=== PATIENT | male | born 1955 | race African-American/Black ===

== ENCOUNTER 2016-12-06 03:46 | Observation (INO) | payer SELFPAY ==
[~2016-12-06] VITALS: Ht 185.4 cm; Wt 77.0 kg
[~2016-12-06 03:46] MED LIST: TRAM50 PO; Z.0.NO CURRENT MEDS
[2016-12-06 03:48] VITALS: BP 125/73; PULSE 72; RESP 16; TEMP 98.4; O2SAT 98
[2016-12-06] MEDS ORDERED: SODIUM CHLORIDE 0.9% FLUSH 10 ML FLUSH IVF PRN (05:15)
--- NOTE | 2016-12-06 05:20 | PD ---
HPI Chief Complaint: Pain: Acute or Chronic Time Seen by Provider: 04:58 Travel History International Travel<30 days: No Contact w/Intl Traveler<30days: No Traveled to known affect area: No History of Present Illness HPI PATIENT STATED THAT WOKE UP TO SHARP CHEST ACROSS CHEST ABOUT 3HRS AGO, 09/28, NONRAD, NO ALLEVIATING/AGGRAVATING FACTORS, CURRENTLY CP 03/31, DENIES COUGH/ RUNNY NOSE/SORE THROAT/FEVER/N/V/D/ PCP DR SALAS NO ONCOLOGIST YET PMHX: ONLY RECENTLY DIAGNOSED COLON CANCER, HAS A RIGHT CHEST PORT IN PLACE, NO CHEMO, NO OTHER TREATMENT YET. PFSH Past Medical History Cardiovascular Problems: No Diminished Hearing: No Gastrointestinal Disorders: Yes (STAGE 4 COLON CANCER CURRENTLY) Genitourinary: No Inguinal Hernia: Yes Musculoskeletal: No Neurologic: No Reproductive: No Respiratory: No Tetanus Vaccination: < 5 Years Past Surgical History Appendectomy: Yes Other Surgery: No Social History Alcohol Use: No (QUIT 5 YRS AGO) Tobacco Use: Yes (02/20 PPD) Substance Use: No Allergies-Medications (Allergen,Severity, Reaction): Coded Allergies: No Known Allergies (Verified , 02/23/12) Reported Meds & Prescriptions Reported Meds & Active Scripts Active Ultram (Tramadol HCl) 50 Mg Tab 1 Tab PO Q6HPRN Review of Systems Except as stated in HPI: all other systems reviewed are Neg General / Constitutional: No: Fever Eyes: No: Visual changes HENT: No: Headaches Cardiovascular: Positive: Chest Pain or Discomfort Respiratory: No: Shortness of Breath Gastrointestinal: No: Abdominal Pain Genitourinary: No: Dysuria Musculoskeletal: No: Pain Skin: No Rash Neurologic: No: Weakness Psychiatric: No: Depression Endocrine: No: Polydipsia Hematologic/Lymphatic: No: Easy Bruising Physical Exam Narrative GENERAL: SKIN: Warm and dry. HEAD: Atraumatic. Normocephalic. EYES: Pupils equal and round. No scleral icterus. No injection or drainage. ENT: No nasal bleeding or discharge. Mucous membranes pink and moist. NECK: Trachea midline. No JVD. CARDIOVASCULAR: Regular rate and rhythm. RESPIRATORY: No accessory muscle use. Clear to auscultation. Breath sounds equal bilaterally. GASTROINTESTINAL: Abdomen soft, non-tender, nondistended. MUSCULOSKELETAL: Extremities without clubbing, cyanosis, or edema. No obvious deformities. NEUROLOGICAL: Awake and alert. No obvious cranial nerve deficits. Motor grossly within normal limits. Five out of 5 muscle strength in the arms and legs. Normal speech. PSYCHIATRIC: Appropriate mood and affect; insight and judgment normal. Data Data Last Documented VS Orders Orders Electrocardiogram (12/06/16 05:09) B-Type Natriuretic Peptide (12/06/16 05:09) Ckmb (Isoenzyme) Profile (12/06/16 05:09) Complete Blood Count With Diff (12/06/16 05:09) Comprehensive Metabolic Panel (12/06/16 05:09) Prothrombin Time / Inr (Pt) (12/06/16 05:09) Act Partial Throm Time (Ptt) (12/06/16 05:09) Troponin I (12/06/16 05:09) Lipase (12/06/16 05:09) Ecg Monitoring (12/06/16 05:09) Bilateral Bp Monitoring (12/06/16 05:09) Iv Access Insert/Monitor (12/06/16 05:09) Oximetry (12/06/16 05:09) Oxygen Administration (12/06/16 05:09) Sodium Chloride 0.9% Flush (Ns Flush) (12/06/16 05:15) Ct Pulmonary Angiogram (12/06/16 05:09) Iohexol 350 Inj (Omnipaque 350 Inj) (12/06/16 05:45) Admit Order (Ed Use Only) (12/06/16 06:19) Activity Bed Rest With Brp (12/06/16 06:19) Vital Signs (Adult) Q4H (12/06/16 06:19) Cardiac Rhythm .As Directed (12/06/16 06:19) Notify Dr: Other .PRN (12/06/16 06:19) Notify Dr. Parameters (12/06/16 06:19) Resp Oxygen Nasal Cannula (12/06/16 ) Ckmb (Isoenzyme) Profile (12/06/16 06:19) Ckmb (Isoenzyme) Profile (12/06/16 09:19) Troponin I (12/06/16 06:19) Troponin I (12/06/16 09:19) Electrocardiogram (12/06/16 06:19) ^ Obtain (12/06/16 06:19) Sodium Chloride 0.9% Flush (Ns Flush) (12/06/16 06:30) Sodium Chloride 0.9% Flush (Ns Flush) (12/06/16 09:00) Ondansetron Inj (Zofran Inj) (12/06/16 06:30) Nitroglycerin Sl (Nitrostat Sl) (12/06/16 06:30) Aspirin Chew (Aspirin Chew) (12/06/16 06:30) Organ Pipe Maker Metal / Telemetry RODNEY.Q8H (12/06/16 06:19) Labs Laboratory Tests Test 12/06/16 05:20 White Blood Count 6.1 TH/MM3 Red Blood Count 5.32 MIL/MM3 Hemoglobin 14.1 GM/DL Hematocrit 42.9 % Mean Corpuscular Volume 80.6 FL Mean Corpuscular Hemoglobin 26.5 PG Mean Corpuscular Hemoglobin Concent 32.8 % Red Cell Distribution Width 13.6 % Platelet Count 262 TH/MM3 Mean Platelet Volume 8.2 FL Neutrophils (%) (Auto) 42.1 % Lymphocytes (%) (Auto) 41.2 % Monocytes (%) (Auto) 10.3 % Eosinophils (%) (Auto) 5.4 % Basophils (%) (Auto) 1.0 % Neutrophils # (Auto) 2.6 TH/MM3 Lymphocytes # (Auto) 2.5 TH/MM3 Monocytes # (Auto) 0.6 TH/MM3 Eosinophils # (Auto) 0.3 TH/MM3 Basophils # (Auto) 0.1 TH/MM3 CBC Comment DIFF FINAL Differential Comment Prothrombin Time 10.6 SEC Prothromb Time International Ratio 1.0 RATIO Activated Partial Thromboplast Time 26.0 SEC Blood Urea Nitrogen 8 MG/DL Creatinine 0.89 MG/DL Random Glucose 82 MG/DL Total Protein 7.4 GM/DL Albumin 3.6 GM/DL Calcium Level 9.0 MG/DL Alkaline Phosphatase 79 U/L Aspartate Amino Transf (AST/SGOT) 15 U/L Alanine Aminotransferase (ALT/SGPT) 25 U/L Total Bilirubin 0.2 MG/DL Sodium Level 140 MEQ/L Potassium Level 4.1 MEQ/L Chloride Level 108 MEQ/L Carbon Dioxide Level 26.5 MEQ/L Anion Gap 6 MEQ/L Estimat Glomerular Filtration Rate 106 ML/MIN Total Creatine Kinase 65 U/L Troponin I LESS THAN 0.02 NG/ML B-Type Natriuretic Peptide 36 PG/ML Lipase 163 U/L MDM Medical Decision Making Medical Screen Exam Complete: Yes Emergency Medical Condition: Yes Medical Record Reviewed: Yes Interpretation(s) NSR 60, NO STEMI PATTERN, SOME J POINT ELEV Differential Diagnosis STEMI V NONSTEMI V PE V PNA V PTX Narrative Course patien ekg did not show stemi, cxr neg for pna/ptx, ct neg for pe/pericardial effusion/thoracic aneurysm/dissection. at this point prudent to place in obs to the chest pain center for further cardiac risk stratification Diagnosis Primary Impression: CHEST PAIN Admitting Information Admitting Physician Requests: Daniel Rodney MD Dec 06, 2016 05:20
[2016-12-06 05:34] LABS: AUTOMATED NEUTROPHIL # 2.6 TH/MM3 (1.8-7.7); BASOPHIL # 0.1 TH/MM3 (0-0.2); EOSINOPHIL # 0.3 TH/MM3 (0-0.4); EOSINOPHIL % 5.4 % (0.0-4.0); HEMATOCRIT 42.9 % (39.0-51.0); HEMO FLAGS DIFF FINAL; LYMPH % 41.2 % (9.0-44.0); LYMPHOCYTE # 2.5 TH/MM3 (1.0-4.8); MEAN CELL VOLUME 80.6 FL (80.0-100.0); MEAN CORPUSCULAR HEMOGLOBIN 26.5 PG (27.0-34.0); MEAN CORPUSCULAR HGB CONC 32.8 % (32.0-36.0); MONO % 10.3 % (0.0-8.0); NEUT % 42.1 % (16.0-70.0); PLATELET COUNT 262 TH/MM3 (150-450); RED BLOOD COUNT 5.32 MIL/MM3 (4.50-5.90); RED CELL DISTRIBUTION WIDTH 13.6 % (11.6-17.2); WHITE BLOOD COUNT 6.1 TH/MM3 (4.0-11.0)
[2016-12-06] MEDS ORDERED: IOHEXOL 350 MG/ML 10 ML VIAL (for RAD DIAG) IVCONTRAST ONE (05:45)
[2016-12-06 05:47] LABS: PROTHROMBIN TIME - PATIENT 10.6 SEC (9.8-11.6)
[2016-12-06 05:51] LABS: ALT (GPT) 25 U/L (12-78); ANION GAP 6 MEQ/L (5-15); AST (GOT) 15 U/L (15-37); BICARBONATE 26.5 MEQ/L (21.0-32.0); BLOOD UREA NITROGEN 8 MG/DL (7-18); CHLORIDE 108 MEQ/L (98-107); GLOMERULAR FILTRATION RATE 106 ML/MIN (>89); POTASSIUM 4.1 MEQ/L (3.5-5.1); SODIUM (NA) 140 MEQ/L (136-145); TOTAL BILIRUBIN ADULT 0.2 MG/DL (0.2-1.0)
[2016-12-06 05:53] LABS: ALKALINE PHOSPHATASE 79 U/L (45-117)
[2016-12-06 06:01] VITALS: BP 136/82; PULSE 57; RESP 17; O2SAT 100
--- NOTE | 2016-12-06 06:05 | RADRPT ---
EXAM DATE/TIME: 12/06/2016 05:43 [facility] COMPARISON: No previous studies available for comparison. INDICATIONS : Chest pain. IV CONTRAST: 70 cc Omnipaque 350 (iohexol) IV RADIATION DOSE: 23.49 CTDIvol (mGy) MEDICAL HISTORY : Carcinoma, colon. SURGICAL HISTORY : Appendectomy. Port placement. ENCOUNTER: Initial ACUITY: 1 day PAIN SCALE: 8/10 LOCATION: Bilateral chest TECHNIQUE: Volumetric scanning of the chest was performed using a pulmonary embolism protocol MIP images were re constructed. Using automated exposure control and adjustment of the mA and/or kV according to patien t size, radiation dose was kept as low as reasonably achievable to obtain optimal diagnostic quality images. DICOM format image data is available electronically for review and comparison. Follow-up recommendations for detected pulmonary nodules are based at a minimum on nodule size and pa tient risk factors according to Fleischner Society Guidelines. FINDINGS: PULMONARY ARTERIES: No filling defects are seen in the pulmonary arteries through the segmental level. LUNGS: There is no consolidation or pneumothorax . No concerning pulmonary nodule is visualized. PLEURAE: There is no pleural thickening or pleural effusion. There is eventration of the left hemidiaphragm. MEDIASTINUM: There is good visualization of the great vessels of the middle mediastinum. No evidence of mediastin al or hilar adenopathy/mass. Coronary artery calcifications are present. MUSCULOSKELETAL: Within normal limits for patient age. MISCELLANEOUS: The visualized upper abdominal organs demonstrate no acute abnormality. CONCLUSION: 1. No evidence of pulmonary embolism. Vikas Escamilla MD on December 06, 2016 at 6:00 Board Certified Radiologist. This report was verified electronically.
[2016-12-06 06:06] LABS: CREATINE KINASE 65 U/L (39-308)
[2016-12-06] MEDS ORDERED: ASPIRIN 81 MG CHEW TAB PO ONE (06:30)
[2016-12-06] MEDS ORDERED: NITROGLYCERIN 0.4 MG SL 25 TABS/BTL SL PRN (06:30)
[2016-12-06] MEDS ORDERED: SODIUM CHLORIDE 0.9% FLUSH 10 ML FLUSH IV FLUSH PRN (06:30)
[2016-12-06] MEDS ORDERED: ONDANSETRON HCL 4 MG/2 ML VIAL IV PUSH PRN (06:30)
[2016-12-06 07:12] VITALS: BP 138/75; PULSE 58; RESP 16; TEMP 98.3; O2SAT 100
[2016-12-06 08:21] LABS: CREATINE KINASE 122 U/L (39-308)
[2016-12-06 08:33] LABS: CKMB 0.6 NG/ML (0.5-3.6)
[2016-12-06] MEDS ORDERED: SODIUM CHLORIDE 0.9% FLUSH 10 ML FLUSH IV FLUSH SCH (09:00)
[2016-12-06 09:39] VITALS: BP 129/73; PULSE 53; RESP 22; TEMP 97.7; O2SAT 99
--- NOTE | 2016-12-06 10:23 | HHI.HP ---
[facility] Primary Care Physician Bell Ruiz MD Chief Complaint Chest pain History of Present Illness This is a 61-year-old male states recently diagnosed stage IV colon cancer that presents to ED with a complaint of chest discomfort and chronic lower abdominal discomfort. States the chest discomfort began about midnight last night. As sharp. Her last for a few seconds but reoccurred a few times. He had no shortness of breath, nausea, or diaphoresis with the. This concerned him and a sister so he came to the ED. Also complaining of chronic lower abdominal pain. States he was admitted for quite some time in [facility] for this and was diagnosed November 20 with stage IV colon cancer. He has followed an oncologist at [facility] and has a port. Really is not aware of any further plan, states he was not happy with them and is looking for different oncologist. Denies black or tarry stool. He has not been vomiting. States the discomfort is the same discomfort has been having in that he was prescribed Dilaudid and tramadol for. States he does not like to take tramadol as he is worried will cause constipation. Denies fevers or chills. Currently denies chest discomfort. Cannot recall having a prior stress test. Review of Systems General: Patient denies fevers, chills recent, and recent travel HEENT: Patient denies headache, sore throat, difficulty swallowing. Cardiovascular: Has the chest discomfort as mentioned above. Denies sensation of heart beating rapidly or irregularly. No syncope. Denies diaphoresis. Respiratory: Denies shortness of breath or inspirational chest discomfort. Denies coughing wheezing or hemoptysis. GI: He has had lower abdominal discomfort for months, states he's recent diagnosed with stage IV colon cancer. Patient denies nausea, vomiting, diarrhea , bloody stools. Musculoskeletal: Patient denies joint pain or edema. Denies calf pain or edema. Neurovascular: Patient denies numbness, tingling, weakness in extremities. Denies headache. Endocrine: Denies polyuria and polydipsia. Hematologic: Denies easy bruising. Skin: Denies rash or itching. Past Family Social History Allergies: Coded Allergies: No Known Allergies (Verified , 02/23/12) Past Medical History States he's recent diagnosed with colon cancer. Tobacco abuse. Denies hypertension, diabetes, CAD, and hyperlipidemia but also readily admits he never really followed with her PCP to have this evaluated. Past Surgical History Colonoscopy recently. Appendectomy. Reported Medications Reported Meds & Active Scripts Active Ultram (Tramadol HCl) 50 Mg Tab 1 Tab PO Q6HPRN Reported No Current Meds (Miscellaneous Medication) Misc Active Ordered Medications Current Medications Medications (Trade) Dose Ordered Sig/Deepika Route Start Time Stop Time Status Last Admin (NS Flush) 2 ml UNSCH PRN IVF 12/06/16 05:15 (NS Flush) 2 ml UNSCH PRN IV FLUSH 12/06/16 06:30 (NS Flush) 2 ml BID IV FLUSH 12/06/16 09:00 12/06/16 09:04 (Zofran Inj) 4 mg Q6H PRN IV PUSH 12/06/16 06:30 (Nitrostat Sl) 0.4 mg Q5M PRN SL 12/06/16 06:30 Family History Denies family history of CAD. Social History Patient smoking any cigarettes for last 4 months. Prior that he smoked one half pack of cigarettes daily for 35 years. Denies alcohol or illicit drugs. Physical Exam Vital Signs Vital Signs Date Time Temp Pulse Resp B/P (MAP) Pulse Ox O2 Delivery O2 Flow Rate FiO2 12/06/16 09:39 97.7 53 22 129/73 (91) 99 12/06/16 09:14 12/06/16 07:12 98.3 58 16 138/75 (96) 100 Room Air 12/06/16 06:01 57 17 136/82 (100) 100 Room Air 12/06/16 03:48 98.4 72 16 125/73 (90) 98 Room Air Physical Exam GENERAL: This is a well-nourished, well-developed patient, in no apparent distress. Patient speaks in clear complete sentences. Patient is pleasant. HEENT: Head is atraumatic and normocephalic. Neck is supple without lymphadenopathy and trachea is midline. No JVD or carotid bruits. CARDIOVASCULAR: Regular rate and rhythm without murmurs, gallops, or rubs. RESPIRATORY: Clear to auscultation. Breath sounds equal bilaterally. No wheezes , rales, or rhonchi. Chest wall is nontender. No use of accessory muscles. GASTROINTESTINAL: There is some lower abdominal discomfort when palpating. No guarding or rebound. Abdomen soft. States this is his chronic abdominal pain. No obvious pulsatile mass or bruit. No CVA tenderness. Strong femoral pulses bilaterally. Normal bowel sounds in all quadrants. MUSCULOSKELETAL: Patient is moving upper and lower extremities freely. No calf tenderness or edema, no Homans sign. Strong pulses in upper and lower extremities. NEUROLOGICAL: Patient is alert and oriented. Cranial nerves 2-12 are grossly intact. No focal deficits and speech is clear. SKIN: No rash and turgor is normal. Laboratory Laboratory Tests Test 12/06/16 05:20 12/06/16 06:38 White Blood Count 6.1 Red Blood Count 5.32 Hemoglobin 14.1 Hematocrit 42.9 Mean Corpuscular Volume 80.6 Mean Corpuscular Hemoglobin 26.5 Mean Corpuscular Hemoglobin Concent 32.8 Red Cell Distribution Width 13.6 Platelet Count 262 Mean Platelet Volume 8.2 Neutrophils (%) (Auto) 42.1 Lymphocytes (%) (Auto) 41.2 Monocytes (%) (Auto) 10.3 Eosinophils (%) (Auto) 5.4 Basophils (%) (Auto) 1.0 Neutrophils # (Auto) 2.6 Lymphocytes # (Auto) 2.5 Monocytes # (Auto) 0.6 Eosinophils # (Auto) 0.3 Basophils # (Auto) 0.1 CBC Comment DIFF FINAL Differential Comment Prothrombin Time 10.6 Prothromb Time International Ratio 1.0 Activated Partial Thromboplast Time 26.0 Blood Urea Nitrogen 8 Creatinine 0.89 Random Glucose 82 Total Protein 7.4 Albumin 3.6 Calcium Level 9.0 Alkaline Phosphatase 79 Aspartate Amino Transf (AST/SGOT) 15 Alanine Aminotransferase (ALT/SGPT) 25 Total Bilirubin 0.2 Sodium Level 140 Potassium Level 4.1 Chloride Level 108 Carbon Dioxide Level 26.5 Anion Gap 6 Estimat Glomerular Filtration Rate 106 Total Creatine Kinase 65 122 Troponin I LESS THAN 0.02 LESS THAN 0.02 B-Type Natriuretic Peptide 36 Lipase 163 Creatine Kinase MB 0.6 Result Diagram: 12/06/1651912/06/16519 Caprini VTE Risk Assessment Caprini VTE Risk Assessment: Mod/High Risk (score >= 2) Caprini Risk Assessment Model Point Value = 1 Point Value = 2 Point Value = 3 Point Value = 5 Age 41-60 Minor surgery BMI > 25 kg/m2 Swollen legs Varicose veins or History of unexplained or recurrent spontaneous Oral contraceptives or hormone replacement Sepsis (< 1 month) Serious lung disease, including pneumonia (< 1 month) Abnormal pulmonary function Acute myocardial infarction Congestive heart failure (< 1 month) History of inflammatory bowel disease Medical patient at bed rest Age 61-74 Arthroscopic surgery Major open surgery (> 45 min) Laparoscopic surgery (> 45 min) Malignancy Confined to bed (> 72 hours) Immobilizing plaster cast Central venous access Age >= 75 History of VTE Family history of VTE Factor V Leiden Prothrombin [id number] Lupus anticoagulant Anticardiolipin antibodies Elevated serum homocysteine Heparin-induced thrombocytopenia Other congenital or acquired thrombophilia Stroke (< 1 month) Elective arthroplasty Hip, pelvis, or leg fracture Acute spinal cord injury (< 1 month) Prophylaxis Regimen Total Risk Factor Score Risk Level Prophylaxis Regimen 0-1 Low Early ambulation 2 Moderate Order ONE of the following: *Sequential Compression Device (SCD) *Heparin 5000 units SQ BID 3-4 Higher Order ONE of the following medications: *Heparin 5000 units SQ TID *Enoxaparin/Lovenox 40 mg SQ daily (WT < 150 kg, CrCl > 30 mL/min) *Enoxaparin/Lovenox 30 mg SQ daily (WT < 150 kg, CrCl > 10-29 mL/min) *Enoxaparin/Lovenox 30 mg SQ BID (WT < 150 kg, CrCl > 30 mL/min) AND/OR *Sequential Compression Device (SCD) 5 or more Highest Order ONE of the following medications: *Heparin 5000 units SQ TID (Preferred with Epidurals) *Enoxaparin/Lovenox 40 mg SQ daily (WT < 150 kg, CrCl > 30 mL/min) *Enoxaparin/Lovenox 30 mg SQ daily (WT < 150 kg, CrCl > 10-29 mL/min) *Enoxaparin/Lovenox 30 mg SQ BID (WT < 150 kg, CrCl > 30 mL/min) AND *Sequential Compression Device (SCD) Assessment and Plan Assessment and Plan * Chest pain: Patient will have serial cardiac enzymes and EKGs for ruling out purposes. He will be seen by Dr. Mayer of cardiology in the chest pain center and undergo a Lexiscan. He will be discharged if the Lexiscan is nonischemic with instructions to follow-up with PCP as well as with oncology. * Chronic abdominal pain: Patient states he was diagnosed with colon cancer November 20, 2016. He will need to follow-up with oncology. Patient is stable at this time. He is agreeable to this plan. Jordy Corey Dec 06, 2016 10:23
[2016-12-06] MEDS ORDERED: REGADENOSON INJ 0.4 MG/5 ML SYR ONE (10:34)
--- NOTE | 2016-12-06 11:59 | RADRPT ---
EXAM DATE/TIME: 12/06/2016 10:10 [facility] COMPARISON: No previous studies available for comparison. INDICATIONS : Chest pain for one day. Angina. DOSE: 25.7 mCi Tc99m Myoview at stress. 8.7 mCi Tc99m Myoview at rest. 0.4 mg Lexiscan STRESS SYMPTOMS: Chest pressure, shortness of breath. EJECTION FRACTION: 63% MEDICAL HISTORY : Carcinoma, colon. Smoking history. SURGICAL HISTORY : Inguinal hernia repair. ENCOUNTER: Initial ACUITY: 1 day PAIN SCALE: 8/10 LOCATION: Bilateral chest TECHNIQUE: The patient underwent pharmacologic stress with infusion of prescribed dose. Continuous ECG tracing was monitored during stress. Gated SPECT imaging was performed after stress and conventional SPECT i maging was performed at rest. The examination was performed on a SPECT/CT scanner, both attenuation and non-corrected datasets were reviewed. FINDINGS: DISTRIBUTION: The maximum perfused segment at stress is in the anteroseptal wall. PERFUSION STUDY: There is 10% redistribution involving the anterior wall. No significant redistribution of greater jah n 20% appreciated. GATED STUDY: There is intact wall motion and thickening without hypokinetic or dyskinetic segments. CONCLUSION: No reversible defects observed to suggest acute ischemia. RISK CATEGORY: Low Avel Griffin Jr., MD on December 06, 2016 at 11:53 Board Certified Radiologist. This report was verified electronically.
[2016-12-06 12:09] VITALS: PULSE 53
[2016-12-06 12:49] VITALS: BP 113/62; PULSE 59; RESP 20; TEMP 98.1; O2SAT 100
--- NOTE | 2016-12-06 14:09 | HHI.DCPOC ---
Discharge Care Plan Diagnosis: (1) Chest pain, atypical (2) Tobacco abuse Goals to Promote Your Health * To prevent worsening of your condition and complications * To maintain your health at the optimal level Directions to Meet Your Goals Take your medications as prescribed Follow your dietary instruction Follow activity as directed Keep your appointments as scheduled Take your immunizations and boosters as scheduled If your symptoms worsen call your PCP, if no PCP go to Urgent Care Center or Emergency Room Smoking is Dangerous to Your Health. Avoid second hand smoke Call the 24-hour hour crisis hotline for domestic abuse at Jordy Corey Dec 06, 2016 14:09
[2016-12-06 15:03] LABS: CREATINE KINASE 53 U/L (39-308)
--- NOTE | 2016-12-06 15:24 | TR ---
Date Performed: 12/06/2016 Time Performed: 10:41:53 DOCTOR: Paulino Mayer DRUG LIST: CLINICAL HISTORY: ANGINA REASON FOR TEST: REASON FOR ENDING: OBSERVATION: CONCLUSION: Lexiscan stress test was performed under standard four minute protocol. Radionuclid e was injected one minute prior to ending the test. No electrocardiographic abormalities were present to suggest ischemia. Nuclear imaging and interpretation are pending. COMMENTS:
--- NOTE | 2016-12-06 15:31 | EKG ---
Date Performed: 12/06/2016 Time Performed: 06:32:31 PTAGE: 61 years EKG: SINUS BRADYCARDIA MODERATE INTRAVENTRICULAR CONDUCTION DELAY BORDERLINE ECG PREVIOUS TRACING : 12/06/2016 05.04 Since previous tracing, no significant change noted DOCTOR: Paulino Mayer Interpretating Date/Time 12/06/2016 15:29:58
--- NOTE | 2016-12-06 15:32 | EKG ---
Date Performed: 12/06/2016 Time Performed: 05:04:52 PTAGE: 61 years EKG: Sinus rhythm NORMAL ECG PREVIOUS TRACING : 04/04/2011 03.58 Since previous tracing, no significant change noted DOCTOR: Paulino Mayer Interpretating Date/Time 12/06/2016 15:30:57
== END 2016-12-06 15:04 | disposition home or self-care (01) ==
LOC: NEPC 03:46 → NEDA 06:20 → NEPFCDU 09:10
DX: R07.89 Other chest pain (principal); G89.29 Other chronic pain; R10.9 Unspecified abdominal pain; C18.9 Malignant neoplasm of colon, unspecified; F17.200 Nicotine dependence, unspecified, uncomplicated
CPT/HCPCS: 71275; 78452; 80053; 82550; 82552; 83690; 83880; 84484; 85025; 85610; 85730; 93005; 93017; 99285; A9502; G0378; J2785; Q9967

== ENCOUNTER 2017-01-01 23:43 | Emergency (ER) | payer MEDICAID, OTHER ==
[~2017-01-01] VITALS: Ht 185.4 cm; Wt 70.5 kg
[~2017-01-01 23:43] MED LIST changes: +CARA1TAB6 PO; +DILA4TAB10 PO; +FAMO20TA2 PO; -TRAM50 PO; -Z.0.NO CURRENT MEDS
[2017-01-01 23:44] VITALS: BP 129/73; PULSE 88; RESP 22; TEMP 98.5; O2SAT 98
--- NOTE | 2017-01-02 00:40 | PD ---
HPI Chief Complaint: Abdominal Pain Time Seen by Provider: 00:21 Travel History International Travel<30 days: No Contact w/Intl Traveler<30days: No Traveled to known affect area: No History of Present Illness HPI The patient is a 61 year old male who presents to the [facility] emergency department with a history of abdominal pain that recurred at 8PM tonight. The pain is all over the abdomen. It began just after eating. He had one episode of vomiting. No diarrhea. He last bowel movement was earlier today. He moved his bowels twice yesterday. His symptoms are similar to when he was diagnosed with a bowel obstruction related to colon cancer. He was given a prescription for liquid morphine from Dr. Hightower earlier today for this pain, however the pharmacy has to order the medication for him. He received his first chemotherapy on 12/25. On review of systems, he denies having any recent fevers , cough, congestion, neck pain, chest pain, shortness of breath, urinary symptoms, or neurologic symptoms. PFSH Past Medical History Narrative Medical The patient's past medical history is significant for colon cancer, currently on chemotherapy. Asthma: No Blood Disorders: No Anxiety: No Depression: No Heart Rhythm Problems: No Cancer: Yes (colon) Cardiovascular Problems: No High Cholesterol: No Chemotherapy: Yes (01/01 first treatment) Chest Pain: No Congestive Heart Failure: No COPD: No Diabetes: No Diminished Hearing: No Endocrine: No Gastrointestinal Disorders: Yes (STAGE 4 COLON CANCER CURRENTLY) Genitourinary: Yes Immune Disorder: No Inguinal Hernia: Yes Implanted Vascular Access Dvce: Yes Musculoskeletal: No Neurologic: No Psychiatric: No Reproductive: No Respiratory: No Radiation Therapy: No Sleep Apnea: No Thyroid Disease: No Tetanus Vaccination: < 5 Years Past Surgical History Narrative Surgical The patient's past surgical history is significant for hernia repair, appendectomy. Appendectomy: Yes Body Medical Devices: PORT Other Surgery: Yes (port right oct 2016) Social History Alcohol Use: No (QUIT 5 YRS AGO) Tobacco Use: No (quit in 11/2016.) Substance Use: Yes (CRACK AND MARIJUANA LAST USED IN 2005) Allergies-Medications (Allergen,Severity, Reaction): Coded Allergies: No Known Allergies (Verified , 12/16/16) Reported Meds & Prescriptions Reported Meds & Active Scripts Active Dilaudid (Hydromorphone HCl) 4 Mg Tab 4 Mg PO Q4H PRN DO NOT USE THIS MEDICINE IF YOU WILL DRIVE A CAR OR USE A MACHINE, ONLY USE IT WHEN RESTING AT HOME. Carafate (Sucralfate) 1 Gram Tab 1 Gm PO QID On empty stomach Famotidine 20 Mg Tab 20 Mg PO BID Review of Systems Except as stated in HPI: all other systems reviewed are Neg General / Constitutional: No: Fever Eyes: No: Visual changes HENT: No: Headaches Cardiovascular: No: Chest Pain or Discomfort Respiratory: No: Shortness of Breath Gastrointestinal: Positive: Nausea, Vomiting, Abdominal Pain, No: Hematemesis, Hematochezia, Indigestion, Loss of Appetite Genitourinary: No: Dysuria Musculoskeletal: No: Pain Skin: No Rash Neurologic: No: Weakness Psychiatric: No: Depression Endocrine: No: Polydipsia Hematologic/Lymphatic: No: Easy Bruising Physical Exam Narrative General: The patient is a well-developed well-nourished male in no acute distress. Head and Neck exam: Head is normocephalic atraumatic. Eyes: EOMI, pupils are equal round and reactive to light. Nose: Midline septum with pink mucous membranes Mouth: Dentition unremarkable. Moist mucus membranes. Posterior oropharynx is not erythematous. No tonsillar hypertrophy. Uvula midline. Airway patent. Neck: No palpable lymphadenopathy. No nuchal rigidity. No thyromegaly. Cardiovascular: Regular rate and rhythm without murmurs, gallops, or rubs. No pulse deficit to the extremities. Lungs: Clear to auscultation bilaterally. No wheezes, rhonchi, or rales. Abdomen: Soft, with reported tenderness on palpation along bilateral lower quadrants of the abdomen, worse on the left compared to the right. No specific point tenderness on palpation over McBurney's point. No guarding, rebound, or rigidity. Normal bowel sounds are audible. Negative Leija's sign. Extremities: No clubbing, cyanosis, or edema. 2+ pulses in all 4 extremities. Back: No spinous process tenderness to palpation. No costovertebral angle tenderness to palpation. Neurologic Exam: Grossly nonfocal. Skin Exam: No rash noted. Intact skin that is warm and dry. Data Data Last Documented VS Vital Signs Date Time Temp Pulse Resp B/P (MAP) Pulse Ox O2 Delivery O2 Flow Rate FiO2 01/02/17 03:03 01/02/17 00:51 99 Room Air 01/01/17 23:44 98.5 88 22 Orders Orders Electrocardiogram (01/02/17 00:24) Complete Blood Count With Diff (01/02/17 00:24) Comprehensive Metabolic Panel (01/02/17 00:24) Troponin I (01/02/17 00:24) Lipase (01/02/17 00:24) Urinalysis - C+S If Indicated (01/02/17 00:24) Magnesium (Mg) (01/02/17 00:24) Iv Access Insert/Monitor (01/02/17 00:24) Ecg Monitoring (01/02/17 00:24) Oximetry (01/02/17 00:24) Lactic Acid (01/02/17 00:24) Morphine Inj (Morphine Inj) (01/02/17 01:00) Ondansetron Inj (Zofran Inj) (01/02/17 01:00) Sodium Chlorid 0.9% 500 Ml Inj (Ns 500 M (01/02/17 01:00) Abdomen, Flat & Upright (01/02/17 01:44) Potassium Chloride Eff (K-Lyte Cl Eff) (01/02/17 02:45) Morphine Inj (Morphine Inj) (01/02/17 02:45) Ed Discharge Order (01/02/17 03:01) Heparin Central Flush (Heparin Central F (01/02/17 03:15) Labs Laboratory Tests Test 01/02/17 01:20 01/02/17 02:30 White Blood Count 5.1 TH/MM3 Red Blood Count 4.68 MIL/MM3 Hemoglobin 12.3 GM/DL Hematocrit 37.0 % Mean Corpuscular Volume 79.1 FL Mean Corpuscular Hemoglobin 26.3 PG Mean Corpuscular Hemoglobin Concent 33.2 % Red Cell Distribution Width 13.6 % Platelet Count 266 TH/MM3 Mean Platelet Volume 7.6 FL Neutrophils (%) (Auto) 43.6 % Lymphocytes (%) (Auto) 41.9 % Monocytes (%) (Auto) 9.5 % Eosinophils (%) (Auto) 4.0 % Basophils (%) (Auto) 1.0 % Neutrophils # (Auto) 2.2 TH/MM3 Lymphocytes # (Auto) 2.1 TH/MM3 Monocytes # (Auto) 0.5 TH/MM3 Eosinophils # (Auto) 0.2 TH/MM3 Basophils # (Auto) 0.0 TH/MM3 CBC Comment DIFF FINAL Differential Comment Blood Urea Nitrogen 12 MG/DL Creatinine 0.76 MG/DL Random Glucose 93 MG/DL Total Protein 6.8 GM/DL Albumin 3.6 GM/DL Calcium Level 8.9 MG/DL Magnesium Level 2.0 MG/DL Alkaline Phosphatase 69 U/L Aspartate Amino Transf (AST/SGOT) 18 U/L Alanine Aminotransferase (ALT/SGPT) 26 U/L Total Bilirubin 0.5 MG/DL Sodium Level 139 MEQ/L Potassium Level 3.2 MEQ/L Chloride Level 105 MEQ/L Carbon Dioxide Level 25.6 MEQ/L Anion Gap 8 MEQ/L Estimat Glomerular Filtration Rate 127 ML/MIN Lactic Acid Level 0.7 mmol/L Troponin I LESS THAN 0.02 NG/ML Lipase 104 U/L Urine Color YELLOW Urine Turbidity CLEAR Urine pH 6.5 Urine Specific [place] 1.026 Urine Protein 30 mg/dL Urine Glucose (UA) NEG mg/dL Urine Ketones TRACE mg/dL Urine Occult Blood NEG Urine Nitrite NEG Urine Bilirubin NEG Urine Urobilinogen 4.0 MG/DL Urine Leukocyte Esterase NEG Urine RBC 1 /hpf Urine WBC 1 /hpf Urine Squamous Epithelial Cells 1 /hpf Urine Mucus FEW /lpf Microscopic Urinalysis Comment CULT NOT INDICATED MDM Medical Decision Making Medical Screen Exam Complete: Yes Emergency Medical Condition: Yes Medical Record Reviewed: Yes Interpretation(s) Last Impressions Abdomen X-Ray 01/02/17 0144 Signed Impressions: Service Date/Time: Monday, January 02, 2017 02:06 - CONCLUSION: Stable examination. Air fluid levels throughout the abdomen in nondilated loops of small bowel. Ruddy Scales MD Differential Diagnosis Bowel obstruction, versus bowel perforation, versus pain related to colon cancer , versus urinary tract infection, versus ileus Narrative Course During the course of the patients emergency department visit, the patients history, examination, and differential diagnosis were reviewed with the patient. The patient was placed on a director global strategic publisher sales with oximetry and frequent blood pressure monitoring. The patient had IV access obtained and blood work sent for analysis. An abdominal flat and upright was ordered to evaluate for possible underlying obstruction or free air to suggest bowel perforation. The patient was initially provided normal saline a 500 mL bolus 1, morphine for pain, Zofran for nausea. The patients laboratory studies were reviewed and remarkable for a white count of 5.1, hemoglobin 12.3, platelets 266 with 9.5 monocytes, CMP is remarkable for a potassium of 3.2, troponin I less than 0.02, lipase 104, lactic acid 0.7, urinalysis shows 30 protein, trace ketones, 4 urobilinogen. The patient's hypokalemia was supplemented with oral potassium. The patient was again treated for pain. The patient was reexamined and feeling improved. The patient was able to tolerate oral potassium supplementation. Radiology studies were reviewed and remarkable for an abdominal flat and upright reveals a stable examination, compared to previously, air-fluid levels throughout the abdomen and nondilated loops of small bowel. The patient was previously seen by his oncologist earlier today who recommended increasing his pain management regimen to a stronger pain medicine. He did tenderness and at the pharmacy, however he will not be up to pick it up until today as they had to order it. The patient was encouraged to follow up today to get this medication. The patient is resting comfortably and feels better, is alert and in no distress. The patients results and examination findings were discussed with the patient. The repeat examination is unremarkable and benign. The history, exam, diagnostic testing, and current condition do not suggest any significant pathology to warrant further testing, continued ED treatment, admission, or surgical evaluation at this point. The vital signs have been stable. The patient does not have uncontrollable pain, intractable vomiting, or other significant symptoms. The patient's condition is stable and appropriate for discharge. The patient will pursue further outpatient evaluation with a primary care physician or other designated or consulting physician as indicated in the discharge instructions. The patient expressed understanding and was agreeable with this plan. Diagnosis Primary Impression: Abdominal pain Qualified Codes: R10.30 - Lower abdominal pain, unspecified Additional Impression: History of colon cancer Referrals: Oncologist 1 day Patient Instructions: Abdominal Pain (ED), General Instructions Additional Instructions: Fill the prescription for pain medication as previously prescribed by your oncologist later today. Med/Other Pt SpecificInfo: No Change to Meds Disposition: 01 DISCHARGE HOME Condition: Stable Laina Palacio MD Jan 02, 2017 00:40
[2017-01-02 00:51] VITALS: O2SAT 99
[2017-01-02] MEDS ORDERED: ONDANSETRON HCL 4 MG/2 ML VIAL IV PUSH ONE (01:00)
[2017-01-02] MEDS ORDERED: SODIUM CHLORID 0.9% 500 ML INJ 500 ML IV ONE (01:00)
[2017-01-02] MEDS ORDERED: MORPHINE SULFATE 4 MG/ML INJ IV PUSH ONE ×2 (01:00→02:45)
[2017-01-02 01:34] LABS: AUTOMATED NEUTROPHIL # 2.2 TH/MM3 (1.8-7.7); EOSINOPHIL # 0.2 TH/MM3 (0-0.4); HEMO FLAGS DIFF FINAL; LYMPH % 41.9 % (9.0-44.0); LYMPHOCYTE # 2.1 TH/MM3 (1.0-4.8); MEAN CELL VOLUME 79.1 FL (80.0-100.0); MEAN CORPUSCULAR HEMOGLOBIN 26.3 PG (27.0-34.0); MEAN CORPUSCULAR HGB CONC 33.2 % (32.0-36.0); MONO % 9.5 % (0.0-8.0); NEUT % 43.6 % (16.0-70.0); PLATELET COUNT 266 TH/MM3 (150-450); RED BLOOD COUNT 4.68 MIL/MM3 (4.50-5.90); RED CELL DISTRIBUTION WIDTH 13.6 % (11.6-17.2); WHITE BLOOD COUNT 5.1 TH/MM3 (4.0-11.0)
[2017-01-02 01:58] LABS: ALT (GPT) 26 U/L (12-78); ANION GAP 8 MEQ/L (5-15); AST (GOT) 18 U/L (15-37); BICARBONATE 25.6 MEQ/L (21.0-32.0); BLOOD UREA NITROGEN 12 MG/DL (7-18); CHLORIDE 105 MEQ/L (98-107); GLOMERULAR FILTRATION RATE 127 ML/MIN (>89); POTASSIUM 3.2 MEQ/L (3.5-5.1); SODIUM (NA) 139 MEQ/L (136-145)
[2017-01-02 02:02] LABS: ALKALINE PHOSPHATASE 69 U/L (45-117); TOTAL BILIRUBIN ADULT 0.5 MG/DL (0.2-1.0)
--- NOTE | 2017-01-02 02:20 | RADRPT ---
EXAM DATE/TIME: 01/02/2017 02:06 [facility] COMPARISON: No previous studies available for comparison. INDICATIONS : Abdominal pain. MEDICAL HISTORY : Carcinoma, colon SURGICAL HISTORY : Appendectomy. Inguinal hernia repair ENCOUNTER: [facility] ACUITY: 1 month PAIN SCORE: 8/10 LOCATION: all quadrants. FINDINGS: Supine and upright views of the abdomen were performed. The abdominal bowel gas pattern is normal. T here are numerous air-fluid levels throughout the abdomen in nondilated loops of small bowel. No air fluid levels are seen. No abnormal masses, calcifications, or organomegaly is seen. The visualized lower lungs are clear. No evidence of free intraperitoneal gas. The osseous structures are unremark able. CONCLUSION: Stable examination. Air fluid levels throughout the abdomen in nondilated loops of small bowel. Ruddy Scales MD on January 02, 2017 at 2:18 Board Certified Radiologist. This report was verified electronically.
[2017-01-02] MEDS ORDERED: POTASSIUM CHLORIDE 25 MEQ EFFERVESCENT TAB PO ONE (02:45)
[2017-01-02 02:58] LABS: BLOOD, URINE NEG (NEG); GLUCOSE,URINE NEG (NEG); KETONE, URINE TRACE mg/dL (NEG); MUCUS URINE FEW /lpf (OCC); NITRITE,URINE NEG (NEG); PH, URINE 6.5 (5.0-8.5); SQUAMOUS EPITHELIAL CELL URINE 1 /hpf (0-5); URINE COLOR YELLOW (YELLW/STRAW)
[2017-01-02 02:59] LABS: COMMENT (UR) CULT NOT INDICATED; CULTURE IF INDICATED CULT NOT INDICATED
--- NOTE | 2017-01-02 14:10 | EKG ---
Date Performed: 01/02/2017 Time Performed: 00:41:25 PTAGE: 61 years EKG: Sinus rhythm MODERATE INTRAVENTRICULAR CONDUCTION DELAY BORDERLINE ECG PREVIOUS TRACING : 12/22/2016 08.59 Compared to prior tracing no significant change DOCTOR: Asif Pierce Interpretating Date/Time 01/02/2017 14:05:14
== END 2017-01-02 03:21 | disposition home or self-care (01) ==
LOC: NEPC 23:43
DX: R10.30 Lower abdominal pain, unspecified (principal); E87.6 Hypokalemia; R11.2 Nausea with vomiting, unspecified; R94.31 Abnormal electrocardiogram [ECG] [EKG]; Z85.038 Personal history of other malignant neoplasm of large intestine; Z87.448 Personal history of other diseases of urinary system; Z87.891 Personal history of nicotine dependence
CPT/HCPCS: 74020; 80053; 81001; 83605; 83690; 83735; 84484; 85025; 93005; 96361; 96374; 96375; 96376; 99285; J1642; J2270; J2405; J7040

== ENCOUNTER 2017-01-25 10:13 | Inpatient (IN) | payer SELFPAY ==
[~2017-01-25] VITALS: Ht 185.4 cm; Wt 66.5 kg
[2017-01-25] VITALS (7 sets, daily range): BP systolic 105–138; BP diastolic 66–80; PULSE 58–95; RESP 16–20; TEMP 97.7–98.5; O2SAT 96–100
[2017-01-25] MEDS ORDERED: SODIUM CHLOR 0.9% 1000 ML INJ 1,000 ML IV SCH (10:37)
[2017-01-25] MEDS ORDERED: FAMOTIDINE 20 MG/2 ML VIAL IV PUSH ONE (10:45)
[2017-01-25] MEDS ORDERED: ONDANSETRON HCL 4 MG/2 ML VIAL IVP ONE (10:45)
[2017-01-25] MEDS ORDERED: MORPHINE SULFATE 4 MG/ML INJ IV PUSH ONE ×2 (10:45→13:00)
[2017-01-25 11:09] LABS: AUTOMATED NEUTROPHIL # 2.8 TH/MM3 (1.8-7.7); BASOPHIL % 0.8 % (0.0-2.0); HEMATOCRIT 39.5 % (39.0-51.0); HEMO FLAGS DIFF FINAL; LYMPH % 29.3 % (9.0-44.0); LYMPHOCYTE # 1.3 TH/MM3 (1.0-4.8); MEAN CELL VOLUME 77.8 FL (80.0-100.0); MEAN CORPUSCULAR HEMOGLOBIN 25.9 PG (27.0-34.0); MEAN CORPUSCULAR HGB CONC 33.3 % (32.0-36.0); MONO % 6.1 % (0.0-8.0); NEUT % 62.8 % (16.0-70.0); PLATELET COUNT 348 TH/MM3 (150-450); RED BLOOD COUNT 5.08 MIL/MM3 (4.50-5.90); RED CELL DISTRIBUTION WIDTH 13.4 % (11.6-17.2); WHITE BLOOD COUNT 4.5 TH/MM3 (4.0-11.0)
[2017-01-25] MEDS: SODIUM CHLORIDE 0.9% FLUSH 10 ML FLUSH IV FLUSH PRN (11:14)
[2017-01-25 11:19] LABS: INTERNATIONAL NORMALIZED RATIO 1.1 RATIO; PROTHROMBIN TIME - PATIENT 10.8 SEC (9.8-11.6)
[2017-01-25 11:22] LABS: ALT (GPT) 57 U/L (12-78); ANION GAP 9 MEQ/L (5-15); AST (GOT) 70 U/L (15-37); BICARBONATE 31.6 MEQ/L (21.0-32.0); BLOOD UREA NITROGEN 17 MG/DL (7-18); CHLORIDE 92 MEQ/L (98-107); GLOMERULAR FILTRATION RATE 100 ML/MIN (>89); POTASSIUM 3.4 MEQ/L (3.5-5.1); SODIUM (NA) 133 MEQ/L (136-145)
[2017-01-25 11:25] LABS: ALKALINE PHOSPHATASE 97 U/L (45-117); TOTAL BILIRUBIN ADULT 1.1 MG/DL (0.2-1.0)
[2017-01-25] MEDS ORDERED: IOHEXOL 350 MG/ML 10 ML VIAL (for RAD DIAG) IVCONTRAST ONE (12:37)
--- NOTE | 2017-01-25 12:45 | RADRPT ---
EXAM DATE/TIME: 01/25/2017 12:30 [facility] COMPARISON: CT ABDOMEN & PELVIS W CONTRAST, December 16, 2016, 18:47. INDICATIONS : Abdominal pain and cramping IV CONTRAST: 82 cc Omnipaque 350 (iohexol) IV ORAL CONTRAST: No oral contrast ingested. RADIATION DOSE: 4.71 CTDIvol (mGy) MEDICAL HISTORY : Carcinoma, colon. Hernia, inguinal. SURGICAL HISTORY : Appendectomy. ENCOUNTER: Initial ACUITY: 3 days PAIN SCALE: 5/10 LOCATION: diffuse abdomen TECHNIQUE: Volumetric scanning of the abdomen and pelvis was performed. Using automated exposure control and ad justment of the mA and/or kV according to patient size, radiation dose was kept as low as reasonably achievable to obtain optimal diagnostic quality images. DICOM format image data is available electro nically for review and comparison. FINDINGS: LOWER LUNGS: The visualized lower lungs are clear. LIVER: Homogeneous density without lesion. There is no dilation of the biliary tree. No calcified gallston es. Trace ascites. SPLEEN: Normal size without lesion. PANCREAS: Within normal limits. KIDNEYS: Normal in size and shape. There is no mass, stone or hydronephrosis. Left renal cyst. ADRENAL GLANDS: Within normal limits. VASCULAR: There is no aortic aneurysm. BOWEL/MESENTERY: Diffuse small bowel distention and dilatation concerning for obstruction versus ileus ABDOMINAL WALL: Within normal limits. RETROPERITONEUM: There is no lymphadenopathy. BLADDER: No wall thickening or mass. REPRODUCTIVE: Within normal limits. INGUINAL: There is no lymphadenopathy or hernia. MUSCULOSKELETAL: Within normal limits for patient age. CONCLUSION: Small bowel distention concerning for obstruction. Minimal ascites. Left renal cyst. Hermelindo Mcghee MD on January 25, 2017 at 12:39 Board Certified Radiologist. This report was verified electronically.
--- NOTE | 2017-01-25 13:05 | PD ---
HPI Chief Complaint: Abdominal Pain Time Seen by Provider: 10:32 Travel History International Travel<30 days: No Contact w/Intl Traveler<30days: No Traveled to known affect area: No History of Present Illness HPI Patient is a 61-year-old male who comes in complaining of abdominal pain with nausea and vomiting. He says the pain is been going on for the past few days and is getting worse. He says that he has been having issues having bowel movements, but seems to be having some diarrhea. He does report that his abdomen is bloated. He has history of metastatic rectal carcinoma. Currently receiving palliative chemotherapy. He denies fever or chills. He has pain medicine at home, but says he has not been taking it because it causes constipation. PFSH Past Medical History Asthma: No Blood Disorders: No Anxiety: No Depression: No Heart Rhythm Problems: No Cancer: Yes (colon) Cardiovascular Problems: No High Cholesterol: No Chemotherapy: Yes Chest Pain: No Congestive Heart Failure: No COPD: No Diabetes: No Diminished Hearing: No Endocrine: No Gastrointestinal Disorders: Yes (STAGE 4 COLON CANCER CURRENTLY) Genitourinary: Yes Immune Disorder: No Inguinal Hernia: Yes Implanted Vascular Access Dvce: Yes Musculoskeletal: No Neurologic: No Psychiatric: No Reproductive: No Respiratory: No Radiation Therapy: No Sleep Apnea: No Thyroid Disease: No ?: Not Past Surgical History Appendectomy: Yes Body Medical Devices: PORT Other Surgery: Yes (port right oct 2016) Social History Alcohol Use: No (QUIT 5 YRS AGO) Tobacco Use: No (quit in 11/2016.) Substance Use: Yes (CRACK AND MARIJUANA LAST USED IN 2005) Allergies-Medications (Allergen,Severity, Reaction): Coded Allergies: No Known Allergies (Verified Adverse Reaction, Unknown, 01/25/17) Reported Meds & Prescriptions Reported Meds & Active Scripts Active Dilaudid (Hydromorphone HCl) 4 Mg Tab 4 Mg PO Q4H PRN DO NOT USE THIS MEDICINE IF YOU WILL DRIVE A CAR OR USE A MACHINE, ONLY USE IT WHEN RESTING AT HOME. Review of Systems Except as stated in HPI: all other systems reviewed are Neg General / Constitutional: No: Fever, Chills HENT: No: Headaches, Lightheadedness Cardiovascular: No: Chest Pain or Discomfort Respiratory: No: Shortness of Breath Gastrointestinal: Positive: Nausea, Vomiting, Diarrhea, Abdominal Pain Genitourinary: No: Dysuria Musculoskeletal: No: Myalgias, Edema Skin: No Rash, No Change in Pigmentation Neurologic: No: Weakness, Dizziness Physical Exam Narrative GENERAL: Awake and alert, in no acute distress. SKIN: Focused skin assessment warm/dry. No wounds or signs of infection. HEAD: Atraumatic. Normocephalic. EYES: Pupils equal and round. No scleral icterus. ENT: Mucous membranes pink and moist. NECK: Trachea midline. No JVD. CARDIOVASCULAR: Regular rate and rhythm. No murmur appreciated. RESPIRATORY: No accessory muscle use. Clear to auscultation. Breath sounds equal bilaterally. GASTROINTESTINAL: Abdomen distended, diffusely tender to palpation. Hyperactive bowel sounds. MUSCULOSKELETAL: No obvious deformities. No clubbing. No cyanosis. No edema. NEUROLOGICAL: Awake and alert. No obvious cranial nerve deficits. Motor grossly within normal limits. Normal speech. PSYCHIATRIC: Appropriate mood and affect; insight and judgment normal. Data Data Last Documented VS Vital Signs Date Time Temp Pulse Resp B/P (MAP) Pulse Ox O2 Delivery O2 Flow Rate FiO2 01/25/17 10:46 100 Room Air 01/25/17 10:21 98.5 95 16 Orders Orders Complete Blood Count With Diff (01/25/17 10:37) Comprehensive Metabolic Panel (01/25/17 10:37) Lactic Acid (01/25/17 10:37) Prothrombin Time / Inr (Pt) (01/25/17 10:37) Act Partial Throm Time (Ptt) (01/25/17 10:37) Urinalysis - C+S If Indicated (01/25/17 10:37) Ct Abd/Pel W Iv Contrast(Rout) (01/25/17 10:37) Iv Access Insert/Monitor (01/25/17 10:37) Ecg Monitoring (01/25/17 10:37) Oximetry (01/25/17 10:37) Morphine Inj (Morphine Inj) (01/25/17 10:45) Ondansetron Inj (Zofran Inj) (01/25/17 10:45) Sodium Chlor 0.9% 1000 Ml Inj (Ns 1000 M (01/25/17 10:37) Sodium Chloride 0.9% Flush (Ns Flush) (01/25/17 10:45) Famotidine Inj (Pepcid Inj) (01/25/17 10:45) Iohexol 350 Inj (Omnipaque 350 Inj) (01/25/17 12:37) Ng Gastric Tube Insert/Monitor (01/25/17 12:54) Morphine Inj (Morphine Inj) (01/25/17 13:00) Labs Laboratory Tests Test 01/25/17 10:45 White Blood Count 4.5 TH/MM3 Red Blood Count 5.08 MIL/MM3 Hemoglobin 13.2 GM/DL Hematocrit 39.5 % Mean Corpuscular Volume 77.8 FL Mean Corpuscular Hemoglobin 25.9 PG Mean Corpuscular Hemoglobin Concent 33.3 % Red Cell Distribution Width 13.4 % Platelet Count 348 TH/MM3 Mean Platelet Volume 7.5 FL Neutrophils (%) (Auto) 62.8 % Lymphocytes (%) (Auto) 29.3 % Monocytes (%) (Auto) 6.1 % Eosinophils (%) (Auto) 1.0 % Basophils (%) (Auto) 0.8 % Neutrophils # (Auto) 2.8 TH/MM3 Lymphocytes # (Auto) 1.3 TH/MM3 Monocytes # (Auto) 0.3 TH/MM3 Eosinophils # (Auto) 0.0 TH/MM3 Basophils # (Auto) 0.0 TH/MM3 CBC Comment DIFF FINAL Differential Comment Prothrombin Time 10.8 SEC Prothromb Time International Ratio 1.1 RATIO Activated Partial Thromboplast Time 25.0 SEC Blood Urea Nitrogen 17 MG/DL Creatinine 0.94 MG/DL Random Glucose 82 MG/DL Total Protein 8.3 GM/DL Albumin 3.6 GM/DL Calcium Level 9.2 MG/DL Alkaline Phosphatase 97 U/L Aspartate Amino Transf (AST/SGOT) 70 U/L Alanine Aminotransferase (ALT/SGPT) 57 U/L Total Bilirubin 1.1 MG/DL Sodium Level 133 MEQ/L Potassium Level 3.4 MEQ/L Chloride Level 92 MEQ/L Carbon Dioxide Level 31.6 MEQ/L Anion Gap 9 MEQ/L Estimat Glomerular Filtration Rate 100 ML/MIN Lactic Acid Level 1.9 mmol/L MDM Medical Decision Making Medical Screen Exam Complete: Yes Emergency Medical Condition: Yes Medical Record Reviewed: Yes Differential Diagnosis Small bowel obstruction versus metastatic cancer versus electrolyte abnormality versus gastritis Narrative Course Patient is a 61-year-old male who comes in complaining of abdominal pain with nausea, vomiting, diarrhea. Exam shows a distended, tender abdomen. IV established, labs sent. Labs show normal lactic acid as well as a normal white blood cell count. CT abdomen and pelvis performed is concerning for small bowel obstruction. given IV fluids, Zofran, morphine. NG tube placed. Patient will be admitted for further management. Diagnosis Primary Impression: Small bowel obstruction Admitting Information Admitting Physician Requests: Admit Maggi Wong MD Jan 25, 2017 13:05
[2017-01-25] MEDS: SODIUM CHLOR 0.9% 1000 ML INJ 1,000 ML IV SCH (13:21)
--- NOTE | 2017-01-25 13:29 | HHI.HP ---
HPI Service [facility] Primary Care Physician Bell Ruiz MD Admission Diagnosis SBO Diagnoses: Chief Complaint: ABD PAIN /DISTENTION Travel History International Travel<30 Days: No Contact w/Intl Traveler <30 Da: No Traveled to Known Affected Are: No History of Present Illness 61 y/o male with a history of stage 4 colon cancer, currently on palliative chemotherapy following with Dr Hightower oncology. Patient comes in complaining of abdominal pain with nausea and vomiting x3 days worsening this morning. He says the pain is been going on for the past few days and is getting worse. He says that he has been having issues having bowel movements, but seems to be having some diarrhea. He does report that his abdomen is bloated. He has history of metastatic rectal carcinoma. Currently receiving palliative chemotherapy with Dr Hightower. He denies fever or chills. He has pain medicine at home, but says he has not been taking it because it causes constipation. Patient had enema yesterday with some stool but still feel constipated. No fever or chills. Says he wants to get better and to eat. No fever or chills. Review of Systems Except as stated in HPI: all other systems reviewed are Neg Past Family Social History Past Medical History Stage IV colon cancer Tobacco abuse Past Surgical History Port placement Appendectomy Hernia repair Reported Medications Reported Meds & Active Scripts Active Dilaudid (Hydromorphone HCl) 4 Mg Tab 4 Mg PO Q4H PRN DO NOT USE THIS MEDICINE IF YOU WILL DRIVE A CAR OR USE A MACHINE, ONLY USE IT WHEN RESTING AT HOME. 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 SKIN: No rashes, ecchymoses or lesions. Cool and dry. HEAD: Atraumatic. Normocephalic. No temporal or scalp tenderness. EYES: Pupils equal round and reactive. Extraocular motions intact. No scleral icterus. No injection or drainage. ENT: Nose without bleeding, purulent drainage or septal hematoma. Throat without erythema, tonsillar hypertrophy or exudate. Uvula midline. Airway patent. NECK: Trachea midline. No JVD or lymphadenopathy. Supple, nontender, no meningeal signs. CARDIOVASCULAR: Regular rate and rhythm without murmurs, gallops, or rubs. RESPIRATORY: Clear to auscultation. Breath sounds equal bilaterally. No wheezes , rales, or rhonchi. GASTROINTESTINAL:Abdomen distended, diffusely tender to palpation. Hyperactive bowel sounds. MUSCULOSKELETAL: Extremities without clubbing, cyanosis, or edema. No joint tenderness, effusion, or edema noted. No calf tenderness. Negative Homans sign bilaterally. NEUROLOGICAL: Awake and alert. Cranial nerves II through XII intact. Motor and sensory grossly within normal limits. Five out of 5 muscle strength in all muscle groups. Normal speech. Laboratory Laboratory Tests Test 01/25/17 10:45 White Blood Count 4.5 Red Blood Count 5.08 Hemoglobin 13.2 Hematocrit 39.5 Mean Corpuscular Volume 77.8 Mean Corpuscular Hemoglobin 25.9 Mean Corpuscular Hemoglobin Concent 33.3 Red Cell Distribution Width 13.4 Platelet Count 348 Mean Platelet Volume 7.5 Neutrophils (%) (Auto) 62.8 Lymphocytes (%) (Auto) 29.3 Monocytes (%) (Auto) 6.1 Eosinophils (%) (Auto) 1.0 Basophils (%) (Auto) 0.8 Neutrophils # (Auto) 2.8 Lymphocytes # (Auto) 1.3 Monocytes # (Auto) 0.3 Eosinophils # (Auto) 0.0 Basophils # (Auto) 0.0 CBC Comment DIFF FINAL Differential Comment Prothrombin Time 10.8 Prothromb Time International Ratio 1.1 Activated Partial Thromboplast Time 25.0 Blood Urea Nitrogen 17 Creatinine 0.94 Random Glucose 82 Total Protein 8.3 Albumin 3.6 Calcium Level 9.2 Alkaline Phosphatase 97 Aspartate Amino Transf (AST/SGOT) 70 Alanine Aminotransferase (ALT/SGPT) 57 Total Bilirubin 1.1 Sodium Level 133 Potassium Level 3.4 Chloride Level 92 Carbon Dioxide Level 31.6 Anion Gap 9 Estimat Glomerular Filtration Rate 100 Lactic Acid Level 1.9 Result Diagram: 01/25/17 1045 01/25/17 1045 Imaging Last Impressions Abdomen/Pelvis CT 01/25/17 1037 Signed Impressions: Service Date/Time: January 12:30 - CONCLUSION: Small bowel distention concerning for obstruction. Minimal ascites. Left renal cyst. MD Bridget Hair VTE Risk Assessment Bridget VTE Risk Assessment: No/Low Risk (score <= 1) Caprini Risk Assessment Model Point Value = 1 Point Value = 2 Point Value = 3 Point Value = 5 Age 41-60 Minor surgery BMI > 25 kg/m2 Swollen legs Varicose veins or History of unexplained or recurrent spontaneous Oral contraceptives or hormone replacement Sepsis (< 1 month) Serious lung disease, including pneumonia (< 1 month) Abnormal pulmonary function Acute myocardial infarction Congestive heart failure (< 1 month) History of inflammatory bowel disease Medical patient at bed rest Age 61-74 Arthroscopic surgery Major open surgery (> 45 min) Laparoscopic surgery (> 45 min) Malignancy Confined to bed (> 72 hours) Immobilizing plaster cast Central venous access Age >= 75 History of VTE Family history of VTE Factor V Leiden Prothrombin [id number] Lupus anticoagulant Anticardiolipin antibodies Elevated serum homocysteine Heparin-induced thrombocytopenia Other congenital or acquired thrombophilia Stroke (< 1 month) Elective arthroplasty Hip, pelvis, or leg fracture Acute spinal cord injury (< 1 month) Prophylaxis Regimen Total Risk Factor Score Risk Level Prophylaxis Regimen 0-1 Low Early ambulation 2 Moderate Order ONE of the following: *Sequential Compression Device (SCD) *Heparin 5000 units SQ BID 3-4 Higher Order ONE of the following medications: *Heparin 5000 units SQ TID *Enoxaparin/Lovenox 40 mg SQ daily (WT < 150 kg, CrCl > 30 mL/min) *Enoxaparin/Lovenox 30 mg SQ daily (WT < 150 kg, CrCl > 10-29 mL/min) *Enoxaparin/Lovenox 30 mg SQ BID (WT < 150 kg, CrCl > 30 mL/min) AND/OR *Sequential Compression Device (SCD) 5 or more Highest Order ONE of the following medications: *Heparin 5000 units SQ TID (Preferred with Epidurals) *Enoxaparin/Lovenox 40 mg SQ daily (WT < 150 kg, CrCl > 30 mL/min) *Enoxaparin/Lovenox 30 mg SQ daily (WT < 150 kg, CrCl > 10-29 mL/min) *Enoxaparin/Lovenox 30 mg SQ BID (WT < 150 kg, CrCl > 30 mL/min) AND *Sequential Compression Device (SCD) Assessment and Plan Assessment and Plan 61 y/o male with a history of stage 4 colon cancer, has not seen specialist yet presented to the ED with complaints of abdominal pain and constipation. Small bowel obstruction, patient with abdominal pain and constipation Abdomen/pelvis CT reviewed and shows small bowel distention concerning for obstruction, mild ascites. IVF Consult general surgery for recommendations Morphine IV for pain management NPO. Place NGT Colon cancer stage 4 diagnosed in September, chronic On palliative chemo with Dr Hightower. Consult his oncology Dr Hightower Tobacco use, chronic Consult palliative care for goals of care CM consulted for DC plan as need. DVT prophylaxis: SCDs/TEDs Discussed Condition With Patient, nurse, ED physician Physician Certification 2 Midnight Certification Type: Admission for Inpatient Services Order for Inpatient Services The services are ordered in accordance with Medicare regulations or non- Medicare payer requirements, as applicable. In the case of services not specified as inpatient-only, they are appropriately provided as inpatient services in accordance with the 2-midnight benchmark. Estimated LOS (days): 3 days is the estimated time the patient will need to remain in the hospital, assuming treatment plan goals are met and no additional complications. Post-Hospital Plan: Not yet determined Anita Hernandez MD Jan 25, 2017 13:29
[2017-01-25] MEDS ORDERED: MORPHINE SULFATE 2 MG/ML INJ IV PUSH PRN (13:30)
[2017-01-25] MEDS ORDERED: LACTULOSE SYRUP 20 GM/30 ML CUP PO PRN (13:30)
[2017-01-25] MEDS ORDERED: NALOXONE HCL 0.4 MG/ML AMP IV PUSH PRN (13:30)
[2017-01-25] MEDS ORDERED: ACETAMINOPHEN 325 MG TAB PO PRN (13:30)
[2017-01-25] MEDS ORDERED: BISACODYL 10 MG SUPP RECTAL PRN (13:30)
[2017-01-25] MEDS ORDERED: ONDANSETRON HCL 4 MG/2 ML VIAL IVP PRN (13:30)
[2017-01-25] MEDS ORDERED: POTASSIUM CHLORIDE 10 MEQ CONTROLLED RELEASE TAB PO ONE (13:30)
[2017-01-25] MEDS ORDERED: HYDROmorphone HCL 4 MG TAB PO PRN (13:30)
[2017-01-25] MEDS ORDERED: MAGNESIUM HYDROXIDE SUSP 30 ML CUP PO PRN (13:30)
--- NOTE | 2017-01-25 14:55 | PD.CONS ---
Consult Service Palliative Care Consult Requested By Dr. Hernandez Primary Care Physician Bell Ruiz MD Reason for Consultation a. To assist with evaluation and management of symptoms including: Pain, nausea, constipation. b. To assist medical decision maker(s) with: better understanding of current medical conditions; weighing benefits/burdens of medical treatment options; making medical treatment decisions. HPI History of Present Illness This is a 61-year-old male who presented to the emergency room 01/25 with a complaint of abdominal pain, nausea and vomiting 3 days, increasing this morning. He does have a history of metastatic rectal adenocarcinoma with biopsy -proven omental metastasis associated with peritoneal carcinomatosis stage IV for which he is receiving palliative systemic therapy with FOLFOX. He has thus far received 2 doses of treatment. He follows with Dr. Hightower for oncology. He does have pain medication at home which she is reluctant to take as it causes constipation. He has been having alternating constipation and diarrhea. He has been unable to tolerate soft solids or full solids. He has been on a liquid diet at home and has continued to lose weight. Colonoscopy done 12/22/16 showed stenosis in the sigmoid colon with pedunculated polyp 5-9 mm in size just proximal to the stricture. Scope was unable to pass beyond the extrinsic stricture which was found 35 cm from the anal verge. Pathology shows colonic mucosa without significant histologic abnormality. ED course: * Laboratory: WBC 4.5, Hgb 13.2, HCT 39.5, platelet 348, sodium 133, potassium 3.4, BUN 17, creatinine 0.94. * Radiology: CT of the abdomen and pelvis shows small bowel distention concerning for obstruction, minimal ascites, left renal cyst. . Function/Cognitive Trajectory He was diagnosed with metastatic stage IV rectal adenocarcinoma with peritoneal carcinomatosis in November 2016 and states that his top weight was 195 pounds, now 130 pounds. He has become progressively weaker and is unable to eat or drink any sufficient quantity because he vomits everything up and it causes him severe pain when he does eat. He has been admitted multiple times for nausea, vomiting and small bowel obstruction. He is receiving palliative chemotherapy in hopes of shrinking the tumors. He states he has become significantly weak over that time due to lack of nutrition. . Review of Systems Constitutional: COMPLAINS OF: Fatigue, Weight loss, Pain, Generalized weakness Respiratory: COMPLAINS OF: Shortness of breath Gastrointestinal: COMPLAINS OF: Abdominal pain, Constipation, Diarrhea, Nausea , Vomiting Past Family Social History Coded Allergies: No Known Allergies (Verified Allergy, Unknown, 01/25/17) Past Medical History Stage IV metastatic adenocarcinoma of rectal primary associated with peritoneal carcinomatosis Recurrent ileus Protein calorie malnutrition Tobacco abuse . Past Surgical History Port placement Appendectomy Right inguinal Hernia repair 2012 . Reported Medications Reported Meds & Active Scripts Active Dilaudid (Hydromorphone HCl) 4 Mg Tab 4 Mg PO Q4H PRN DO NOT USE THIS MEDICINE IF YOU WILL DRIVE A CAR OR USE A MACHINE, ONLY USE IT WHEN RESTING AT HOME. . Current Medications Medications (Trade) Dose Ordered Sig/Deepika Route Start Time Stop Time Status Last Admin (NS Flush) 2 ml UNSCH PRN IV FLUSH 01/25/17 10:45 01/25/17 11:14 Sodium Chloride 1,000 ml @ 100 mls/hr Q10H IV 01/25/17 13:21 (NS Flush) 2 ml UNSCH PRN IV FLUSH 01/25/17 13:30 (NS Flush) 2 ml BID IV FLUSH 01/25/17 21:00 (Tylenol) 650 mg Q4H PRN PO 01/25/17 13:30 (Zofran Inj) 4 mg Q6H PRN IVP 01/25/17 13:30 (Lovenox Inj) 40 mg Q24H SQ 01/25/17 15:00 (Narcan Inj) 0.4 mg UNSCH PRN IV PUSH 01/25/17 13:30 (Shila-Colace) 1 tab BID PO 01/25/17 21:00 (Milk Of Magnesia Liq) 30 ml Q12H PRN PO 01/25/17 13:30 (Senokot) 17.2 mg Q12HR PRN PO 01/25/17 21:00 (Dulcolax Supp) 10 mg DAILY PRN RECTAL 01/25/17 13:30 (Lactulose Liq) 30 ml DAILY PRN PO 01/25/17 13:30 (Morphine Inj) 2 mg Q4H PRN IV PUSH 01/25/17 13:30 Family History Father at age 84 of prostate cancer. Mother alive and well at 83 with a history of hypertension. . Substance Use Tobacco: Has smoked approximately one half pack per day for over 30 years. He has now converted to E cigarettes and is attempting to quit entirely. . Alcohol: History of heavy alcohol use which he quit 10 years ago. . Prescription med abuse: No history of prescription drug abuse. . Illicits: History of crack cocaine use which he quit 10 years ago. . Psychosocial History He was born in [place] and has lived here most of his life. He did live in [place] for a brief period. 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 He is and has raised his stepson but has no children of his own. He is one of 9 children. He has named his sister, Dilma Monroy as his healthcare surrogate. He currently lives with his mother. . Spiritual/Cultural Factors He states he has a Episcopalian but does not wish sausage machine operator visits. He states "mom has him covered". . Living Will: Completed, but not made available Health Care Surrogate: Completed, but not made available Durable Power of Barrel Brander: Completed, but not made available Physical Exam Vital Signs Date Time Temp Pulse Resp B/P (MAP) Pulse Ox O2 Delivery O2 Flow Rate FiO2 01/25/17 10:46 100 Room Air 01/25/17 10:21 98.5 95 16 105/69 (81) 99 Room Air Exam CONSTITUTIONAL/GENERAL: This is a thin middle-aged male, in no acute distress. TUBES/LINES/DRAINS: NG tube, PIV. SKIN: No jaundice, rashes, or lesions. No wounds seen anteriorly. Skin temperature appropriate. Not diaphoretic. HEAD: Atraumatic. Normocephalic. EYES: Pupils equal and round and reactive. Extraocular motions intact. No scleral icterus. No injection or drainage. Fundi not examined. ENT: Hearing grossly normal. Nose without bleeding or purulent drainage. NECK: Trachea midline. Supple, nontender. No palpable thyroid enlargement or nodularity. CARDIOVASCULAR: Regular rate and rhythm without murmurs, gallops, or rubs. No JVD. Peripheral pulses symmetric. RESPIRATORY/CHEST: Symmetric, unlabored respirations. Clear to auscultation. Breath sounds equal bilaterally. No wheezes, rales, or rhonchi. GASTROINTESTINAL: Abdomen soft, tender to palpation, nondistended. Bowel sounds present. GENITOURINARY: Without palpable bladder distension. MUSCULOSKELETAL: Extremities without clubbing, cyanosis, or edema. No joint tenderness or effusion noted. No calf tenderness. No mottling or clubbing. NEUROLOGICAL: Awake and alert. Motor and sensory grossly within normal limits. Follows commands. Cognitively sharp. Moves all extremities. PSYCHIATRIC: No obvious anxiety/depression. no apparent hallucinations or other psychotic thought process. . Diagnostic Tests Laboratory Laboratory Tests Test 01/25/17 10:45 White Blood Count 4.5 TH/MM3 (4.0-11.0) Red Blood Count 5.08 MIL/MM3 (4.50-5.90) Hemoglobin 13.2 GM/DL (13.0-17.0) Hematocrit 39.5 % (39.0-51.0) Mean Corpuscular Volume 77.8 FL (80.0-100.0) Mean Corpuscular Hemoglobin 25.9 PG (27.0-34.0) Mean Corpuscular Hemoglobin Concent 33.3 % (32.0-36.0) Red Cell Distribution Width 13.4 % (11.6-17.2) Platelet Count 348 TH/MM3 (150-450) Mean Platelet Volume 7.5 FL (7.0-11.0) Neutrophils (%) (Auto) 62.8 % (16.0-70.0) Lymphocytes (%) (Auto) 29.3 % (9.0-44.0) Monocytes (%) (Auto) 6.1 % (0.0-8.0) Eosinophils (%) (Auto) 1.0 % (0.0-4.0) Basophils (%) (Auto) 0.8 % (0.0-2.0) Neutrophils # (Auto) 2.8 TH/MM3 (1.8-7.7) Lymphocytes # (Auto) 1.3 TH/MM3 (1.0-4.8) Monocytes # (Auto) 0.3 TH/MM3 (0-0.9) Eosinophils # (Auto) 0.0 TH/MM3 (0-0.4) Basophils # (Auto) 0.0 TH/MM3 (0-0.2) CBC Comment DIFF FINAL Differential Comment Prothrombin Time 10.8 SEC (9.8-11.6) Prothromb Time International Ratio 1.1 RATIO Activated Partial Thromboplast Time 25.0 SEC (24.3-30.1) Blood Urea Nitrogen 17 MG/DL (7-18) Creatinine 0.94 MG/DL (0.60-1.30) Random Glucose 82 MG/DL (74-106) Total Protein 8.3 GM/DL (6.4-8.2) Albumin 3.6 GM/DL (3.4-5.0) Calcium Level 9.2 MG/DL (8.5-10.1) Alkaline Phosphatase 97 U/L (45-117) Aspartate Amino Transf (AST/SGOT) 70 U/L (15-37) Alanine Aminotransferase (ALT/SGPT) 57 U/L (12-78) Total Bilirubin 1.1 MG/DL (0.2-1.0) Sodium Level 133 MEQ/L (136-145) Potassium Level 3.4 MEQ/L (3.5-5.1) Chloride Level 92 MEQ/L (98-107) Carbon Dioxide Level 31.6 MEQ/L (21.0-32.0) Anion Gap 9 MEQ/L (5-15) Estimat Glomerular Filtration Rate 100 ML/MIN (>89) Lactic Acid Level 1.9 mmol/L (0.4-2.0) . Result Diagram: 01/25/17 1045 01/25/17 1045 Imaging Last Impressions Abdomen/Pelvis CT 01/25/17 1037 Signed Impressions: Service Date/Time: January 12:30 - CONCLUSION: Small bowel distention concerning for obstruction. Minimal ascites. Left renal cyst. Hermelindo Mcghee MD Patient/Family Conference Present at Family Conference: No family present during discussion regarding palliative care purpose and focus. Discussed with patient. Family Conference Location: Bedside Issues Discussed: * Palliative care role, purpose, approach * Additional medical, psychosocial, and spiritual history * Patients general health, functional status, and cognitive changes in the months leading up to the current hospitalization * Patient/family understanding of the current medical problems * Patient/family understanding of prognosis * Patients goals of care as best understood from advance directives and/or conversations and/or values * Current medical treatment options and benefits/burdens of those options * Likely scenarios comparing ongoing aggressive care with a transition to comfort measures only * Questions answered to the best of my ability * Palliative care contact information provided Assessment and Plan Disease Oriented Problem List: (1) Ileus (2) Colon cancer (3) Small bowel obstruction Symptom Scale: (1) Abdominal pain 0-10 Scale: Unable to quantify (worsens with any oral intake.) (2) Nausea 0-10 Scale: Unable to quantify (nausea and vomiting with any oral intake.) (3) Constipation 0-10 Scale: Unable to quantify (chronic, likely R/T poor oral intake, opioid pain medication) Pertinent Non-Medical Issues Psychosocial:He was born in [place] and has lived here most of his life. He did live in [place] for a brief period. 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 He is and has raised his stepson but has no children of his own. He is one of 9 children. He has named his sister, Lynn Muhammad as his healthcare surrogate. He currently lives with his mother. . Spiritual:He states he has a Episcopalian but does not wish sausage machine operator visits. He states "mom has him covered". . Legal: Patient currently appears to have capacity to make his own decisions, however has designated his sister, Dilma Monroy as his healthcare surrogate to make his decisions if he is unable. Pending receipt of that paperwork from Dr. Hightower's office. . Ethical issues impacting care: None noted. . Important Contacts Sister: Dilma Monroy . . 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 He has initiated palliative chemotherapy but is having recurrent small bowel obstructions and recurrent ileus. He has undergone 2 cycles of chemotherapy and requires an additional 2 cycles before imaging is done for staging. He has lost nearly 65 pounds by his report and is unable to eat or drink anything substantial as he vomits and develops significant abdominal pain. Risk of recurrent SBO and other complications are likely as his disease progresses. Prognosis is very poor. . Code Status: Full Code Plan PLAN: Legal decision maker: Patient currently appears to have capacity to make his own decisions, however has designated his sister, Dilma Monroy as his healthcare surrogate to make his decisions if he is unable. Pending receipt of that paperwork from Dr. Hightower's office. Goals: Goals are aggressive. CODE STATUS: FULL CODE. SYMPTOMS: * Pain: He is having recurrent abdominal pain with any oral intake. Small bowel distention concerning for obstruction was noted on abdomen/pelvis CT. Consultation has been placed to Gen. surgery for recommendations. He is receiving morphine IV for pain management. He is nothing by mouth and NG tube has been inserted. He received morphine 4 mg on admission to the ED and has morphine 2 mg every 4 hours as needed for pain available. He is also having pain with the NGT in his throat. Would recommend a benzocaine type spray PRN for discomfort. * Nausea: Received ondansetron 4 mg IV on admission and is available every 6 hours as needed. NG tube has been inserted for decompression and he is receiving normal saline at 100 mL an hour. States nausea is better now. * Constipation: Likely multifactorial to include sigmoid colons stenosis, minimal oral intake, use of opioid pain medications and the extensive peritoneal carcinomatosis. He states his last bowel movement was last evening after an enema, small in size. Shila-Colace and Senokot twice daily and milk of magnesia, Dulcolax suppository and lactulose are available as needed. SUMMARY: This is a 61-year-old male recently diagnosed with metastatic stage IV adenocarcinoma of the colon with rectal involvement and peritoneal carcinomatosis. His goals are aggressive and appears not to have a good understanding of the palliative nature of his chemotherapy treatment. Will continue to follow his hospital course and validation consultant recommendations, to include general surgery and oncology to assist patient in symptom management, goals of care and decision-making. Palliative care will continue to follow the patient during hospital course as condition evolves, to assist patient/decision-maker with understanding of their medical conditions, weighing benefits/burdens of treatment options, for clarification of goals of treatment. Additionally will assist with any symptoms of palliative concern. . Thank you for the opportunity to participate in the care of Mr. Sanford. Attestation To help prompt me to consider important information that might be impacting today's encounter and assessment, information from prior notes written by myself or my colleagues may have been "brought forward" into today's note. My signature on this note, however, is an attestation that I personally performed the exam, history, and/or decision-making noted today, and, unless otherwise indicated, the interactions with patient, family, and staff as well as the review of records all occurred today. I also attest that the listed assessment and stated plan reflect my best clinical judgment today based on the combination of historical information, prior notes, and today's exam/ interactions. When time spent is documented, it refers only to time spent today by the signer, or if indicated, combined time spent today by collaborating physician/nurse practitioner. . Danay Sullivan Jan 25, 2017 2:55 pm
[2017-01-25] MEDS: ENOXAPARIN SODIUM 40 MG/0.4 ML SYRINGE SQ SCH (15:00)
--- NOTE | 2017-01-25 16:53 | PD.CONS ---
cc: Vikas Pfeiffer MD [facility] Service General Surgery Consult Requested By Dr. Hernandez Reason for Consult Small bowel obstruction Primary Care Physician Bell Ruiz MD History of Present Illness This is a 61-year-old male known to Dr. Pfeiffer in the General Surgery service with a known history of stage IV colon cancer. The patient was admitted about 2 months ago with similar symptoms and treated non operatively. The patient has been following with Dr. Hightower and has been receiving palliative chemotherapy. Over this past several weeks the patient has continually had decreased appetite and unable to tolerate anything by mouth including Ensure shakes. The patient has lost a substantial amount of weight. The patient does report that he had a small bowel movement yesterday after giving himself an enema. He reports he has persistent nausea and vomiting after eating anything. A CT of the abdomen and pelvis was obtained which shows dilated loops of small bowel and stool throughout. A nasogastric tube has been placed and the patient has relief of his nausea. A General Surgery consultation has been requested for evaluation of a possible small bowel obstruction. Review of Systems Constitutional: COMPLAINS OF: Fatigue, Weight loss, Change in appetite Endocrine: DENIES: Polydipsia, Polyuria, Polyphagia Eyes: DENIES: Diplopia Ears, nose, mouth, throat: DENIES: Hearing loss Respiratory: DENIES: Cough Cardiovascular: DENIES: Chest pain, Palpitations, Syncope Gastrointestinal: COMPLAINS OF: Abdominal pain, Constipation, Nausea, Vomiting Genitourinary: DENIES: Urgency Musculoskeletal: DENIES: Muscle aches Integumentary: DENIES: Abnormal pigmentation Hematologic/lymphatic: DENIES: Bruising Immunologic/allergic: DENIES: Eczema Neurologic: COMPLAINS OF: Localized weakness, DENIES: Headache Psychiatric: DENIES: Mood changes, Depression, Hallucinations Past Family Social History Past Medical History Right inguinal hernia Past Surgical History Laparoscopic appendectomy Open right inguinal hernia repair with mesh [id number] placement Reported Medications By mouth Dilaudid Allergies: Coded Allergies: No Known Allergies (Verified Allergy, Unknown, 01/25/17) Active Ordered Medications Current Medications Medications (Trade) Dose Ordered Sig/Deepika Route Start Time Stop Time Status Last Admin (NS Flush) 2 ml UNSCH PRN IV FLUSH 01/25/17 10:45 01/25/17 11:14 Sodium Chloride 1,000 ml @ 100 mls/hr Q10H IV 01/25/17 13:21 (NS Flush) 2 ml UNSCH PRN IV FLUSH 01/25/17 13:30 (NS Flush) 2 ml BID IV FLUSH 01/25/17 21:00 (Tylenol) 650 mg Q4H PRN PO 01/25/17 13:30 (Zofran Inj) 4 mg Q6H PRN IVP 01/25/17 13:30 (Lovenox Inj) 40 mg Q24H SQ 01/25/17 15:00 (Narcan Inj) 0.4 mg UNSCH PRN IV PUSH 01/25/17 13:30 (Shila-Colace) 1 tab BID PO 01/25/17 21:00 (Milk Of Magnesia Liq) 30 ml Q12H PRN PO 01/25/17 13:30 (Senokot) 17.2 mg Q12HR PRN PO 01/25/17 21:00 (Dulcolax Supp) 10 mg DAILY PRN RECTAL 01/25/17 13:30 (Lactulose Liq) 30 ml DAILY PRN PO 01/25/17 13:30 (Morphine Inj) 2 mg Q4H PRN IV PUSH 01/25/17 13:30 Potassium Chloride 100 ml @ 50 mls/hr Q2H IV 01/25/17 15:30 01/25/17 19:29 Family History Father with prostate cancer No family history of esophagus, colon or rectal cancer Social History Quit using tobacco products in November 2016 Denies EtOH use Denies illicit drug use Physical Exam Vital Signs Vital Signs Date Time Temp Pulse Resp B/P (MAP) Pulse Ox O2 Delivery O2 Flow Rate FiO2 01/25/17 16:28 96 01/25/17 13:30 78 20 117/80 (92) 99 Room Air 01/25/17 10:46 100 Room Air 01/25/17 10:21 98.5 95 16 105/69 (81) 99 Room Air Physical Exam GENERAL: Very ill-appearing male resting in bed in no acute distress. SKIN: Warm and dry. HEAD: Atraumatic. Normocephalic. EYES: Pupils equal and round. No scleral icterus. No injection or drainage. ENT: No nasal bleeding or discharge. Mucous membranes pink and moist. NECK: Trachea midline. CARDIOVASCULAR: Regular rate and rhythm. RESPIRATORY: No accessory muscle use. Clear to auscultation. Breath sounds equal bilaterally. GASTROINTESTINAL: Abdomen mildly distended; nontender to palpation. Nasogastric tube in place to low intermittent wall suction with bilious drainage. MUSCULOSKELETAL: Extremities without clubbing, cyanosis, or edema. No obvious deformities. NEUROLOGICAL: Awake and alert. No obvious cranial nerve deficits. Motor grossly within normal limits. Five out of 5 muscle strength in the arms and legs. Normal speech. PSYCHIATRIC: Appropriate mood and affect; insight and judgment normal. Laboratory Laboratory Tests Test 01/25/17 10:45 White Blood Count 4.5 Red Blood Count 5.08 Hemoglobin 13.2 Hematocrit 39.5 Mean Corpuscular Volume 77.8 Mean Corpuscular Hemoglobin 25.9 Mean Corpuscular Hemoglobin Concent 33.3 Red Cell Distribution Width 13.4 Platelet Count 348 Mean Platelet Volume 7.5 Neutrophils (%) (Auto) 62.8 Lymphocytes (%) (Auto) 29.3 Monocytes (%) (Auto) 6.1 Eosinophils (%) (Auto) 1.0 Basophils (%) (Auto) 0.8 Neutrophils # (Auto) 2.8 Lymphocytes # (Auto) 1.3 Monocytes # (Auto) 0.3 Eosinophils # (Auto) 0.0 Basophils # (Auto) 0.0 CBC Comment DIFF FINAL Differential Comment Prothrombin Time 10.8 Prothromb Time International Ratio 1.1 Activated Partial Thromboplast Time 25.0 Blood Urea Nitrogen 17 Creatinine 0.94 Random Glucose 82 Total Protein 8.3 Albumin 3.6 Calcium Level 9.2 Alkaline Phosphatase 97 Aspartate Amino Transf (AST/SGOT) 70 Alanine Aminotransferase (ALT/SGPT) 57 Total Bilirubin 1.1 Sodium Level 133 Potassium Level 3.4 Chloride Level 92 Carbon Dioxide Level 31.6 Anion Gap 9 Estimat Glomerular Filtration Rate 100 Lactic Acid Level 1.9 Result Diagram: 01/25/17 1045 01/25/17 1045 Imaging Last 48 hours Impressions Abdomen/Pelvis CT 01/25/17 1037 Signed Impressions: Service Date/Time: January 12:30 - CONCLUSION: Small bowel distention concerning for obstruction. Minimal ascites. Left renal cyst. Hermelindo Mcghee MD Assessment and Plan Assessment and Plan 61-year-old male with known stage IV colon cancer; abdominal pain with associated nausea and vomiting; CT questionable for small bowel obstruction -Continue NG tube to low intermittent wall suction -Ice chips, sips of water and popsicles for comfort -IV fluid -Patient is a poor surgical candidate -Agree with Palliative Care consultation -Dr. Hightower has also been consulted -Thank you for this consult Discussed Condition With Dr. Pfeiffer Mr. Sanford Attending Statement I personally evaluated this patient, preformed exam, reviewed CT scan images, and discussed my impression with the patient and DR Hightower. Abdomen distended, but non tender. He does not desire operative intervention, preferring instead to try to advance diet as he is able. He is agreeable to starting IV nutrition through the port. Agree with palliative care evaluation and discussions. The exam, history, and the medical decision-making described in the above note were completed with the assistance of the mid-level provider. I reviewed and agree with the findings presented. I attest that I had a [id number] encounter with the patient on the same day, and personally performed and documented my assessment and findings in the medical record. Kylie Varela Jan 25, 2017 16:53 Vikas Pfeiffer MD Jan 26, 2017 17:07
[2017-01-25] MEDS: POTASSIUM CHLOR 20 MEQ PREMIX 100 ML IV SCH ×2 (18:12→20:30)
--- NOTE | 2017-01-25 18:38 | MB ---
cc: KAYLAN HUMPHRIES MD DATE OF CONSULTATION 01/25/17 DATE OF 1955 REQUESTING PHYSICIAN CONSULTATIONS Hospitalist service. ONCOLOGIC DIAGNOSIS Metastatic adenocarcinoma with peritoneal carcinomatosis associated with a large ulcerated rectal mass associated with dysplasia. This lesion is thought to be the primary; multiple biopsies of the rectal mass have yielded pathologic findings consistent with dysplasia but have not confirmed adenocarcinoma. Current treatment: The patient had been on palliative systemic therapy with FOLFOX for management of his underlying metastatic adenocarcinoma of colonic/rectal primary. CHIEF COMPLAINT The patient reports progressive abdominal pain and distension associated with nausea and vomiting. He reports an unintended 70-pound weight loss over the past four months. He also reports constipation. HISTORY OF PRESENT ILLNESS Mr. Sanford is a 61-year-old male who is well-known to me from previous outpatient and inpatient hospitalizations. Mr. Sanford initially developed symptoms of abdominal distension and pain associated with constipation in the late summer of 2016. He presented to [facility] where he underwent colonoscopy. A large ulcerated mass was identified within the rectum. Biopsies of this revealed findings concerning for malignancy but not diagnostic of malignancy. Imaging studies of the abdomen revealed omental caking and he subsequently underwent an image guided biopsy of one of the areas of thickened omentum. This biopsy was performed at [facility] I believe in early November of 2016. The pathology indicated findings most consistent with adenocarcinoma of colonic primary. He was subsequently discharged from [facility] with recommendations to follow up with medical oncology. He was unable to make it to outpatient oncology followup, but did present to [facility] in late November of 2016. He was seen by me and at that time after review of the imaging studies as well as the pathology from [facility], he was initiated on palliative inpatient systemic chemotherapy with FOLFOX and since discharge from the hospital, he has received two additional cycles of FOLFOX with the most recent cycle initiated on 01/19/2017. He has not had much of an improvement in his bowel function and continues to have poor oral intake, ongoing weight loss, abdominal pain and distension as well as constipation. He presented to our facility earlier today with complaints of nausea, vomiting, abdominal distension and abdominal pain. Imaging studies performed earlier today revealed small bowel obstruction with distended loops of small bowel. An NG tube was placed for decompression and the patient feels better. PAST MEDICAL HISTORY 1. Metastatic adenocarcinoma with peritoneal implants. 2. Large ulcerated mass involving the rectum, most concerning for rectal primary. 3. Protein calorie malnutrition. 4. Adult failure to thrive. PAST SURGICAL HISTORY 1. Appendectomy in 2010. 2. Right hernia repair 2012. 3. Colonoscopy 4. EGD 5. Image guided biopsy of omental mass 6. Infusion port placement. SOCIAL HISTORY The patient is . He lives at home alone. His social support consists of his mother and sisters. He reports being a smoker, having smoked about 40 years. He also reports previously being a heavy drinker but has not drank in some years. ALLERGIES NO KNOWN DRUG ALLERGIES. FAMILY HISTORY Father of complications of prostate carcinoma. No other oncologic diagnoses noted. His mother is living. MEDICATIONS Current inpatient medications: 1. Normal saline 100 cc/hour. 2. Potassium chloride boluses 3. Tylenol 650 mg p.o. q.4 h 4. Dulcolax suppository 10 mg per rectum as needed for severe constipation. 5. Lovenox 40 mg subcu q. 24. 6. Lactulose 30 mL p.o. daily as needed for severe constipation. 7. Morphine sulfate 2 mg IV as needed q.4 h for pain. 8. Zofran 4 mg IV q.6 h needed for nausea and vomiting. 9. Potassium chloride 30 mEq p.o. x1. REVIEW OF SYSTEMS A 13-point review of systems are obtained. The following are the pertinent positives and negatives: CONSTITUTIONAL: Mr. Sanford reports generalized fatigue, weakness, loss of appetite. He reports having lost about 70 pounds over the past four months. HEENT: Denies headaches, blurry vision, difficulty swallowing or soreness in the throat. RESPIRATORY: Reports exertional dyspnea, denies cough or hemoptysis. Denies pleuritic chest pain. CARDIOVASCULAR: Denies angina-like chest pain, PND, orthopnea GI: Reports nausea, vomiting, abdominal distension, abdominal tenderness, constipation. UROGENITAL: Denies dysuria, hematuria, urinary incontinence. JIG OPERATOR: Denies any focal sensory motor deficits. PHYSICAL EXAMINATION VITAL SIGNS: Temperature 98.5 degrees Fahrenheit, heart rate 95 beats per minute, respiratory rate 20, blood pressures 117/80. O2 sats 96% on room air. GENERAL APPEARANCE: Mr. Sanford is a middle-aged male. He appears to be cachectic, chronically ill. He has temporal muscle wasting. HEENT: Head atraumatic, normocephalic, conjunctivae are not pale, sclerae are hyperemic. He has a right-sided NG tube in place. Oral exam - dry mucous membranes. No pharyngeal erythema. NECK: No palpable cervical or supraclavicular lymphadenopathy. RESPIRATORY: Good air movement bilaterally without any added breath sounds. CARDIOVASCULAR: Tachycardic, S1,S2. No obvious murmurs, rubs or gallops. ABDOMEN: Thin belly, distended, tender to palpation, tympanic to percussion, positive bowel sounds. EXTREMITIES: No pretibial edema or calf tenderness. JIG OPERATOR: No obvious sensory or motor deficits. MUSCULOSKELETAL: Generalized muscle wasting and cachexia. LABORATORY FINDINGS Blood work dated 01/25/2017: WBC count 4.5, hemoglobin 13.2 gm/dl, hematocrit 39.5%, MCV 77.8, platelet count of 348, absolute neutrophil count is 2.8. Chemistries: Sodium 133, potassium 3.4, chloride 92, bicarbonate 31.6, BUN 17, creatinine 0.94, random glucose 82, calcium 9.2, total bilirubin 1.1, AST 70, ALT 57, alkaline phosphatase 97, albumin 3.6. IMAGING STUDIES CT scan of the abdomen and pelvis dated 01/25/2017 performed with IV contrast indicates distended loops of small bowel concerning for small bowel obstruction, minimal ascites is noted. ASSESSMENT Mr. Sanford is a pleasant 61-year-old male with a diagnosis of diffusely metastatic adenocarcinoma of colorectal primary based on histopathologic findings. He has peritoneal carcinomatosis and, as a consequence to this, has what appears to be a diffuse obstruction of the small bowel as well as a large bowel. Two separate colonoscopies have revealed a large ulcerated mass involving the rectum. Biopsies of this have revealed dysplastic features concerning for malignancy but have not been diagnostic of malignancies. He has been assessed to have metastatic adenocarcinoma of rectal primary. The ulcerated mass in the rectum is the likely primary. I suspect the biopsies performed were limited by their depth of sampling. We do have an omental biopsy which confirmed the presence of metastatic adenocarcinoma. This patient had completed three cycles of palliative FOLFOX delivered between early December and early January of 2017. Unfortunately, he has had no clinical improvement with this treatment. Unfortunately, his condition has worsened. The objective indicators of progression are ongoing weight loss, worsening ECOG performance status, worsening protein calorie malnutrition and minimal to no improvement in his symptoms of bowel obstruction. I spoke to the patient today about his underlying disease and lack of progress with aggressive systemic chemotherapeutic interventions. I explained to him that given his worsening ECOG performance status and ongoing clinical decline, it is not clear if additional chemotherapeutic interventions will be helpful. I did offer to have his case reevaluated by surgery to determine if a surgical option for decompression of his small bowel obstruction would be a reasonable option. The patient at this point would prefer a nonsurgical option for treatment of his small bowel obstruction. I am not certain if any good therapeutic interventions exist. I am concerned about his ability to tolerate additional lines of palliative systemic chemotherapy given his worsening ECOG performance status, nutritional status and it would be my opinion that Mr. Sanford would be best served with a palliative approach. He however tells me he is not ready to "give up" and is considering a second opinion at a tertiary referral center. RECOMMENDATIONS Metastatic adenocarcinoma of the colon with peritoneal carcinomatosis: I would recommend a palliative approach to treatment. I agree with palliative care consultation. I would recommend hydrating him with normal saline and considering the TPN via his port. The case was discussed with Dr. Pfeiffer of surgery who did review the patient's scans and, based on review of the scans, Dr. Pfeiffer feels there is a limited role if any for surgical intervention at this point for management of his small bowel obstruction. MD NAVEED Oliva/ /5:43 PM /6:15 PM
--- NOTE | 2017-01-25 19:33 | RADRPT ---
EXAM DATE/TIME: 01/25/2017 18:57 [facility] COMPARISON: CT ABDOMEN & PELVIS W CONTRAST, January 25, 2017, 12:30. ABDOMEN KUB ONLY, December 28, 2016, 10:06 . INDICATIONS : Abdominal pain. MEDICAL HISTORY : Carcinoma, colon. Hernia, inguinal. SURGICAL HISTORY : Appendectomy. ENCOUNTER: Initial ACUITY: 3 days PAIN SCORE: 2/10 LOCATION: abdomen FINDINGS: Mild air-filled dilatation of several small bowel loops suggesting small bowel obstruction. Clinical correlation is recommended. No colonic air or dilatation is noted. No free endotracheal air is noted. Contrast is noted within the urinary bladder. A nasogastric is noted within the stomach. No abnormal calcifications are noted. Degenerative changes are noted within the lumbar spine and bilateral hips. CONCLUSION: Mild air-filled dilatation of small bowel loops suggesting small bowel obstruction. Clinical correlat ion is recommended. Noel Guerin MD on January 25, 2017 at 19:29 Board Certified Radiologist. This report was verified electronically.
[2017-01-25] MEDS: DOCUSATE SODIUM 50 MG/SENNA 8.6 MG TAB PO SCH (19:52)
[2017-01-25] MEDS: SODIUM CHLORIDE 0.9% FLUSH 10 ML FLUSH IV FLUSH SCH (19:53)
[2017-01-25] MEDS ORDERED: SENNOSIDES 8.6 MG TAB PO PRN (21:00)
[2017-01-26] VITALS (8 sets, daily range): BP systolic 121–150; BP diastolic 73–85; PULSE 64–72; RESP 17–18; TEMP 97.1–98.4; O2SAT 98–99
[2017-01-26 04:20] LABS: BLOOD, URINE NEG (NEG); COMMENT (UR) CULT NOT INDICATED; CULTURE IF INDICATED CULT NOT INDICATED; GLUCOSE,URINE NEG (NEG); KETONE, URINE 40 mg/dL (NEG); MUCUS URINE FEW /lpf (OCC); NITRITE,URINE NEG (NEG); URINE COLOR YELLOW (YELLW/STRAW)
[2017-01-26] MEDS: MORPHINE SULFATE 4 MG/ML INJ IV PUSH PRN ×3 (06:25→20:14)
[2017-01-26 06:27] LABS: AUTOMATED NEUTROPHIL # 2.5 TH/MM3 (1.8-7.7); BASOPHIL % 1.2 % (0.0-2.0); EOSINOPHIL # 0.1 TH/MM3 (0-0.4); EOSINOPHIL % 1.4 % (0.0-4.0); HEMATOCRIT 31.8 % (39.0-51.0); HEMO FLAGS DIFF FINAL; LYMPH % 31.1 % (9.0-44.0); LYMPHOCYTE # 1.2 TH/MM3 (1.0-4.8); MEAN CELL VOLUME 78.5 FL (80.0-100.0); MEAN CORPUSCULAR HEMOGLOBIN 25.8 PG (27.0-34.0); MEAN CORPUSCULAR HGB CONC 32.8 % (32.0-36.0); MONO % 4.1 % (0.0-8.0); NEUT % 62.2 % (16.0-70.0); PLATELET COUNT 278 TH/MM3 (150-450); RED BLOOD COUNT 4.05 MIL/MM3 (4.50-5.90); RED CELL DISTRIBUTION WIDTH 13.5 % (11.6-17.2)
[2017-01-26 07:07] LABS: BICARBONATE 26.1 MEQ/L (21.0-32.0); POTASSIUM 3.6 MEQ/L (3.5-5.1)
--- NOTE | 2017-01-26 08:57 | HHI.PR ---
Subjective Remarks In bed, still nauseated, however feels improved come since yesterday. No vomiting , NGT in place. Abd less distended and less painfuls. Did not pass gas or BM. No fever or chills. Feels very tired. Objective Vitals Vital Signs Date Time Temp Pulse Resp B/P (MAP) Pulse Ox O2 Delivery O2 Flow Rate FiO2 01/26/17 07:44 97.7 70 18 123/74 (90) 99 01/26/17 04:00 97.1 70 18 123/85 (98) 99 01/26/17 00:00 98.0 72 17 123/78 (93) 99 01/25/17 21:16 96 21 01/25/17 20:00 97.7 63 17 114/66 (82) 96 01/25/17 17:04 01/25/17 16:30 98.0 58 16 138/77 (97) 98 01/25/17 16:28 96 01/25/17 13:30 78 20 117/80 (92) 99 Room Air 01/25/17 10:46 100 Room Air 01/25/17 10:21 98.5 95 16 105/69 (81) 99 Room Air I/O 01/25/17 01/25/17 01/25/17 01/26/17 01/26/17 01/26/17 07:00 15:00 23:00 07:00 15:00 23:00 Intake Total 0 ml 0 ml Output Total 350 ml 350 ml Balance -350 ml -350 ml Intake Oral 0 ml 0 ml Output Urine Total 350 ml 350 ml Result Diagram: 01/26/17 0615 01/26/17 0615 Imaging Last Impressions Abdomen/Pelvis CT 01/25/17 1037 Signed Impressions: Service Date/Time: January 12:30 - CONCLUSION: Small bowel distention concerning for obstruction. Minimal ascites. Left renal cyst. Hermelindo Mcghee MD Abdomen X-Ray 01/25/17 0000 Signed Impressions: Service Date/Time: January 18:57 - CONCLUSION: Mild air-filled dilatation of small bowel loops suggesting small bowel obstruction. Clinical correlation is recommended. Noel Guerin MD Objective Remarks GENERAL: This is a frail 61 yo AA male, in some distress 2/2 nausea. CARDIOVASCULAR: Regular rate and rhythm without murmurs, gallops, or rubs. RESPIRATORY: Clear to auscultation. Breath sounds equal bilaterally. No wheezes , rales, or rhonchi. GASTROINTESTINAL:Abdomen distended, diffusely tender to palpation. Hyperactive bowel sounds. MUSCULOSKELETAL: Extremities without clubbing, cyanosis, or edema. No joint tenderness, effusion, or edema noted. No calf tenderness. Negative Homans sign bilaterally. NEUROLOGICAL: Awake and alert. Cranial nerves II through XII intact. Motor and sensory grossly within normal limits. Five out of 5 muscle strength in all muscle groups. Normal speech. A/P Assessment and Plan 61 y/o male with a history of stage 4 colon cancer, has not seen specialist yet presented to the ED with complaints of abdominal pain and constipation. Small bowel obstruction, patient with abdominal pain and constipation Abdomen/pelvis CT reviewed and shows small bowel distention concerning for obstruction, mild ascites. IVF Consult general surgery for recommendations, ff appreciate recommendations Morphine IV for pain management NPO. NGT Colon cancer stage 4 diagnosed in September, chronic On palliative chemo with Dr Hightower. Consult his oncology Dr Hightower, ff appreciate recommendations Tobacco use, chronic Consult palliative care for goals of care, appreciate assistance CM consulted for DC plan as need. DVT prophylaxis: SCDs/TEDs Discussed Condition With Patient, nurse DC plan : poor prognosis, pending improvement, palliative care is ff Anita Hernandez MD Jan 26, 2017 08:57
--- NOTE | 2017-01-26 12:16 | HHI.HCPN ---
Reason for visit a. To assist with evaluation and management of symptoms including: Pain, nausea, constipation. b. To assist medical decision maker(s) with: better understanding of current medical conditions; weighing benefits/burdens of medical treatment options; making medical treatment decisions. Subjective/Interval History Continues to have nausea, abdominal pain and cramping. Complains of constipation and hunger. Asking about IV nutrition. Interim course: * Laboratory: WBC 4.0, Hgb 10.4, HCT 31.8, platelet 278, sodium 136, potassium 3.6, BUN 13, creatinine 0.75, glucose 65, calcium 8.3, pre-albumin 10.. * Radiology: CT of the abdomen and pelvis shows small bowel distention concerning for obstruction, minimal ascites, left renal cyst. Consultations: * Gen. surgery: [facility] to be a poor surgical candidate. Case was reviewed again by Dr. Pfeiffer at Dr. Hightower's request and again felt that there were limited if any surgical intervention for management of SBO. * Oncology: As he has been undergoing aggressive, systemic chemotherapeutic interventions with no significant improvement and his performance status continues to decline. It is unclear if additional chemotherapy would be helpful and recommends a palliative approach, hydration with normal saline and TPN via his port . Advance Directives Living Will: Never completed Health Care Surrogate: Copy in medical record Durable Power of Credit Control Administrator: Never completed Objective Vital Signs Date Time Temp Pulse Resp B/P (MAP) Pulse Ox O2 Delivery O2 Flow Rate FiO2 01/26/17 07:44 97.7 70 18 123/74 (90) 99 01/26/17 04:00 97.1 70 18 123/85 (98) 99 01/26/17 00:00 98.0 72 17 123/78 (93) 99 01/25/17 21:16 96 21 01/25/17 20:00 97.7 63 17 114/66 (82) 96 01/25/17 17:04 01/25/17 16:30 98.0 58 16 138/77 (97) 98 01/25/17 16:28 96 01/25/17 13:30 78 20 117/80 (92) 99 Room Air Intake & Output 01/26/17 01/26/17 07:00 19:00 Intake Total 0 ml Output Total 700 ml Balance -700 ml Intake Oral 0 ml Output Urine Total 700 ml Physical Exam CONSTITUTIONAL/GENERAL: This is a thin middle-aged male, in no acute distress. TUBES/LINES/DRAINS: NG tube, PIV. SKIN: No jaundice, rashes, or lesions. No wounds seen anteriorly. Skin temperature appropriate. Not diaphoretic. HEAD: Atraumatic. Normocephalic. Temporal wasting. EYES: Pupils equal and round and reactive. Extraocular motions intact. No scleral icterus. No injection or drainage. Fundi not examined. ENT: Hearing grossly normal. Nose without bleeding or purulent drainage. NECK: Trachea midline. Supple, nontender. No palpable thyroid enlargement or nodularity. CARDIOVASCULAR: Regular rate and rhythm without murmurs, gallops, or rubs. No JVD. Peripheral pulses symmetric. RESPIRATORY/CHEST: Symmetric, unlabored respirations. Clear to auscultation. Breath sounds equal bilaterally. No wheezes, rales, or rhonchi. GASTROINTESTINAL: Abdomen soft, tender to palpation, nondistended. Bowel sounds present. GENITOURINARY: Without palpable bladder distension. MUSCULOSKELETAL: Extremities without clubbing, cyanosis, or edema. No joint tenderness or effusion noted. No calf tenderness. No mottling or clubbing. NEUROLOGICAL: Awake and alert. Motor and sensory grossly within normal limits. Follows commands. Cognitively sharp. Moves all extremities. PSYCHIATRIC: No obvious anxiety/depression. no apparent hallucinations or other psychotic thought process. . Diagnostic Tests Laboratory Laboratory Tests Test 01/25/17 10:45 01/26/17 03:50 01/26/17 06:15 White Blood Count 4.5 TH/MM3 (4.0-11.0) 4.0 TH/MM3 (4.0-11.0) Red Blood Count 5.08 MIL/MM3 (4.50-5.90) 4.05 MIL/MM3 (4.50-5.90) Hemoglobin 13.2 GM/DL (13.0-17.0) 10.4 GM/DL (13.0-17.0) Hematocrit 39.5 % (39.0-51.0) 31.8 % (39.0-51.0) Mean Corpuscular Volume 77.8 FL (80.0-100.0) 78.5 FL (80.0-100.0) Mean Corpuscular Hemoglobin 25.9 PG (27.0-34.0) 25.8 PG (27.0-34.0) Mean Corpuscular Hemoglobin Concent 33.3 % (32.0-36.0) 32.8 % (32.0-36.0) Red Cell Distribution Width 13.4 % (11.6-17.2) 13.5 % (11.6-17.2) Platelet Count 348 TH/MM3 (150-450) 278 TH/MM3 (150-450) Mean Platelet Volume 7.5 FL (7.0-11.0) 7.5 FL (7.0-11.0) Neutrophils (%) (Auto) 62.8 % (16.0-70.0) 62.2 % (16.0-70.0) Lymphocytes (%) (Auto) 29.3 % (9.0-44.0) 31.1 % (9.0-44.0) Monocytes (%) (Auto) 6.1 % (0.0-8.0) 4.1 % (0.0-8.0) Eosinophils (%) (Auto) 1.0 % (0.0-4.0) 1.4 % (0.0-4.0) Basophils (%) (Auto) 0.8 % (0.0-2.0) 1.2 % (0.0-2.0) Neutrophils # (Auto) 2.8 TH/MM3 (1.8-7.7) 2.5 TH/MM3 (1.8-7.7) Lymphocytes # (Auto) 1.3 TH/MM3 (1.0-4.8) 1.2 TH/MM3 (1.0-4.8) Monocytes # (Auto) 0.3 TH/MM3 (0-0.9) 0.2 TH/MM3 (0-0.9) Eosinophils # (Auto) 0.0 TH/MM3 (0-0.4) 0.1 TH/MM3 (0-0.4) Basophils # (Auto) 0.0 TH/MM3 (0-0.2) 0.0 TH/MM3 (0-0.2) CBC Comment DIFF FINAL DIFF FINAL Differential Comment Prothrombin Time 10.8 SEC (9.8-11.6) Prothromb Time International Ratio 1.1 RATIO Activated Partial Thromboplast Time 25.0 SEC (24.3-30.1) Blood Urea Nitrogen 17 MG/DL (7-18) 13 MG/DL (7-18) Creatinine 0.94 MG/DL (0.60-1.30) 0.75 MG/DL (0.60-1.30) Random Glucose 82 MG/DL (74-106) 65 MG/DL (74-106) Total Protein 8.3 GM/DL (6.4-8.2) Albumin 3.6 GM/DL (3.4-5.0) Calcium Level 9.2 MG/DL (8.5-10.1) 8.3 MG/DL (8.5-10.1) Alkaline Phosphatase 97 U/L (45-117) Aspartate Amino Transf (AST/SGOT) 70 U/L (15-37) Alanine Aminotransferase (ALT/SGPT) 57 U/L (12-78) Total Bilirubin 1.1 MG/DL (0.2-1.0) Sodium Level 133 MEQ/L (136-145) 136 MEQ/L (136-145) Potassium Level 3.4 MEQ/L (3.5-5.1) 3.6 MEQ/L (3.5-5.1) Chloride Level 92 MEQ/L (98-107) 100 MEQ/L (98-107) Carbon Dioxide Level 31.6 MEQ/L (21.0-32.0) 26.1 MEQ/L (21.0-32.0) Anion Gap 9 MEQ/L (5-15) 10 MEQ/L (5-15) Estimat Glomerular Filtration Rate 100 ML/MIN (>89) 129 ML/MIN (>89) Lactic Acid Level 1.9 mmol/L (0.4-2.0) Urine Color YELLOW (YELLW/STRAW) Urine Turbidity CLEAR (CLEAR) Urine pH 6.0 (5.0-8.5) Urine Specific [place] GREATER THAN 1.050 Urine Protein 30 mg/dL (NEG-TRACE) Urine Glucose (UA) NEG mg/dL (NEG) Urine Ketones 40 mg/dL (NEG) Urine Occult Blood NEG (NEG) Urine Nitrite NEG (NEG) Urine Bilirubin NEG (NEG) Urine Urobilinogen 4.0 MG/DL (LESS THAN Urine Leukocyte Esterase NEG (NEG) Urine RBC 1 /hpf (0-3) Urine WBC 2 /hpf (0-5) Urine Mucus FEW /lpf (OCC) Microscopic Urinalysis Comment CULT NOT INDICATED Prealbumin 10 MG/DL (20-40) . Result Diagram: 01/26/17 0615 01/26/17 0615 Imaging Last Impressions Abdomen/Pelvis CT 01/25/17 1037 Signed Impressions: Service Date/Time: January 12:30 - CONCLUSION: Small bowel distention concerning for obstruction. Minimal ascites. Left renal cyst. Hermelindo Mcghee MD Abdomen X-Ray 01/25/17 0000 Signed Impressions: Service Date/Time: January 18:57 - CONCLUSION: Mild air-filled dilatation of small bowel loops suggesting small bowel obstruction. Clinical correlation is recommended. Noel Guerin MD Assessment and Plan Disease Oriented Problem List: (1) Ileus (2) Colon cancer (3) Small bowel obstruction Symptom Scale: (1) Abdominal pain 0-10 Scale: Unable to quantify (worsens with any oral intake.) (2) Nausea 0-10 Scale: Unable to quantify (nausea and vomiting with any oral intake.) (3) Constipation 0-10 Scale: Unable to quantify (chronic, likely R/T poor oral intake, opioid pain medication) Pertinent Non-Medical Issues Psychosocial:He was born in [place] and has lived here most of his life. He did live in [place] for a brief period. 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 He is and has raised his stepson but has no children of his own. He is one of 9 children. He has named his sister, Lynn Muhammad as his healthcare surrogate. He currently lives with his mother. . Spiritual:He states he has a Sabianist but does not wish rn birthing visits. He states "mom has him covered". . Legal: Patient currently appears to have capacity to make his own decisions, however has designated his sister, Dilma Monroy as his healthcare surrogate to make his decisions if he is unable. Pending receipt of that paperwork from Dr. Hightower's office. . Ethical issues impacting care: None noted. . Important Contacts Sister: Dilma Monroy . . 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 He has initiated palliative chemotherapy but is having recurrent small bowel obstructions and recurrent ileus. He has undergone 2 cycles of chemotherapy and requires an additional 2 cycles before imaging is done for staging. He has lost nearly 65 pounds by his report and is unable to eat or drink anything substantial as he vomits and develops significant abdominal pain. Risk of recurrent SBO and other complications are likely as his disease progresses. Prognosis is very poor. . Code Status: Full Code Plan PLAN: Legal decision maker: Patient currently appears to have capacity to make his own decisions, however has designated his sister, Dilma Monroy as his healthcare surrogate to make his decisions if he is unable. Pending receipt of that paperwork from Dr. Hightower's office. Goals: Goals are aggressive. CODE STATUS: FULL CODE. SYMPTOMS: * Pain: He is having recurrent abdominal pain with any oral intake. Small bowel distention concerning for obstruction was noted on abdomen/pelvis CT. General surgery does not feel that surgical intervention would be helpful. He is receiving morphine IV for pain management. He is nothing by mouth and NG tube has been inserted. He has received 1 dose of morphine sulfate 2 mg IV since admission. He is also having pain with the NGT in his throat. Would recommend a benzocaine type spray PRN for discomfort. I did discuss the option of hospice with the patient and he wishes to discuss this on Sunday when his sister returns. At this time he wishes to try to continue chemotherapy with Dr. Hightower or investigate other tertiary treatment center for second opinion, but would like to know more about the hospice option if that is his only choice. Will request hospice to see patient for information on Sunday. * Nausea: Received ondansetron 4 mg IV on admission and is available every 6 hours as needed. NG tube has been inserted for decompression and he is receiving normal saline at 100 mL an hour. States nausea is a little better now. As patient's performance status continues to decline, would recommend in concordance with oncology recommendations, that TPN be initiated and delivered through his port for nutritional support. * Constipation: Likely multifactorial to include sigmoid colons stenosis, minimal oral intake, use of opioid pain medications and the extensive peritoneal carcinomatosis. He states his last bowel movement was last evening after an enema, small in size. Shila-Colace and Senokot twice daily and milk of magnesia, Dulcolax suppository and lactulose are available as needed. Patient states an enema is usually what he uses for his constipation as taking anything orally causes nausea and abdominal pain. Would recommend providing PRN Fleets as well as Dulcolax suppository for patient comfort. Palliative care will continue to follow the patient during hospital course as condition evolves, to assist patient/decision-maker with understanding of their medical conditions, weighing benefits/burdens of treatment options, for clarification of goals of treatment. Additionally will assist with any symptoms of palliative concern. . Attestation To help prompt me to consider important information that might be impacting today's encounter and assessment, information from prior notes written by myself or my colleagues may have been "brought forward" into today's note. My signature on this note, however, is an attestation that I personally performed the exam, history, and/or decision-making noted today, and, unless otherwise indicated, the interactions with patient, family, and staff as well as the review of records all occurred today. I also attest that the listed assessment and stated plan reflect my best clinical judgment today based on the combination of historical information, prior notes, and today's exam/ interactions. When time spent is documented, it refers only to time spent today by the signer, or if indicated, combined time spent today by collaborating physician/nurse practitioner. . Danay Sullivan Jan 26, 2017 12:16
[2017-01-26] MEDS: DOCUSATE SODIUM 50 MG/SENNA 8.6 MG TAB PO SCH ×2 (13:32→20:31)
[2017-01-26] MEDS: SODIUM CHLORIDE 0.9% FLUSH 10 ML FLUSH IV FLUSH SCH ×2 (13:32→21:00)
[2017-01-26] MEDS: SODIUM CHLOR 0.9% 1000 ML INJ 1,000 ML IV SCH ×2 (13:33→19:21)
--- NOTE | 2017-01-26 13:51 | HHI.PR ---
cc: Vikas Pfeiffer MD Subjective Subjective Notes Resting in bed "I feel a little better today." Objective Vitals/I&O Vital Signs Date Time Temp Pulse Resp B/P (MAP) Pulse Ox O2 Delivery O2 Flow Rate FiO2 01/26/17 11:30 97.2 64 18 121/73 (89) 99 01/25/17 21:16 21 01/25/17 13:30 Room Air Labs Laboratory Tests Test 01/26/17 03:50 01/26/17 06:15 Urine Color YELLOW Urine Turbidity CLEAR Urine pH 6.0 Urine Specific [place] GREATER THAN 1.050 Urine Protein 30 Urine Glucose (UA) NEG Urine Ketones 40 Urine Occult Blood NEG Urine Nitrite NEG Urine Bilirubin NEG Urine Urobilinogen 4.0 Urine Leukocyte Esterase NEG Urine RBC 1 Urine WBC 2 Urine Mucus FEW Microscopic Urinalysis Comment CULT NOT INDICATED White Blood Count 4.0 Red Blood Count 4.05 Hemoglobin 10.4 Hematocrit 31.8 Mean Corpuscular Volume 78.5 Mean Corpuscular Hemoglobin 25.8 Mean Corpuscular Hemoglobin Concent 32.8 Red Cell Distribution Width 13.5 Platelet Count 278 Mean Platelet Volume 7.5 Neutrophils (%) (Auto) 62.2 Lymphocytes (%) (Auto) 31.1 Monocytes (%) (Auto) 4.1 Eosinophils (%) (Auto) 1.4 Basophils (%) (Auto) 1.2 Neutrophils # (Auto) 2.5 Lymphocytes # (Auto) 1.2 Monocytes # (Auto) 0.2 Eosinophils # (Auto) 0.1 Basophils # (Auto) 0.0 CBC Comment DIFF FINAL Differential Comment Blood Urea Nitrogen 13 Creatinine 0.75 Random Glucose 65 Calcium Level 8.3 Sodium Level 136 Potassium Level 3.6 Chloride Level 100 Carbon Dioxide Level 26.1 Anion Gap 10 Estimat Glomerular Filtration Rate 129 Prealbumin 10 Radiology Last 48 hours Impressions Abdomen/Pelvis CT 01/25/17 1037 Signed Impressions: Service Date/Time: January 12:30 - CONCLUSION: Small bowel distention concerning for obstruction. Minimal ascites. Left renal cyst. Hermelindo Mcghee MD Cardiovascular: Regular Lungs: Clear Abdomen: Other (minimally tender; minimally distended ) Extremities: No edema A/P Assessment and Plan 61-year-old male with known stage IV colon cancer; abdominal pain with associated nausea and vomiting; CT questionable for small bowel obstruction -Continue NG tube to low intermittent wall suction; okay to clamp for patient to ambulate -Ice chips, sips of water and popsicles for comfort -Start TPN tonight; okay to DC IVF once TPN started -Patient is a poor surgical candidate -Spoke with Danay VILLEDA with Palliative Care --- she has placed a Hospice Consult for Sunday to discuss options with patient and his sister when she is back in town Attending Statement Abdomen remains somewhat distended, but non tender. Only a couple hundred mls out NG. Pt wants NG clamped and to try liquids. TPN already ordered. Will clamp NG and start clears. Reconnect NG to LIWS for N/V. The exam, history, and the medical decision-making described in the above note were completed with the assistance of the mid-level provider. I reviewed and agree with the findings presented. I attest that I had a [id number] encounter with the patient on the same day, and personally performed and documented my assessment and findings in the medical record. Kylie Varela Jan 26, 2017 13:51 Vikas Pfeiffer MD Jan 26, 2017 17:09
[2017-01-26] MEDS ORDERED: PANTOPRAZOLE SODIUM 40 MG VIAL IV PUSH ONE (15:15)
[2017-01-26] MEDS: ENOXAPARIN SODIUM 40 MG/0.4 ML SYRINGE SQ SCH (15:46)
--- NOTE | 2017-01-26 19:14 | PD.ONC.PN ---
Subjective Subjective Remarks Patient was seen and examined, vital signs, medications and labs were reviewed. Subjectively; patient reports feeling improved today, his abdominal pain and distention have nearly resolved. He tells me he has been up and out of bed and has started a clear liquid diet. He continues to be constipated. TPN has been ordered but the bag will not be hung until tomorrow morning. The patient met with palliative care yesterday and today. He tells me he wishes to continue aggressive disease directed care. Objective Data Date Time Temp Pulse Resp B/P (MAP) Pulse Ox O2 Delivery O2 Flow Rate FiO2 01/26/17 17:53 98 01/26/17 14:20 98 01/26/17 11:30 97.2 64 18 121/73 (89) 99 01/26/17 07:44 97.7 70 18 123/74 (90) 99 01/26/17 04:00 97.1 70 18 123/85 (98) 99 01/26/17 00:00 98.0 72 17 123/78 (93) 99 01/25/17 21:16 96 21 01/25/17 20:00 97.7 63 17 114/66 (82) 96 01/26/17 01/26/17 01/26/17 07:00 15:00 23:00 Intake Total 0 ml Output Total 350 ml Balance -350 ml Result Diagram: 01/26/1715 01/26/1715 Laboratory Results Laboratory Tests Test 01/26/17 03:50 01/26/17 06:15 Urine Color YELLOW Urine Turbidity CLEAR Urine pH 6.0 Urine Specific [place] GREATER THAN 1.050 Urine Protein 30 mg/dL Urine Glucose (UA) NEG mg/dL Urine Ketones 40 mg/dL Urine Occult Blood NEG Urine Nitrite NEG Urine Bilirubin NEG Urine Urobilinogen 4.0 MG/DL Urine Leukocyte Esterase NEG Urine RBC 1 /hpf Urine WBC 2 /hpf Urine Mucus FEW /lpf Microscopic Urinalysis Comment CULT NOT INDICATED White Blood Count 4.0 TH/MM3 Red Blood Count 4.05 MIL/MM3 Hemoglobin 10.4 GM/DL Hematocrit 31.8 % Mean Corpuscular Volume 78.5 FL Mean Corpuscular Hemoglobin 25.8 PG Mean Corpuscular Hemoglobin Concent 32.8 % Red Cell Distribution Width 13.5 % Platelet Count 278 TH/MM3 Mean Platelet Volume 7.5 FL Neutrophils (%) (Auto) 62.2 % Lymphocytes (%) (Auto) 31.1 % Monocytes (%) (Auto) 4.1 % Eosinophils (%) (Auto) 1.4 % Basophils (%) (Auto) 1.2 % Neutrophils # (Auto) 2.5 TH/MM3 Lymphocytes # (Auto) 1.2 TH/MM3 Monocytes # (Auto) 0.2 TH/MM3 Eosinophils # (Auto) 0.1 TH/MM3 Basophils # (Auto) 0.0 TH/MM3 CBC Comment DIFF FINAL Differential Comment Blood Urea Nitrogen 13 MG/DL Creatinine 0.75 MG/DL Random Glucose 65 MG/DL Calcium Level 8.3 MG/DL Sodium Level 136 MEQ/L Potassium Level 3.6 MEQ/L Chloride Level 100 MEQ/L Carbon Dioxide Level 26.1 MEQ/L Anion Gap 10 MEQ/L Estimat Glomerular Filtration Rate 129 ML/MIN Prealbumin 10 MG/DL Administered Medications Medications (Trade) Dose Ordered Sig/Deepika Route PRN Reason Start Time Stop Time Status Last Admin Dose Admin Sodium Chloride (NS Flush) 2 ml UNSCH PRN IV FLUSH FLUSH AFTER USING IV ACCESS 01/25/17 10:45 01/25/17 11:14 Sodium Chloride 1,000 ml @ 100 mls/hr Q10H IV 01/25/17 13:21 01/26/17 13:33 Sodium Chloride (NS Flush) 2 ml BID IV FLUSH 01/25/17 21:00 01/26/17 13:32 Enoxaparin Sodium (Lovenox Inj) 40 mg Q24H SQ 01/25/17 15:00 01/26/17 15:46 Senna/Docusate Sodium (Shila-Colace) 1 tab BID PO 01/25/17 21:00 01/26/17 13:32 Morphine Sulfate (Morphine Inj) 2 mg Q4H PRN IV PUSH pain 1-10 01/26/17 06:30 01/26/17 15:46 Objective Remarks GENERAL APPEARANCE: Mr. Sanford is a middle-aged male. He appears to be cachectic, chronically ill. He is laying in bed, he appears to be more comfortable today. HEENT: Head atraumatic, normocephalic, conjunctivae are not pale, sclerae are hyperemic. He has a right-sided NG tube in place. Oral exam - dry mucous membranes. No pharyngeal erythema. NECK: No palpable cervical or supraclavicular lymphadenopathy. RESPIRATORY: Good air movement bilaterally without any added breath sounds. CARDIOVASCULAR: Tachycardic, S1,S2. No obvious murmurs, rubs or gallops. ABDOMEN: Thin belly, abdomen is overall softer today, less tympany and less distention is noted. EXTREMITIES: No pretibial edema or calf tenderness. SOLUTIONS SALES CONSULTANT: No obvious sensory or motor deficits. MUSCULOSKELETAL: Generalized muscle wasting and cachexia. Assessment/Plan Assessment Mr. Sanford is a pleasant 61-year-old male with a diagnosis of diffusely metastatic adenocarcinoma of colorectal primary based on histopathologic findings. He has peritoneal carcinomatosis and, as a consequence to this, has what appears to be a diffuse obstruction of the small bowel as well as a large bowel. Two separate colonoscopies have revealed a large ulcerated mass involving the rectum. Biopsies of this have revealed dysplastic features concerning for malignancy but have not been diagnostic of malignancies. He has been assessed to have metastatic adenocarcinoma of rectal primary. The ulcerated mass in the rectum is the likely primary. I suspect the biopsies performed were limited by their depth of sampling. We do have an omental biopsy which confirmed the presence of metastatic adenocarcinoma. This patient had completed three cycles of palliative FOLFOX delivered between early December and early January of 2017. Unfortunately, he has had no clinical improvement with this treatment. Unfortunately, his condition has worsened. The objective indicators of progression are ongoing weight loss, worsening ECOG performance status, worsening protein calorie malnutrition and minimal to no improvement in his symptoms of bowel obstruction. I spoke to the patient today about his underlying disease and lack of progress with aggressive systemic chemotherapeutic interventions. I explained to him that given his worsening ECOG performance status and ongoing clinical decline, it is not clear if additional chemotherapeutic interventions will be helpful. I did offer to have his case reevaluated by surgery to determine if a surgical option for decompression of his small bowel obstruction would be a reasonable option. The patient at this point would prefer a nonsurgical option for treatment of his small bowel obstruction. I am not certain if any good therapeutic interventions exist. I am concerned about his ability to tolerate additional lines of palliative systemic chemotherapy given his worsening ECOG performance status, nutritional status and it would be my opinion that Mr. Sanford would be best served with a palliative approach. He however tells me he is not ready to "give up" and is considering a second opinion at a tertiary referral center. Plan 1. Metastatic adenocarcinoma of colorectal primary with peritoneal carcinomatosis: Status post 3 doses of full dose FOLFOX. Clinical improvement is not apparent, CT imaging appears to be stable as compared to prior. I did talk to him about changing goals of care to more palliative/hospice level. He however continues to desire disease directed therapy and has mentioned evaluation at a tertiary referral Center. I would recommend continued supportive care. Plans for TPN noted. Palliative care and surgery input noted and appreciated. Unfortunately, I'm not very optimistic about his long-term prognosis. TPN certainly will sustain him from a nutritional standpoint given his propensity to develop bowel obstruction. I did try to broach the topic regarding end-of-life care given the lack of apparent benefit from palliative systemic chemotherapy. He does not appear ready to accept this as a treatment option at this time. Jorge Hightower MD Jan 26, 2017 19:14
[2017-01-26] MEDS: CLINIMIX E 4.25/25 2000 mL- >42 mls/hr IV-CENTRAL SCH ×3 (20:16)
[2017-01-26] MEDS: FAT EMULSION 20% INJ 250 ML (Daily over 8 hours) IV-CENTRAL SCH (20:16)
[2017-01-27] VITALS: BP 144/85; PULSE 66; RESP 16; TEMP 98; O2SAT 97
[2017-01-27] MEDS: MORPHINE SULFATE 4 MG/ML INJ IV PUSH PRN ×6 (00:34→21:24)
[2017-01-27 04:00] VITALS: BP 109/75; PULSE 59; RESP 17; TEMP 98; O2SAT 99
[2017-01-27 05:12] LABS: AUTOMATED NEUTROPHIL # 3.1 TH/MM3 (1.8-7.7); EOSINOPHIL % 0.9 % (0.0-4.0); HEMATOCRIT 30.3 % (39.0-51.0); HEMO FLAGS DIFF FINAL; LYMPH % 23.3 % (9.0-44.0); MEAN CELL VOLUME 78.2 FL (80.0-100.0); MEAN CORPUSCULAR HGB CONC 33.2 % (32.0-36.0); MONO % 2.1 % (0.0-8.0); NEUT % 72.7 % (16.0-70.0); PLATELET COUNT 266 TH/MM3 (150-450); RED BLOOD COUNT 3.88 MIL/MM3 (4.50-5.90); RED CELL DISTRIBUTION WIDTH 13.4 % (11.6-17.2); WHITE BLOOD COUNT 4.3 TH/MM3 (4.0-11.0)
[2017-01-27] MEDS: SODIUM CHLOR 0.9% 1000 ML INJ 1,000 ML IV SCH ×2 (05:21→15:21)
[2017-01-27 05:45] LABS: BICARBONATE 30.1 MEQ/L (21.0-32.0); MAGNESIUM 1.9 MG/DL (1.5-2.5); POTASSIUM 3.4 MEQ/L (3.5-5.1)
[2017-01-27 07:48] VITALS: BP 119/74; PULSE 59; RESP 17; TEMP 97.2; O2SAT 98
[2017-01-27] MEDS: PANTOPRAZOLE SOD 20 MG DELAYED RELEASE TAB PO SCH (08:50)
[2017-01-27] MEDS: SODIUM CHLORIDE 0.9% FLUSH 10 ML FLUSH IV FLUSH SCH ×2 (08:50→20:39)
[2017-01-27] MEDS: DOCUSATE SODIUM 50 MG/SENNA 8.6 MG TAB PO SCH ×2 (08:50→20:39)
--- NOTE | 2017-01-27 10:40 | HHI.PR ---
Subjective Remarks Feels much better. Nausea but no vomiting Passing some gas however feels bloated . Had a BM yesterday. No fever or chills. NG tube in place clamped Objective Vitals Vital Signs Date Time Temp Pulse Resp B/P (MAP) Pulse Ox O2 Delivery O2 Flow Rate FiO2 01/27/17 07:48 97.2 59 17 119/74 (89) 98 01/27/17 04:00 98.0 59 17 109/75 (86) 99 01/27/17 00:00 98.0 66 16 144/85 (104) 97 01/26/17 20:00 98.4 69 17 150/82 (104) 99 01/26/17 17:53 98 01/26/17 16:00 97.2 65 18 148/83 (104) 99 01/26/17 14:20 98 01/26/17 11:30 97.2 64 18 121/73 (89) 99 I/O 01/26/17 01/26/17 01/26/17 01/27/17 01/27/17 01/27/17 07:00 15:00 23:00 07:00 15:00 23:00 Intake Total 0 ml 240 ml 480 ml 360 ml Output Total 350 ml 400 ml Balance -350 ml 240 ml 80 ml 360 ml Intake Oral 0 ml 240 ml 480 ml 360 ml Output Urine Total 350 ml 400 ml # Voids 4 1 # Bowel Movements 0 Result Diagram: 01/27/17 0440 01/27/17 0440 Imaging Last Impressions Abdomen/Pelvis CT 01/25/17 1037 Signed Impressions: Service Date/Time: January 12:30 - CONCLUSION: Small bowel distention concerning for obstruction. Minimal ascites. Left renal cyst. Hermelindo Mcghee MD Abdomen X-Ray 01/25/17 0000 Signed Impressions: Service Date/Time: January 18:57 - CONCLUSION: Mild air-filled dilatation of small bowel loops suggesting small bowel obstruction. Clinical correlation is recommended. Noel Guerin MD Objective Remarks GENERAL: This is a frail 61 yo AA male, in some distress 2/2 nausea. CARDIOVASCULAR: Regular rate and rhythm without murmurs, gallops, or rubs. RESPIRATORY: Clear to auscultation. Breath sounds equal bilaterally. No wheezes , rales, or rhonchi. GASTROINTESTINAL:Abdomen distended, diffusely tender to palpation. Hyperactive bowel sounds. MUSCULOSKELETAL: Extremities without clubbing, cyanosis, or edema. No joint tenderness, effusion, or edema noted. No calf tenderness. Negative Homans sign bilaterally. NEUROLOGICAL: Awake and alert. Cranial nerves II through XII intact. Motor and sensory grossly within normal limits. Five out of 5 muscle strength in all muscle groups. Normal speech. A/P Assessment and Plan 61 y/o male with a history of stage 4 colon cancer, has not seen specialist yet presented to the ED with complaints of abdominal pain and constipation. Small bowel obstruction, patient with abdominal pain and constipation Abdomen/pelvis CT reviewed and shows small bowel distention concerning for obstruction, mild ascites. IVF Consult general surgery for recommendations, ff appreciate recommendations Morphine IV for pain management NPO. NGT . NG tube in place clamped Started on TPN. Add bowel regimen, simethicone Colon cancer stage 4 diagnosed in September, chronic On palliative chemo with Dr Hightower. Consult his oncology Dr Hightower, ff appreciate recommendations Tobacco use, chronic Consult palliative care for goals of care, appreciate assistance CM consulted for DC plan as need. DVT prophylaxis: SCDs/TEDs Discussed Condition With Patient, nurse DC plan : poor prognosis, pending improvement, palliative care is also ff Anita Hernandez MD Jan 27, 2017 10:40
--- NOTE | 2017-01-27 11:21 | PD.ONC.PN ---
Subjective Subjective Remarks Afebrile overnight. Patient resting in bed in nad. No complaints. States he had a bowel movement this AM. Feels he is improving and wants to try food today and have the NGT taken out. Objective Data Date Time Temp Pulse Resp B/P (MAP) Pulse Ox O2 Delivery O2 Flow Rate FiO2 01/27/17 07:48 97.2 59 17 119/74 (89) 98 01/27/17 04:00 98.0 59 17 109/75 (86) 99 01/27/17 00:00 98.0 66 16 144/85 (104) 97 01/26/17 20:00 98.4 69 17 150/82 (104) 99 01/26/17 17:53 98 01/26/17 16:00 97.2 65 18 148/83 (104) 99 01/26/17 14:20 98 01/26/17 11:30 97.2 64 18 121/73 (89) 99 01/27/17 01/27/17 01/27/17 07:00 15:00 23:00 Intake Total 360 ml Balance 360 ml Result Diagram: 01/27/17 0440 01/27/17 0440 Laboratory Results Laboratory Tests Test 01/27/17 04:40 White Blood Count 4.3 TH/MM3 Red Blood Count 3.88 MIL/MM3 Hemoglobin 10.1 GM/DL Hematocrit 30.3 % Mean Corpuscular Volume 78.2 FL Mean Corpuscular Hemoglobin 26.0 PG Mean Corpuscular Hemoglobin Concent 33.2 % Red Cell Distribution Width 13.4 % Platelet Count 266 TH/MM3 Mean Platelet Volume 7.9 FL Neutrophils (%) (Auto) 72.7 % Lymphocytes (%) (Auto) 23.3 % Monocytes (%) (Auto) 2.1 % Eosinophils (%) (Auto) 0.9 % Basophils (%) (Auto) 1.0 % Neutrophils # (Auto) 3.1 TH/MM3 Lymphocytes # (Auto) 1.0 TH/MM3 Monocytes # (Auto) 0.1 TH/MM3 Eosinophils # (Auto) 0.0 TH/MM3 Basophils # (Auto) 0.0 TH/MM3 CBC Comment DIFF FINAL Differential Comment Blood Urea Nitrogen 10 MG/DL Creatinine 0.79 MG/DL Random Glucose 170 MG/DL Calcium Level 7.7 MG/DL Magnesium Level 1.9 MG/DL Sodium Level 138 MEQ/L Potassium Level 3.4 MEQ/L Chloride Level 102 MEQ/L Carbon Dioxide Level 30.1 MEQ/L Anion Gap 6 MEQ/L Estimat Glomerular Filtration Rate 122 ML/MIN Administered Medications Medications (Trade) Dose Ordered Sig/Deepika Route PRN Reason Start Time Stop Time Status Last Admin Dose Admin Sodium Chloride (NS Flush) 2 ml UNSCH PRN IV FLUSH FLUSH AFTER USING IV ACCESS 01/25/17 10:45 01/25/17 11:14 Sodium Chloride 1,000 ml @ 100 mls/hr Q10H IV 01/25/17 13:21 01/26/17 13:33 Sodium Chloride (NS Flush) 2 ml BID IV FLUSH 01/25/17 21:00 01/27/17 08:50 Enoxaparin Sodium (Lovenox Inj) 40 mg Q24H SQ 01/25/17 15:00 01/26/17 15:46 Senna/Docusate Sodium (Shila-Colace) 1 tab BID PO 01/25/17 21:00 01/27/17 08:50 Morphine Sulfate (Morphine Inj) 2 mg Q4H PRN IV PUSH pain 1-10 01/26/17 06:30 01/27/17 08:51 Multivitamins 10 ml/Folic Acid 1 mg/Amino Acids/ Electrolytes/ Dextrose 2,010.2 ml @ 83 mls/hr Q24H IV-CENTRAL 01/26/17 20:00 01/26/17 20:16 Fat Emulsion Intravenous 250 ml @ 31.25 mls/ hr Q24H IV-CENTRAL 01/26/17 20:00 01/26/17 20:16 Pantoprazole Sodium (Protonix) 20 mg DAILY PO 01/27/17 09:00 01/27/17 08:50 Objective Remarks GENERAL: Middle aged male sitting up in bed in [facility]. SKIN: Warm and dry. HEAD: Normocephalic.NGT clamped EYES: No injection or drainage. NECK: Supple, trachea midline. CARDIOVASCULAR: Regular rate and rhythm RESPIRATORY: Breath sounds equal bilaterally. No accessory muscle use. GASTROINTESTINAL: Abdomen mildly distended. non-tender. EXTREMITIES: No cyanosis NEUROLOGICAL: awake and alert, normal speech. moving extremities. Assessment/Plan Problem List: (1) Metastatic adenocarcinoma ICD Codes: C79.9 - Secondary malignant neoplasm of unspecified site Status: Chronic Plan: 01/27: continue TPN. continue clears per GS. patient continuing to desire aggressive treatment. +diffuse obstruction of small bowel and large bowel --ulcerated mass in the rectum is the likely primary. --omental confirmed the presence of metastatic adenocarcinoma. --s/p three cycles of palliative FOLFOX delivered between december and january. --has had no clinical improvement with this treatment. 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 Attending Statement The exam, history, and the medical decision-making described in the above note were completed with the assistance of the mid-level provider. I reviewed and agree with the findings presented. I attest that I had a [id number] encounter with the patient on the same day, and personally performed and documented my assessment and findings in the medical record. states has Good BM today and he feels so much better. wants NGT out and eat solid food. surgery to follow up on NGT and food. has mets rectal ca . on TPN for SBO reassure pt. Deedee Miranda Jan 27, 2017 11:21 Manuela Ann MD Jan 27, 2017 18:08
[2017-01-27 12:00] VITALS: BP 125/79; PULSE 56; RESP 18; TEMP 97.1; O2SAT 99
--- NOTE | 2017-01-27 13:01 | HHI.PR ---
cc: Sam Jones MD Subjective Subjective Notes DAILY PROGRESS NOTE FOR SURGICAL ATTENDING, DR. SAM JONES I want my NG tube put back on suction I am tolerating clear liquids i want more I had a large bowel movement Objective Vitals/I&O Vital Signs Date Time Temp Pulse Resp B/P (MAP) Pulse Ox O2 Delivery O2 Flow Rate FiO2 01/27/17 07:48 97.2 59 17 119/74 (89) 98 01/25/17 21:16 21 01/25/17 13:30 Room Air Labs Laboratory Tests Test 01/27/17 04:40 White Blood Count 4.3 Red Blood Count 3.88 Hemoglobin 10.1 Hematocrit 30.3 Mean Corpuscular Volume 78.2 Mean Corpuscular Hemoglobin 26.0 Mean Corpuscular Hemoglobin Concent 33.2 Red Cell Distribution Width 13.4 Platelet Count 266 Mean Platelet Volume 7.9 Neutrophils (%) (Auto) 72.7 Lymphocytes (%) (Auto) 23.3 Monocytes (%) (Auto) 2.1 Eosinophils (%) (Auto) 0.9 Basophils (%) (Auto) 1.0 Neutrophils # (Auto) 3.1 Lymphocytes # (Auto) 1.0 Monocytes # (Auto) 0.1 Eosinophils # (Auto) 0.0 Basophils # (Auto) 0.0 CBC Comment DIFF FINAL Differential Comment Blood Urea Nitrogen 10 Creatinine 0.79 Random Glucose 170 Calcium Level 7.7 Magnesium Level 1.9 Sodium Level 138 Potassium Level 3.4 Chloride Level 102 Carbon Dioxide Level 30.1 Anion Gap 6 Estimat Glomerular Filtration Rate 122 Radiology Last Impressions Abdomen/Pelvis CT 01/25/17 1037 Signed Impressions: Service Date/Time: January 12:30 - CONCLUSION: Small bowel distention concerning for obstruction. Minimal ascites. Left renal cyst. Hermelindo Mcghee MD Abdomen X-Ray 01/25/17 0000 Signed Impressions: Service Date/Time: January 18:57 - CONCLUSION: Mild air-filled dilatation of small bowel loops suggesting small bowel obstruction. Clinical correlation is recommended. Noel Guerin MD Lungs: Clear Abdomen: Other (slightly distended soft mild discomfort with deep palpation) Extremities: Perfused A/P Problem List: (1) History of colon cancer, stage IV ICD Codes: Z85.038 - Personal history of other malignant neoplasm of large intestine Status: Chronic (2) Metastatic adenocarcinoma ICD Codes: C79.9 - Secondary malignant neoplasm of unspecified site Status: Chronic (3) Abdominal pain ICD Codes: R10.9 - Unspecified abdominal pain Status: Chronic (4) Colon cancer ICD Codes: C18.9 - Malignant neoplasm of colon, unspecified (5) Ileus ICD Codes: K56.7 - Ileus, unspecified Assessment and Plan 61-year-old male with known stage IV colon cancer; abdominal pain with associated nausea and vomiting; CT questionable for small bowel obstruction -Continue NG tube to low intermittent wall suction; okay to clamp for patient to ambulate -Ice chips, sips of water and popsicles for comfort TPN started -Patient is a poor surgical candidate Hospice Consult for Sunday to discuss options with patient and his sister when she is back in town Abdomen remains somewhat distended, but non tender. Reconnect NG to BRIAN for N/V. Attending Statement NOTE FOR SURGICAL ATTENDING, DR. SAM JONES I attest that I had a [id number] encounter with the patient on the same day, and personally performed and documented my assessment and findings in the medical record. The following services were provided during this hospital visit: Chart data review, vital sign assessments/reviewing monitor data Review of consultations notes if present. Medication orders/review and/or management Ordering and/or reviewing lab tests Ordering and/or interpreting/reviewing x-rays and/or diagnostic studies Care of the patient and discussion of the patient with the care team Documentation time To help prompt me to consider important information that might be impacting today's encounter and assessment, information from prior notes written by myself or my colleagues may have been "brought forward/copy and pasted" into today's note. Problem Qualifiers (1) Abdominal pain: Qualified Codes: R10.32 - Left lower quadrant pain (2) Colon cancer: Qualified Codes: C18.8 - Malignant neoplasm of overlapping sites of colon Sam oJnes MD Jan 27, 2017 13:01
[2017-01-27] MEDS: SIMETHICONE 125 MG CHEWABLE TAB PO SCH ×2 (14:00→21:24)
[2017-01-27] MEDS: ENOXAPARIN SODIUM 40 MG/0.4 ML SYRINGE SQ SCH (14:57)
[2017-01-27 16:00] VITALS: BP 125/81; PULSE 64; RESP 18; TEMP 97.4; O2SAT 100
[2017-01-27 20:00] VITALS: BP 126/79; PULSE 68; RESP 20; TEMP 97.5; O2SAT 100
[2017-01-27] MEDS: FAT EMULSION 20% INJ 250 ML (Daily over 8 hours) IV-CENTRAL SCH (20:39)
[2017-01-27] MEDS: CLINIMIX E 4.25/25 2000 mL- >42 mls/hr IV-CENTRAL SCH ×3 (20:49)
[2017-01-28] VITALS (7 sets, daily range): BP systolic 114–124; BP diastolic 65–82; PULSE 67–78; RESP 16–18; TEMP 96.6–98.9; O2SAT 98–100
[2017-01-28] MEDS: SODIUM CHLOR 0.9% 1000 ML INJ 1,000 ML IV SCH ×3 (01:52→22:00)
[2017-01-28] MEDS: MORPHINE SULFATE 4 MG/ML INJ IV PUSH PRN ×6 (01:57→22:02)
[2017-01-28] MEDS: SIMETHICONE 125 MG CHEWABLE TAB PO SCH ×3 (05:51→22:05)
[2017-01-28 05:55] LABS: AUTOMATED NEUTROPHIL # 1.6 TH/MM3 (1.8-7.7); BASOPHIL % 0.7 % (0.0-2.0); EOSINOPHIL % 1.1 % (0.0-4.0); HEMATOCRIT 33.5 % (39.0-51.0); HEMO FLAGS DIFF FINAL; LYMPH % 39.3 % (9.0-44.0); LYMPHOCYTE # 1.2 TH/MM3 (1.0-4.8); MEAN CELL VOLUME 77.7 FL (80.0-100.0); MEAN CORPUSCULAR HEMOGLOBIN 25.6 PG (27.0-34.0); NEUT % 52.9 % (16.0-70.0); PLATELET COUNT 266 TH/MM3 (150-450); RED BLOOD COUNT 4.32 MIL/MM3 (4.50-5.90); RED CELL DISTRIBUTION WIDTH 13.5 % (11.6-17.2); WHITE BLOOD COUNT 3.1 TH/MM3 (4.0-11.0)
[2017-01-28 06:09] LABS: BICARBONATE 28.4 MEQ/L (21.0-32.0); MAGNESIUM 1.9 MG/DL (1.5-2.5); POTASSIUM 3.5 MEQ/L (3.5-5.1)
[2017-01-28] MEDS: SODIUM CHLORIDE 0.9% FLUSH 10 ML FLUSH IV FLUSH SCH ×2 (09:00→21:39)
[2017-01-28] MEDS: PANTOPRAZOLE SOD 20 MG DELAYED RELEASE TAB PO SCH (09:42)
[2017-01-28] MEDS: DOCUSATE SODIUM 50 MG/SENNA 8.6 MG TAB PO SCH ×2 (09:42→21:40)
--- NOTE | 2017-01-28 10:54 | HHI.PR ---
Subjective Remarks in no acute distress. NG tube in place. no nausea or vomiting. had a BM yesterday. no abdominal pain. d/w the RN and no acute issues over night. Objective Vitals Vital Signs Date Time Temp Pulse Resp B/P (MAP) Pulse Ox O2 Delivery O2 Flow Rate FiO2 01/28/17 07:33 96.6 73 16 116/72 (87) 98 01/28/17 00:00 97.1 73 18 114/72 (86) 99 01/27/17 20:00 97.5 68 20 126/79 (95) 100 01/27/17 16:00 97.4 64 18 125/81 (96) 100 01/27/17 12:00 99 21 01/27/17 12:00 97.1 56 18 125/79 (94) 99 I/O 01/27/17 01/27/17 01/27/17 01/28/17 01/28/17 01/28/17 07:00 15:00 23:00 07:00 15:00 23:00 Intake Total 360 ml 480 ml 09061.2 ml 610 ml Output Total 50 ml 750 ml Balance 360 ml 480 ml 27746.2 ml -140 ml Intake Oral 360 ml 480 ml 360 ml IV Total 08011.2 ml 250 ml Output Urine Total 250 ml Gastric Drainage Total 50 ml 500 ml # Voids 1 3 # Bowel Movements 1 Result Diagram: 01/28/17 0535 01/28/17 0535 Imaging Last Impressions Abdomen/Pelvis CT 01/25/17 1037 Signed Impressions: Service Date/Time: January 12:30 - CONCLUSION: Small bowel distention concerning for obstruction. Minimal ascites. Left renal cyst. Hermelindo Mcghee MD Abdomen X-Ray 01/25/17 0000 Signed Impressions: Service Date/Time: January 18:57 - CONCLUSION: Mild air-filled dilatation of small bowel loops suggesting small bowel obstruction. Clinical correlation is recommended. Noel Guerin MD Objective Remarks GENERAL: This is a well-nourished, well-developed patient, in no apparent distress. CARDIOVASCULAR: Regular rate and regular rhythm without murmurs, gallops, or rubs. RESPIRATORY: Clear to auscultation. Breath sounds equal bilaterally. No wheezes , rales, or rhonchi. GASTROINTESTINAL: Abdomen soft, non-tender, distended. Normal, active bowel sounds MUSCULOSKELETAL: Extremities without clubbing, cyanosis, or edema. NEURO: Alert & Oriented x4 to person, place, time, situation. Moves all ext x4 Medications and IVs Current Medications Morphine Sulfate (Morphine Inj) 4 mg ONCE ONCE IV PUSH Last administered on 11:14; Start 01/25/17 at 10:45; Stop 01/25/17 at 10:46; Status DC Ondansetron HCl (Zofran Inj) 4 mg ONCE ONCE IVP Last administered on 11:14; Start 01/25/17 at 10:45; Stop 01/25/17 at 10:46; Status DC Sodium Chloride 1,000 ml @ 1,000 mls/hr Q1H IV Last administered on 01/25/17 11:13; Start 01/25/17 at 10:37; Stop 01/25/17 at 11:36; Status DC Sodium Chloride (NS Flush) 2 ml UNSCH PRN IV FLUSH FLUSH AFTER USING IV ACCESS Last administered on 01/25/17 11:14; Start 01/25/17 at 10:45 Famotidine (Pepcid Inj) 20 mg ONCE ONCE IV PUSH Last administered on 11:14; Start 01/25/17 at 10:45; Stop 01/25/17 at 10:46; Status DC Iohexol (Omnipaque 350 Inj) 82 ml STK-MED ONCE IVCONTRAST Last administered on 01/25/17 12:37; Start 01/25/17 at 12:37; Stop 01/25/17 at 12:38; Status DC Morphine Sulfate (Morphine Inj) 4 mg ONCE ONCE IV PUSH Last administered on 13:32; Start 01/25/17 at 13:00; Stop 01/25/17 at 13:01; Status DC Sodium Chloride 1,000 ml @ 100 mls/hr Q10H IV Last administered on 01/28/17 09:42; Start 01/25/17 at 13:21 Sodium Chloride (NS Flush) 2 ml UNSCH PRN IV FLUSH FLUSH AFTER USING IV ACCESS ; Start 01/25/17 at 13:30 Sodium Chloride (NS Flush) 2 ml BID IV FLUSH Last administered on 01/27/17 08: 50; Start 01/25/17 at 21:00 Acetaminophen (Tylenol) 650 mg Q4H PRN PO TEMP > 100.4; Start 01/25/17 at 13:30 Ondansetron HCl (Zofran Inj) 4 mg Q6H PRN IVP NAUSEA OR VOMITING; Start at 13:30 Enoxaparin Sodium (Lovenox Inj) 40 mg Q24H SQ Last administered on 01/26/17 15 :46; Start 01/25/17 at 15:00 Naloxone HCl (Narcan Inj) 0.4 mg UNSCH PRN IV PUSH SEE LABEL COMMENTS; Start 01/25/17 at 13:30 Senna/Docusate Sodium (Shila-Colace) 1 tab BID PO Last administered on 09:42; Start 01/25/17 at 21:00 Magnesium Hydroxide (Milk Of Magnesia Liq) 30 ml Q12H PRN PO Mild constipation ; Start 01/25/17 at 13:30 Sennosides (Senokot) 17.2 mg Q12HR PRN PO Moderate constipation; Start at 21:00 Bisacodyl (Dulcolax Supp) 10 mg DAILY PRN RECTAL SEVERE CONSITIPATION; Start 01/25/17 at 13:30 Lactulose (Lactulose Liq) 30 ml DAILY PRN PO SEVERE CONSITIPATION; Start at 13:30 Hydromorphone HCl (Dilaudid) 4 mg Q4H PRN PO PAIN; Start 01/25/17 at 13:30; Stop 01/25/17 at 13:31; Status DC Potassium Chloride (KCl) 30 meq ONCE ONCE PO ; Start 01/25/17 at 13:30; Stop 01/25/17 at 14:04; Status DC Morphine Sulfate (Morphine Inj) 2 mg Q4H PRN IV PUSH pain 1-10; Start 01/25/17 at 13:30; Stop 01/26/17 at 06:18; Status DC Potassium Chloride 100 ml @ 50 mls/hr Q2H IV Last administered on 01/25/17 20 :30; Start 01/25/17 at 15:30; Stop 01/25/17 at 19:29; Status DC Morphine Sulfate (Morphine Inj) 2 mg Q4H PRN IV PUSH pain 1-10 Last administered on 01/27/17 17:50; Start 01/26/17 at 06:30; Stop 01/27/17 at 21:12 ; Status DC Multivitamins 10 ml/Folic Acid 1 mg/Amino Acids/ Electrolytes/ Dextrose 2,010.2 ml @ 83 mls/hr Q24H IV-CENTRAL Last administered on 01/27/17 20:49; Start at 20:00 Fat Emulsion Intravenous 250 ml @ 31.25 mls/ hr Q24H IV-CENTRAL Last administered on 01/27/17 20:39; Start 01/26/17 at 20:00 Pantoprazole Sodium (Protonix Inj) 40 mg ONCE ONCE IV PUSH Last administered on 01/26/17 15:46; Start 01/26/17 at 15:15; Stop 01/26/17 at 15:16; Status DC Pantoprazole Sodium (Protonix) 20 mg DAILY PO Last administered on 01/28/17 09:42; Start 01/27/17 at 09:00 Simethicone (Phazyme Chew) 125 mg Q8HR PO Last administered on 01/28/17 05:51 ; Start 01/27/17 at 14:00 Morphine Sulfate (Morphine Inj) 4 mg Q4H PRN IV PUSH pain 1-10 Last administered on 01/28/17 09:52; Start 01/27/17 at 21:15 A/P Assessment and Plan A/P Small bowel obstruction Abdomen/pelvis CT reviewed and shows small bowel distention concerning for obstruction, mild ascites. continue with NG tube/ TPN Morphine IV for pain management general surgery following. Colon cancer stage 4 diagnosed in September, chronic On palliative chemo with Dr Hightower. Consult his oncology Dr Hightower, ff appreciate recommendations palliative care following. hospice consulted. Tobacco use, chronic DVT prophylaxis: Lovenox. Discharge Planning awaiting hospice consult. Jakob Perez MD Jan 28, 2017 10:54
[2017-01-28] MEDS: ENOXAPARIN SODIUM 40 MG/0.4 ML SYRINGE SQ SCH (15:00)
--- NOTE | 2017-01-28 16:56 | HHI.PR ---
cc: Chucky Jones MD Subjective Subjective Notes DAILY PROGRESS NOTE FOR SURGICAL ATTENDING, DR. CHUCKY JONES I feel better with the NG tube on suction Objective Vitals/I&O Vital Signs Date Time Temp Pulse Resp B/P (MAP) Pulse Ox O2 Delivery O2 Flow Rate FiO2 01/28/17 12:00 97.0 72 16 116/65 (82) 99 01/27/17 12:00 21 01/25/17 13:30 Room Air Labs Laboratory Tests Test 01/28/17 05:35 White Blood Count 3.1 Red Blood Count 4.32 Hemoglobin 11.1 Hematocrit 33.5 Mean Corpuscular Volume 77.7 Mean Corpuscular Hemoglobin 25.6 Mean Corpuscular Hemoglobin Concent 33.0 Red Cell Distribution Width 13.5 Platelet Count 266 Mean Platelet Volume 7.5 Neutrophils (%) (Auto) 52.9 Lymphocytes (%) (Auto) 39.3 Monocytes (%) (Auto) 6.0 Eosinophils (%) (Auto) 1.1 Basophils (%) (Auto) 0.7 Neutrophils # (Auto) 1.6 Lymphocytes # (Auto) 1.2 Monocytes # (Auto) 0.2 Eosinophils # (Auto) 0.0 Basophils # (Auto) 0.0 CBC Comment DIFF FINAL Differential Comment Blood Urea Nitrogen 13 Creatinine 0.72 Random Glucose 124 Calcium Level 7.8 Magnesium Level 1.9 Sodium Level 140 Potassium Level 3.5 Chloride Level 104 Carbon Dioxide Level 28.4 Anion Gap 8 Estimat Glomerular Filtration Rate 135 Radiology Last Impressions Abdomen/Pelvis CT 01/25/17 1037 Signed Impressions: Service Date/Time: January 12:30 - CONCLUSION: Small bowel distention concerning for obstruction. Minimal ascites. Left renal cyst. Hermelindo Mcghee MD Abdomen X-Ray 01/25/17 0000 Signed Impressions: Service Date/Time: January 18:57 - CONCLUSION: Mild air-filled dilatation of small bowel loops suggesting small bowel obstruction. Clinical correlation is recommended. Noel Guerin MD Cardiovascular: Regular Abdomen: Non-distended, Non-tender, Other (an NG tube in place output noted) Extremities: Perfused A/P Problem List: (1) History of colon cancer, stage IV ICD Codes: Z85.038 - Personal history of other malignant neoplasm of large intestine Status: Chronic (2) Metastatic adenocarcinoma ICD Codes: C79.9 - Secondary malignant neoplasm of unspecified site Status: Chronic (3) Abdominal pain ICD Codes: R10.9 - Unspecified abdominal pain Status: Chronic (4) Colon cancer ICD Codes: C18.9 - Malignant neoplasm of colon, unspecified (5) Ileus ICD Codes: K56.7 - Ileus, unspecified Assessment and Plan 61-year-old male with known stage IV colon cancer; abdominal pain with associated nausea and vomiting; CT questionable for small bowel obstruction -Continue NG tube to low intermittent wall suction; okay to clamp for patient to ambulate -Ice chips, sips of water and popsicles for comfort TPN started -Patient is a poor surgical candidate Hospice Consult for Sunday to discuss options with patient and his sister when she is back in town Abdomen somewhat less distended, but non tender. NG to LIWS for N/V. Attending Statement NOTE FOR SURGICAL ATTENDING, DR. CHUCKY JONES I attest that I had a [id number] encounter with the patient on the same day, and personally performed and documented my assessment and findings in the medical record. The following services were provided during this hospital visit: Chart data review, vital sign assessments/reviewing monitor data Review of consultations notes if present. Medication orders/review and/or management Ordering and/or reviewing lab tests Ordering and/or interpreting/reviewing x-rays and/or diagnostic studies Care of the patient and discussion of the patient with the care team Documentation time To help prompt me to consider important information that might be impacting today's encounter and assessment, information from prior notes written by myself or my colleagues may have been "brought forward/copy and pasted" into today's note. Problem Qualifiers (1) Abdominal pain: Qualified Codes: R10.32 - Left lower quadrant pain (2) Colon cancer: Qualified Codes: C18.8 - Malignant neoplasm of overlapping sites of colon Chucky Jones MD Jan 28, 2017 16:56
[2017-01-28] MEDS: FAT EMULSION 20% INJ 250 ML (Daily over 8 hours) IV-CENTRAL SCH (21:39)
[2017-01-28] MEDS: CLINIMIX E 4.25/25 2000 mL- >42 mls/hr IV-CENTRAL SCH ×3 (21:39)
[2017-01-29] VITALS (11 sets, daily range): BP systolic 103–120; BP diastolic 73–89; PULSE 66–85; RESP 18–20; TEMP 98.1–98.6; O2SAT 97–100
[2017-01-29] MEDS: MORPHINE SULFATE 4 MG/ML INJ IV PUSH PRN ×7 (02:05→23:42)
[2017-01-29 04:57] LABS: BASOPHIL % 0.4 % (0.0-2.0); EOSINOPHIL # 0.1 TH/MM3 (0-0.4); EOSINOPHIL % 1.4 % (0.0-4.0); HEMATOCRIT 32.8 % (39.0-51.0); HEMO FLAGS DIFF FINAL; LYMPH % 31.6 % (9.0-44.0); LYMPHOCYTE # 1.5 TH/MM3 (1.0-4.8); MEAN CELL VOLUME 78.1 FL (80.0-100.0); MEAN CORPUSCULAR HEMOGLOBIN 25.7 PG (27.0-34.0); MEAN CORPUSCULAR HGB CONC 32.9 % (32.0-36.0); NEUT % 60.6 % (16.0-70.0); PLATELET COUNT 203 TH/MM3 (150-450); RED CELL DISTRIBUTION WIDTH 13.4 % (11.6-17.2); WHITE BLOOD COUNT 4.9 TH/MM3 (4.0-11.0)
[2017-01-29 05:23] LABS: BICARBONATE 29.3 MEQ/L (21.0-32.0); POTASSIUM 3.4 MEQ/L (3.5-5.1)
[2017-01-29] MEDS: SIMETHICONE 125 MG CHEWABLE TAB PO SCH ×4 (05:45→23:00)
[2017-01-29] MEDS: PANTOPRAZOLE SOD 20 MG DELAYED RELEASE TAB PO SCH (09:00)
[2017-01-29] MEDS: SODIUM CHLORIDE 0.9% FLUSH 10 ML FLUSH IV FLUSH SCH ×2 (09:00→20:49)
[2017-01-29] MEDS: DOCUSATE SODIUM 50 MG/SENNA 8.6 MG TAB PO SCH ×3 (09:00→23:00)
--- NOTE | 2017-01-29 11:51 | HHI.PR ---
Subjective Remarks Patient feels better after having the NG tube in place. He's less distended. No nausea. She's had a bowel movement. Pain is under control. He still reports a left lower quadrant pocket of gas which when he presses on it can be decompressed. Objective Vital Signs Date Time Temp Pulse Resp B/P (MAP) Pulse Ox O2 Delivery O2 Flow Rate FiO2 01/29/17 09:19 98.1 78 20 120/89 (99) 99 01/29/17 08:00 85 01/29/17 04:17 79 01/29/17 04:10 98.6 78 18 103/73 (83) 99 01/29/17 00:22 98.5 78 18 111/75 (87) 98 01/29/17 00:09 66 01/28/17 21:30 98.9 78 18 115/80 (92) 98 01/28/17 20:18 67 01/28/17 18:36 98.6 77 18 124/82 (96) 99 01/28/17 16:00 97.0 75 16 120/71 (87) 100 01/28/17 12:00 97.0 72 16 116/65 (82) 99 I/O 01/28/17 01/28/17 01/28/17 01/29/17 01/29/17 01/29/17 07:00 15:00 23:00 07:00 15:00 23:00 Intake Total 610 ml 720 ml 3100 ml 240 ml Output Total 750 ml 450 ml 400 ml 1175 ml Balance -140 ml 270 ml 2700 ml -935 ml Intake Oral 360 ml 720 ml 240 ml IV Total 250 ml 1000 ml TPN/PPN 2100 ml Output Urine Total 250 ml 475 ml Gastric Drainage Total 500 ml 450 ml 400 ml 700 ml # Voids 3 # Bowel Movements 0 Result Diagram: 01/29/1740901/29/17409 Objective Remarks GENERAL: NAD, A&Ox3, NG tube in place. HEAD: Normocephalic. NECK: Supple, trachea midline. No lymphadenopathy. EYES: No scleral icterus. No injection or drainage. CARDIOVASCULAR: Regular rate and rhythm without murmurs, gallops, or rubs. RESPIRATORY: Breath sounds equal bilaterally. No accessory muscle use. GASTROINTESTINAL: Abdomen soft, non-tender, nondistended. MUSCULOSKELETAL: No cyanosis, or edema. SKIN: Warm and dry. NEURO: No focal neurological deficitis. A/P Problem List: (1) History of colon cancer, stage IV ICD Code: Z85.038 - Personal history of other malignant neoplasm of large intestine Status: Chronic (2) Small bowel obstruction ICD Code: K56.609 - Unspecified intestinal obstruction, unspecified as to partial versus complete obstruction Status: Acute Assessment and Plan Assessment and Plan 61-year-old male admitted secondary to small bowel obstruction in the presence of stage IV colon cancer Small bowel obstruction Patient reports this is his first episode Cancer increases his risk for recurrence Symptomatically he has improved since placement of NG tube Continue NG tube for now Continue TPN Morphine for pain Surgeon following Repeat abdominal x-ray ordered for comparison Colon cancer stage 4 Active diagnosed in September, On palliative chemo with Dr Hightower. Oncology following palliative care following. hospice consult pending Tobacco use Cessation recommended DVT prophylaxis Niels Rodas MD Jan 29, 2017 11:51
--- NOTE | 2017-01-29 14:00 | HHI.PR ---
cc: Vikas Pfeiffer MD Subjective Subjective Notes Happy because he has gained two pounds over the weekend Objective Vitals/I&O Vital Signs Date Time Temp Pulse Resp B/P (MAP) Pulse Ox O2 Delivery O2 Flow Rate FiO2 01/29/17 09:19 98.1 78 20 120/89 (99) 99 01/27/17 12:00 21 01/25/17 13:30 Room Air Labs Laboratory Tests Test 01/29/17 04:10 White Blood Count 4.9 Red Blood Count 4.20 Hemoglobin 10.8 Hematocrit 32.8 Mean Corpuscular Volume 78.1 Mean Corpuscular Hemoglobin 25.7 Mean Corpuscular Hemoglobin Concent 32.9 Red Cell Distribution Width 13.4 Platelet Count 203 Mean Platelet Volume 7.9 Neutrophils (%) (Auto) 60.6 Lymphocytes (%) (Auto) 31.6 Monocytes (%) (Auto) 6.0 Eosinophils (%) (Auto) 1.4 Basophils (%) (Auto) 0.4 Neutrophils # (Auto) 3.0 Lymphocytes # (Auto) 1.5 Monocytes # (Auto) 0.3 Eosinophils # (Auto) 0.1 Basophils # (Auto) 0.0 CBC Comment DIFF FINAL Differential Comment Blood Urea Nitrogen 13 Creatinine 0.61 Random Glucose 101 Calcium Level 8.2 Magnesium Level 2.0 Sodium Level 140 Potassium Level 3.4 Chloride Level 104 Carbon Dioxide Level 29.3 Anion Gap 7 Estimat Glomerular Filtration Rate 164 Radiology Last Impressions Abdomen/Pelvis CT 01/25/17 1037 Signed Impressions: Service Date/Time: January 12:30 - CONCLUSION: Small bowel distention concerning for obstruction. Minimal ascites. Left renal cyst. Hermelindo Mcghee MD Abdomen X-Ray 01/25/17 0000 Signed Impressions: Service Date/Time: January 18:57 - CONCLUSION: Mild air-filled dilatation of small bowel loops suggesting small bowel obstruction. Clinical correlation is recommended. Noel Guerin MD Cardiovascular: Regular Lungs: Clear Abdomen: Other (mildly distended; non tender; NGT to LIWS ) Extremities: No edema A/P Problem List: (1) History of colon cancer, stage IV ICD Codes: Z85.038 - Personal history of other malignant neoplasm of large intestine Status: Chronic (2) Metastatic adenocarcinoma ICD Codes: C79.9 - Secondary malignant neoplasm of unspecified site Status: Chronic (3) Abdominal pain ICD Codes: R10.9 - Unspecified abdominal pain Status: Chronic (4) Colon cancer ICD Codes: C18.9 - Malignant neoplasm of colon, unspecified (5) Ileus ICD Codes: K56.7 - Ileus, unspecified Assessment and Plan 61-year-old male with known stage IV colon cancer; abdominal pain with associated nausea and vomiting; CT questionable for small bowel obstruction -Continue NG tube to low intermittent wall suction; okay to clamp for patient to ambulate -Clear liquids -Continue TPN -SBFT -Patient is a poor surgical candidate -Hospice meeting planned for today Attending Statement The exam, history, and the medical decision-making described in the above note were completed with the assistance of the mid-level provider. I reviewed and agree with the findings presented. I attest that I had a [id number] encounter with the patient on the same day, and personally performed and documented my assessment and findings in the medical record. Problem Qualifiers (1) Abdominal pain: Qualified Codes: R10.32 - Left lower quadrant pain (2) Colon cancer: Qualified Codes: C18.8 - Malignant neoplasm of overlapping sites of colon Kylie Varela Jan 29, 2017 14:00 Vikas Pfeiffer MD Jan 30, 2017 13:12
[2017-01-29] MEDS: ENOXAPARIN SODIUM 40 MG/0.4 ML SYRINGE SQ SCH ×2 (14:01→14:04)
--- NOTE | 2017-01-29 17:07 | RADRPT ---
EXAM DATE/TIME: 01/29/2017 16:34 [facility] COMPARISON: CT ABDOMEN & PELVIS W CONTRAST, January 25, 2017, 12:30. ABDOMEN KUB ONLY, January 25, 2017, 18:57 . INDICATIONS : Obstruction, abdominal distention. MEDICAL HISTORY : None. SURGICAL HISTORY : Appendectomy. Inguinal hernia repair. ENCOUNTER: Initial ACUITY: 1 week PAIN SCORE: 2/10 LOCATION: middle abdomen. FINDINGS: Supine view of the abdomen was performed. Mildly dilated loops of small bowel remain evident in the u pper abdomen especially on the right. The degree of distention has improved since the prior CT. There is no evidence of mass effect. CONCLUSION: Resolving but persistent mild ileus. Mansoor Arthur MD on January 29, 2017 at 17:03 Board Certified Radiologist. This report was verified electronically.
[2017-01-29] MEDS: CLINIMIX E 4.25/25 2000 mL- >42 mls/hr IV-CENTRAL SCH ×3 (23:00)
[2017-01-29] MEDS: FAT EMULSION 20% INJ 250 ML (Daily over 8 hours) IV-CENTRAL SCH (23:00)
[2017-01-29] MEDS: SODIUM CHLOR 0.9% 1000 ML INJ 1,000 ML IV SCH (23:12)
--- NOTE | 2017-01-29 23:47 | PD.ONC.PN ---
Subjective Subjective Remarks No distress, resting comfortably in bed. Objective Data Date Time Temp Pulse Resp B/P (MAP) Pulse Ox O2 Delivery O2 Flow Rate FiO2 01/29/17 20:49 98.4 75 18 119/73 (88) 97 01/29/17 17:45 98.6 69 18 113/78 (90) 100 01/29/17 14:06 98.3 74 20 111/81 (91) 100 01/29/17 09:19 98.1 78 20 120/89 (99) 99 01/29/17 08:00 85 01/29/17 04:17 79 01/29/17 04:10 98.6 78 18 103/73 (83) 99 01/29/17 00:22 98.5 78 18 111/75 (87) 98 01/29/17 00:09 66 Result Diagram: 01/29/17 0410 01/29/17 0410 Laboratory Results Laboratory Tests Test 01/29/17 04:10 White Blood Count 4.9 TH/MM3 Red Blood Count 4.20 MIL/MM3 Hemoglobin 10.8 GM/DL Hematocrit 32.8 % Mean Corpuscular Volume 78.1 FL Mean Corpuscular Hemoglobin 25.7 PG Mean Corpuscular Hemoglobin Concent 32.9 % Red Cell Distribution Width 13.4 % Platelet Count 203 TH/MM3 Mean Platelet Volume 7.9 FL Neutrophils (%) (Auto) 60.6 % Lymphocytes (%) (Auto) 31.6 % Monocytes (%) (Auto) 6.0 % Eosinophils (%) (Auto) 1.4 % Basophils (%) (Auto) 0.4 % Neutrophils # (Auto) 3.0 TH/MM3 Lymphocytes # (Auto) 1.5 TH/MM3 Monocytes # (Auto) 0.3 TH/MM3 Eosinophils # (Auto) 0.1 TH/MM3 Basophils # (Auto) 0.0 TH/MM3 CBC Comment DIFF FINAL Differential Comment Blood Urea Nitrogen 13 MG/DL Creatinine 0.61 MG/DL Random Glucose 101 MG/DL Calcium Level 8.2 MG/DL Magnesium Level 2.0 MG/DL Sodium Level 140 MEQ/L Potassium Level 3.4 MEQ/L Chloride Level 104 MEQ/L Carbon Dioxide Level 29.3 MEQ/L Anion Gap 7 MEQ/L Estimat Glomerular Filtration Rate 164 ML/MIN Imaging Studies Last 24 hours Impressions Abdomen X-Ray 01/29/17 0000 Signed Impressions: Service Date/Time: Sunday, January 29, 2017 16:34 - CONCLUSION: Resolving but persistent mild ileus. Mansoor Arthur MD Administered Medications Medications (Trade) Dose Ordered Sig/Deepika Route PRN Reason Start Time Stop Time Status Last Admin Dose Admin Sodium Chloride (NS Flush) 2 ml UNSCH PRN IV FLUSH FLUSH AFTER USING IV ACCESS 01/25/17 10:45 01/25/17 11:14 Sodium Chloride 1,000 ml @ 50 mls/hr Q20H IV 01/25/17 13:21 01/29/17 23:12 Sodium Chloride (NS Flush) 2 ml BID IV FLUSH 01/25/17 21:00 01/29/17 20:49 Enoxaparin Sodium (Lovenox Inj) 40 mg Q24H SQ 01/25/17 15:00 01/26/17 15:46 Senna/Docusate Sodium (Shila-Colace) 1 tab BID PO 01/25/17 21:00 01/29/17 23:00 Multivitamins 10 ml/Folic Acid 1 mg/Amino Acids/ Electrolytes/ Dextrose 2,010.2 ml @ 83 mls/hr Q24H IV-CENTRAL 01/26/17 20:00 01/29/17 23:00 Fat Emulsion Intravenous 250 ml @ 31.25 mls/ hr Q24H IV-CENTRAL 01/26/17 20:00 01/29/17 23:00 Pantoprazole Sodium (Protonix) 20 mg DAILY PO 01/27/17 09:00 01/28/17 09:42 Simethicone (Phazyme Chew) 125 mg Q8HR PO 01/27/17 14:00 01/29/17 23:00 Morphine Sulfate (Morphine Inj) 4 mg Q3HR PRN IV PUSH pain 1-10 01/29/17 18:45 01/29/17 20:44 Objective Remarks GENERAL: thin man in no distress SKIN: Warm and dry. HEAD: Normocephalic. EYES: No scleral icterus. No injection or drainage. NECK: Supple, trachea midline. No JVD or lymphadenopathy. LYMPHATIC: No adenopathy. CARDIOVASCULAR: Regular rate and rhythm without murmurs. RESPIRATORY: Breath sounds equal bilaterally. No accessory muscle use. GASTROINTESTINAL: Abdomen with intermittent cramping from SBO EXTREMITIES: No cyanosis, or edema. MUSCULOSKELETAL: Adequate muscle tone. NEUROLOGICAL: No obvious focal deficit. Awake, alert, and oriented x3. PSYCHIATRIC: Appropriate mood and affect Assessment/Plan Problem List: (1) Metastatic adenocarcinoma ICD Codes: C79.9 - Secondary malignant neoplasm of unspecified site Status: Chronic Plan: Assessment 61y/o male with metastatic adenocarcinoma of colorectal origin with peritoneal carcinomatosis. Plan 1. Metastatic rectal cancer: Rectal primary with peritoneal carcinomatosis. Obstruction of large and small bowel. s/p 3 cycles of palliative FOLFOX with no clinical improvement. 2. SBO: s/p placement of NG tube with intermittent suction, on TPN Nayeli Neal MD Jan 29, 2017 23:47
[2017-01-30] VITALS (10 sets, daily range): BP systolic 114–131; BP diastolic 73–88; PULSE 67–82; RESP 18–24; TEMP 97.8–98.9; O2SAT 98–100
[2017-01-30] MEDS: MORPHINE SULFATE 4 MG/ML INJ IV PUSH PRN ×7 (04:05→21:50)
[2017-01-30] MEDS: SODIUM CHLORIDE 0.9% FLUSH 10 ML FLUSH IV FLUSH PRN ×2 (04:15)
[2017-01-30 05:13] LABS: AUTOMATED NEUTROPHIL # 3.9 TH/MM3 (1.8-7.7); BASOPHIL % 0.5 % (0.0-2.0); EOSINOPHIL # 0.1 TH/MM3 (0-0.4); EOSINOPHIL % 1.4 % (0.0-4.0); HEMATOCRIT 32.2 % (39.0-51.0); HEMO FLAGS DIFF FINAL; LYMPH % 30.6 % (9.0-44.0); LYMPHOCYTE # 2.1 TH/MM3 (1.0-4.8); MEAN CELL VOLUME 77.9 FL (80.0-100.0); MEAN CORPUSCULAR HEMOGLOBIN 26.3 PG (27.0-34.0); MEAN CORPUSCULAR HGB CONC 33.8 % (32.0-36.0); MONO % 9.8 % (0.0-8.0); NEUT % 57.7 % (16.0-70.0); PLATELET COUNT 191 TH/MM3 (150-450); RED BLOOD COUNT 4.13 MIL/MM3 (4.50-5.90); RED CELL DISTRIBUTION WIDTH 13.3 % (11.6-17.2); WHITE BLOOD COUNT 6.9 TH/MM3 (4.0-11.0)
[2017-01-30 05:33] LABS: ANION GAP 8 MEQ/L (5-15); AST (GOT) 13 U/L (15-37); BICARBONATE 28.5 MEQ/L (21.0-32.0); BLOOD UREA NITROGEN 12 MG/DL (7-18); CHLORIDE 103 MEQ/L (98-107); GLOMERULAR FILTRATION RATE 140 ML/MIN (>89); POTASSIUM 3.3 MEQ/L (3.5-5.1); SODIUM (NA) 139 MEQ/L (136-145)
[2017-01-30 05:37] LABS: ALKALINE PHOSPHATASE 76 U/L (45-117); ALT (GPT) 22 U/L (12-78); TOTAL BILIRUBIN ADULT 0.4 MG/DL (0.2-1.0)
[2017-01-30] MEDS: SIMETHICONE 125 MG CHEWABLE TAB PO SCH ×3 (06:00→19:49)
[2017-01-30] MEDS: SODIUM CHLOR 0.9% 1000 ML INJ 1,000 ML IV SCH (07:15)
[2017-01-30] MEDS: DOCUSATE SODIUM 50 MG/SENNA 8.6 MG TAB PO SCH ×2 (08:30→19:49)
[2017-01-30] MEDS: PANTOPRAZOLE SOD 20 MG DELAYED RELEASE TAB PO SCH (08:30)
[2017-01-30] MEDS: SODIUM CHLORIDE 0.9% FLUSH 10 ML FLUSH IV FLUSH SCH ×2 (08:30→19:49)
--- NOTE | 2017-01-30 10:26 | PD.ONC.PN ---
Subjective Subjective Remarks Afebrile overnight. Resting in bed. States he has occasional pain in abdomen. Nausea is improved with NGT in place, but he is hoping to get it out soon. Objective Data Date Time Temp Pulse Resp B/P (MAP) Pulse Ox O2 Delivery O2 Flow Rate FiO2 01/30/17 07:51 76 01/30/17 04:11 98.0 73 18 117/80 (92) 99 01/30/17 00:06 67 01/29/17 23:45 98.6 73 18 113/81 (92) 99 01/29/17 20:49 98.4 75 18 119/73 (88) 97 01/29/17 20:11 67 01/29/17 17:45 98.6 69 18 113/78 (90) 100 01/29/17 14:06 98.3 74 20 111/81 (91) 100 01/30/17 01/30/17 01/30/17 07:00 15:00 23:00 Intake Total 1265 ml 35 ml Output Total 1250 ml Balance 15 ml 35 ml Result Diagram: 01/30/17 0420 01/30/17 0420 Laboratory Results Laboratory Tests Test 01/30/17 04:20 White Blood Count 6.9 TH/MM3 Red Blood Count 4.13 MIL/MM3 Hemoglobin 10.9 GM/DL Hematocrit 32.2 % Mean Corpuscular Volume 77.9 FL Mean Corpuscular Hemoglobin 26.3 PG Mean Corpuscular Hemoglobin Concent 33.8 % Red Cell Distribution Width 13.3 % Platelet Count 191 TH/MM3 Mean Platelet Volume 8.0 FL Neutrophils (%) (Auto) 57.7 % Lymphocytes (%) (Auto) 30.6 % Monocytes (%) (Auto) 9.8 % Eosinophils (%) (Auto) 1.4 % Basophils (%) (Auto) 0.5 % Neutrophils # (Auto) 3.9 TH/MM3 Lymphocytes # (Auto) 2.1 TH/MM3 Monocytes # (Auto) 0.7 TH/MM3 Eosinophils # (Auto) 0.1 TH/MM3 Basophils # (Auto) 0.0 TH/MM3 CBC Comment DIFF FINAL Differential Comment Blood Urea Nitrogen 12 MG/DL Creatinine 0.70 MG/DL Random Glucose 86 MG/DL Total Protein 6.1 GM/DL Albumin 2.6 GM/DL Calcium Level 8.3 MG/DL Alkaline Phosphatase 76 U/L Aspartate Amino Transf (AST/SGOT) 13 U/L Alanine Aminotransferase (ALT/SGPT) 22 U/L Total Bilirubin 0.4 MG/DL Sodium Level 139 MEQ/L Potassium Level 3.3 MEQ/L Chloride Level 103 MEQ/L Carbon Dioxide Level 28.5 MEQ/L Anion Gap 8 MEQ/L Estimat Glomerular Filtration Rate 140 ML/MIN Administered Medications Medications (Trade) Dose Ordered Sig/Deepika Route PRN Reason Start Time Stop Time Status Last Admin Dose Admin Sodium Chloride (NS Flush) 2 ml UNSCH PRN IV FLUSH FLUSH AFTER USING IV ACCESS 01/25/17 10:45 01/30/17 04:15 Sodium Chloride 1,000 ml @ 50 mls/hr Q20H IV 01/25/17 13:21 01/30/17 07:15 Sodium Chloride (NS Flush) 2 ml UNSCH PRN IV FLUSH FLUSH AFTER USING IV ACCESS 01/25/17 13:30 01/30/17 04:15 Sodium Chloride (NS Flush) 2 ml BID IV FLUSH 01/25/17 21:00 01/29/17 20:49 Enoxaparin Sodium (Lovenox Inj) 40 mg Q24H SQ 01/25/17 15:00 01/26/17 15:46 Senna/Docusate Sodium (Shila-Colace) 1 tab BID PO 01/25/17 21:00 01/30/17 08:30 Multivitamins 10 ml/Folic Acid 1 mg/Amino Acids/ Electrolytes/ Dextrose 2,010.2 ml @ 83 mls/hr Q24H IV-CENTRAL 01/26/17 20:00 01/29/17 23:00 Fat Emulsion Intravenous 250 ml @ 31.25 mls/ hr Q24H IV-CENTRAL 01/26/17 20:00 01/29/17 23:00 Pantoprazole Sodium (Protonix) 20 mg DAILY PO 01/27/17 09:00 01/30/17 08:30 Simethicone (Phazyme Chew) 125 mg Q8HR PO 01/27/17 14:00 01/28/17 22:05 Morphine Sulfate (Morphine Inj) 4 mg Q3HR PRN IV PUSH pain 1-10 01/29/17 18:45 01/30/17 09:58 Objective Remarks GENERAL: Middle aged male sitting up in bed in nad. SKIN: Warm and dry. HEAD: Normocephalic. NGT to LIWS EYES: No injection or drainage. NECK: Supple, trachea midline. CARDIOVASCULAR: Regular rate and rhythm RESPIRATORY: Breath sounds equal bilaterally. No accessory muscle use. GASTROINTESTINAL: Abdomen mildly distended. EXTREMITIES: No cyanosis, or edema. NEUROLOGICAL: awake and alert, normal speech. moving all extremities. Assessment/Plan Problem List: (1) Metastatic adenocarcinoma ICD Codes: C79.9 - Secondary malignant neoplasm of unspecified site Status: Chronic Assessment 61y/o male with metastatic adenocarcinoma of colorectal origin with peritoneal carcinomatosis. Plan 1. Metastatic rectal cancer: Rectal primary with peritoneal carcinomatosis. Obstruction of large and small bowel. s/p 3 cycles of palliative FOLFOX with no clinical improvement. Patient continuing to ask for aggressive treatment. NOT interested in palliative care or hospice. 2. SBO: s/p placement of NG tube with intermittent suction, on TPN. will await GS recommendations after SBFT. Attending Statement The exam, history, and the medical decision-making described in the above note were completed with the assistance of the mid-level provider. I reviewed and agree with the findings presented. I attest that I had a [id number] encounter with the patient on the same day, and personally performed and documented my assessment and findings in the medical record. 61 yoM with metastatic rectal cancer admitted with bowel obstruction. Did not response to FOLFOX therapy. Decreased nutritional and performance status. Small bowel follow through pending. Patient wants aggressive treatment. Deedee Miranda Jan 30, 2017 10:25 Nayeli Neal MD Jan 30, 2017 23:52
--- NOTE | 2017-01-30 10:37 | HHI.PR ---
cc: Vikas Pfeiffer MD Subjective Subjective Notes Getting ready to go down to [place] Objective Vitals/I&O Vital Signs Date Time Temp Pulse Resp B/P (MAP) Pulse Ox O2 Delivery O2 Flow Rate FiO2 01/30/17 07:51 76 01/30/17 04:11 98.0 18 117/80 (92) 99 01/27/17 12:00 21 Labs Laboratory Tests Test 01/30/17 04:20 White Blood Count 6.9 Red Blood Count 4.13 Hemoglobin 10.9 Hematocrit 32.2 Mean Corpuscular Volume 77.9 Mean Corpuscular Hemoglobin 26.3 Mean Corpuscular Hemoglobin Concent 33.8 Red Cell Distribution Width 13.3 Platelet Count 191 Mean Platelet Volume 8.0 Neutrophils (%) (Auto) 57.7 Lymphocytes (%) (Auto) 30.6 Monocytes (%) (Auto) 9.8 Eosinophils (%) (Auto) 1.4 Basophils (%) (Auto) 0.5 Neutrophils # (Auto) 3.9 Lymphocytes # (Auto) 2.1 Monocytes # (Auto) 0.7 Eosinophils # (Auto) 0.1 Basophils # (Auto) 0.0 CBC Comment DIFF FINAL Differential Comment Blood Urea Nitrogen 12 Creatinine 0.70 Random Glucose 86 Total Protein 6.1 Albumin 2.6 Calcium Level 8.3 Alkaline Phosphatase 76 Aspartate Amino Transf (AST/SGOT) 13 Alanine Aminotransferase (ALT/SGPT) 22 Total Bilirubin 0.4 Sodium Level 139 Potassium Level 3.3 Chloride Level 103 Carbon Dioxide Level 28.5 Anion Gap 8 Estimat Glomerular Filtration Rate 140 Radiology Last Impressions Abdomen/Pelvis CT 01/25/17 1037 Signed Impressions: Service Date/Time: January 12:30 - CONCLUSION: Small bowel distention concerning for obstruction. Minimal ascites. Left renal cyst. Hermelindo Mcghee MD Abdomen X-Ray 01/25/17 0000 Signed Impressions: Service Date/Time: January 18:57 - CONCLUSION: Mild air-filled dilatation of small bowel loops suggesting small bowel obstruction. Clinical correlation is recommended. Noel Guerin MD Cardiovascular: Regular Lungs: Clear Abdomen: Other (mildly distended; non tender; NGT clamped for transport ) Extremities: No edema A/P Problem List: (1) History of colon cancer, stage IV ICD Codes: Z85.038 - Personal history of other malignant neoplasm of large intestine Status: Chronic (2) Metastatic adenocarcinoma ICD Codes: C79.9 - Secondary malignant neoplasm of unspecified site Status: Chronic (3) Abdominal pain ICD Codes: R10.9 - Unspecified abdominal pain Status: Chronic (4) Colon cancer ICD Codes: C18.9 - Malignant neoplasm of colon, unspecified (5) Ileus ICD Codes: K56.7 - Ileus, unspecified Assessment and Plan 61-year-old male with known stage IV colon cancer; abdominal pain with associated nausea and vomiting; CT questionable for small bowel obstruction -SBFT today -Continue NG tube to low intermittent wall suction; okay to clamp for patient to ambulate -Clear liquids -Continue TPN -SBFT -Patient is a poor surgical candidate -Will follow results of SBFT Problem Qualifiers (1) Abdominal pain: Qualified Codes: R10.32 - Left lower quadrant pain (2) Colon cancer: Qualified Codes: C18.8 - Malignant neoplasm of overlapping sites of colon Kylie Varela Jan 30, 2017 10:37
[2017-01-30] MEDS ORDERED: DIATRIZOATE MEGLUM/DIATRIZOATE SOD 120 ML BTL (for RAD DIAG) NG ONE (11:02)
--- NOTE | 2017-01-30 13:55 | HHI.HCPN ---
Reason for visit a. To assist with evaluation and management of symptoms including: Pain, nausea, constipation. b. To assist medical decision maker(s) with: better understanding of current medical conditions; weighing benefits/burdens of medical treatment options; making medical treatment decisions. Subjective/Interval History Receiving TPN, just returned from SBFT. He stated he was given liquid in radiology via NGT and managed to retain it for about 2 hours but became very bloated and vomited it back up. He has had no bowel movement yet. Patient receiving TPN, however not interested in hospice. Appreciates the information to delineate his options, but states he will continue aggressive care as he "does not want to hurt his mother". Interim course: * Laboratory: WBC 6.9, Hgb 10.9, HCT 32.2, platelet 191, sodium 139, potassium 3.3, BUN 12, creatinine 0.70, glucose 86, calcium 8.3, albumin 2.6 * Radiology: Abdomen x-ray shows resolving but persistent mild ileus. Consultations: * Gen. surgery: [employer] to be a poor surgical candidate. Requested SBFT. Pending results. * Oncology: As he has been undergoing aggressive, systemic chemotherapeutic interventions with no significant improvement and his performance status continues to decline. It is unclear if additional chemotherapy would be helpful and recommends a palliative approach, hydration with normal saline and TPN via his port. . Advance Directives Living Will: Never completed Health Care Surrogate: Copy in medical record Durable Power of Outside Sales Manager: Never completed Objective Vital Signs Date Time Temp Pulse Resp B/P (MAP) Pulse Ox O2 Delivery O2 Flow Rate FiO2 01/30/17 13:36 98.9 77 24 120/88 (99) 100 01/30/17 10:51 98.5 68 18 116/79 (91) 100 01/30/17 07:51 76 01/30/17 04:11 98.0 73 18 117/80 (92) 99 01/30/17 00:06 67 01/29/17 23:45 98.6 73 18 113/81 (92) 99 01/29/17 20:49 98.4 75 18 119/73 (88) 97 01/29/17 20:11 67 01/29/17 17:45 98.6 69 18 113/78 (90) 100 01/29/17 14:06 98.3 74 20 111/81 (91) 100 Intake & Output 01/30/17 01/30/17 06:59 18:59 Intake Total 2075 ml 35 ml Output Total 1450 ml Balance 625 ml 35 ml Intake Oral 340 ml IV Total 1735 ml 35 ml Output Urine Total 450 ml Gastric Drainage Total 1000 ml Physical Exam CONSTITUTIONAL/GENERAL: This is a thin middle-aged male, in no acute distress. TUBES/LINES/DRAINS: NG tube, PIV. SKIN: No jaundice, rashes, or lesions. No wounds seen anteriorly. Skin temperature appropriate. Not diaphoretic. HEAD: Atraumatic. Normocephalic. Temporal wasting. EYES: Pupils equal and round and reactive. Extraocular motions intact. No scleral icterus. No injection or drainage. Fundi not examined. ENT: Hearing grossly normal. Nose without bleeding or purulent drainage. NGT to right nare NECK: Trachea midline. Supple, nontender. No palpable thyroid enlargement or nodularity. CARDIOVASCULAR: Regular rate and rhythm without murmurs, gallops, or rubs. No JVD. Peripheral pulses symmetric. RESPIRATORY/CHEST: Symmetric, unlabored respirations. Clear to auscultation. Breath sounds equal bilaterally. No wheezes, rales, or rhonchi. GASTROINTESTINAL: Abdomen soft, tender to palpation, nondistended. Bowel sounds present. GENITOURINARY: Without palpable bladder distension. MUSCULOSKELETAL: Extremities without clubbing, cyanosis, or edema. No joint tenderness or effusion noted. No calf tenderness. No mottling or clubbing. NEUROLOGICAL: Awake and alert. Motor and sensory grossly within normal limits. Follows commands. Cognitively sharp. Moves all extremities. PSYCHIATRIC: No obvious anxiety/depression. no apparent hallucinations or other psychotic thought process. . Diagnostic Tests Laboratory Laboratory Tests Test 01/28/17 05:35 01/29/17 04:10 01/30/17 04:20 White Blood Count 3.1 TH/MM3 (4.0-11.0) 4.9 TH/MM3 (4.0-11.0) 6.9 TH/MM3 (4.0-11.0) Red Blood Count 4.32 MIL/MM3 (4.50-5.90) 4.20 MIL/MM3 (4.50-5.90) 4.13 MIL/MM3 (4.50-5.90) Hemoglobin 11.1 GM/DL (13.0-17.0) 10.8 GM/DL (13.0-17.0) 10.9 GM/DL (13.0-17.0) Hematocrit 33.5 % (39.0-51.0) 32.8 % (39.0-51.0) 32.2 % (39.0-51.0) Mean Corpuscular Volume 77.7 FL (80.0-100.0) 78.1 FL (80.0-100.0) 77.9 FL (80.0-100.0) Mean Corpuscular Hemoglobin 25.6 PG (27.0-34.0) 25.7 PG (27.0-34.0) 26.3 PG (27.0-34.0) Mean Corpuscular Hemoglobin Concent 33.0 % (32.0-36.0) 32.9 % (32.0-36.0) 33.8 % (32.0-36.0) Red Cell Distribution Width 13.5 % (11.6-17.2) 13.4 % (11.6-17.2) 13.3 % (11.6-17.2) Platelet Count 266 TH/MM3 (150-450) 203 TH/MM3 (150-450) 191 TH/MM3 (150-450) Mean Platelet Volume 7.5 FL (7.0-11.0) 7.9 FL (7.0-11.0) 8.0 FL (7.0-11.0) Neutrophils (%) (Auto) 52.9 % (16.0-70.0) 60.6 % (16.0-70.0) 57.7 % (16.0-70.0) Lymphocytes (%) (Auto) 39.3 % (9.0-44.0) 31.6 % (9.0-44.0) 30.6 % (9.0-44.0) Monocytes (%) (Auto) 6.0 % (0.0-8.0) 6.0 % (0.0-8.0) 9.8 % (0.0-8.0) Eosinophils (%) (Auto) 1.1 % (0.0-4.0) 1.4 % (0.0-4.0) 1.4 % (0.0-4.0) Basophils (%) (Auto) 0.7 % (0.0-2.0) 0.4 % (0.0-2.0) 0.5 % (0.0-2.0) Neutrophils # (Auto) 1.6 TH/MM3 (1.8-7.7) 3.0 TH/MM3 (1.8-7.7) 3.9 TH/MM3 (1.8-7.7) Lymphocytes # (Auto) 1.2 TH/MM3 (1.0-4.8) 1.5 TH/MM3 (1.0-4.8) 2.1 TH/MM3 (1.0-4.8) Monocytes # (Auto) 0.2 TH/MM3 (0-0.9) 0.3 TH/MM3 (0-0.9) 0.7 TH/MM3 (0-0.9) Eosinophils # (Auto) 0.0 TH/MM3 (0-0.4) 0.1 TH/MM3 (0-0.4) 0.1 TH/MM3 (0-0.4) Basophils # (Auto) 0.0 TH/MM3 (0-0.2) 0.0 TH/MM3 (0-0.2) 0.0 TH/MM3 (0-0.2) CBC Comment DIFF FINAL DIFF FINAL DIFF FINAL Differential Comment Blood Urea Nitrogen 13 MG/DL (7-18) 13 MG/DL (7-18) 12 MG/DL (7-18) Creatinine 0.72 MG/DL (0.60-1.30) 0.61 MG/DL (0.60-1.30) 0.70 MG/DL (0.60-1.30) Random Glucose 124 MG/DL (74-106) 101 MG/DL (74-106) 86 MG/DL (74-106) Calcium Level 7.8 MG/DL (8.5-10.1) 8.2 MG/DL (8.5-10.1) 8.3 MG/DL (8.5-10.1) Magnesium Level 1.9 MG/DL (1.5-2.5) 2.0 MG/DL (1.5-2.5) Sodium Level 140 MEQ/L (136-145) 140 MEQ/L (136-145) 139 MEQ/L (136-145) Potassium Level 3.5 MEQ/L (3.5-5.1) 3.4 MEQ/L (3.5-5.1) 3.3 MEQ/L (3.5-5.1) Chloride Level 104 MEQ/L (98-107) 104 MEQ/L (98-107) 103 MEQ/L (98-107) Carbon Dioxide Level 28.4 MEQ/L (21.0-32.0) 29.3 MEQ/L (21.0-32.0) 28.5 MEQ/L (21.0-32.0) Anion Gap 8 MEQ/L (5-15) 7 MEQ/L (5-15) 8 MEQ/L (5-15) Estimat Glomerular Filtration Rate 135 ML/MIN (>89) 164 ML/MIN (>89) 140 ML/MIN (>89) Total Protein 6.1 GM/DL (6.4-8.2) Albumin 2.6 GM/DL (3.4-5.0) Alkaline Phosphatase 76 U/L (45-117) Aspartate Amino Transf (AST/SGOT) 13 U/L (15-37) Alanine Aminotransferase (ALT/SGPT) 22 U/L (12-78) Total Bilirubin 0.4 MG/DL (0.2-1.0) . Result Diagram: 01/30/17 0420 01/30/17 0420 Imaging Last Impressions Abdomen X-Ray 01/29/17 0000 Signed Impressions: Service Date/Time: Sunday, January 29, 2017 16:34 - CONCLUSION: Resolving but persistent mild ileus. Mansoor Arthur MD Abdomen/Pelvis CT 01/25/17 1037 Signed Impressions: Service Date/Time: January 12:30 - CONCLUSION: Small bowel distention concerning for obstruction. Minimal ascites. Left renal cyst. Hermelindo Mcghee MD Assessment and Plan Disease Oriented Problem List: (1) Ileus (2) Colon cancer (3) Small bowel obstruction Symptom Scale: (1) Abdominal pain 0-10 Scale: Unable to quantify (worsens with any oral intake.) (2) Nausea 0-10 Scale: Unable to quantify (nausea and vomiting with any oral intake.) (3) Constipation 0-10 Scale: Unable to quantify (chronic, likely R/T poor oral intake, opioid pain medication) Pertinent Non-Medical Issues Psychosocial:He was born in [place] and has lived here most of his life. He did live in [place] for a brief period. 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 He is and has raised his stepson but has no children of his own. He is one of 9 children. He has named his sister, Lynn Muhammad as his healthcare surrogate. He currently lives with his mother. . Spiritual:He states he has a Mosque but does not wish utility locator visits. He states "mom has him covered". . Legal: Patient currently appears to have capacity to make his own decisions, however has designated his sister, Dilma Monroy as his healthcare surrogate to make his decisions if he is unable. Pending receipt of that paperwork from Dr. Hightower's office. . Ethical issues impacting care: None noted. . Important Contacts Sister: Dilma Monroy . . 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 He has initiated palliative chemotherapy but is having recurrent small bowel obstructions and recurrent ileus. He has undergone 2 cycles of chemotherapy and requires an additional 2 cycles before imaging is done for staging. He has lost nearly 65 pounds by his report and is unable to eat or drink anything substantial as he vomits and develops significant abdominal pain. Risk of recurrent SBO and other complications are likely as his disease progresses. Prognosis is very poor. . Code Status: Full Code Plan PLAN: Legal decision maker: Patient currently appears to have capacity to make his own decisions, however has designated his sister, Dilma Monroy as his healthcare surrogate to make his decisions if he is unable. Healthcare surrogate form has been completed. Goals: Goals are aggressive. CODE STATUS: FULL CODE. SYMPTOMS: * Pain: He is having recurrent abdominal pain intermittently, small bowel distention concerning for obstruction was noted on abdomen/pelvis CT. General surgery does not feel that surgical intervention would be helpful. He is receiving morphine IV for pain management. He is on a clear liquid diet and NG tube has been inserted. He has received 5 dose of morphine sulfate 4 mg IV since admission. He tends to let his pain gets too high prior to asking for pain medicine, because he does not like the side effect of constipation that comes with the narcotic. He has been advised to address pain needs before they become severe. He is also having pain with the NGT in his throat. Would recommend a benzocaine type spray PRN for discomfort. He did receive information from hospice, but is not interested in pursuing that option at this time. He does appreciate the information, but at this time is pursuing aggressive treatment. * Nausea: Received ondansetron 4 mg IV on admission and is available every 6 hours as needed. NG tube has been inserted for decompression and he is receiving TPN for nutrition. He states nausea is a little better now, but did vomit up the liquid given to him by radiology during small bowel follow-through , about 2 hours after receiving. He did not receive any ondansetron, however it is available as needed. He has no nausea after vomiting up the liquid. Will follow remainder of SPFT for radiologist's conclusion. * Constipation: Likely multifactorial to include sigmoid colons stenosis, minimal oral intake, use of opioid pain medications and the extensive peritoneal carcinomatosis. He states his last bowel movement was 12/10. Shila- Colace and Senokot twice daily and milk of magnesia, Dulcolax suppository and lactulose are available as needed. Patient states an enema is usually what he uses for his constipation as taking anything orally causes nausea and abdominal pain. Would recommend providing PRN Fleets as well as Dulcolax suppository for patient comfort. Palliative care will continue to follow the patient during hospital course as condition evolves, to assist patient/decision-maker with understanding of their medical conditions, weighing benefits/burdens of treatment options, for clarification of goals of treatment. Additionally will assist with any symptoms of palliative concern. . Attestation To help prompt me to consider important information that might be impacting today's encounter and assessment, information from prior notes written by myself or my colleagues may have been "brought forward" into today's note. My signature on this note, however, is an attestation that I personally performed the exam, history, and/or decision-making noted today, and, unless otherwise indicated, the interactions with patient, family, and staff as well as the review of records all occurred today. I also attest that the listed assessment and stated plan reflect my best clinical judgment today based on the combination of historical information, prior notes, and today's exam/ interactions. When time spent is documented, it refers only to time spent today by the signer, or if indicated, combined time spent today by collaborating physician/nurse practitioner. . Danay Sullivan Jan 30, 2017 1:55 pm
--- NOTE | 2017-01-30 14:35 | RADRPT ---
EXAM DATE/TIME: 01/30/2017 10:20 [facility] COMPARISON: CT ABDOMEN & PELVIS W CONTRAST, January 25, 2017, 12:30. INDICATIONS : Small bowel obstruction. Patient complains of pain under left side of ribs, and he feels lumps that c ome and go. FLUORO TIME: 0 minutes IMAGE COUNT: 9 CONTRAST: Gastroview IMAGING TIME(S): 15 min, 30 min, 45 min, 1 hr, 1.5 hrs, 3.5 hrs MEDICAL HISTORY : Carcinoma, colon. CA colon 12/05. Hernia, inguinal SURGICAL HISTORY : Port for chemo. Appendectomy 2010, hernia operartion 2012. ENCOUNTER: Subsequent ACUITY: 4 - 6 days PAIN SCORE: 0/10 LOCATION: Bilateral Abdomen. FINDINGS: Preliminary film is demonstrates persistent proximal small bowel ileus with dilated air-filled loops. Gastroview was instilled through nasogastric tube into the stomach. The stomach is grossly unremarkable. Progression of contrast to small vessel tract is noted. A 3.5 hours there appears to be near total op acification of the intestinal tract. Small bowel loops continue to demonstrate significant dilatation . Significant dilution of contrast is identified. The leading edge of the contrast cannot be clearly identified. CONCLUSION: Small bowel ileus with slow transit of contrast through the small intestinal tract. Due to the dilutional effect leading edge of the contrast cannot be clearly identified. Consideration should be given to followup imaging with an enhanced CT of the abdomen and pelvis. Mansoor Arthur MD on January 30, 2017 at 14:29 Board Certified Radiologist. This report was verified electronically.
[2017-01-30] MEDS: ENOXAPARIN SODIUM 40 MG/0.4 ML SYRINGE SQ SCH (15:00)
[2017-01-30] MEDS: CLINIMIX E 4.25/25 2000 mL- >42 mls/hr IV-CENTRAL SCH ×3 (19:48)
[2017-01-30] MEDS: FAT EMULSION 20% INJ 250 ML (Daily over 8 hours) IV-CENTRAL SCH (19:48)
--- NOTE | 2017-01-30 19:52 | HHI.PR ---
Subjective Remarks KUB showed some improvement, but gas patterns are not yet normalized. Follow through GI series in process today. No new complaints from the patient. No nausea on intermittent low suction. Objective Vital Signs Date Time Temp Pulse Resp B/P (MAP) Pulse Ox O2 Delivery O2 Flow Rate FiO2 01/30/17 17:45 97.8 68 18 127/79 (95) 99 01/30/17 13:36 98.9 77 24 120/88 (99) 100 01/30/17 10:51 98.5 68 18 116/79 (91) 100 01/30/17 07:51 76 01/30/17 04:11 98.0 73 18 117/80 (92) 99 01/30/17 00:06 67 01/29/17 23:45 98.6 73 18 113/81 (92) 99 01/29/17 20:49 98.4 75 18 119/73 (88) 97 01/29/17 20:11 67 I/O 01/29/17 01/29/17 01/29/17 01/30/17 01/30/17 01/30/17 06:59 14:59 22:59 06:59 14:59 22:59 Intake Total 240 ml 1780 ml 1975 ml 35 ml 120 ml Output Total 1175 ml 1450 ml 1250 ml 950 ml Balance -935 ml 330 ml 725 ml 35 ml -830 ml Intake Oral 240 ml 540 ml 240 ml 120 ml IV Total 1240 ml 1735 ml 35 ml Output Urine Total 475 ml 850 ml 250 ml Gastric Drainage Total 700 ml 600 ml 1000 ml 950 ml # Voids 2 Result Diagram: 01/30/1741901/30/17419 Objective Remarks GENERAL: NAD, A&Ox3, NG tube in place. HEAD: Normocephalic. NECK: Supple, trachea midline. No lymphadenopathy. EYES: No scleral icterus. No injection or drainage. CARDIOVASCULAR: Regular rate and rhythm without murmurs, gallops, or rubs. RESPIRATORY: Breath sounds equal bilaterally. No accessory muscle use. GASTROINTESTINAL: Abdomen soft, non-tender, nondistended. MUSCULOSKELETAL: No cyanosis, or edema. SKIN: Warm and dry. NEURO: No focal neurological deficitis. A/P Problem List: (1) History of colon cancer, stage IV ICD Code: Z85.038 - Personal history of other malignant neoplasm of large intestine Status: Chronic (2) Small bowel obstruction ICD Code: K56.609 - Unspecified intestinal obstruction, unspecified as to partial versus complete obstruction Status: Acute Assessment and Plan Assessment and Plan 61-year-old male admitted secondary to small bowel obstruction in the presence of stage IV colon cancer. Follow electrolytes. Monitor clinically for changes. Nausea improved with NG tube placement. Small bowel obstruction Patient reports this is his first episode Cancer increases his risk for recurrence Symptomatically he has improved since placement of NG tube Continue NG tube for now Continue TPN Morphine for pain Surgeon following Repeat abdominal x-ray ordered for comparison Colon cancer stage 4 Active diagnosed in September, On palliative chemo with Dr Hightower. Oncology following palliative care following. hospice consult pending Tobacco use Cessation recommended DVT prophylaxis Niels Rodas MD Jan 30, 2017 19:52
[2017-01-31] MEDS: MORPHINE SULFATE 4 MG/ML INJ IV PUSH PRN ×9 (01:00→23:41)
[2017-01-31] MEDS: SODIUM CHLORIDE 0.9% FLUSH 10 ML FLUSH IV FLUSH PRN ×4 (01:00→13:57)
[2017-01-31 03:52] VITALS: BP 139/86; PULSE 69; RESP 18; TEMP 97.6; O2SAT 100
[2017-01-31 05:12] LABS: AUTOMATED NEUTROPHIL # 3.4 TH/MM3 (1.8-7.7); BASOPHIL # 0.1 TH/MM3 (0-0.2); BASOPHIL % 0.9 % (0.0-2.0); EOSINOPHIL # 0.1 TH/MM3 (0-0.4); EOSINOPHIL % 1.1 % (0.0-4.0); HEMATOCRIT 31.9 % (39.0-51.0); HEMO FLAGS DIFF FINAL; LYMPH % 33.7 % (9.0-44.0); LYMPHOCYTE # 2.2 TH/MM3 (1.0-4.8); MEAN CELL VOLUME 78.7 FL (80.0-100.0); MEAN CORPUSCULAR HEMOGLOBIN 25.4 PG (27.0-34.0); MEAN CORPUSCULAR HGB CONC 32.3 % (32.0-36.0); MONO % 13.5 % (0.0-8.0); NEUT % 50.8 % (16.0-70.0); PLATELET COUNT 205 TH/MM3 (150-450); RED BLOOD COUNT 4.05 MIL/MM3 (4.50-5.90); RED CELL DISTRIBUTION WIDTH 13.3 % (11.6-17.2); WHITE BLOOD COUNT 6.6 TH/MM3 (4.0-11.0)
[2017-01-31 05:31] LABS: ANION GAP 7 MEQ/L (5-15); AST (GOT) 19 U/L (15-37); BICARBONATE 30.3 MEQ/L (21.0-32.0); BLOOD UREA NITROGEN 12 MG/DL (7-18); CHLORIDE 102 MEQ/L (98-107); GLOMERULAR FILTRATION RATE 142 ML/MIN (>89); POTASSIUM 3.6 MEQ/L (3.5-5.1); SODIUM (NA) 139 MEQ/L (136-145)
[2017-01-31 05:32] LABS: ALT (GPT) 21 U/L (12-78)
[2017-01-31 05:34] LABS: ALKALINE PHOSPHATASE 84 U/L (45-117); TOTAL BILIRUBIN ADULT 0.3 MG/DL (0.2-1.0)
[2017-01-31] MEDS: SIMETHICONE 125 MG CHEWABLE TAB PO SCH ×3 (06:00→20:11)
[2017-01-31] MEDS: SODIUM CHLOR 0.9% 1000 ML INJ 1,000 ML IV SCH (06:50)
[2017-01-31 08:30] VITALS: BP 112/84; PULSE 64; PULSE 73; RESP 18; TEMP 97.8; O2SAT 100
[2017-01-31] MEDS: DOCUSATE SODIUM 50 MG/SENNA 8.6 MG TAB PO SCH ×2 (09:00→20:10)
[2017-01-31] MEDS: SODIUM CHLORIDE 0.9% FLUSH 10 ML FLUSH IV FLUSH SCH ×2 (09:00→20:18)
[2017-01-31] MEDS: PANTOPRAZOLE SOD 20 MG DELAYED RELEASE TAB PO SCH (09:15)
--- NOTE | 2017-01-31 11:55 | PD.ONC.PN ---
Subjective Subjective Remarks Afebrile overnight. Patient resting in bed. Waiting to hear from general surgery about SBFT. He is eager to go home so he can spend time with his family and also plans to get a second and maybe even third opinion about his cancer. Objective Data Date Time Temp Pulse Resp B/P (MAP) Pulse Ox O2 Delivery O2 Flow Rate FiO2 01/31/17 03:52 97.6 69 18 139/86 (103) 100 01/30/17 23:51 98.6 68 18 131/87 (102) 98 01/30/17 23:29 82 01/30/17 20:04 69 01/30/17 19:50 98.9 70 18 114/73 (87) 100 01/30/17 17:45 97.8 68 18 127/79 (95) 99 01/30/17 13:36 98.9 77 24 120/88 (99) 100 01/31/17 01/31/17 01/31/17 07:00 15:00 23:00 Intake Total 2775 ml Output Total 1100 ml Balance 1675 ml Result Diagram: 01/31/17 0345 01/31/17 0345 Laboratory Results Laboratory Tests Test 01/31/17 03:45 White Blood Count 6.6 TH/MM3 Red Blood Count 4.05 MIL/MM3 Hemoglobin 10.3 GM/DL Hematocrit 31.9 % Mean Corpuscular Volume 78.7 FL Mean Corpuscular Hemoglobin 25.4 PG Mean Corpuscular Hemoglobin Concent 32.3 % Red Cell Distribution Width 13.3 % Platelet Count 205 TH/MM3 Mean Platelet Volume 8.7 FL Neutrophils (%) (Auto) 50.8 % Lymphocytes (%) (Auto) 33.7 % Monocytes (%) (Auto) 13.5 % Eosinophils (%) (Auto) 1.1 % Basophils (%) (Auto) 0.9 % Neutrophils # (Auto) 3.4 TH/MM3 Lymphocytes # (Auto) 2.2 TH/MM3 Monocytes # (Auto) 0.9 TH/MM3 Eosinophils # (Auto) 0.1 TH/MM3 Basophils # (Auto) 0.1 TH/MM3 CBC Comment DIFF FINAL Differential Comment Blood Urea Nitrogen 12 MG/DL Creatinine 0.69 MG/DL Random Glucose 73 MG/DL Total Protein 6.0 GM/DL Albumin 2.5 GM/DL Calcium Level 8.2 MG/DL Alkaline Phosphatase 84 U/L Aspartate Amino Transf (AST/SGOT) 19 U/L Alanine Aminotransferase (ALT/SGPT) 21 U/L Total Bilirubin 0.3 MG/DL Sodium Level 139 MEQ/L Potassium Level 3.6 MEQ/L Chloride Level 102 MEQ/L Carbon Dioxide Level 30.3 MEQ/L Anion Gap 7 MEQ/L Estimat Glomerular Filtration Rate 142 ML/MIN Administered Medications Medications (Trade) Dose Ordered Sig/Deepika Route PRN Reason Start Time Stop Time Status Last Admin Dose Admin Sodium Chloride (NS Flush) 2 ml UNSCH PRN IV FLUSH FLUSH AFTER USING IV ACCESS 01/25/17 10:45 01/31/17 04:01 Sodium Chloride 1,000 ml @ 50 mls/hr Q20H IV 01/25/17 13:21 01/31/17 06:50 Sodium Chloride (NS Flush) 2 ml UNSCH PRN IV FLUSH FLUSH AFTER USING IV ACCESS 01/25/17 13:30 01/31/17 04:02 Sodium Chloride (NS Flush) 2 ml BID IV FLUSH 01/25/17 21:00 01/31/17 09:00 Enoxaparin Sodium (Lovenox Inj) 40 mg Q24H SQ 01/25/17 15:00 01/26/17 15:46 Senna/Docusate Sodium (Shila-Colace) 1 tab BID PO 01/25/17 21:00 01/30/17 08:30 Fat Emulsion Intravenous 250 ml @ 31.25 mls/ hr Q24H IV-CENTRAL 01/26/17 20:00 01/30/17 19:48 Pantoprazole Sodium (Protonix) 20 mg DAILY PO 01/27/17 09:00 01/31/17 09:15 Simethicone (Phazyme Chew) 125 mg Q8HR PO 01/27/17 14:00 01/28/17 22:05 Morphine Sulfate (Morphine Inj) 4 mg Q3HR PRN IV PUSH pain 1-10 01/29/17 18:45 01/31/17 10:10 Objective Remarks GENERAL: chronically ill male upright in bed in [facility]. SKIN: Warm and dry. HEAD: Normocephalic. NGT to LIWS with bilious drainage. EYES: No injection or drainage. NECK: Supple, trachea midline. CARDIOVASCULAR: Regular rate and rhythm RESPIRATORY: Breath sounds equal bilaterally. No accessory muscle use. GASTROINTESTINAL: Abdomen with mild distension, mild tenderness throughout. EXTREMITIES: No cyanosis, or edema. NEUROLOGICAL: aox3. normal speech. moving extremities. Assessment/Plan Problem List: (1) Metastatic adenocarcinoma ICD Codes: C79.9 - Secondary malignant neoplasm of unspecified site Status: Chronic Assessment 61y/o male with metastatic adenocarcinoma of colorectal origin with peritoneal carcinomatosis. Plan 1. Metastatic rectal cancer: Rectal primary with peritoneal carcinomatosis. Obstruction of large and small bowel. s/p 3 cycles of palliative FOLFOX with no clinical improvement. patient planning to seek second opinion once discharged for further treatment options. 2. SBO: s/p placement of NG tube with intermittent suction, on TPN. await GS recommendations. Hopefully if GS can place G-tube for palliation, we could remove NGT, take off TPN and let patient return home to spend time with family and seek a second opinion at a tertiary care center. Deedee Miranda Jan 31, 2017 11:55 Nayeli Neal MD Feb 02, 2017 01:49
[2017-01-31 12:09] VITALS: BP 130/81; PULSE 64; RESP 18; TEMP 98; O2SAT 100
[2017-01-31] MEDS: METOCLOPRAMIDE HCL 10 MG/2 ML VIAL IV PUSH SCH ×2 (13:57→20:08)
--- NOTE | 2017-01-31 14:43 | HHI.PR ---
Subjective Remarks Images from yesterday and the day before yesterday show evidence of ileus. Patient may have obstruction related to his mass affect from cancer but could also have a component of ileus. Colostomy has been offered as a surgical option and at this point the patient does not interested in pursuing this quickly and would like to exhaust other treatments. To address his ileus have recommended a trial of Reglan. If Reglan is of no benefit reiterated that colostomy might be a very reasonable option to alleviate his symptoms. Even if Reglan is of benefit advice and that colostomy may eventually need to occur. Objective Vital Signs Date Time Temp Pulse Resp B/P (MAP) Pulse Ox O2 Delivery O2 Flow Rate FiO2 01/31/17 12:09 98.0 64 18 130/81 (97) 100 01/31/17 08:30 97.8 73 18 112/84 (93) 100 01/31/17 08:30 64 01/31/17 03:52 97.6 69 18 139/86 (103) 100 01/30/17 23:51 98.6 68 18 131/87 (102) 98 01/30/17 23:29 82 01/30/17 20:04 69 01/30/17 19:50 98.9 70 18 114/73 (87) 100 01/30/17 17:45 97.8 68 18 127/79 (95) 99 I/O 01/30/17 01/30/17 01/30/17 01/31/17 01/31/17 01/31/17 07:00 15:00 23:00 07:00 15:00 23:00 Intake Total 1265 ml 400 ml 1720 ml 2775 ml Output Total 1250 ml 950 ml 1100 ml Balance 15 ml 400 ml 770 ml 1675 ml Intake Oral 240 ml 120 ml 650 ml IV Total 1025 ml 400 ml 1600 ml 2125 ml Output Urine Total 250 ml Gastric Drainage Total 1000 ml 950 ml 1100 ml # Voids 2 2 Result Diagram: 01/31/1734401/31/17344 Objective Remarks GENERAL: NAD, A&Ox3, NG tube in place. HEAD: Normocephalic. NECK: Supple, trachea midline. No lymphadenopathy. EYES: No scleral icterus. No injection or drainage. CARDIOVASCULAR: Regular rate and rhythm without murmurs, gallops, or rubs. RESPIRATORY: Breath sounds equal bilaterally. No accessory muscle use. GASTROINTESTINAL: Abdomen soft, non-tender, nondistended. MUSCULOSKELETAL: No cyanosis, or edema. SKIN: Warm and dry. NEURO: No focal neurological deficitis. A/P Problem List: (1) History of colon cancer, stage IV ICD Code: Z85.038 - Personal history of other malignant neoplasm of large intestine Status: Chronic (2) Small bowel obstruction ICD Code: K56.609 - Unspecified intestinal obstruction, unspecified as to partial versus complete obstruction Status: Acute Assessment and Plan Assessment and Plan 61-year-old male admitted secondary to small bowel obstruction in the presence of stage IV colon cancer. Follow electrolytes. Monitor clinically for changes. Nausea improved with NG tube placement. Slow transit basal small bowel imaging. Reglan provided on a trial basis. Colostomy may need to occur prior to discharge. Small bowel obstruction Patient reports this is his first episode Cancer increases his risk for recurrence Symptomatically he has improved since placement of NG tube Continue NG tube for now Continue TPN Morphine for pain Surgeon following Repeat abdominal x-ray ordered for comparison Colon cancer stage 4 Active diagnosed in September, On palliative chemo with Dr Hightower. Oncology following palliative care following. hospice consult pending Tobacco use Cessation recommended DVT prophylaxis Niels Rodas MD Jan 31, 2017 14:43
[2017-01-31] MEDS: ENOXAPARIN SODIUM 40 MG/0.4 ML SYRINGE SQ SCH (14:51)
[2017-01-31 17:00] VITALS: BP 140/83; PULSE 76; RESP 18; TEMP 98.5; O2SAT 98
--- NOTE | 2017-01-31 20:01 | HHI.PR ---
cc: Vikas Pfeiffer MD Subjective Subjective Notes Resting in bed Feels a little stronger today Happy because his brother and sister in law are in town from [place] to visit with him Objective Vitals/I&O Vital Signs Date Time Temp Pulse Resp B/P (MAP) Pulse Ox O2 Delivery O2 Flow Rate FiO2 01/31/17 12:09 98.0 64 18 130/81 (97) 100 01/27/17 12:00 21 Labs Laboratory Tests Test 01/31/17 03:45 White Blood Count 6.6 Red Blood Count 4.05 Hemoglobin 10.3 Hematocrit 31.9 Mean Corpuscular Volume 78.7 Mean Corpuscular Hemoglobin 25.4 Mean Corpuscular Hemoglobin Concent 32.3 Red Cell Distribution Width 13.3 Platelet Count 205 Mean Platelet Volume 8.7 Neutrophils (%) (Auto) 50.8 Lymphocytes (%) (Auto) 33.7 Monocytes (%) (Auto) 13.5 Eosinophils (%) (Auto) 1.1 Basophils (%) (Auto) 0.9 Neutrophils # (Auto) 3.4 Lymphocytes # (Auto) 2.2 Monocytes # (Auto) 0.9 Eosinophils # (Auto) 0.1 Basophils # (Auto) 0.1 CBC Comment DIFF FINAL Differential Comment Blood Urea Nitrogen 12 Creatinine 0.69 Random Glucose 73 Total Protein 6.0 Albumin 2.5 Calcium Level 8.2 Alkaline Phosphatase 84 Aspartate Amino Transf (AST/SGOT) 19 Alanine Aminotransferase (ALT/SGPT) 21 Total Bilirubin 0.3 Sodium Level 139 Potassium Level 3.6 Chloride Level 102 Carbon Dioxide Level 30.3 Anion Gap 7 Estimat Glomerular Filtration Rate 142 Radiology Last Impressions Abdomen/Pelvis CT 01/25/17 1037 Signed Impressions: Service Date/Time: January 12:30 - CONCLUSION: Small bowel distention concerning for obstruction. Minimal ascites. Left renal cyst. Hermelindo Mcghee MD Abdomen X-Ray 01/25/17 0000 Signed Impressions: Service Date/Time: January 18:57 - CONCLUSION: Mild air-filled dilatation of small bowel loops suggesting small bowel obstruction. Clinical correlation is recommended. Noel Guerin MD Cardiovascular: Regular Lungs: Clear Abdomen: Other (mildly distended; non tender; NGT to LIWS ) Extremities: No edema A/P Problem List: (1) History of colon cancer, stage IV ICD Codes: Z85.038 - Personal history of other malignant neoplasm of large intestine Status: Chronic (2) Metastatic adenocarcinoma ICD Codes: C79.9 - Secondary malignant neoplasm of unspecified site Status: Chronic (3) Abdominal pain ICD Codes: R10.9 - Unspecified abdominal pain Status: Chronic (4) Colon cancer ICD Codes: C18.9 - Malignant neoplasm of colon, unspecified (5) Ileus ICD Codes: K56.7 - Ileus, unspecified Assessment and Plan 61-year-old male with known stage IV colon cancer; abdominal pain with associated nausea and vomiting; CT questionable for small bowel obstruction -SBFT essentially shows ileus -Will do CT abd/pelvis to eval -Continue NG tube to low intermittent wall suction; okay to clamp for patient to ambulate -Clear liquids -Continue TPN -Patient is a poor surgical candidate Attending Statement evaluated at bedside. abdomen remains mildly distended. The exam, history, and the medical decision-making described in the above note were completed with the assistance of the mid-level provider. I reviewed and agree with the findings presented. I attest that I had a [id number] encounter with the patient on the same day, and personally performed and documented my assessment and findings in the medical record. Problem Qualifiers (1) Abdominal pain: Qualified Codes: R10.32 - Left lower quadrant pain (2) Colon cancer: Qualified Codes: C18.8 - Malignant neoplasm of overlapping sites of colon Kylie Varela Jan 31, 2017 20:01 Vikas Pfeiffer MD Feb 02, 2017 16:44
[2017-01-31 20:08] VITALS: BP 128/83; PULSE 70; PULSE 72; RESP 16; O2SAT 98
[2017-01-31] MEDS: FAT EMULSION 20% INJ 250 ML (Daily over 8 hours) IV-CENTRAL SCH (20:17)
[2017-01-31] MEDS: MULTIVITAMIN INJ 5 ML, FOLIC ACID INJ 0.5 MG in AMINO ACID IN D5W W/ELECTROLYT 1,000 ML IV SCH ×3 (20:17)
[2017-02-01] VITALS (8 sets, daily range): BP systolic 117–130; BP diastolic 76–93; PULSE 66–91; RESP 16–18; TEMP 98.1–98.6; O2SAT 96–100
[2017-02-01] MEDS: METOCLOPRAMIDE HCL 10 MG/2 ML VIAL IV PUSH SCH ×2 (02:04→08:00)
[2017-02-01] MEDS: MORPHINE SULFATE 4 MG/ML INJ IV PUSH PRN ×7 (03:58→22:50)
[2017-02-01] MEDS: SIMETHICONE 125 MG CHEWABLE TAB PO SCH ×3 (04:06→21:26)
[2017-02-01 04:56] LABS: MEAN CELL VOLUME 78.5 FL (80.0-100.0); MEAN CORPUSCULAR HEMOGLOBIN 26.2 PG (27.0-34.0); MEAN CORPUSCULAR HGB CONC 33.3 % (32.0-36.0); PLATELET COUNT 193 TH/MM3 (150-450); RED CELL DISTRIBUTION WIDTH 13.7 % (11.6-17.2); REVIEW FLAG FINAL; WHITE BLOOD COUNT 6.4 TH/MM3 (4.0-11.0)
[2017-02-01 05:17] LABS: POTASSIUM 3.7 MEQ/L (3.5-5.1)
[2017-02-01] MEDS: PANTOPRAZOLE SOD 20 MG DELAYED RELEASE TAB PO SCH (09:00)
[2017-02-01] MEDS: DOCUSATE SODIUM 50 MG/SENNA 8.6 MG TAB PO SCH ×2 (09:00→21:00)
[2017-02-01] MEDS: MULTIVITAMIN INJ 5 ML, FOLIC ACID INJ 0.5 MG in AMINO ACID IN D5W W/ELECTROLYT 1,000 ML IV SCH ×6 (09:41→21:45)
[2017-02-01] MEDS: SODIUM CHLORIDE 0.9% FLUSH 10 ML FLUSH IV FLUSH SCH ×2 (09:43→21:45)
--- NOTE | 2017-02-01 13:31 | RADRPT ---
EXAM DATE/TIME: 02/01/2017 11:13 [facility] COMPARISON: SMALL BOWEL SERIES W/GASTROGRAFIN, January 30, 2017, 10:20. ABDOMEN KUB ONLY, January 29, 2017, 16 :34. INDICATIONS : Evaluate barium for CT study MEDICAL HISTORY : Carcinoma, colon. CA colon 12/05. Hernia, inguinal SURGICAL HISTORY : [place] for chemo. Appendectomy 2010, hernia operartion 2012. ENCOUNTER: Subsequent ACUITY: 1 week PAIN SCORE: 0/10 LOCATION: Abdomen FINDINGS: There is an NGT in the stomach. Improving dilated air-filled loops of small bowel in the upper mid ab domen. Contrast is noted in the right colon. No gross free air or pneumatosis. Remainder of the exam is unchanged. CONCLUSION: 1. Residual contrast in the ascending colon. This would limit CT evaluation in the right lower quadra nt. 2. Improving adynamic ileus bowel gas pattern. Yuval Mishra MD on February 01, 2017 at 13:27 Board Certified Radiologist. This report was verified electronically.
--- NOTE | 2017-02-01 14:17 | PD.ONC.PN ---
Subjective Subjective Remarks (late entry, patient seen at 9AM) Afebrile overnight. No complaints. Waiting to see surgery. Objective Data Date Time Temp Pulse Resp B/P (MAP) Pulse Ox O2 Delivery O2 Flow Rate FiO2 02/01/17 13:20 98.5 80 16 119/83 (95) 96 02/01/17 09:42 98.1 91 16 117/93 (101) 100 02/01/17 04:07 16 02/01/17 04:00 74 02/01/17 00:34 98.6 70 16 130/82 (98) 98 02/01/17 00:00 66 01/31/17 20:08 70 16 128/83 (98) 98 01/31/17 20:08 72 01/31/17 17:00 98.5 76 18 140/83 (102) 98 02/01/17 02/01/17 02/01/17 07:00 15:00 23:00 Intake Total 2059 ml 2121 ml Balance 2059 ml 2121 ml Result Diagram: 02/01/17 0415 02/01/17 0415 Laboratory Results Laboratory Tests Test 02/01/17 04:15 White Blood Count 6.4 TH/MM3 Red Blood Count 4.20 MIL/MM3 Hemoglobin 11.0 GM/DL Hematocrit 33.0 % Mean Corpuscular Volume 78.5 FL Mean Corpuscular Hemoglobin 26.2 PG Mean Corpuscular Hemoglobin Concent 33.3 % Red Cell Distribution Width 13.7 % Platelet Count 193 TH/MM3 Mean Platelet Volume 8.6 FL Blood Urea Nitrogen 14 MG/DL Creatinine 0.82 MG/DL Random Glucose 78 MG/DL Calcium Level 8.7 MG/DL Sodium Level 138 MEQ/L Potassium Level 3.7 MEQ/L Chloride Level 100 MEQ/L Carbon Dioxide Level 32.0 MEQ/L Anion Gap 6 MEQ/L Estimat Glomerular Filtration Rate 117 ML/MIN Imaging Studies Last 24 hours Impressions Abdomen X-Ray 02/01/17 0000 Signed Impressions: Service Date/Time: January 11:13 - CONCLUSION: 1. Residual contrast in the ascending colon. This would limit CT evaluation in the right lower quadrant. 2. Improving adynamic ileus bowel gas pattern. Yuavl Mishra MD Administered Medications Medications (Trade) Dose Ordered Sig/Deepika Route PRN Reason Start Time Stop Time Status Last Admin Dose Admin Sodium Chloride (NS Flush) 2 ml UNSCH PRN IV FLUSH FLUSH AFTER USING IV ACCESS 01/25/17 10:45 01/31/17 13:57 Sodium Chloride 1,000 ml @ 50 mls/hr Q20H IV 01/25/17 13:21 01/31/17 06:50 Sodium Chloride (NS Flush) 2 ml UNSCH PRN IV FLUSH FLUSH AFTER USING IV ACCESS 01/25/17 13:30 01/31/17 04:02 Sodium Chloride (NS Flush) 2 ml BID IV FLUSH 01/25/17 21:00 02/01/17 09:43 Enoxaparin Sodium (Lovenox Inj) 40 mg Q24H SQ 01/25/17 15:00 01/26/17 15:46 Senna/Docusate Sodium (Shila-Colace) 1 tab BID PO 01/25/17 21:00 01/30/17 08:30 Fat Emulsion Intravenous 250 ml @ 31.25 mls/ hr Q24H IV-CENTRAL 01/26/17 20:00 01/31/17 20:17 Pantoprazole Sodium (Protonix) 20 mg DAILY PO 01/27/17 09:00 01/31/17 09:15 Simethicone (Phazyme Chew) 125 mg Q8HR PO 01/27/17 14:00 01/28/17 22:05 Morphine Sulfate (Morphine Inj) 4 mg Q3HR PRN IV PUSH pain 1-10 01/29/17 18:45 02/01/17 13:15 Multivitamins 5 ml/Folic Acid 0.5 mg/Amino Acids/ Electrolytes/ Dextrose 1,005.1 ml @ 83 mls/hr Q12H7M IV 01/31/17 20:00 02/01/17 09:41 Objective Remarks GENERAL: chronically ill male sitting up in room in [facility]. SKIN: Warm and dry. HEAD: Normocephalic. NGT to LIWS EYES: No injection or drainage. NECK: Supple, trachea midline. CARDIOVASCULAR: Regular rate and rhythm RESPIRATORY: ctab GASTROINTESTINAL: Abdomen with mild distension, mild tenderness throughout. EXTREMITIES: No cyanosis, or edema. NEUROLOGICAL: awake and alert, normal speech. Assessment/Plan Problem List: (1) Metastatic adenocarcinoma ICD Codes: C79.9 - Secondary malignant neoplasm of unspecified site Status: Chronic Assessment 61y/o male with metastatic adenocarcinoma of colorectal origin with peritoneal carcinomatosis. Plan 1. Metastatic rectal cancer: Rectal primary with peritoneal carcinomatosis. Obstruction of large and small bowel. s/p 3 cycles of palliative FOLFOX with no clinical improvement. not interested in hospice. not a candidate for further chemotherapy at this time. 2. SBO: s/p placement of NG tube with intermittent suction, on TPN. plan for G- tube placement in IR tomorrow. hopefully will be able to d/c home once that is placed. Attending Statement The exam, history, and the medical decision-making described in the above note were completed with the assistance of the mid-level provider. I reviewed and agree with the findings presented. I attest that I had a [id number] encounter with the patient on the same day, and personally performed and documented my assessment and findings in the medical record. 61 yoM with metastatic rectal cancer with peritoneal carcinomatosis. No improvement after chemotherapy. Patient is not interested in hospice. Plan for venting PEG and discharge home. Patient hopes to seek a second opinion at an academic medical center. Deedee Miranda Feb 01, 2017 14:17 Nayeli Neal MD Feb 02, 2017 02:10
[2017-02-01] MEDS: ENOXAPARIN SODIUM 40 MG/0.4 ML SYRINGE SQ SCH (15:00)
--- NOTE | 2017-02-01 15:10 | HHI.PR ---
cc: Vikas Pfeiffer MD Subjective Subjective Notes Resting in bed Family at bedside Very appreciative of care Objective Vitals/I&O Vital Signs Date Time Temp Pulse Resp B/P (MAP) Pulse Ox O2 Delivery O2 Flow Rate FiO2 02/01/17 13:20 98.5 80 16 119/83 (95) 96 Labs Laboratory Tests Test 02/01/17 04:15 White Blood Count 6.4 Red Blood Count 4.20 Hemoglobin 11.0 Hematocrit 33.0 Mean Corpuscular Volume 78.5 Mean Corpuscular Hemoglobin 26.2 Mean Corpuscular Hemoglobin Concent 33.3 Red Cell Distribution Width 13.7 Platelet Count 193 Mean Platelet Volume 8.6 Blood Urea Nitrogen 14 Creatinine 0.82 Random Glucose 78 Calcium Level 8.7 Sodium Level 138 Potassium Level 3.7 Chloride Level 100 Carbon Dioxide Level 32.0 Anion Gap 6 Estimat Glomerular Filtration Rate 117 Radiology Last Impressions Abdomen/Pelvis CT 01/25/17 1037 Signed Impressions: Service Date/Time: January 12:30 - CONCLUSION: Small bowel distention concerning for obstruction. Minimal ascites. Left renal cyst. Hermelindo Mcghee MD Abdomen X-Ray 01/25/17 0000 Signed Impressions: Service Date/Time: January 18:57 - CONCLUSION: Mild air-filled dilatation of small bowel loops suggesting small bowel obstruction. Clinical correlation is recommended. Noel Guerin MD Cardiovascular: Regular Lungs: Clear Abdomen: Other (mildly distended; non tender; NGT to LIWS ) Extremities: No edema A/P Problem List: (1) History of colon cancer, stage IV ICD Codes: Z85.038 - Personal history of other malignant neoplasm of large intestine Status: Chronic (2) Metastatic adenocarcinoma ICD Codes: C79.9 - Secondary malignant neoplasm of unspecified site Status: Chronic (3) Abdominal pain ICD Codes: R10.9 - Unspecified abdominal pain Status: Chronic (4) Colon cancer ICD Codes: C18.9 - Malignant neoplasm of colon, unspecified (5) Ileus ICD Codes: K56.7 - Ileus, unspecified Assessment and Plan 61-year-old male with known stage IV colon cancer; abdominal pain with associated nausea and vomiting; CT questionable for small bowel obstruction -SBFT essentially shows ileus -XR shows residual contrast in ascending colon -Continue NG tube to low intermittent wall suction; okay to clamp for patient to ambulate -Consult IR for palliative G tube placement -Clear liquids; NPO after MN -Continue TPN -Patient is a poor surgical candidate Attending Statement agree with plans for G tube. Pt with diffuse ileus, likely peritoneal carcinomatosis. The exam, history, and the medical decision-making described in the above note were completed with the assistance of the mid-level provider. I reviewed and agree with the findings presented. I attest that I had a [id number] encounter with the patient on the same day, and personally performed and documented my assessment and findings in the medical record. Problem Qualifiers (1) Abdominal pain: Qualified Codes: R10.32 - Left lower quadrant pain (2) Colon cancer: Qualified Codes: C18.8 - Malignant neoplasm of overlapping sites of colon Kylie Varela Feb 01, 2017 15:10 Vikas Pfeiffer MD Feb 02, 2017 16:45
[2017-02-01] MEDS ORDERED: ceFAZolin 2 GM PREMIX 50 ML IV SCH (15:45)
[2017-02-01] MEDS: SODIUM CHLOR 0.9% 1000 ML INJ 1,000 ML IV SCH (16:36)
--- NOTE | 2017-02-01 16:42 | HHI.PR ---
Subjective Remarks Patient states he is still having the same abdominal pain which is mostly left- sided. Pain relatively well controlled. Still no bowel movement. Not passing gas. He is going for PEG tube tomorrow. Abdominal CT scan was unable to be performed today. Objective Vitals Vital Signs Date Time Temp Pulse Resp B/P (MAP) Pulse Ox O2 Delivery O2 Flow Rate FiO2 02/01/17 16:17 98.4 74 18 121/84 (96) 98 02/01/17 13:20 98.5 80 16 119/83 (95) 96 02/01/17 09:42 98.1 91 16 117/93 (101) 100 02/01/17 04:07 16 02/01/17 04:00 74 02/01/17 00:34 98.6 70 16 130/82 (98) 98 02/01/17 00:00 66 01/31/17 20:08 70 16 128/83 (98) 98 01/31/17 20:08 72 01/31/17 17:00 98.5 76 18 140/83 (102) 98 I/O 01/31/17 01/31/17 01/31/17 02/01/17 02/01/17 02/01/17 06:59 14:59 22:59 06:59 14:59 22:59 Intake Total 2775 ml 2059 ml 2121 ml Output Total 1100 ml 250 ml Balance 1675 ml -250 ml 2059 ml 2121 ml Intake Oral 650 ml 240 ml IV Total 2125 ml 1819 ml 2121 ml Output Urine Total 250 ml Gastric Drainage Total 1100 ml # Voids 2 2 3 Result Diagram: 02/01/17 0415 02/01/17 041 Objective Remarks GENERAL: Cachectic appearing pleasant Afro-Nauruan Nauruan patient. NG tube at [facility]. SKIN: Warm and dry. HEAD: Normocephalic. EYES: No scleral icterus. No injection or drainage. NECK: Supple, trachea midline. No JVD or lymphadenopathy. CARDIOVASCULAR: Regular rate and rhythm without murmurs, gallops, or rubs. RESPIRATORY: Breath sounds equal bilaterally. No accessory muscle use. GASTROINTESTINAL: Bowel sounds hypoactive. Abdomen distended. Nontender. EXTREMITIES: No cyanosis, or edema. NEUROLOGICAL: Awake, alert, and oriented x 3. Non-focal. A/P Assessment and Plan 61-year-old male admitted secondary to small bowel obstruction in the presence of stage IV colon cancer. Small bowel obstruction versus ileus Management as per general surgery, abdominal CT scan pending Poor surgical candidate For PEG tube tomorrow Continue TPN until PEG tube placed Pain control Rectal cancer stage 4 Active diagnosed in September, On palliative chemo with Dr Hightower. Oncology following palliative care following. hospice consult pending Tobacco use Cessation recommended DVT prophylaxis Mary Wyatt MD Feb 01, 2017 16:42
[2017-02-01] MEDS: FAT EMULSION 20% INJ 250 ML (Daily over 8 hours) IV-CENTRAL SCH (21:45)
[2017-02-02] VITALS (7 sets, daily range): BP systolic 106–134; BP diastolic 64–82; PULSE 74–97; RESP 16–20; TEMP 98.1–98.6; O2SAT 92–100
[2017-02-02] MEDS: MORPHINE SULFATE 4 MG/ML INJ IV PUSH PRN ×4 (01:54→12:02)
[2017-02-02] MEDS: SODIUM CHLOR 0.9% 1000 ML INJ 1,000 ML IV SCH (05:29)
[2017-02-02] MEDS: SIMETHICONE 125 MG CHEWABLE TAB PO SCH ×3 (05:34→20:30)
[2017-02-02] MEDS: SODIUM CHLORIDE 0.9% FLUSH 10 ML FLUSH IV FLUSH SCH ×2 (08:41→21:00)
[2017-02-02] MEDS: DOCUSATE SODIUM 50 MG/SENNA 8.6 MG TAB PO SCH ×2 (08:41→20:30)
[2017-02-02] MEDS: PANTOPRAZOLE SOD 20 MG DELAYED RELEASE TAB PO SCH (08:41)
[2017-02-02] MEDS: MULTIVITAMIN INJ 5 ML, FOLIC ACID INJ 0.5 MG in AMINO ACID IN D5W W/ELECTROLYT 1,000 ML IV SCH ×6 (08:48→20:28)
--- NOTE | 2017-02-02 12:06 | HHI.PR ---
Subjective Remarks Abdominal pain improved today. No nausea. Waiting to have PEG tube. Objective Vitals Vital Signs Date Time Temp Pulse Resp B/P (MAP) Pulse Ox O2 Delivery O2 Flow Rate FiO2 02/02/17 11:58 98.6 97 18 134/64 (87) 98 02/02/17 10:44 91 02/02/17 04:56 16 02/02/17 04:18 74 02/02/17 01:55 98.4 86 16 109/74 (86) 100 02/01/17 21:46 98.5 74 16 118/76 (90) 98 02/01/17 20:00 83 02/01/17 16:17 98.4 74 18 121/84 (96) 98 02/01/17 13:20 98.5 80 16 119/83 (95) 96 I/O 02/01/17 02/01/17 02/01/17 02/02/17 02/02/17 02/02/17 07:00 15:00 23:00 07:00 15:00 23:00 Intake Total 2309 ml 2121 ml 2121 ml Output Total 150 ml Balance 2309 ml 2121 ml 2121 ml -150 ml Intake Oral 240 ml IV Total 2069 ml 2121 ml 2121 ml Gastric Drainage Total 150 ml # Voids 3 2 Result Diagram: 02/01/17 0415 02/01/17 0415 Objective Remarks GENERAL: Cachectic appearing pleasant Afro-Monegasque Monegasque patient. NG tube at [facility]. SKIN: Warm and dry. HEAD: Normocephalic. EYES: No scleral icterus. No injection or drainage. NECK: Supple, trachea midline. No JVD or lymphadenopathy. CARDIOVASCULAR: Regular rate and rhythm without murmurs, gallops, or rubs. RESPIRATORY: Breath sounds equal bilaterally. No accessory muscle use. GASTROINTESTINAL: Bowel sounds hypoactive. Abdomen distended. Nontender. EXTREMITIES: No cyanosis, or edema. NEUROLOGICAL: Awake, alert, and oriented x 3. Non-focal. A/P Problem List: (1) Small bowel obstruction ICD Code: K56.609 - Unspecified intestinal obstruction, unspecified as to partial versus complete obstruction Status: Acute (2) Ileus ICD Code: K56.7 - Ileus, unspecified (3) History of colon cancer, stage IV ICD Code: Z85.038 - Personal history of other malignant neoplasm of large intestine Status: Chronic (4) Abdominal pain ICD Code: R10.9 - Unspecified abdominal pain Status: Chronic (5) Nausea ICD Code: R11.0 - Nausea Assessment and Plan 61-year-old male admitted secondary to small bowel obstruction in the presence of stage IV colon cancer. Small bowel obstruction versus ileus Management as per general surgery, no bowel movement yet Poor surgical candidate For PEG tube today Continue TPN until PEG tube placed Pain control Rectal cancer stage 4 Active diagnosed in September, On palliative chemo with Dr Hightower. Oncology following - discussed with Deedee torres palliative care following. hospice consult pending Tobacco use Cessation recommended DVT prophylaxis Lovenox Problem Qualifiers (1) Abdominal pain: Qualified Codes: R10.32 - Left lower quadrant pain Mary Galicia MD Feb 02, 2017 12:06
--- NOTE | 2017-02-02 12:21 | HHI.PR ---
cc: Vikas Pfeiffer MD Subjective Subjective Notes Resting in bed Eager to get G tube in IR today "I know this won't fix my cancer but it will give me a better quality of life." "Will they teach me how to use the tube before I go home?" Objective Vitals/I&O Vital Signs Date Time Temp Pulse Resp B/P (MAP) Pulse Ox O2 Delivery O2 Flow Rate FiO2 02/02/17 11:58 98.6 97 18 134/64 (87) 98 Radiology Last Impressions Abdomen/Pelvis CT 01/25/17 1037 Signed Impressions: Service Date/Time: January 12:30 - CONCLUSION: Small bowel distention concerning for obstruction. Minimal ascites. Left renal cyst. Hermelindo Mcghee MD Abdomen X-Ray 01/25/17 0000 Signed Impressions: Service Date/Time: January 18:57 - CONCLUSION: Mild air-filled dilatation of small bowel loops suggesting small bowel obstruction. Clinical correlation is recommended. Noel Guerin MD Cardiovascular: Regular Lungs: Clear Abdomen: Other (mildly distended; non tender; NGT to LIWS ) Extremities: No edema A/P Problem List: (1) History of colon cancer, stage IV ICD Codes: Z85.038 - Personal history of other malignant neoplasm of large intestine Status: Chronic (2) Metastatic adenocarcinoma ICD Codes: C79.9 - Secondary malignant neoplasm of unspecified site Status: Chronic (3) Abdominal pain ICD Codes: R10.9 - Unspecified abdominal pain Status: Chronic (4) Colon cancer ICD Codes: C18.9 - Malignant neoplasm of colon, unspecified (5) Ileus ICD Codes: K56.7 - Ileus, unspecified Assessment and Plan 61-year-old male with known stage IV colon cancer; abdominal pain with associated nausea and vomiting; CT questionable for small bowel obstruction -IR to place palliative G tube today; then okay to DC NGT -NPO for procedure; okay to start clear liquids after -Continue TPN -Patient is a poor surgical candidate -Patient will likely need TPN at home because I doubt he will tolerate TF via his G tube Attending Statement I went to see the patient and he was in IR getting his G tube. The exam, history, and the medical decision-making described in the above note were completed with the assistance of the mid-level provider. I reviewed and agree with the findings presented. I attest that I had a [id number] encounter with the patient on the same day, and personally performed and documented my assessment and findings in the medical record. Problem Qualifiers (1) Abdominal pain: Qualified Codes: R10.32 - Left lower quadrant pain (2) Colon cancer: Qualified Codes: C18.8 - Malignant neoplasm of overlapping sites of colon Kylie Varela Feb 02, 2017 12:21 Vikas Pfeiffer MD Feb 05, 2017 10:04
--- NOTE | 2017-02-02 13:30 | PD.ONC.PN ---
Subjective Subjective Remarks Afebrile overnight. Patient resting in room. Feels well today. no nausea. denies pain at present. Objective Data Date Time Temp Pulse Resp B/P (MAP) Pulse Ox O2 Delivery O2 Flow Rate FiO2 02/02/17 11:58 98.6 97 18 134/64 (87) 98 02/02/17 10:44 91 02/02/17 04:56 16 02/02/17 04:18 74 02/02/17 01:55 98.4 86 16 109/74 (86) 100 02/01/17 21:46 98.5 74 16 118/76 (90) 98 02/01/17 20:00 83 02/01/17 16:17 98.4 74 18 121/84 (96) 98 02/02/17 02/02/17 02/02/17 07:00 15:00 23:00 Output Total 150 ml Balance -150 ml Result Diagram: 02/01/17 0415 02/01/17 0415 Administered Medications Medications (Trade) Dose Ordered Sig/Deepika Route PRN Reason Start Time Stop Time Status Last Admin Dose Admin Sodium Chloride 1,000 ml @ 50 mls/hr Q20H IV 01/25/17 13:21 01/31/17 06:50 Sodium Chloride (NS Flush) 2 ml UNSCH PRN IV FLUSH FLUSH AFTER USING IV ACCESS 01/25/17 13:30 01/31/17 04:02 Sodium Chloride (NS Flush) 2 ml BID IV FLUSH 01/25/17 21:00 02/01/17 21:45 Enoxaparin Sodium (Lovenox Inj) 40 mg Q24H SQ 01/25/17 15:00 Future hold 01/26/17 15:46 Senna/Docusate Sodium (Shila-Colace) 1 tab BID PO 01/25/17 21:00 01/30/17 08:30 Fat Emulsion Intravenous 250 ml @ 31.25 mls/ hr Q24H IV-CENTRAL 01/26/17 20:00 02/01/17 21:45 Pantoprazole Sodium (Protonix) 20 mg DAILY PO 01/27/17 09:00 01/31/17 09:15 Simethicone (Phazyme Chew) 125 mg Q8HR PO 01/27/17 14:00 02/01/17 16:34 Morphine Sulfate (Morphine Inj) 4 mg Q3HR PRN IV PUSH pain 1-10 01/29/17 18:45 02/02/17 12:02 Multivitamins 5 ml/Folic Acid 0.5 mg/Amino Acids/ Electrolytes/ Dextrose 1,005.1 ml @ 83 mls/hr Q12H7M IV 01/31/17 20:00 02/02/17 08:48 Objective Remarks GENERAL: chronically ill male sitting up in room in nad. SKIN: Warm and dry. HEAD: Normocephalic. NGtube remains on wall suction EYES: No injection or drainage. NECK: Supple, trachea midline. CARDIOVASCULAR: Regular rate and rhythm RESPIRATORY: clear to auscultation GASTROINTESTINAL: Abdomen mildly distended. mildly tender EXTREMITIES: No cyanosis, or edema. NEUROLOGICAL: awake and alert, normal speech. moving all extremities. Assessment/Plan Problem List: (1) Metastatic adenocarcinoma ICD Codes: C79.9 - Secondary malignant neoplasm of unspecified site Status: Chronic Assessment 61y/o male with metastatic adenocarcinoma of colorectal origin with peritoneal carcinomatosis. Plan 1. Metastatic rectal cancer: Rectal primary with peritoneal carcinomatosis. Obstruction of large and small bowel. s/p 3 cycles of palliative FOLFOX with no clinical improvement. not a candidate for further chemotherapy at this time. Patient not interested in hospice. 2. SBO: s/p placement of NG tube with intermittent suction, on TPN. G-tube placement in IR today. Patient could be discharged home after this is placed and his symptoms of nausea are controlled. Attending Statement The exam, history, and the medical decision-making described in the above note were completed with the assistance of the mid-level provider. I reviewed and agree with the findings presented. I attest that I had a [id number] encounter with the patient on the same day, and personally performed and documented my assessment and findings in the medical record. 61 yoM with metastatic rectal cancer with peritoneal carcinomatosis. Plan for NG tube today. Follow up closely wiht Dr. Hightower. Deedee Miranda Feb 02, 2017 13:30 Nayeli Neal MD Feb 02, 2017 20:21
[2017-02-02] MEDS ORDERED: MIDAZOLAM HCL 2 MG/2 ML VIAL ONE (15:56)
[2017-02-02] MEDS ORDERED: GLUCAGON 1 MG/ML VIAL ONE ×2 (15:57→16:41)
[2017-02-02] MEDS ORDERED: STERILE WATER FOR INJECTION 10 ML VIAL ONE (16:41)
--- NOTE | 2017-02-02 17:11 | PD.RAD ---
Post Procedure Progress Note Pre Procedure Diagnosis: (1) Small bowel obstruction (2) Colon cancer Post Procedure Diagnosis: (1) Colon cancer (2) Small bowel obstruction Procedure Date: Feb 02, 2017 Supervising Radiologist: Romero Tubbs Proceduralist/Assist: Carol Bhatti, RT(R)(), Waldemar Gutierrez RT(R) Anesthesia: Local, Analgesia, Conscious Sedation Plan of Activity Patient to Unit: [facility] Patient Condition: Good See PACS Report for procedural detail/treatment Feeding Tube Gastrostomy Placement English: 18 Romero Tubbs MD Feb 02, 2017 17:11
[2017-02-02] MEDS: MORPHINE SULFATE 2 MG/ML INJ IV PUSH PRN (18:19)
[2017-02-02] MEDS ORDERED: IOHEXOL 350 MG/ML 100 ML BTL (for RAD DIAG) G-TUBE ONE (18:39)
[2017-02-02] MEDS ORDERED: HYDROmorphone HCL PF 2 MG/ML VIAL IV PUSH ONE (19:30)
[2017-02-02] MEDS: FAT EMULSION 20% INJ 250 ML (Daily over 8 hours) IV-CENTRAL SCH (20:00)
[2017-02-03] MEDS: MORPHINE SULFATE 2 MG/ML INJ IV PUSH PRN ×8 (00:54→23:33)
[2017-02-03] MEDS: SODIUM CHLOR 0.9% 1000 ML INJ 1,000 ML IV SCH ×2 (01:29→21:13)
[2017-02-03] MEDS: SIMETHICONE 125 MG CHEWABLE TAB PO SCH ×3 (04:18→21:13)
[2017-02-03] MEDS: IMPLANTED VASCULAR ACCESS PORT - SODIUM CHLORIDE FLUSH IV FLUSH SCH (06:15)
[2017-02-03 08:40] VITALS: BP 128/85; PULSE 85; RESP 16; TEMP 98.7; O2SAT 98
[2017-02-03] MEDS: DOCUSATE SODIUM 50 MG/SENNA 8.6 MG TAB PO SCH ×2 (09:00→21:00)
[2017-02-03] MEDS: SODIUM CHLORIDE 0.9% FLUSH 10 ML FLUSH IV FLUSH SCH ×2 (09:00→21:00)
[2017-02-03] MEDS: PANTOPRAZOLE SOD 20 MG DELAYED RELEASE TAB PO SCH (10:43)
[2017-02-03] MEDS: MULTIVITAMIN INJ 5 ML, FOLIC ACID INJ 0.5 MG in AMINO ACID IN D5W W/ELECTROLYT 1,000 ML IV SCH ×6 (11:01→21:12)
--- NOTE | 2017-02-03 11:31 | HHI.PR ---
Subjective Remarks Patient states he's feeling better today. Last night he had a lot of abdominal pain after the PEG. He requests longer acting pain medicine as the morphine IV is wearing off too quickly. No nausea or vomiting. Objective Vitals Vital Signs Date Time Temp Pulse Resp B/P (MAP) Pulse Ox O2 Delivery O2 Flow Rate FiO2 02/03/17 08:40 98.7 85 16 128/85 (99) 98 02/03/17 07:46 16 02/02/17 19:53 98.1 86 20 106/71 (83) 96 02/02/17 17:53 84 18 122/82 (95) 94 02/02/17 17:23 98.1 86 18 113/74 (87) 92 02/02/17 11:58 98.6 97 18 134/64 (87) 98 I/O 02/02/17 02/02/17 02/02/17 02/03/17 02/03/17 02/03/17 07:00 15:00 23:00 07:00 15:00 23:00 Intake Total 788 ml 1520 ml Output Total 150 ml Balance -150 ml 788 ml 1520 ml IV Total 788 ml 1520 ml Gastric Drainage Total 150 ml # Voids 2 3 Result Diagram: 02/01/17 0415 02/01/17 0415 Objective Remarks GENERAL: Cachectic appearing pleasant Afro-Congolese Congolese patient. NG tube at [place]. SKIN: Warm and dry. HEAD: Normocephalic. EYES: No scleral icterus. No injection or drainage. NECK: Supple, trachea midline. No JVD or lymphadenopathy. CARDIOVASCULAR: Regular rate and rhythm without murmurs, gallops, or rubs. RESPIRATORY: Breath sounds equal bilaterally. No accessory muscle use. GASTROINTESTINAL: Bowel sounds hypoactive. Abdomen distended. Nontender. EXTREMITIES: No cyanosis, or edema. NEUROLOGICAL: Awake, alert, and oriented x 3. Non-focal. A/P Problem List: (1) Small bowel obstruction ICD Code: K56.609 - Unspecified intestinal obstruction, unspecified as to partial versus complete obstruction Status: Acute (2) Ileus ICD Code: K56.7 - Ileus, unspecified (3) History of colon cancer, stage IV ICD Code: Z85.038 - Personal history of other malignant neoplasm of large intestine Status: Chronic (4) Abdominal pain ICD Code: R10.9 - Unspecified abdominal pain Status: Chronic (5) Nausea ICD Code: R11.0 - Nausea Assessment and Plan 61-year-old male admitted secondary to small bowel obstruction in the presence of stage IV colon cancer. 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 Oncology following - discussed with Deedee torres Will start Oramorph 15 mg every 8 and continue morphine IV for breakthrough pain palliative care following. hospice consult pending Tobacco use Cessation recommended DVT prophylaxis Lovenox Problem Qualifiers (1) Abdominal pain: Qualified Codes: R10.32 - Left lower quadrant pain Mary Galicia MD Feb 03, 2017 11:31
[2017-02-03] MEDS: MORPHINE SULFATE 15 MG CONTROLLED RELEASE TAB PO SCH ×2 (13:27→21:17)
[2017-02-03] MEDS: ENOXAPARIN SODIUM 40 MG/0.4 ML SYRINGE SQ SCH (13:28)
[2017-02-03 13:44] VITALS: PULSE 85
[2017-02-03 20:00] VITALS: PULSE 95
[2017-02-03 20:40] VITALS: BP 108/69; PULSE 90; RESP 20; TEMP 98.7; O2SAT 98
[2017-02-03] MEDS: FAT EMULSION 20% INJ 250 ML (Daily over 8 hours) IV-CENTRAL SCH (21:12)
[2017-02-04] VITALS (9 sets, daily range): BP systolic 116–122; BP diastolic 68–86; PULSE 75–90; RESP 18–21; TEMP 98.3–99.5; O2SAT 95–99
[2017-02-04] MEDS: MORPHINE SULFATE 2 MG/ML INJ IV PUSH PRN ×7 (02:32→21:01)
[2017-02-04] MEDS: SIMETHICONE 125 MG CHEWABLE TAB PO SCH ×4 (05:55→20:54)
[2017-02-04] MEDS: MORPHINE SULFATE 15 MG CONTROLLED RELEASE TAB PO SCH (05:55)
[2017-02-04 06:34] LABS: BICARBONATE 32.6 MEQ/L (21.0-32.0); POTASSIUM 3.5 MEQ/L (3.5-5.1)
[2017-02-04] MEDS: DOCUSATE SODIUM 50 MG/SENNA 8.6 MG TAB PO SCH ×2 (08:45→20:54)
[2017-02-04] MEDS: PANTOPRAZOLE SOD 20 MG DELAYED RELEASE TAB PO SCH (08:45)
[2017-02-04] MEDS: SODIUM CHLORIDE 0.9% FLUSH 10 ML FLUSH IV FLUSH PRN (08:48)
--- NOTE | 2017-02-04 10:16 | RADRPT ---
EXAM DATE/TIME: 02/02/2017 17:15 [facility] COMPARISON: No previous studies available for comparison. INDICATIONS : Patient presents with stage four colon cancer in need of gastrostomy tube placement. MEDICAL HISTORY : Stage four colon cancer Tobacco abuse SURGICAL HISTORY : Port placement Appendectomy Hernia repair ENCOUNTER: Initial ACUITY: 1 week PAIN SCORE: 02/28 LOCATION: Abdomen FLUORO TIME: 4.6 minutes IMAGE SERIES: 1 SEDATION TIME: 30 minutes CONTRAST: 20 cc Omnipaque (iohexol) 350 MEDICATION(S): 1.) 3 mg midazolam (Versed) IV 2.) 150 mcg Fentanyl (Sublimaze) IV 3.) 2 mg glucagon (Gluca-Gen) IV Prophylactic antibiotics were administered with appropriate pre-procedure timing. DEVICE(S): 1.) 18 Fr gastrostomy tube PROCEDURE : 1. Limited abdominal ultrasound. 2. Fluoroscopically guided gastrostomy tube placement. 3. Conscious sedation with continuous EKG and oximetry monitoring. The risks, benefits and alternatives to the procedure were explained and verbal and written consent w as obtained. The site was prepped in sterile fashion. Full sterile technique was used, including ca p, mask, sterile gloves and gown and a large sterile sheet. Hand hygiene and 2% chlorhexidine and/or betadine/alcohol prep was utilized per protocol for cutaneous antisepsis. The skin and subcutaneous tissues were infiltrated with local anesthetic solution. Sterile gel and sterile probe cover were u tilized for ultrasound guidance. Ultrasound was used to angela the position of the liver. The stomach was insufflated with room air. Th ree percutaneous fasteners were placed to secure the anterior gastric wall. A small incision was made between the fasteners. The stomach was accessed with an 18 gauge needle. A n 0.035 wire was advanced into the small bowel. The tract was dilated. The gastrostomy tube was int roduced through a peel-away sheath. The position was confirmed with an injection of contrast. Conscious sedation was performed with the prescribed dosages and duration as above in the presence of an independent trained radiology nurse to assist in the monitoring of the patient. EKG and oximetry remained stable throughout the procedure. The patient tolerated the procedure well and there were n o complications. The patient was sent to post anesthesia recovery in stable condition. CONCLUSION: Uncomplicated gastrostomy tube placement as above. Romero Tubbs MD on February 04, 2017 at 10:13 Board Certified Radiologist. This report was verified electronically.
--- NOTE | 2017-02-04 11:38 | HHI.PR ---
Subjective Remarks Patient is having severe abdominal pain left-sided today. No vomiting. Still not passing gas or having bowel movement. Objective Vitals Vital Signs Date Time Temp Pulse Resp B/P (MAP) Pulse Ox O2 Delivery O2 Flow Rate FiO2 02/04/17 08:45 98.8 86 18 121/71 (88) 97 02/04/17 08:00 81 02/04/17 04:55 98.3 87 19 116/79 (91) 98 02/04/17 00:00 99.0 90 21 122/74 (90) 97 02/03/17 20:40 98.7 90 20 108/69 (82) 98 02/03/17 20:00 95 02/03/17 13:44 85 I/O 02/03/17 02/03/17 02/03/17 02/04/17 02/04/17 02/04/17 07:00 15:00 23:00 07:00 15:00 23:00 Intake Total 1520 ml 40 ml 60 ml Output Total 400 ml Balance 1520 ml 40 ml -340 ml IV Total 1520 ml Other 40 ml 60 ml Output Urine Total 400 ml # Voids 3 Result Diagram: 02/01/17 0415 02/04/17 0456 Objective Remarks GENERAL: Cachectic appearing pleasant Afro-[place]er [place] patient. SKIN: Warm and dry. HEAD: Normocephalic. EYES: No scleral icterus. No injection or drainage. NECK: Supple, trachea midline. No JVD or lymphadenopathy. CARDIOVASCULAR: Regular rate and rhythm without murmurs, gallops, or rubs. RESPIRATORY: Breath sounds equal bilaterally. No accessory muscle use. GASTROINTESTINAL: Bowel sounds absent. Abdomen more distended today and extremely tender to palpation throughout. EXTREMITIES: No cyanosis, or edema. NEUROLOGICAL: Awake, alert, and oriented x 3. Non-focal. A/P Problem List: (1) Small bowel obstruction ICD Code: K56.609 - Unspecified intestinal obstruction, unspecified as to partial versus complete obstruction Status: Acute (2) Ileus ICD Code: K56.7 - Ileus, unspecified (3) History of colon cancer, stage IV ICD Code: Z85.038 - Personal history of other malignant neoplasm of large intestine Status: Chronic (4) Abdominal pain ICD Code: R10.9 - Unspecified abdominal pain Status: Chronic (5) Nausea ICD Code: R11.0 - Nausea Assessment and Plan 61-year-old male admitted secondary to small bowel obstruction in the presence of stage IV colon cancer. Small bowel obstruction versus ileus Management as per general surgery, no bowel movement yet Not a surgical candidate Status post PEG tube 02/02 I discussed the patient with Dr. Juni gann who is covering for Dr. Pfeiffer. Placed G-tube to gravity. Pain control. Unfortunately patient is nonoperative candidate. Clear liquid as tolerated. Patient will likely require TPN on discharge. Will order abdominal x-ray to evaluate bowel pattern and rule out free air, consider hospice although patient currently desires aggressive care Rectal cancer stage 4 with abdominal pain Active diagnosed in September, On palliative chemo with Dr Hightower. Oramorph not controlling pain. We'll start fentanyl patch 25 g daily. Discussed with Jessica VILLEDA for oncology service. Continue morphine 4 mg IV every 3 hours as needed for pain palliative care following. Patient declined hospice. Tobacco use Cessation recommended DVT prophylaxis Lovenox Problem Qualifiers (1) Abdominal pain: Qualified Codes: R10.32 - Left lower quadrant pain Mary Galicia MD Feb 04, 2017 11:38
--- NOTE | 2017-02-04 11:52 | HHI.PR ---
Subjective Subjective Notes co cramps, no N/V, no BM or flatus Objective Vitals/I&O Vital Signs Date Time Temp Pulse Resp B/P (MAP) Pulse Ox O2 Delivery O2 Flow Rate FiO2 02/04/17 08:45 98.8 86 18 121/71 (88) 97 Labs Laboratory Tests Test 02/04/17 04:56 Blood Urea Nitrogen 17 Creatinine 0.78 Random Glucose 81 Calcium Level 8.1 Sodium Level 133 Potassium Level 3.5 Chloride Level 95 Carbon Dioxide Level 32.6 Anion Gap 5 Estimat Glomerular Filtration Rate 123 Radiology Last Impressions Abdomen/Pelvis CT 01/25/17 1037 Signed Impressions: Service Date/Time: January 12:30 - CONCLUSION: Small bowel distention concerning for obstruction. Minimal ascites. Left renal cyst. Hermelindo Mcghee MD Abdomen X-Ray 01/25/17 0000 Signed Impressions: Service Date/Time: January 18:57 - CONCLUSION: Mild air-filled dilatation of small bowel loops suggesting small bowel obstruction. Clinical correlation is recommended. Noel Guerin MD Abdomen: Non-distended Narrative Exam few BS, no R/G, A/P Problem List: (1) History of colon cancer, stage IV ICD Codes: Z85.038 - Personal history of other malignant neoplasm of large intestine Status: Chronic (2) Metastatic adenocarcinoma ICD Codes: C79.9 - Secondary malignant neoplasm of unspecified site Status: Chronic (3) Abdominal pain ICD Codes: R10.9 - Unspecified abdominal pain Status: Chronic (4) Colon cancer ICD Codes: C18.9 - Malignant neoplasm of colon, unspecified (5) Ileus ICD Codes: K56.7 - Ileus, unspecified Assessment and Plan Stage IV colon cancer G tube for palliation - open prn N/V or cramps pain control ok for PO as tolerated, open G tube prn unfortunately no surgical options Problem Qualifiers (1) Abdominal pain: Qualified Codes: R10.32 - Left lower quadrant pain (2) Colon cancer: Qualified Codes: C18.8 - Malignant neoplasm of overlapping sites of colon Juni Mcdaniel MD Feb 04, 2017 11:52
[2017-02-04] MEDS: MULTIVITAMIN INJ 5 ML, FOLIC ACID INJ 0.5 MG in AMINO ACID IN D5W W/ELECTROLYT 1,000 ML IV SCH ×6 (11:56→20:55)
[2017-02-04] MEDS: SODIUM CHLORIDE 0.9% FLUSH 10 ML FLUSH IV FLUSH SCH ×2 (11:56→21:01)
[2017-02-04] MEDS ORDERED: fentaNYL 25 MCG/HR PATCH T-DERMAL SCH (12:00)
--- NOTE | 2017-02-04 13:35 | RADRPT ---
EXAM DATE/TIME: 02/04/2017 11:58 [facility] COMPARISON: No previous studies available for comparison. INDICATIONS : Abdominal pain. MEDICAL HISTORY : Carcinoma, colon. CA colon 12/05. Hernia, inguinal SURGICAL HISTORY : Appendectomy. Inguinal hernia repair. Gastrostomy tube placement. ENCOUNTER: Initial ACUITY: 1 month PAIN SCORE: 7/10 LOCATION: Abdomen, midline. FINDINGS: A single erect view of the abdomen demonstrates the lower lungs to be clear. There is evidence of gisela e intraperitoneal gas. The visualized bowel loops are unremarkable. CONCLUSION: Free air in the abdomen however the patient has had a recent interventional procedure. Visualized bow el gas pattern is unremarkable. Lung bases are clear. Ruddy Scales MD on February 04, 2017 at 13:32 Board Certified Radiologist. This report was verified electronically.
[2017-02-04] MEDS: ENOXAPARIN SODIUM 40 MG/0.4 ML SYRINGE SQ SCH (15:00)
[2017-02-04] MEDS: SODIUM CHLOR 0.9% 1000 ML INJ 1,000 ML IV SCH (17:29)
[2017-02-04] MEDS: FAT EMULSION 20% INJ 250 ML (Daily over 8 hours) IV-CENTRAL SCH (20:55)
[2017-02-05] VITALS (8 sets, daily range): BP systolic 105–115; BP diastolic 68–74; PULSE 65–89; RESP 16–18; TEMP 98.6–98.9; O2SAT 71–99
[2017-02-05] MEDS: SODIUM CHLORIDE 0.9% FLUSH 10 ML FLUSH IV FLUSH PRN ×3 (00:01→05:58)
[2017-02-05] MEDS: MORPHINE SULFATE 2 MG/ML INJ IV PUSH PRN ×8 (03:00→21:25)
[2017-02-05] MEDS: IMPLANTED VASCULAR ACCESS PORT - SODIUM CHLORIDE FLUSH PRN IV FLUSH (03:18)
[2017-02-05] MEDS: SIMETHICONE 125 MG CHEWABLE TAB PO SCH ×3 (05:22→21:26)
--- NOTE | 2017-02-05 07:37 | PD.ONC.PN ---
Subjective Subjective Remarks Patient seen and examined, vital signs, labs, imaging studies and medications reviewed. Events of the past several days were reviewed as well. The patient is status post palliative percutaneous G-tube placement. He is on TPN for nutrition. He was initiated on a fentanyl patch for management of chronic pain related to peritoneal carcinomatosis. He remains hospitalized for the above issues. Objective Data Date Time Temp Pulse Resp B/P (MAP) Pulse Ox O2 Delivery O2 Flow Rate FiO2 02/05/17 04:37 98.7 77 18 115/74 (88) 99 02/05/17 04:04 70 02/05/17 00:11 89 02/04/17 23:56 98.9 88 18 122/86 (98) 98 02/04/17 20:45 99.5 80 18 120/68 (85) 98 02/04/17 20:10 84 02/04/17 17:36 98.8 75 18 117/76 (90) 99 02/04/17 15:09 18 02/04/17 13:14 98.8 81 18 119/79 (92) 95 02/04/17 12:55 18 02/04/17 08:45 98.8 86 18 121/71 (88) 97 02/04/17 08:00 81 02/05/17 02/05/17 02/05/17 07:00 15:00 23:00 Intake Total 950 ml Output Total 500 ml Balance 450 ml Result Diagram: 02/01/17 0415 02/04/17 0456 Administered Medications Medications (Trade) Dose Ordered Sig/Deepika Route PRN Reason Start Time Stop Time Status Last Admin Dose Admin Sodium Chloride 1,000 ml @ 50 mls/hr Q20H IV 01/25/17 13:21 01/31/17 06:50 Sodium Chloride (NS Flush) 2 ml UNSCH PRN IV FLUSH FLUSH AFTER USING IV ACCESS 01/25/17 13:30 02/05/17 05:58 Sodium Chloride (NS Flush) 2 ml BID IV FLUSH 01/25/17 21:00 02/04/17 21:01 Ondansetron HCl (Zofran Inj) 4 mg Q6H PRN IVP NAUSEA OR VOMITING 01/25/17 13:30 02/03/17 03:51 Enoxaparin Sodium (Lovenox Inj) 40 mg Q24H SQ 01/25/17 15:00 Future hold 01/26/17 15:46 Senna/Docusate Sodium (Shila-Colace) 1 tab BID PO 01/25/17 21:00 02/04/17 08:45 Sennosides (Senokot) 17.2 mg Q12HR PRN PO Moderate constipation 01/25/17 21:00 02/04/17 08:45 Fat Emulsion Intravenous 250 ml @ 31.25 mls/ hr Q24H IV-CENTRAL 01/26/17 20:00 02/04/17 20:55 Pantoprazole Sodium (Protonix) 20 mg DAILY PO 01/27/17 09:00 02/04/17 08:45 Simethicone (Phazyme Chew) 125 mg Q8HR PO 01/27/17 14:00 02/04/17 08:45 Multivitamins 5 ml/Folic Acid 0.5 mg/Amino Acids/ Electrolytes/ Dextrose 1,005.1 ml @ 83 mls/hr Q12H7M IV 01/31/17 20:00 02/04/17 20:55 Morphine Sulfate (Morphine Inj) 4 mg Q3H PRN IV PUSH pain 1-10 02/02/17 19:00 02/05/17 05:58 Sodium Chloride (NS Flush) 5 ml Q21D IV FLUSH 02/03/17 06:15 02/03/17 06:15 Heparin Sodium (Porcine) (Heparin Central Flush) 500 units Q21D IV FLUSH 02/03/17 06:15 02/03/17 06:15 Sodium Chloride (NS Flush) 5 ml UNSCH PRN IV FLUSH SEE LABEL COMMENTS 02/03/17 06:15 02/05/17 03:18 Heparin Sodium (Porcine) (Heparin Central Flush) 250 units UNSCH PRN IV FLUSH FLUSH AFTER USING IV ACCESS 02/03/17 06:15 02/04/17 05:05 Fentanyl (Duragesic 25 Mcg Patch.72 Hr) 1 patch Q3D T-DERMAL 02/04/17 12:00 02/04/17 11:55 Objective Remarks GENERAL: chronically ill male, near cachectic, asleep but arousable. Not acutely distressed. SKIN: Warm and dry. HEAD: Normocephalic. NG tube has been removed. EYES: No injection or drainage. PERRLA, EOMI, conjunctivae are pale, no icterus noted. NECK: Supple, trachea midline. CARDIOVASCULAR: Regular rate and rhythm RESPIRATORY: clear to auscultation, no added breath sounds. GASTROINTESTINAL: Interval placement of G-tube, abdomen is thin, soft, positive bowel sounds, diffuse tenderness noted. EXTREMITIES: No cyanosis, or edema. Gen. decreased muscle mass and tone. NEUROLOGICAL: awake and alert, normal speech. moving all extremities. Assessment/Plan Problem List: (1) Metastatic adenocarcinoma ICD Codes: C79.9 - Secondary malignant neoplasm of unspecified site Status: Chronic Assessment 61y/o male with metastatic adenocarcinoma of colorectal origin with peritoneal carcinomatosis. Plan 1. Metastatic rectal cancer: Rectal primary with peritoneal carcinomatosis. Obstruction of large and small bowel (likely multifocal). S/p 3 cycles of palliative FOLFOX with no clinical improvement in bowel obstruction. For the past 2 months he continues to lose weight, has worsening ECOG performance status , worsening performance status and has failed to thrive. At this point due to the above outlined issues he is a poor candidate for ongoing palliative systemic chemotherapy and is most appropriate for comfort oriented care/hospice level of care. I have on multiple previous occasions communicated this to the patient. I explained to him that end-of-life care and hospice is likely the most appropriate management approach, we however declines hospice/palliative care. For this reason he remains in the hospital with aggressive management/disease directed management goals. 2. SBO: s/p placement of NG tube with intermittent suction, on TPN. G-tube placement in IR today. Patient could be discharged home after this is placed and his symptoms of nausea are controlled. Disposition: I have recommended comfort oriented care/hospice level of care. Jorge Hightower MD Feb 05, 2017 07:37
[2017-02-05] MEDS: PANTOPRAZOLE SOD 20 MG DELAYED RELEASE TAB PO SCH (09:00)
[2017-02-05] MEDS: DOCUSATE SODIUM 50 MG/SENNA 8.6 MG TAB PO SCH ×2 (09:00→21:00)
[2017-02-05] MEDS: SODIUM CHLORIDE 0.9% FLUSH 10 ML FLUSH IV FLUSH SCH ×2 (09:13→21:22)
--- NOTE | 2017-02-05 11:54 | HHI.PR ---
Subjective Remarks Abdominal pain is much better controlled today. Objective Vitals Vital Signs Date Time Temp Pulse Resp B/P (MAP) Pulse Ox O2 Delivery O2 Flow Rate FiO2 02/05/17 08:59 98.6 71 16 112/71 (85) 71 02/05/17 04:37 98.7 77 18 115/74 (88) 99 02/05/17 04:04 70 02/05/17 00:11 89 02/04/17 23:56 98.9 88 18 122/86 (98) 98 02/04/17 20:45 99.5 80 18 120/68 (85) 98 02/04/17 20:10 84 02/04/17 17:36 98.8 75 18 117/76 (90) 99 02/04/17 15:09 18 02/04/17 13:14 98.8 81 18 119/79 (92) 95 02/04/17 12:55 18 I/O 02/04/17 02/04/17 02/04/17 02/05/17 02/05/17 02/05/17 07:00 15:00 23:00 07:00 15:00 23:00 Intake Total 60 ml 1000 ml 950 ml Output Total 400 ml 825 ml 500 ml Balance -340 ml 175 ml 450 ml IV Total 1000 ml 950 ml Other 60 ml Output Urine Total 400 ml 325 ml 300 ml Gastric Drainage Total 500 ml 200 ml # Bowel Movements 0 Result Diagram: 02/01/17 0415 02/04/17 0456 Objective Remarks GENERAL: Cachectic appearing pleasant Afro-[place] patient. SKIN: Warm and dry. HEAD: Normocephalic. EYES: No scleral icterus. No injection or drainage. NECK: Supple, trachea midline. No JVD or lymphadenopathy. CARDIOVASCULAR: Regular rate and rhythm without murmurs, gallops, or rubs. RESPIRATORY: Breath sounds equal bilaterally. No accessory muscle use. GASTROINTESTINAL: Bowel sounds absent. Abdomen distended, mildly tender to palpation. EXTREMITIES: No cyanosis, or edema. NEUROLOGICAL: Awake, alert, and oriented x 3. Non-focal. A/P Problem List: (1) Small bowel obstruction ICD Code: K56.609 - Unspecified intestinal obstruction, unspecified as to partial versus complete obstruction Status: Acute (2) Ileus ICD Code: K56.7 - Ileus, unspecified (3) History of colon cancer, stage IV ICD Code: Z85.038 - Personal history of other malignant neoplasm of large intestine Status: Chronic (4) Abdominal pain ICD Code: R10.9 - Unspecified abdominal pain Status: Chronic (5) Nausea ICD Code: R11.0 - Nausea Assessment and Plan 61-year-old male admitted secondary to small bowel obstruction in the presence of stage IV colon cancer. Small bowel obstruction versus ileus Management as per general surgery, no bowel movement yet Not a surgical candidate Status post PEG tube 02/02 I discussed the patient general surgery. Place G-tube to gravity when necessary nausea. Pain control. Unfortunately patient is nonoperative candidate. Clear liquid as tolerated. Will require TPN on discharge Abd xray 02/04 noted free air to be expected given recent G tube, and unremarkable bowel gas pattern Rectal cancer stage 4 with abdominal pain Active diagnosed in September, Recommended hospice by oncology/Dr. Hightower Continue fentanyl patch 25 g daily. Discussed with palliative care service Continue morphine 4 mg IV every 3 hours as needed for pain, titrate up fentanyl patch per palliative care palliative care following. Patient declined hospice. Tobacco use Cessation recommended DVT prophylaxis Lovenox Discharge Planning Discharge home when pain is controlled and TPN is arranged Problem Qualifiers (1) Abdominal pain: Qualified Codes: R10.32 - Left lower quadrant pain Mary Galicia MD Feb 05, 2017 11:54
[2017-02-05] MEDS: SODIUM CHLOR 0.9% 1000 ML INJ 1,000 ML IV SCH (13:29)
[2017-02-05] MEDS: MULTIVITAMIN INJ 5 ML, FOLIC ACID INJ 0.5 MG in AMINO ACID IN D5W W/ELECTROLYT 1,000 ML IV SCH ×6 (13:41→21:15)
--- NOTE | 2017-02-05 13:46 | HHI.HCPN ---
Reason for visit a. To assist with evaluation and management of symptoms including: Pain, nausea, constipation. b. To assist medical decision maker(s) with: better understanding of current medical conditions; weighing benefits/burdens of medical treatment options; making medical treatment decisions. . Subjective/Interval History Mr. 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 Patient is status post 3 cycles of palliative chemotherapy with no clinical improvement in bowel obstruction. Patient is not a surgical candidate. He underwent palliative percutaneous G- tube placement on 02/02/17. Opened to gravity for nausea. Clear liquids as tolerated, has continued on TPN for nutrition. Follow-up abdominal x-ray revealing unremarkable bowel gas pattern. Oncology following. Patient seen in his room. He was resting in bed in no acute distress. Endorsing moderate left-sided abdominal pain that is dull, diffused. Patient reports that fentanyl patch is helping to manage pain, he was able to sleep last night. Nausea/vomiting control with G-tube open at gravity. Patient remains afebrile, stable hemodynamically. Currently tolerating room air, oxygen saturation in the high 90s. Discuss with patient that his disease is metastatic and not curable. Reviewed that he is a poor candidate for ongoing palliative systemic chemotherapy given poor performance status, poor ECOG. Reviewed risks, benefits and limitations of CPR, intubation and mechanical ventilation given terminal condition. Patient verbalized understanding, his goal at this time is for ongoing aggressive attempts at improving quality of life and prolongation of survival. Patient wishes to follow-up with oncology as outpatient, would like to pursue systemic treatment if a candidate. Hospice philosophy and benefits reviewed. Patient verbalized not being ready for hospice, however, receptive to hospice/ comfort directed care should his symptom burden continues to worsen or he is no longer a candidate for additional systemic therapy. Patient verbalized appreciation for my visit today. All questions answered in great detail. Ongoing emotional support and active listening provided. . Family/friend interactions No family at bedside during my visit. . Advance Directives Living Will: Never completed Health Care Surrogate: Copy in medical record Durable Power of Bias Cutter: Never completed Advance Directive Specifics Date completed: 01/26/17. . Health Care Surrogate(s): Patient has designated his sister Dilma Monroy as healthcare surrogate decision maker. . Significant change in goals: Patient electing to continue aggressive management at this time. . Objective Vital Signs Date Time Temp Pulse Resp B/P (MAP) Pulse Ox O2 Delivery O2 Flow Rate FiO2 02/05/17 12:10 98.8 74 16 109/72 (84) 98 02/05/17 08:59 98.6 71 16 112/71 (85) 71 02/05/17 04:37 98.7 77 18 115/74 (88) 99 02/05/17 04:04 70 02/05/17 00:11 89 02/04/17 23:56 98.9 88 18 122/86 (98) 98 02/04/17 20:45 99.5 80 18 120/68 (85) 98 02/04/17 20:10 84 02/04/17 17:36 98.8 75 18 117/76 (90) 99 02/04/17 15:09 18 02/04/17 13:14 98.8 81 18 119/79 (92) 95 Intake & Output 02/05/17 02/05/17 07:00 19:00 Intake Total 1950 ml Output Total 1325 ml Balance 625 ml IV Total 1950 ml Output Urine Total 625 ml Gastric Drainage Total 700 ml # Bowel Movements 0 Physical Exam CONSTITUTIONAL/GENERAL: This is a thin middle-aged male, in no acute distress. TUBES/LINES/DRAINS: PIV, G tube -opening to wear, small amount of dark green output. SKIN: No jaundice, rashes, or lesions. No wounds seen anteriorly. Skin temperature appropriate. Not diaphoretic. HEAD: Atraumatic. Normocephalic. Temporal wasting. EYES: Pupils equal and round and reactive. Extraocular motions intact. No scleral icterus. No injection or drainage. Fundi not examined. ENT: Hearing grossly normal. Nose without bleeding or purulent drainage. Moist oral mucosa. NECK: Trachea midline. Supple, nontender. CARDIOVASCULAR: Regular rate and rhythm without murmurs, gallops, or rubs. No JVD. Peripheral pulses symmetric. RESPIRATORY/CHEST: Symmetric, unlabored respirations. Clear to auscultation. Breath sounds equal bilaterally. No wheezes, rales, or rhonchi. GASTROINTESTINAL: Abdomen tender to all patient -left upper and lower quadrant. G-tube in place. GENITOURINARY: Without palpable bladder distension. MUSCULOSKELETAL: Extremities without clubbing, cyanosis, or edema. No mottling or clubbing. NEUROLOGICAL: Awake and alert. Motor and sensory grossly within normal limits. Follows commands. Cognitively sharp. Moves all extremities. PSYCHIATRIC: Calm, pleasant. . Diagnostic Tests Laboratory Laboratory Tests Test 02/04/17 04:56 Blood Urea Nitrogen 17 MG/DL (7-18) Creatinine 0.78 MG/DL (0.60-1.30) Random Glucose 81 MG/DL (74-106) Calcium Level 8.1 MG/DL (8.5-10.1) Sodium Level 133 MEQ/L (136-145) Potassium Level 3.5 MEQ/L (3.5-5.1) Chloride Level 95 MEQ/L (98-107) Carbon Dioxide Level 32.6 MEQ/L (21.0-32.0) Anion Gap 5 MEQ/L (5-15) Estimat Glomerular Filtration Rate 123 ML/MIN (>89) Result Diagram: 02/01/17 0415 02/04/17 0456 Imaging Last 48 hours Impressions Abdomen X-Ray 02/04/17 0000 Signed Impressions: Service Date/Time: Saturday, February 04, 2017 11:58 - CONCLUSION: Free air in the abdomen however the patient has had a recent interventional procedure. Visualized bowel gas pattern is unremarkable. Lung bases are clear. Ruddy Scales MD Procedures * 02/02/17 -gastrostomy tube placement . Assessment and Plan Disease Oriented Problem List: (1) Colon cancer (2) Small bowel obstruction (3) Physical deconditioning Symptom Scale: (1) Abdominal pain 0-10 Scale: 3 Comment: Fentanyl patch in place. (2) Nausea 0-10 Scale: 0 Comment: Nausea controlled since placement of gastrostomy tube. (3) Constipation 0-10 Scale: Unable to quantify (chronic, likely R/T poor oral intake, opioid pain medication) Pertinent Non-Medical Issues Psychosocial: He was born in [place] and has lived here most of his life. He did live in [place] for a brief period. 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 He is and has raised his stepson but has no children of his own. He is one of 9 children. He has named his sister, Lynn Muhammad as his healthcare surrogate. He currently lives with his mother. Spiritual: He states he has a Catholic but does not wish absorption plant operator helper visits. He states "mom has him covered". Legal: Patient currently appears to have capacity to make his own decisions, however has designated his sister, Dilma Monroy as his healthcare surrogate to make his decisions if he is unable. Ethical issues impacting care: None noted. . Important Contacts Sister/HCS: Dilma Monroy . . Prognosis Mr. 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 Patient is status post 3 cycles of palliative chemotherapy with no clinical improvement in bowel obstruction. Patient is not a surgical candidate. He underwent palliative percutaneous G- tube placement on 02/02/17. Patient is a poor candidate for ongoing palliative systemic chemotherapy given poor performance status. Overall prognosis is poor. Patient appears hospice appropriate should he elects comfort directed care. . Code Status: Full Code Plan PLAN: * HEALTHCARE DECISION-MAKING: Patient participating in medical decision-making. Patient with a good understanding of his terminal condition, He appears to retain the ability to weight benefits versus burdens of treatment options. Patient has designated his sister Dilma Monroy as his healthcare surrogate to make his decisions if he is unable. Healthcare surrogate form has been completed. * CODE STATUS: FULL CODE. Risks, benefits and limitations of CPR, intubation and mechanical ventilation reviewed with patient given terminal condition. Patient verbalized wishing for heroic measures "for a short periods time" but would not want to prolong his dying process with artificial means. Patient declined completing living will at this time, verbalize that he has already discussed his wishes with his sister Dilma/healthcare surrogate decision maker. * GOALS OF CARE: Aggressive at this time. Discussed with patient that his disease is metastatic and not curable. Reviewed that he is a poor candidate for ongoing palliative systemic chemotherapy given poor performance status, poor ECOG. Patient's goal at this time is for ongoing aggressive attempts at improving quality of life and prolongation of survival. Patient wishes to follow-up with oncology as outpatient, would like to pursue systemic treatment if an option. Hospice philosophy and benefits reviewed. Patient verbalized NOT being ready for hospice, however, receptive to hospice/comfort directed care should his symptom burden continues to worsen or he is no longer a candidate for additional systemic therapy. SYMPTOMS: * Pain: Abdominal pain secondary to burden of disease. Status post gastrostomy tube placement. Patient was started on fentanyl patch 25mcg yesterday with good effect. Morphine 4 mg IV q3hr PRN available as needed, has required 7 doses in the past 24 hours for a total of 84mg of oral morphine. Palliative care recommends transitioning patient from morphine IV to Morphine PO 10mg q4hr PRN for breakthrough pain in anticipation to home discharge. * Nausea: Mostly control since gastrostomy tube placement. G-tube open to gravity, moderate amount of dark green outcome noted. Zofran available as needed. None given in the past 24 hours. * Constipation: Likely multifactorial to include sigmoid colons stenosis, minimal oral intake, use of opioid pain medications and the extensive peritoneal carcinomatosis. He states his last bowel movement was 12/10. Shila- Colace and Senokot twice daily and milk of magnesia, Dulcolax suppository and lactulose are available as needed. Patient states an enema is usually what he uses for his constipation as taking anything orally causes nausea and abdominal pain. Palliative care recommends providing PRN Fleets as well as Dulcolax suppository for patient comfort. Palliative care will continue to follow up as needed as patient's clinical course continues to evolve, to assist patient/decision-maker with understanding of their medical conditions, weighing benefits/burdens of treatment options, for clarification of goals of treatment. Additionally will assist with any symptoms of palliative concern. . Time Spent Total Floor Time (mins): 42 (Total time to include review medical records, physical exam, goals of care conversation with patient.) >50% Counseling/Coord of Care: Yes Attestation To help prompt me to consider important information that might be impacting today's encounter and assessment, information from prior notes written by myself or my colleagues may have been "brought forward" into today's note. My signature on this note, however, is an attestation that I personally performed the exam, history, and/or decision-making noted today, and, unless otherwise indicated, the interactions with patient, family, and staff as well as the review of records all occurred today. I also attest that the listed assessment and stated plan reflect my best clinical judgment today based on the combination of historical information, prior notes, and today's exam/ interactions. When time spent is documented, it refers only to time spent today by the signer, or if indicated, combined time spent today by collaborating physician/nurse practitioner. Mckayla Yusuf Feb 05, 2017 13:46
[2017-02-05] MEDS: ENOXAPARIN SODIUM 40 MG/0.4 ML SYRINGE SQ SCH (15:00)
--- NOTE | 2017-02-05 16:08 | HHI.PR ---
Subjective Subjective Notes sore at G tube site. Only flatus, no BM. G tube open and draining bilious fluid. Objective Vitals/I&O Vital Signs Date Time Temp Pulse Resp B/P (MAP) Pulse Ox O2 Delivery O2 Flow Rate FiO2 02/05/17 15:24 98.9 75 16 105/69 (81) 97 Radiology Last Impressions Abdomen/Pelvis CT 01/25/17 1037 Signed Impressions: Service Date/Time: January 12:30 - CONCLUSION: Small bowel distention concerning for obstruction. Minimal ascites. Left renal cyst. Hermelindo Mcghee MD Abdomen X-Ray 01/25/17 0000 Signed Impressions: Service Date/Time: January 18:57 - CONCLUSION: Mild air-filled dilatation of small bowel loops suggesting small bowel obstruction. Clinical correlation is recommended. Noel Guerin MD Abdomen: Other (mildly distened abdomen, soft, non tender. Few BS, no high pitched tinkling noises. G tube site clean and dry. No erythema, no drainage.) Extremities: No edema, Perfused A/P Problem List: (1) History of colon cancer, stage IV ICD Codes: Z85.038 - Personal history of other malignant neoplasm of large intestine Status: Chronic (2) Metastatic adenocarcinoma ICD Codes: C79.9 - Secondary malignant neoplasm of unspecified site Status: Chronic (3) Abdominal pain ICD Codes: R10.9 - Unspecified abdominal pain Status: Chronic (4) Colon cancer ICD Codes: C18.9 - Malignant neoplasm of colon, unspecified (5) Ileus ICD Codes: K56.7 - Ileus, unspecified Assessment and Plan Palliative G tube in place. I explained to him he can clamp G tube, drain his stomach only when distended or nauseated. Frequent small meals and liquids instead of 3 large meals may work better. He is nervous about starting to eat again, wants to wait until he is a little less tender. Unfortunately, no indication for surgery. Problem Qualifiers (1) Abdominal pain: Qualified Codes: R10.32 - Left lower quadrant pain (2) Colon cancer: Qualified Codes: C18.8 - Malignant neoplasm of overlapping sites of colon Vikas Pfeiffer MD Feb 05, 2017 16:08
[2017-02-05] MEDS: FAT EMULSION 20% INJ 250 ML (Daily over 8 hours) IV-CENTRAL SCH (21:22)
[2017-02-06] VITALS (9 sets, daily range): BP systolic 105–122; BP diastolic 66–84; PULSE 69–82; RESP 16–18; TEMP 98.3–98.9; O2SAT 96–98
[2017-02-06] MEDS: IMPLANTED VASCULAR ACCESS PORT - SODIUM CHLORIDE FLUSH IV FLUSH SCH ×2 (00:30→03:37)
[2017-02-06] MEDS: MORPHINE SULFATE 2 MG/ML INJ IV PUSH PRN ×8 (00:30→21:45)
[2017-02-06] MEDS: IMPLANTED VASCULAR ACCESS PORT - SODIUM CHLORIDE FLUSH PRN IV FLUSH ×4 (00:30→21:46)
[2017-02-06 04:39] LABS: AUTOMATED NEUTROPHIL # 4.2 TH/MM3 (1.8-7.7); BASOPHIL % 0.5 % (0.0-2.0); EOSINOPHIL # 0.2 TH/MM3 (0-0.4); EOSINOPHIL % 2.6 % (0.0-4.0); HEMATOCRIT 29.8 % (39.0-51.0); HEMO FLAGS DIFF FINAL; LYMPHOCYTE # 1.5 TH/MM3 (1.0-4.8); MEAN CELL VOLUME 77.5 FL (80.0-100.0); MEAN CORPUSCULAR HEMOGLOBIN 25.4 PG (27.0-34.0); MEAN CORPUSCULAR HGB CONC 32.8 % (32.0-36.0); MONO % 15.8 % (0.0-8.0); NEUT % 60.1 % (16.0-70.0); PLATELET COUNT 218 TH/MM3 (150-450); RED BLOOD COUNT 3.85 MIL/MM3 (4.50-5.90); RED CELL DISTRIBUTION WIDTH 13.5 % (11.6-17.2)
[2017-02-06 04:55] LABS: ALT (GPT) 18 U/L (12-78); ANION GAP 5 MEQ/L (5-15); AST (GOT) 22 U/L (15-37); BICARBONATE 34.3 MEQ/L (21.0-32.0); BLOOD UREA NITROGEN 13 MG/DL (7-18); CHLORIDE 94 MEQ/L (98-107); GLOMERULAR FILTRATION RATE 140 ML/MIN (>89); POTASSIUM 3.3 MEQ/L (3.5-5.1); SODIUM (NA) 133 MEQ/L (136-145)
[2017-02-06 04:58] LABS: ALKALINE PHOSPHATASE 199 U/L (45-117); TOTAL BILIRUBIN ADULT 1.8 MG/DL (0.2-1.0)
[2017-02-06] MEDS: SIMETHICONE 125 MG CHEWABLE TAB PO SCH ×3 (05:21→20:45)
--- NOTE | 2017-02-06 07:40 | PD.ONC.PN ---
Subjective Subjective Remarks Patient seen and examined, vital signs, labs, medications were reviewed. Subjectively; the patient's major complaint is pain at the site of PEG tube insertion. He tells me he has had very few sips of water and clear liquids. His PEG tube has been draining since it was placed and there have been no trials with the PEG tube clamped to assess for gastric emptying. She denies fevers or chills, he feels more comfortable with the fentanyl patch. He continues to express hope that his condition will improve and that he will be able to tolerate oral intake or parenteral feeding. Ultimately he hopes to resume palliative systemic therapy. Objective Data Date Time Temp Pulse Resp B/P (MAP) Pulse Ox O2 Delivery O2 Flow Rate FiO2 02/06/17 04:28 98.3 77 16 122/84 (97) 97 02/06/17 04:00 70 02/06/17 00:45 72 02/06/17 00:30 98.5 78 18 105/66 (79) 97 02/05/17 20:57 68 02/05/17 19:23 98.8 65 18 106/68 (81) 97 02/05/17 15:24 98.9 75 16 105/69 (81) 97 02/05/17 12:10 98.8 74 16 109/72 (84) 98 02/05/17 08:59 98.6 71 16 112/71 (85) 71 02/06/17 02/06/17 02/06/17 07:00 15:00 23:00 Intake Total 1280 ml Output Total 1050 ml Balance 230 ml Result Diagram: 02/06/17 0400 02/06/17 0330 Laboratory Results Laboratory Tests Test 02/06/17 03:30 02/06/17 04:00 Blood Urea Nitrogen 13 MG/DL Creatinine 0.70 MG/DL Random Glucose 93 MG/DL Total Protein 6.4 GM/DL Albumin 2.1 GM/DL Calcium Level 8.3 MG/DL Alkaline Phosphatase 199 U/L Aspartate Amino Transf (AST/SGOT) 22 U/L Alanine Aminotransferase (ALT/SGPT) 18 U/L Total Bilirubin 1.8 MG/DL Sodium Level 133 MEQ/L Potassium Level 3.3 MEQ/L Chloride Level 94 MEQ/L Carbon Dioxide Level 34.3 MEQ/L Anion Gap 5 MEQ/L Estimat Glomerular Filtration Rate 140 ML/MIN White Blood Count 7.0 TH/MM3 Red Blood Count 3.85 MIL/MM3 Hemoglobin 9.8 GM/DL Hematocrit 29.8 % Mean Corpuscular Volume 77.5 FL Mean Corpuscular Hemoglobin 25.4 PG Mean Corpuscular Hemoglobin Concent 32.8 % Red Cell Distribution Width 13.5 % Platelet Count 218 TH/MM3 Mean Platelet Volume 9.5 FL Neutrophils (%) (Auto) 60.1 % Lymphocytes (%) (Auto) 21.0 % Monocytes (%) (Auto) 15.8 % Eosinophils (%) (Auto) 2.6 % Basophils (%) (Auto) 0.5 % Neutrophils # (Auto) 4.2 TH/MM3 Lymphocytes # (Auto) 1.5 TH/MM3 Monocytes # (Auto) 1.1 TH/MM3 Eosinophils # (Auto) 0.2 TH/MM3 Basophils # (Auto) 0.0 TH/MM3 CBC Comment DIFF FINAL Differential Comment Administered Medications Medications (Trade) Dose Ordered Sig/Deepika Route PRN Reason Start Time Stop Time Status Last Admin Dose Admin Sodium Chloride 1,000 ml @ 50 mls/hr Q20H IV 01/25/17 13:21 01/31/17 06:50 Sodium Chloride (NS Flush) 2 ml UNSCH PRN IV FLUSH FLUSH AFTER USING IV ACCESS 01/25/17 13:30 02/05/17 05:58 Sodium Chloride (NS Flush) 2 ml BID IV FLUSH 01/25/17 21:00 02/05/17 21:22 Ondansetron HCl (Zofran Inj) 4 mg Q6H PRN IVP NAUSEA OR VOMITING 01/25/17 13:30 02/03/17 03:51 Enoxaparin Sodium (Lovenox Inj) 40 mg Q24H SQ 01/25/17 15:00 Future hold 01/26/17 15:46 Senna/Docusate Sodium (Shila-Colace) 1 tab BID PO 01/25/17 21:00 02/04/17 08:45 Sennosides (Senokot) 17.2 mg Q12HR PRN PO Moderate constipation 01/25/17 21:00 02/04/17 08:45 Fat Emulsion Intravenous 250 ml @ 31.25 mls/ hr Q24H IV-CENTRAL 01/26/17 20:00 02/05/17 21:22 Pantoprazole Sodium (Protonix) 20 mg DAILY PO 01/27/17 09:00 02/04/17 08:45 Simethicone (Phazyme Chew) 125 mg Q8HR PO 01/27/17 14:00 02/04/17 08:45 Multivitamins 5 ml/Folic Acid 0.5 mg/Amino Acids/ Electrolytes/ Dextrose 1,005.1 ml @ 83 mls/hr Q12H7M IV 01/31/17 20:00 02/05/17 21:15 Morphine Sulfate (Morphine Inj) 4 mg Q3H PRN IV PUSH pain 1-10 02/02/17 19:00 02/06/17 06:32 Sodium Chloride (NS Flush) 5 ml Q21D IV FLUSH 02/03/17 06:15 02/06/17 03:37 Heparin Sodium (Porcine) (Heparin Central Flush) 500 units Q21D IV FLUSH 02/03/17 06:15 02/03/17 06:15 Sodium Chloride (NS Flush) 5 ml UNSCH PRN IV FLUSH SEE LABEL COMMENTS 02/03/17 06:15 02/06/17 06:32 Heparin Sodium (Porcine) (Heparin Central Flush) 250 units UNSCH PRN IV FLUSH FLUSH AFTER USING IV ACCESS 02/03/17 06:15 02/04/17 05:05 Fentanyl (Duragesic 25 Mcg Patch.72 Hr) 1 patch Q3D T-DERMAL 02/04/17 12:00 02/04/17 11:55 Objective Remarks GENERAL: chronically ill male, near cachectic, asleep but arousable. Not acutely distressed. SKIN: Warm and dry. HEAD: Normocephalic. NG tube has been removed. EYES: No injection or drainage. PERRLA, EOMI, conjunctivae are pale, no icterus noted. NECK: Supple, trachea midline. CARDIOVASCULAR: Regular rate and rhythm RESPIRATORY: clear to auscultation, no added breath sounds. GASTROINTESTINAL: Interval placement of G-tube, abdomen is thin, soft, positive bowel sounds, diffuse tenderness noted. EXTREMITIES: No cyanosis, or edema. Gen. decreased muscle mass and tone. NEUROLOGICAL: awake and alert, normal speech. moving all extremities. Assessment/Plan Problem List: (1) Metastatic adenocarcinoma ICD Codes: C79.9 - Secondary malignant neoplasm of unspecified site Status: Chronic Assessment 61y/o male with metastatic adenocarcinoma of colorectal origin with peritoneal carcinomatosis. Plan 1. Metastatic rectal cancer: Rectal primary with peritoneal carcinomatosis. Obstruction of large and small bowel (likely multifocal). S/p 3 cycles of palliative FOLFOX with no clinical improvement in bowel obstruction. For the past 2 months he continues to lose weight, has worsening ECOG performance status , worsening performance status and has failed to thrive. At this point due to the above outlined issues he is a poor candidate for ongoing palliative systemic chemotherapy and is most appropriate for comfort oriented care/hospice level of care. Mr. Sanford remains optimistic about additional palliative treatment in the future. 2. SBO: Status post PEG tube placement on 02/02/2017 for palliation. I have advised the nursing staff to clamp his PEG tube for 2-3 hours after each meal to assess for gastric emptying. If he becomes bloated or has recurrent symptoms of bowel obstruction the PEG tube can be placed on drainage to gravity to relieve the symptoms. Disposition: I continue to recommend palliative/hospice level care. The patient's expectations are that of aggressive disease directed care. For the time being he will remain on supportive care with parenteral feeding while we assess his gastric emptying. I would recommend the care team continue talking to him about palliation as the most appropriate course of care. Jorge Hightower MD Feb 06, 2017 07:40
[2017-02-06] MEDS: PANTOPRAZOLE SOD 20 MG DELAYED RELEASE TAB PO SCH (09:00)
[2017-02-06] MEDS: DOCUSATE SODIUM 50 MG/SENNA 8.6 MG TAB PO SCH ×2 (09:00→20:45)
[2017-02-06] MEDS: MULTIVITAMIN INJ 5 ML, FOLIC ACID INJ 0.5 MG in AMINO ACID IN D5W W/ELECTROLYT 1,000 ML IV SCH ×6 (09:41→20:41)
[2017-02-06] MEDS: SODIUM CHLORIDE 0.9% FLUSH 10 ML FLUSH IV FLUSH SCH ×2 (09:48→20:46)
[2017-02-06] MEDS ORDERED: POTASSIUM CHLORIDE 10 MEQ CONTROLLED RELEASE TAB PO ONE (14:00)
--- NOTE | 2017-02-06 14:23 | HHI.PR ---
cc: Vikas Pfeiffer MD Subjective Subjective Notes Resting in bed In good spirits today Wants to try some Ensure shakes G tube clamped since this AM Objective Vitals/I&O Vital Signs Date Time Temp Pulse Resp B/P (MAP) Pulse Ox O2 Delivery O2 Flow Rate FiO2 02/06/17 04:28 98.3 77 16 122/84 (97) 97 Labs Laboratory Tests Test 02/06/17 03:30 02/06/17 04:00 Blood Urea Nitrogen 13 Creatinine 0.70 Random Glucose 93 Total Protein 6.4 Albumin 2.1 Calcium Level 8.3 Alkaline Phosphatase 199 Aspartate Amino Transf (AST/SGOT) 22 Alanine Aminotransferase (ALT/SGPT) 18 Total Bilirubin 1.8 Sodium Level 133 Potassium Level 3.3 Chloride Level 94 Carbon Dioxide Level 34.3 Anion Gap 5 Estimat Glomerular Filtration Rate 140 White Blood Count 7.0 Red Blood Count 3.85 Hemoglobin 9.8 Hematocrit 29.8 Mean Corpuscular Volume 77.5 Mean Corpuscular Hemoglobin 25.4 Mean Corpuscular Hemoglobin Concent 32.8 Red Cell Distribution Width 13.5 Platelet Count 218 Mean Platelet Volume 9.5 Neutrophils (%) (Auto) 60.1 Lymphocytes (%) (Auto) 21.0 Monocytes (%) (Auto) 15.8 Eosinophils (%) (Auto) 2.6 Basophils (%) (Auto) 0.5 Neutrophils # (Auto) 4.2 Lymphocytes # (Auto) 1.5 Monocytes # (Auto) 1.1 Eosinophils # (Auto) 0.2 Basophils # (Auto) 0.0 CBC Comment DIFF FINAL Differential Comment Radiology Last Impressions Abdomen/Pelvis CT 01/25/17 1037 Signed Impressions: Service Date/Time: January 12:30 - CONCLUSION: Small bowel distention concerning for obstruction. Minimal ascites. Left renal cyst. Hermelindo Mcghee MD Abdomen X-Ray 01/25/17 0000 Signed Impressions: Service Date/Time: January 18:57 - CONCLUSION: Mild air-filled dilatation of small bowel loops suggesting small bowel obstruction. Clinical correlation is recommended. Noel Guerin MD Cardiovascular: Regular Lungs: Clear Abdomen: Other (G tube in place (clamped); abd soft ) Extremities: No edema A/P Problem List: (1) History of colon cancer, stage IV ICD Codes: Z85.038 - Personal history of other malignant neoplasm of large intestine Status: Chronic (2) Metastatic adenocarcinoma ICD Codes: C79.9 - Secondary malignant neoplasm of unspecified site Status: Chronic (3) Abdominal pain ICD Codes: R10.9 - Unspecified abdominal pain Status: Chronic (4) Colon cancer ICD Codes: C18.9 - Malignant neoplasm of colon, unspecified (5) Ileus ICD Codes: K56.7 - Ileus, unspecified Assessment and Plan 61-year-old male with known stage IV colon cancer; abdominal pain with associated nausea and vomiting; CT questionable for small bowel obstruction -G tube clamped as tolerated -Clears + Ensure -Continue TPN -Patient is a poor surgical candidate -Patient will likely need TPN at home because I doubt he will tolerate TF via his G tube Attending Statement still no BM or flatus.. G tube draining fine. Has been up to bathroom, has not been walking halls. I recommended doing laps in charles to try to stimulate bowel function. Abdomen soft, mildly distended, non tender this afternoon. The exam, history, and the medical decision-making described in the above note were completed with the assistance of the mid-level provider. I reviewed and agree with the findings presented. I attest that I had a [id number] encounter with the patient on the same day, and personally performed and documented my assessment and findings in the medical record. Problem Qualifiers (1) Abdominal pain: Qualified Codes: R10.32 - Left lower quadrant pain (2) Colon cancer: Qualified Codes: C18.8 - Malignant neoplasm of overlapping sites of colon Kylie Varela Feb 06, 2017 14:23 Vikas Pfeiffer MD Feb 06, 2017 16:19
--- NOTE | 2017-02-06 14:52 | HHI.PR ---
Subjective Remarks Patient still with abdominal pain - difuse. States the G tube has been clamped, he had water and now feels cramping, wants G tube placed to drainage again. Denies passing Flatus and BM's. Objective Vitals Vital Signs Date Time Temp Pulse Resp B/P (MAP) Pulse Ox O2 Delivery O2 Flow Rate FiO2 02/06/17 04:28 98.3 77 16 122/84 (97) 97 02/06/17 04:00 70 02/06/17 00:45 72 02/06/17 00:30 98.5 78 18 105/66 (79) 97 02/05/17 20:57 68 02/05/17 19:23 98.8 65 18 106/68 (81) 97 02/05/17 15:24 98.9 75 16 105/69 (81) 97 I/O 02/05/17 02/05/17 02/05/17 02/06/17 02/06/17 02/06/17 07:00 15:00 23:00 07:00 15:00 23:00 Intake Total 950 ml 1160 ml 1280 ml Output Total 500 ml 1100 ml 1050 ml Balance 450 ml 60 ml 230 ml Intake Oral 280 ml IV Total 950 ml 1160 ml 1000 ml Output Urine Total 300 ml 650 ml 600 ml Gastric Drainage Total 200 ml 450 ml 450 ml # Bowel Movements 0 Result Diagram: 02/06/17 0400 02/06/17 0330 Imaging Last Impressions Abdomen X-Ray 02/04/17 0000 Signed Impressions: Service Date/Time: Saturday, February 04, 2017 11:58 - CONCLUSION: Free air in the abdomen however the patient has had a recent interventional procedure. Visualized bowel gas pattern is unremarkable. Lung bases are clear. Ruddy Scales MD Gastrostomy Tube Placement 02/02/17 0000 Signed Impressions: Service Date/Time: Thursday, February 02, 2017 17:15 - CONCLUSION: Uncomplicated gastrostomy tube placement as above. Romero Tubbs MD Small Bowel X-Ray 01/30/17 0600 Signed Impressions: Service Date/Time: Monday, January 30, 2017 10:20 - CONCLUSION: Small bowel ileus with slow transit of contrast through the small intestinal tract. Due to the dilutional effect leading edge of the contrast cannot be clearly identified. Consideration should be given to followup imaging with an enhanced CT of the abdomen and pelvis. Mansoor Arthur MD Abdomen/Pelvis CT 01/25/17 1037 Signed Impressions: Service Date/Time: January 12:30 - CONCLUSION: Small bowel distention concerning for obstruction. Minimal ascites. Left renal cyst. Hermelindo Mcghee MD Objective Remarks GENERAL: Cachectic appearing pleasant Afro-Welsh Welsh patient. SKIN: Warm and dry. HEAD: Normocephalic. EYES: No scleral icterus. No injection or drainage. NECK: Supple, trachea midline. No JVD or lymphadenopathy. CARDIOVASCULAR: Regular rate and rhythm without murmurs, gallops, or rubs. RESPIRATORY: Breath sounds equal bilaterally. No accessory muscle use. GASTROINTESTINAL: Bowel sounds present but sluggish. Abdomen distended, moderately tender to palpation. EXTREMITIES: No cyanosis, or edema. NEUROLOGICAL: Awake, alert, and oriented x 3. Non-focal. Medications and IVs Current Medications Medications (Trade) Dose Ordered Sig/Deepika Route Start Time Stop Time Status Last Admin Sodium Chloride 1,000 ml @ 50 mls/hr Q20H IV 01/25/17 13:21 01/31/17 06:50 (NS Flush) 2 ml UNSCH PRN IV FLUSH 01/25/17 13:30 02/05/17 05:58 (NS Flush) 2 ml BID IV FLUSH 01/25/17 21:00 02/06/17 09:48 (Tylenol) 650 mg Q4H PRN PO 01/25/17 13:30 (Zofran Inj) 4 mg Q6H PRN IVP 01/25/17 13:30 02/03/17 03:51 (Lovenox Inj) 40 mg Q24H SQ 01/25/17 15:00 Future hold 01/26/17 15:46 (Narcan Inj) 0.4 mg UNSCH PRN IV PUSH 01/25/17 13:30 (Shila-Colace) 1 tab BID PO 01/25/17 21:00 02/04/17 08:45 (Milk Of Magnesia Liq) 30 ml Q12H PRN PO 01/25/17 13:30 (Senokot) 17.2 mg Q12HR PRN PO 01/25/17 21:00 02/04/17 08:45 (Dulcolax Supp) 10 mg DAILY PRN RECTAL 01/25/17 13:30 (Lactulose Liq) 30 ml DAILY PRN PO 01/25/17 13:30 Fat Emulsion Intravenous 250 ml @ 31.25 mls/ hr Q24H IV-CENTRAL 01/26/17 20:00 02/05/17 21:22 (Protonix) 20 mg DAILY PO 01/27/17 09:00 02/04/17 08:45 (Phazyme Chew) 125 mg Q8HR PO 01/27/17 14:00 02/04/17 08:45 Multivitamins 5 ml/Folic Acid 0.5 mg/Amino Acids/ Electrolytes/ Dextrose 1,005.1 ml @ 83 mls/hr Q12H7M IV 01/31/17 20:00 02/06/17 09:41 (Morphine Inj) 4 mg Q3H PRN IV PUSH 02/02/17 19:00 02/06/17 12:42 (NS Flush) 5 ml Q21D IV FLUSH 02/03/17 06:15 02/06/17 03:37 (Heparin Central Flush) 500 units Q21D IV FLUSH 02/03/17 06:15 02/03/17 06:15 (NS Flush) 5 ml UNSCH PRN IV FLUSH 02/03/17 06:15 02/06/17 06:32 (Heparin Central Flush) 250 units UNSCH PRN IV FLUSH 02/03/17 06:15 02/04/17 05:05 (Duragesic 25 Mcg Patch.72 Hr) 1 patch Q3D T-DERMAL 02/04/17 12:00 02/04/17 11:55 Miscellaneous Information 1 Q3D T-DERMAL 02/07/17 12:00 A/P Problem List: (1) Small bowel obstruction ICD Code: K56.609 - Unspecified intestinal obstruction, unspecified as to partial versus complete obstruction Status: Acute (2) Ileus ICD Code: K56.7 - Ileus, unspecified (3) History of colon cancer, stage IV ICD Code: Z85.038 - Personal history of other malignant neoplasm of large intestine Status: Chronic (4) Abdominal pain ICD Code: R10.9 - Unspecified abdominal pain Status: Chronic (5) Nausea ICD Code: R11.0 - Nausea Assessment and Plan 61-year-old male admitted secondary to small bowel obstruction in the presence of stage IV colon cancer. Small bowel obstruction versus ileus Management as per general surgery, no bowel movement yet Not a surgical candidate Status post PEG tube 02/02 Dr Galicia discussed the patient general surgery. Place G-tube to gravity when necessary nausea. Pain control. Unfortunately patient is nonoperative candidate. Clear liquid as tolerated. Will require TPN on discharge Abd xray 02/04 noted free air to be expected given recent G tube, and unremarkable bowel gas pattern Rectal cancer stage 4 with abdominal pain Active diagnosed in September, Recommended hospice by oncology/Dr. Hightower Continue fentanyl patch 25 g daily. Discussed with palliative care service Continue morphine 4 mg IV every 3 hours as needed for pain, titrate up fentanyl patch per palliative care palliative care following. Patient declined hospice. Tobacco use Cessation recommended Hypokalemia Due to poor oral intake. Replace orally and monitor BMP. DVT prophylaxis Lovenox Problem Qualifiers (1) Abdominal pain: Qualified Codes: R10.32 - Left lower quadrant pain Avila Mittal MD Feb 06, 2017 14:52
[2017-02-06] MEDS: ENOXAPARIN SODIUM 40 MG/0.4 ML SYRINGE SQ SCH ×2 (15:46→15:51)
--- NOTE | 2017-02-06 17:38 | HHI.HCPN ---
Reason for visit a. To assist with evaluation and management of symptoms including: Pain, nausea, constipation. b. To assist medical decision maker(s) with: better understanding of current medical conditions; weighing benefits/burdens of medical treatment options; making medical treatment decisions. . Subjective/Interval History This is a 61-year-old male with metastatic rectal adenocarcinoma and small bowel obstruction. He had been treated with FOLFOX for 3 cycles prior to admission and imaging indicated no significant change in the tumor burden. Oncology is recommending hospice/comfort care, but patient remains with aggressive goals to resume oral feedings, try to improve performance status and continue palliative chemotherapy. The patient is aware that this is palliative only in nature and not curative. He states that Dr. Hightower has made this very clear and he understands that this is a terminal diagnosis. He is also aware that there is no surgical intervention that can be done to help him. G-tube was clamped today and he did attempt some water intake but now feels cramping, increased abdominal pain and nausea and is requesting G-tube placed back to drainage again. His family is at bedside, his sister Lynn and his mother, and they both participated in the conversation. Clinical data: * Laboratory: Sodium 133, potassium 3.3, BUN 13, creatinine 0.70, calcium 8.3, total bilirubin 1.8, up from 0.3 one week ago, alkaline phosphatase 199, albumin 2.1, WBC 7.0, Hgb 9.8, HCT 29.8, PLT 218. Family/friend interactions Discussed at length with patient, sister Lynn, who is the healthcare surrogate , and his mother the progressive nature of the tumor burden and the pathophysiology involved with small bowel obstruction, tumor burden and likely prognosis. While patient remains optimistic, he is aware of his terminal diagnosis and lack of options. He is hoping to continue palliative chemotherapy to extend his life span, but is aware that without a significant improvement in his performance status, chemotherapy cannot be continued. He states a plan to resume oral feedings with boost, however but became nauseated and crampy after an intake of a small amount of water, requiring the G-tube to be placed back to drainage. This was extensively explored with the family who supports him in his decision but is aware of his terminal diagnosis and poor prognosis. Reviewed possible options with family to include the possibility of patient being able to resume enough oral input to maintain current weight and resume palliative chemotherapy versus hospice care. Information regarding hospice as an option was reviewed with patient and family. They appreciate the information but at this time to support the patient's aggressive goals to try to resume palliative chemotherapy. Advance Directives Living Will: Never completed Health Care Surrogate: Copy in medical record Durable Power of Brick Layer: Never completed Advance Directive Specifics Date completed: 01/26/17. . Health Care Surrogate(s): Patient has designated his sister Dilma Monroy as healthcare surrogate decision maker. . Objective Vital Signs Date Time Temp Pulse Resp B/P (MAP) Pulse Ox O2 Delivery O2 Flow Rate FiO2 02/06/17 15:54 98.3 69 16 115/75 (88) 97 02/06/17 12:47 98.8 72 16 110/75 (87) 96 02/06/17 09:42 98.8 75 16 117/75 (89) 97 02/06/17 04:28 98.3 77 16 122/84 (97) 97 02/06/17 04:00 70 02/06/17 00:45 72 02/06/17 00:30 98.5 78 18 105/66 (79) 97 02/05/17 20:57 68 02/05/17 19:23 98.8 65 18 106/68 (81) 97 Intake & Output 02/06/17 02/06/17 07:00 19:00 Intake Total 2440 ml Output Total 1050 ml Balance 1390 ml Intake Oral 280 ml IV Total 2160 ml Output Urine Total 600 ml Gastric Drainage Total 450 ml Physical Exam CONSTITUTIONAL/GENERAL: This is a thin middle-aged male, in no acute distress. TUBES/LINES/DRAINS: PIV, G tube to bedside drainage with small amount of dark green output. SKIN: No jaundice, rashes, or lesions. No wounds seen anteriorly. Skin temperature appropriate. Not diaphoretic. HEAD: Atraumatic. Normocephalic. Temporal wasting. EYES: Pupils equal and round and reactive. Extraocular motions intact. No scleral icterus. No injection or drainage. Fundi not examined. ENT: Hearing grossly normal. Nose without bleeding or purulent drainage. Moist oral mucosa. NECK: Trachea midline. Supple, nontender. CARDIOVASCULAR: Regular rate and rhythm without murmurs, gallops, or rubs. No JVD. Peripheral pulses symmetric. RESPIRATORY/CHEST: Symmetric, unlabored respirations. Clear to auscultation. Breath sounds equal bilaterally. No wheezes, rales, or rhonchi. GASTROINTESTINAL: Abdomen tender to all patient -left upper and lower quadrant. G-tube in place. GENITOURINARY: Without palpable bladder distension. MUSCULOSKELETAL: Extremities without clubbing, cyanosis, or edema. No mottling or clubbing. NEUROLOGICAL: Awake and alert. Motor and sensory grossly within normal limits. Follows commands. Cognitively sharp. Moves all extremities. PSYCHIATRIC: Calm, pleasant. . Diagnostic Tests Laboratory Laboratory Tests Test 02/04/17 04:56 02/06/17 03:30 02/06/17 04:00 Blood Urea Nitrogen 17 MG/DL (7-18) 13 MG/DL (7-18) Creatinine 0.78 MG/DL (0.60-1.30) 0.70 MG/DL (0.60-1.30) Random Glucose 81 MG/DL (74-106) 93 MG/DL (74-106) Calcium Level 8.1 MG/DL (8.5-10.1) 8.3 MG/DL (8.5-10.1) Sodium Level 133 MEQ/L (136-145) 133 MEQ/L (136-145) Potassium Level 3.5 MEQ/L (3.5-5.1) 3.3 MEQ/L (3.5-5.1) Chloride Level 95 MEQ/L (98-107) 94 MEQ/L (98-107) Carbon Dioxide Level 32.6 MEQ/L (21.0-32.0) 34.3 MEQ/L (21.0-32.0) Anion Gap 5 MEQ/L (5-15) 5 MEQ/L (5-15) Estimat Glomerular Filtration Rate 123 ML/MIN (>89) 140 ML/MIN (>89) Total Protein 6.4 GM/DL (6.4-8.2) Albumin 2.1 GM/DL (3.4-5.0) Alkaline Phosphatase 199 U/L (45-117) Aspartate Amino Transf (AST/SGOT) 22 U/L (15-37) Alanine Aminotransferase (ALT/SGPT) 18 U/L (12-78) Total Bilirubin 1.8 MG/DL (0.2-1.0) White Blood Count 7.0 TH/MM3 (4.0-11.0) Red Blood Count 3.85 MIL/MM3 (4.50-5.90) Hemoglobin 9.8 GM/DL (13.0-17.0) Hematocrit 29.8 % (39.0-51.0) Mean Corpuscular Volume 77.5 FL (80.0-100.0) Mean Corpuscular Hemoglobin 25.4 PG (27.0-34.0) Mean Corpuscular Hemoglobin Concent 32.8 % (32.0-36.0) Red Cell Distribution Width 13.5 % (11.6-17.2) Platelet Count 218 TH/MM3 (150-450) Mean Platelet Volume 9.5 FL (7.0-11.0) Neutrophils (%) (Auto) 60.1 % (16.0-70.0) Lymphocytes (%) (Auto) 21.0 % (9.0-44.0) Monocytes (%) (Auto) 15.8 % (0.0-8.0) Eosinophils (%) (Auto) 2.6 % (0.0-4.0) Basophils (%) (Auto) 0.5 % (0.0-2.0) Neutrophils # (Auto) 4.2 TH/MM3 (1.8-7.7) Lymphocytes # (Auto) 1.5 TH/MM3 (1.0-4.8) Monocytes # (Auto) 1.1 TH/MM3 (0-0.9) Eosinophils # (Auto) 0.2 TH/MM3 (0-0.4) Basophils # (Auto) 0.0 TH/MM3 (0-0.2) CBC Comment DIFF FINAL Differential Comment Result Diagram: 02/06/17 0400 02/06/17 0330 Imaging Last Impressions Abdomen X-Ray 02/04/17 0000 Signed Impressions: Service Date/Time: Saturday, February 04, 2017 11:58 - CONCLUSION: Free air in the abdomen however the patient has had a recent interventional procedure. Visualized bowel gas pattern is unremarkable. Lung bases are clear. Ruddy Scales MD Gastrostomy Tube Placement 02/02/17 0000 Signed Impressions: Service Date/Time: Thursday, February 02, 2017 17:15 - CONCLUSION: Uncomplicated gastrostomy tube placement as above. Romero Tubbs MD Small Bowel X-Ray 01/30/17 0600 Signed Impressions: Service Date/Time: Monday, January 30, 2017 10:20 - CONCLUSION: Small bowel ileus with slow transit of contrast through the small intestinal tract. Due to the dilutional effect leading edge of the contrast cannot be clearly identified. Consideration should be given to followup imaging with an enhanced CT of the abdomen and pelvis. Mansoor Arthur MD Abdomen/Pelvis CT 01/25/17 1037 Signed Impressions: Service Date/Time: January 12:30 - CONCLUSION: Small bowel distention concerning for obstruction. Minimal ascites. Left renal cyst. Hermelindo Mcghee MD Procedures * 02/02/17 -gastrostomy tube placement . Assessment and Plan Disease Oriented Problem List: (1) Colon cancer (2) Small bowel obstruction (3) Physical deconditioning Symptom Scale: (1) Abdominal pain 0-10 Scale: 3 Comment: Fentanyl patch in place. (2) Nausea 0-10 Scale: 0 Comment: Nausea controlled since placement of gastrostomy tube. (3) Constipation 0-10 Scale: Unable to quantify (chronic, likely R/T poor oral intake, opioid pain medication) Pertinent Non-Medical Issues Psychosocial: He was born in [place] and has lived here most of his life. He did live in [place] for a brief period. 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 He is and has raised his stepson but has no children of his own. He is one of 9 children. He has named his sister, Lynn Muhammda as his healthcare surrogate. He currently lives with his mother. Spiritual: He states he has a Quaker but does not wish solution mixer visits. He states "mom has him covered". Legal: Patient currently appears to have capacity to make his own decisions, however has designated his sister, Dilma Monroy as his healthcare surrogate to make his decisions if he is unable. Ethical issues impacting care: None noted. . Important Contacts Sister/HCS: Dilma Monroy . . Prognosis Mr. 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 Patient is status post 3 cycles of palliative chemotherapy with no clinical improvement in bowel obstruction. Patient is not a surgical candidate. He underwent palliative percutaneous G- tube placement on 02/02/17. Patient is a poor candidate for ongoing palliative systemic chemotherapy given poor performance status. Overall prognosis is poor. Patient appears hospice appropriate should he elects comfort directed care. . Code Status: Full Code Plan PLAN: * HEALTHCARE DECISION-MAKING: Patient participating in medical decision-making. Patient with a good understanding of his terminal condition, He appears to retain the ability to weight benefits versus burdens of treatment options. Patient has designated his sister Dilma Monroy as his healthcare surrogate to make his decisions if he is unable. Healthcare surrogate form has been completed. * CODE STATUS: FULL CODE. Risks, benefits and limitations of CPR, intubation and mechanical ventilation reviewed with patient given terminal condition. Patient verbalized wishing for heroic measures "for a short periods time" but would not want to prolong his dying process with artificial means. Patient declined completing living will at this time, verbalize that he has already discussed his wishes with his sister Dilma/healthcare surrogate decision maker. * GOALS OF CARE: Aggressive at this time. Discussed with patient that his disease is metastatic and not curable. Reviewed that he is a poor candidate for ongoing palliative systemic chemotherapy given poor performance status, poor ECOG. Patient's goal at this time is for ongoing aggressive attempts at improving quality of life and prolongation of survival. Patient wishes to follow-up with oncology as outpatient, would like to pursue systemic treatment if an option. Hospice philosophy and benefits reviewed. Patient verbalized NOT being ready for hospice, however, receptive to hospice/comfort directed care should his symptom burden continues to worsen or he is no longer a candidate for additional systemic therapy. SYMPTOMS: * Pain: Abdominal pain secondary to burden of disease. Status post gastrostomy tube placement. Patient was started on fentanyl patch 25mcg yesterday with good effect. Morphine 4 mg IV q3hr PRN available as needed, has required 6 doses of morphine in the last 24 hours equaling 24 mg, plus the fentanyl patch. Patient states pain is controlled at this time. Tolerating by mouth intake at this time. Once able to take oral medications conversion to oral morphine would be appropriate. * Nausea: Mostly control since gastrostomy tube placement. G-tube open to gravity, moderate amount of dark green outcome noted. Zofran available as needed. None given in the past 24 hours. * Constipation: Likely multifactorial to include sigmoid colons stenosis, minimal oral intake, use of opioid pain medications and the extensive peritoneal carcinomatosis. He states his last bowel movement was 12/10. Shila- Colace and Senokot twice daily and milk of magnesia, Dulcolax suppository and lactulose are available as needed. Patient states an enema is usually what he uses for his constipation as taking anything orally causes nausea and abdominal pain. Palliative care recommends providing PRN Fleets as well as Dulcolax suppository for patient comfort. Palliative care will continue to follow up as needed as patient's clinical course continues to evolve, to assist patient/decision-maker with understanding of their medical conditions, weighing benefits/burdens of treatment options, for clarification of goals of treatment. Additionally will assist with any symptoms of palliative concern. . Attestation To help prompt me to consider important information that might be impacting today's encounter and assessment, information from prior notes written by myself or my colleagues may have been "brought forward" into today's note. My signature on this note, however, is an attestation that I personally performed the exam, history, and/or decision-making noted today, and, unless otherwise indicated, the interactions with patient, family, and staff as well as the review of records all occurred today. I also attest that the listed assessment and stated plan reflect my best clinical judgment today based on the combination of historical information, prior notes, and today's exam/ interactions. When time spent is documented, it refers only to time spent today by the signer, or if indicated, combined time spent today by collaborating physician/nurse practitioner. . Danay Sullivan Feb 06, 2017 17:38
[2017-02-06] MEDS: FAT EMULSION 20% INJ 250 ML (Daily over 8 hours) IV-CENTRAL SCH (20:41)
[2017-02-07] VITALS (11 sets, daily range): BP systolic 113–123; BP diastolic 68–89; PULSE 70–92; RESP 16–20; TEMP 97.9–99.1; O2SAT 96–99
[2017-02-07] MEDS: MORPHINE SULFATE 2 MG/ML INJ IV PUSH PRN ×8 (00:45→22:21)
[2017-02-07] MEDS: SODIUM CHLORIDE 0.9% FLUSH 10 ML FLUSH IV FLUSH PRN (00:50)
[2017-02-07] MEDS: IMPLANTED VASCULAR ACCESS PORT - SODIUM CHLORIDE FLUSH PRN IV FLUSH ×3 (00:50→06:48)
[2017-02-07] MEDS: SIMETHICONE 125 MG CHEWABLE TAB PO SCH ×3 (05:21→20:54)
[2017-02-07] MEDS: SODIUM CHLOR 0.9% 1000 ML INJ 1,000 ML IV SCH (05:22)
[2017-02-07 05:24] LABS: AUTOMATED NEUTROPHIL # 4.3 TH/MM3 (1.8-7.7); BASOPHIL # 0.1 TH/MM3 (0-0.2); EOSINOPHIL # 0.2 TH/MM3 (0-0.4); EOSINOPHIL % 2.1 % (0.0-4.0); HEMATOCRIT 33.1 % (39.0-51.0); HEMO FLAGS DIFF FINAL; LYMPH % 20.2 % (9.0-44.0); LYMPHOCYTE # 1.4 TH/MM3 (1.0-4.8); MEAN CELL VOLUME 78.1 FL (80.0-100.0); MEAN CORPUSCULAR HEMOGLOBIN 25.5 PG (27.0-34.0); MEAN CORPUSCULAR HGB CONC 32.7 % (32.0-36.0); MONO % 15.7 % (0.0-8.0); PLATELET COUNT 265 TH/MM3 (150-450); RED BLOOD COUNT 4.23 MIL/MM3 (4.50-5.90); RED CELL DISTRIBUTION WIDTH 13.8 % (11.6-17.2); WHITE BLOOD COUNT 7.1 TH/MM3 (4.0-11.0)
[2017-02-07 05:47] LABS: ALKALINE PHOSPHATASE 278 U/L (45-117); ALT (GPT) 32 U/L (12-78); ANION GAP 9 MEQ/L (5-15); AST (GOT) 39 U/L (15-37); BICARBONATE 34.2 MEQ/L (21.0-32.0); BLOOD UREA NITROGEN 15 MG/DL (7-18); CHLORIDE 87 MEQ/L (98-107); GLOMERULAR FILTRATION RATE 117 ML/MIN (>89); MAGNESIUM 2.2 MG/DL (1.5-2.5); POTASSIUM 3.1 MEQ/L (3.5-5.1); SODIUM (NA) 130 MEQ/L (136-145); TOTAL BILIRUBIN ADULT 1.6 MG/DL (0.2-1.0)
[2017-02-07] MEDS: SODIUM CHLORIDE 0.9% FLUSH 10 ML FLUSH IV FLUSH SCH ×2 (07:36→20:53)
[2017-02-07] MEDS: DOCUSATE SODIUM 50 MG/SENNA 8.6 MG TAB PO SCH ×2 (07:36→20:44)
[2017-02-07] MEDS: PANTOPRAZOLE SOD 20 MG DELAYED RELEASE TAB PO SCH (07:36)
[2017-02-07] MEDS: MULTIVITAMIN INJ 5 ML, FOLIC ACID INJ 0.5 MG in AMINO ACID IN D5W W/ELECTROLYT 1,000 ML IV SCH ×6 (09:41→20:53)
[2017-02-07] MEDS: fentaNYL 50 MCG/HR PATCH T-DERMAL SCH (09:42)
[2017-02-07] MEDS ORDERED: POTASSIUM CHLORIDE 10 MEQ CONTROLLED RELEASE TAB PO ONE (09:45)
[2017-02-07] MEDS ORDERED: POTASSIUM CHLOR 40 MEQ PREMIX 100 ML IV ONE (10:00)
--- NOTE | 2017-02-07 10:57 | PD.ONC.PN ---
Subjective Subjective Remarks Afebrile Patient reports he still has consistent abdominal pain around the site of the PEG tube insertion He states that the pain comes in waves Asking to have his fentanyl patch increased Objective Data Date Time Temp Pulse Resp B/P (MAP) Pulse Ox O2 Delivery O2 Flow Rate FiO2 02/07/17 09:44 98.9 88 18 123/89 (100) 99 02/07/17 04:00 82 02/07/17 03:55 98.8 84 18 121/76 (91) 97 02/07/17 00:50 98.6 82 18 113/79 (90) 96 02/07/17 00:03 75 02/06/17 20:50 98.9 75 18 119/79 (92) 98 02/06/17 20:08 82 02/06/17 15:54 98.3 69 16 115/75 (88) 97 02/06/17 12:47 98.8 72 16 110/75 (87) 96 Result Diagram: 02/07/17 0350 02/07/17 0350 Laboratory Results Laboratory Tests Test 02/07/17 03:50 White Blood Count 7.1 TH/MM3 Red Blood Count 4.23 MIL/MM3 Hemoglobin 10.8 GM/DL Hematocrit 33.1 % Mean Corpuscular Volume 78.1 FL Mean Corpuscular Hemoglobin 25.5 PG Mean Corpuscular Hemoglobin Concent 32.7 % Red Cell Distribution Width 13.8 % Platelet Count 265 TH/MM3 Mean Platelet Volume 9.5 FL Neutrophils (%) (Auto) 61.0 % Lymphocytes (%) (Auto) 20.2 % Monocytes (%) (Auto) 15.7 % Eosinophils (%) (Auto) 2.1 % Basophils (%) (Auto) 1.0 % Neutrophils # (Auto) 4.3 TH/MM3 Lymphocytes # (Auto) 1.4 TH/MM3 Monocytes # (Auto) 1.1 TH/MM3 Eosinophils # (Auto) 0.2 TH/MM3 Basophils # (Auto) 0.1 TH/MM3 CBC Comment DIFF FINAL Differential Comment Blood Urea Nitrogen 15 MG/DL Creatinine 0.82 MG/DL Random Glucose 114 MG/DL Total Protein 7.2 GM/DL Albumin 2.1 GM/DL Calcium Level 8.5 MG/DL Phosphorus Level 3.5 MG/DL Magnesium Level 2.2 MG/DL Alkaline Phosphatase 278 U/L Aspartate Amino Transf (AST/SGOT) 39 U/L Alanine Aminotransferase (ALT/SGPT) 32 U/L Total Bilirubin 1.6 MG/DL Sodium Level 130 MEQ/L Potassium Level 3.1 MEQ/L Chloride Level 87 MEQ/L Carbon Dioxide Level 34.2 MEQ/L Anion Gap 9 MEQ/L Estimat Glomerular Filtration Rate 117 ML/MIN Administered Medications Medications (Trade) Dose Ordered Sig/Deepika Route PRN Reason Start Time Stop Time Status Last Admin Dose Admin Sodium Chloride 1,000 ml @ 50 mls/hr Q20H IV 01/25/17 13:21 01/31/17 06:50 Sodium Chloride (NS Flush) 2 ml UNSCH PRN IV FLUSH FLUSH AFTER USING IV ACCESS 01/25/17 13:30 02/07/17 00:50 Sodium Chloride (NS Flush) 2 ml BID IV FLUSH 01/25/17 21:00 02/06/17 20:46 Ondansetron HCl (Zofran Inj) 4 mg Q6H PRN IVP NAUSEA OR VOMITING 01/25/17 13:30 02/03/17 03:51 Enoxaparin Sodium (Lovenox Inj) 40 mg Q24H SQ 01/25/17 15:00 Future hold 01/26/17 15:46 Senna/Docusate Sodium (Shila-Colace) 1 tab BID PO 01/25/17 21:00 02/04/17 08:45 Sennosides (Senokot) 17.2 mg Q12HR PRN PO Moderate constipation 01/25/17 21:00 02/04/17 08:45 Fat Emulsion Intravenous 250 ml @ 31.25 mls/ hr Q24H IV-CENTRAL 01/26/17 20:00 02/06/17 20:41 Pantoprazole Sodium (Protonix) 20 mg DAILY PO 01/27/17 09:00 02/04/17 08:45 Simethicone (Phazyme Chew) 125 mg Q8HR PO 01/27/17 14:00 02/04/17 08:45 Multivitamins 5 ml/Folic Acid 0.5 mg/Amino Acids/ Electrolytes/ Dextrose 1,005.1 ml @ 83 mls/hr Q12H7M IV 01/31/17 20:00 02/07/17 09:41 Morphine Sulfate (Morphine Inj) 4 mg Q3H PRN IV PUSH pain 1-10 02/02/17 19:00 02/07/17 09:43 Sodium Chloride (NS Flush) 5 ml Q21D IV FLUSH 02/03/17 06:15 02/06/17 03:37 Heparin Sodium (Porcine) (Heparin Central Flush) 500 units Q21D IV FLUSH 02/03/17 06:15 02/03/17 06:15 Sodium Chloride (NS Flush) 5 ml UNSCH PRN IV FLUSH SEE LABEL COMMENTS 02/03/17 06:15 02/07/17 06:48 Heparin Sodium (Porcine) (Heparin Central Flush) 250 units UNSCH PRN IV FLUSH FLUSH AFTER USING IV ACCESS 02/03/17 06:15 02/04/17 05:05 Fentanyl (Duragesic 50 Mcg Patch.72 Hr) 1 patch Q3D T-DERMAL 02/07/17 09:00 02/07/17 09:42 Objective Remarks GENERAL: Cachectic older male sitting up in bed occasionally wincing. He is receiving TPN SKIN: Warm and dry. HEAD: Normocephalic. EYES: No injection or drainage. NECK: Supple, trachea midline. CARDIOVASCULAR: Regular rate and rhythm RESPIRATORY: Clear anteriorly. Breathing unlabored. GASTROINTESTINAL: Abdomen mildly distended and tender. PEG tube to left upper quadrant draining dark bile to bedside bag EXTREMITIES: No cyanosis, or edema. NEUROLOGICAL: Moving all extremities. Normal speech. No obvious focal deficit. Assessment/Plan Problem List: (1) Metastatic adenocarcinoma ICD Codes: C79.9 - Secondary malignant neoplasm of unspecified site Status: Chronic Assessment 1. Metastatic rectal cancer: Rectal primary with peritoneal carcinomatosis. Obstruction of large and small bowel (likely multifocal). S/p 3 cycles of palliative FOLFOX with no clinical improvement in bowel obstruction. For the past 2 months he continues to lose weight, has worsening ECOG performance status , worsening performance status and has failed to thrive. At this point due to the above outlined issues he is a poor candidate for ongoing palliative systemic chemotherapy and is most appropriate for comfort oriented care/hospice level of care. 2. SBO: Status post PEG tube placement on 02/02/2017 for palliation. I have advised the nursing staff to clamp his PEG tube for 2-3 hours after each meal to assess for gastric emptying. If he becomes bloated or has recurrent symptoms of bowel obstruction the PEG tube can be placed on drainage to gravity to relieve the symptoms. Plan 1. Increased fentanyl patch to 50 mcg per hour 2. Give 40 mEq of potassium IV 3. Continue TPN 4. PEG tube was clamped for sometime yesterday; however the patient had worsening pain and nausea- Will continue to try to clamp daily and assess. Jessica Clemons Feb 07, 2017 10:57
[2017-02-07] MEDS ORDERED: REMOVE OLD PATCH T-DERMAL SCH (12:00)
--- NOTE | 2017-02-07 12:14 | HHI.PR ---
cc: Vikas Pfeiffer MD Subjective Subjective Notes Resting in bed G tube back to gravity bag due to nausea and distention "I tired to drink the Ensure but that didn't work." Objective Vitals/I&O Vital Signs Date Time Temp Pulse Resp B/P (MAP) Pulse Ox O2 Delivery O2 Flow Rate FiO2 02/07/17 09:44 98.9 88 18 123/89 (100) 99 Labs Laboratory Tests Test 02/07/17 03:50 White Blood Count 7.1 Red Blood Count 4.23 Hemoglobin 10.8 Hematocrit 33.1 Mean Corpuscular Volume 78.1 Mean Corpuscular Hemoglobin 25.5 Mean Corpuscular Hemoglobin Concent 32.7 Red Cell Distribution Width 13.8 Platelet Count 265 Mean Platelet Volume 9.5 Neutrophils (%) (Auto) 61.0 Lymphocytes (%) (Auto) 20.2 Monocytes (%) (Auto) 15.7 Eosinophils (%) (Auto) 2.1 Basophils (%) (Auto) 1.0 Neutrophils # (Auto) 4.3 Lymphocytes # (Auto) 1.4 Monocytes # (Auto) 1.1 Eosinophils # (Auto) 0.2 Basophils # (Auto) 0.1 CBC Comment DIFF FINAL Differential Comment Blood Urea Nitrogen 15 Creatinine 0.82 Random Glucose 114 Total Protein 7.2 Albumin 2.1 Calcium Level 8.5 Phosphorus Level 3.5 Magnesium Level 2.2 Alkaline Phosphatase 278 Aspartate Amino Transf (AST/SGOT) 39 Alanine Aminotransferase (ALT/SGPT) 32 Total Bilirubin 1.6 Sodium Level 130 Potassium Level 3.1 Chloride Level 87 Carbon Dioxide Level 34.2 Anion Gap 9 Estimat Glomerular Filtration Rate 117 Radiology Last Impressions Abdomen/Pelvis CT 01/25/17 1037 Signed Impressions: Service Date/Time: January 12:30 - CONCLUSION: Small bowel distention concerning for obstruction. Minimal ascites. Left renal cyst. Hermelindo Mcghee MD Abdomen X-Ray 01/25/17 0000 Signed Impressions: Service Date/Time: January 18:57 - CONCLUSION: Mild air-filled dilatation of small bowel loops suggesting small bowel obstruction. Clinical correlation is recommended. Noel Guerin MD Cardiovascular: Regular Lungs: Clear Abdomen: Other (mildly distended; non tender; G tube to gravity drainage bag ) Extremities: No edema A/P Problem List: (1) History of colon cancer, stage IV ICD Codes: Z85.038 - Personal history of other malignant neoplasm of large intestine Status: Chronic (2) Metastatic adenocarcinoma ICD Codes: C79.9 - Secondary malignant neoplasm of unspecified site Status: Chronic (3) Abdominal pain ICD Codes: R10.9 - Unspecified abdominal pain Status: Chronic (4) Colon cancer ICD Codes: C18.9 - Malignant neoplasm of colon, unspecified (5) Ileus ICD Codes: K56.7 - Ileus, unspecified Assessment and Plan 61-year-old male with known stage IV colon cancer; abdominal pain with associated nausea and vomiting; CT questionable for small bowel obstruction -G tube clamped as tolerated; currently to gravity drainage -Clears + Ensure as tolerated -Continue TPN -Patient is a poor surgical candidate -Patient will likely need TPN at home Attending Statement Continues to struggle with G tube clamp. Abdomen mildly distended, yet soft. The exam, history, and the medical decision-making described in the above note were completed with the assistance of the mid-level provider. I reviewed and agree with the findings presented. I attest that I had a [id number] encounter with the patient on the same day, and personally performed and documented my assessment and findings in the medical record. Problem Qualifiers (1) Abdominal pain: Qualified Codes: R10.32 - Left lower quadrant pain (2) Colon cancer: Qualified Codes: C18.8 - Malignant neoplasm of overlapping sites of colon Kylie Varela Feb 07, 2017 12:14 Vikas Pfeiffer MD Feb 12, 2017 12:08
--- NOTE | 2017-02-07 18:35 | HHI.PR ---
Subjective Remarks Deferred entry, the patient seen earlier around 1:30 PM. The patient denies abdominal pain, however is passing gas or having bowel movement. The G-tube was placed back to gravity due to nausea and distention. Objective Vitals Vital Signs Date Time Temp Pulse Resp B/P (MAP) Pulse Ox O2 Delivery O2 Flow Rate FiO2 02/07/17 16:18 97.9 88 18 118/81 (93) 98 02/07/17 12:32 98.2 92 20 119/80 (93) 98 02/07/17 09:44 98.9 88 18 123/89 (100) 99 02/07/17 08:11 84 02/07/17 04:00 82 02/07/17 03:55 98.8 84 18 121/76 (91) 97 02/07/17 00:50 98.6 82 18 113/79 (90) 96 02/07/17 00:03 75 02/06/17 20:50 98.9 75 18 119/79 (92) 98 02/06/17 20:08 82 I/O 02/06/17 02/06/17 02/06/17 02/07/17 02/07/17 02/07/17 07:00 15:00 23:00 07:00 15:00 23:00 Intake Total 1280 ml 240 ml 722 ml 240 ml 1147 ml Output Total 1050 ml 700 ml 650 ml 325 ml Balance 230 ml 240 ml 22 ml -410 ml 822 ml Intake Oral 280 ml 240 ml 50 ml IV Total 1000 ml 240 ml 722 ml 1097 ml Output Urine Total 600 ml 225 ml 325 ml Gastric Drainage Total 450 ml 475 ml 650 ml Result Diagram: 02/07/17 0350 02/07/17 0350 Imaging Last Impressions Abdomen X-Ray 02/04/17 0000 Signed Impressions: Service Date/Time: Saturday, February 04, 2017 11:58 - CONCLUSION: Free air in the abdomen however the patient has had a recent interventional procedure. Visualized bowel gas pattern is unremarkable. Lung bases are clear. Ruddy Scales MD Gastrostomy Tube Placement 02/02/17 0000 Signed Impressions: Service Date/Time: Thursday, February 02, 2017 17:15 - CONCLUSION: Uncomplicated gastrostomy tube placement as above. Romero Tubbs MD Small Bowel X-Ray 01/30/17 0600 Signed Impressions: Service Date/Time: Monday, January 30, 2017 10:20 - CONCLUSION: Small bowel ileus with slow transit of contrast through the small intestinal tract. Due to the dilutional effect leading edge of the contrast cannot be clearly identified. Consideration should be given to followup imaging with an enhanced CT of the abdomen and pelvis. Mansoor Arthur MD Abdomen/Pelvis CT 01/25/17 1037 Signed Impressions: Service Date/Time: January 12:30 - CONCLUSION: Small bowel distention concerning for obstruction. Minimal ascites. Left renal cyst. Hermelindo Mcghee MD Objective Remarks GENERAL: Cachectic appearing pleasant Afro-[place]ian [place] patient. SKIN: Warm and dry. HEAD: Normocephalic. EYES: No scleral icterus. No injection or drainage. NECK: Supple, trachea midline. No JVD or lymphadenopathy. CARDIOVASCULAR: Regular rate and rhythm without murmurs, gallops, or rubs. RESPIRATORY: Breath sounds equal bilaterally. No accessory muscle use. GASTROINTESTINAL: Bowel sounds present but sluggish. Abdomen distended, moderately tender to palpation. EXTREMITIES: No cyanosis, or edema. NEUROLOGICAL: Awake, alert, and oriented x 3. Non-focal. Procedures G-tube placement by IR on 02/02/17. Medications and IVs Current Medications Medications (Trade) Dose Ordered Sig/Deepika Route Start Time Stop Time Status Last Admin Sodium Chloride 1,000 ml @ 50 mls/hr Q20H IV 01/25/17 13:21 01/31/17 06:50 (NS Flush) 2 ml UNSCH PRN IV FLUSH 01/25/17 13:30 02/07/17 00:50 (NS Flush) 2 ml BID IV FLUSH 01/25/17 21:00 02/06/17 20:46 (Tylenol) 650 mg Q4H PRN PO 01/25/17 13:30 (Zofran Inj) 4 mg Q6H PRN IVP 01/25/17 13:30 02/03/17 03:51 (Lovenox Inj) 40 mg Q24H SQ 01/25/17 15:00 Future hold 01/26/17 15:46 (Narcan Inj) 0.4 mg UNSCH PRN IV PUSH 01/25/17 13:30 (Shila-Colace) 1 tab BID PO 01/25/17 21:00 02/04/17 08:45 (Milk Of Magnesia Liq) 30 ml Q12H PRN PO 01/25/17 13:30 (Senokot) 17.2 mg Q12HR PRN PO 01/25/17 21:00 02/04/17 08:45 (Dulcolax Supp) 10 mg DAILY PRN RECTAL 01/25/17 13:30 (Lactulose Liq) 30 ml DAILY PRN PO 01/25/17 13:30 Fat Emulsion Intravenous 250 ml @ 31.25 mls/ hr Q24H IV-CENTRAL 01/26/17 20:00 02/06/17 20:41 (Protonix) 20 mg DAILY PO 01/27/17 09:00 02/04/17 08:45 (Phazyme Chew) 125 mg Q8HR PO 01/27/17 14:00 02/04/17 08:45 Multivitamins 5 ml/Folic Acid 0.5 mg/Amino Acids/ Electrolytes/ Dextrose 1,005.1 ml @ 83 mls/hr Q12H7M IV 01/31/17 20:00 02/07/17 09:41 (Morphine Inj) 4 mg Q3H PRN IV PUSH 02/02/17 19:00 02/07/17 16:17 (NS Flush) 5 ml Q21D IV FLUSH 02/03/17 06:15 02/06/17 03:37 (Heparin Central Flush) 500 units Q21D IV FLUSH 02/03/17 06:15 02/03/17 06:15 (NS Flush) 5 ml UNSCH PRN IV FLUSH 02/03/17 06:15 02/07/17 06:48 (Heparin Central Flush) 250 units UNSCH PRN IV FLUSH 02/03/17 06:15 02/04/17 05:05 (Duragesic 50 Mcg Patch.72 Hr) 1 patch Q3D T-DERMAL 02/07/17 09:00 02/07/17 09:42 Miscellaneous Information 1 Q3D T-DERMAL 02/10/17 09:00 Urinary Catheter: No Vascular Central Line Catheter: No A/P Problem List: (1) Small bowel obstruction ICD Code: K56.609 - Unspecified intestinal obstruction, unspecified as to partial versus complete obstruction Status: Acute (2) Ileus ICD Code: K56.7 - Ileus, unspecified (3) History of colon cancer, stage IV ICD Code: Z85.038 - Personal history of other malignant neoplasm of large intestine Status: Chronic (4) Abdominal pain ICD Code: R10.9 - Unspecified abdominal pain Status: Chronic (5) Nausea ICD Code: R11.0 - Nausea Assessment and Plan 61-year-old male admitted secondary to small bowel obstruction in the presence of stage IV colon cancer. Small bowel obstruction versus ileus The patient has stage IV rectal cancer. Demerol x-ray on the patient show mild air-filled dilatation of small bowel loops suggesting small bowel obstruction. Abdomen the CT and pelvis showed small bowel distention concerning for obstruction. Minimal ascites and left renal cyst. Surgery has been consulted and is following the patient. As per surgery evaluation the patient is not a surgical candidate. The patient had a G-tube placement on 02/02/17. At the time Dr. Galicia discussed the patient with general surgery. It was recommended for the patient to to have the G-tube placed to gravity when necessary for nausea. In the past few days the patient has been trying to eat advises diet, however this has been active successful as on 06/07 the patient started being distended and nauseous again. Continue Diet as per general surgery, liquid diet as tolerated. Rectal cancer stage 4 with abdominal pain diagnosed in September,. Oncology consulted. Dr. Hightower from oncology recommends hospice. PET scan has been consulted, however the patient declined hospice. Continue pain control with fentanyl patch 25 g daily. Tobacco use Cessation recommended Hypokalemia Due to poor oral intake. Replace orally and IV monitor BMP. Hyponatremia Likely due to hypovolemic hyponatremia and decreased by mouth intake. I will start the patient IV normal saline and continue to monitor BMP. DVT prophylaxis Lovenox Discharge Planning Continue to monitor in the medical floor. Discharge pending clinical improvement and oncology clearance. Problem Qualifiers (1) Abdominal pain: Qualified Codes: R10.32 - Left lower quadrant pain Avila Mitatl MD Feb 07, 2017 18:34
[2017-02-07] MEDS: NS + KCL 40 MEQ INJ 1,000 ML IV SCH (18:45)
[2017-02-07] MEDS: FAT EMULSION 20% INJ 250 ML (Daily over 8 hours) IV-CENTRAL SCH (20:53)
[2017-02-08] VITALS (11 sets, daily range): BP systolic 99–120; BP diastolic 64–83; PULSE 76–96; RESP 14–22; TEMP 97.2–99; O2SAT 96–100
[2017-02-08] MEDS: MORPHINE SULFATE 2 MG/ML INJ IV PUSH PRN ×8 (01:24→22:58)
[2017-02-08] MEDS: SODIUM CHLOR 0.9% 1000 ML INJ 1,000 ML IV SCH ×2 (01:29→21:29)
[2017-02-08] MEDS: NS + KCL 40 MEQ INJ 1,000 ML IV SCH ×2 (04:45→14:45)
[2017-02-08] MEDS: SIMETHICONE 125 MG CHEWABLE TAB PO SCH ×3 (04:48→22:00)
[2017-02-08 07:15] LABS: AUTOMATED NEUTROPHIL # 4.1 TH/MM3 (1.8-7.7); BASOPHIL # 0.1 TH/MM3 (0-0.2); BASOPHIL % 0.7 % (0.0-2.0); EOSINOPHIL # 0.1 TH/MM3 (0-0.4); EOSINOPHIL % 1.7 % (0.0-4.0); HEMATOCRIT 34.1 % (39.0-51.0); HEMO FLAGS DIFF FINAL; LYMPH % 26.2 % (9.0-44.0); MEAN CELL VOLUME 78.1 FL (80.0-100.0); MEAN CORPUSCULAR HEMOGLOBIN 25.9 PG (27.0-34.0); MEAN CORPUSCULAR HGB CONC 33.2 % (32.0-36.0); MONO % 17.7 % (0.0-8.0); NEUT % 53.7 % (16.0-70.0); PLATELET COUNT 295 TH/MM3 (150-450); RED BLOOD COUNT 4.37 MIL/MM3 (4.50-5.90); RED CELL DISTRIBUTION WIDTH 13.8 % (11.6-17.2); WHITE BLOOD COUNT 7.7 TH/MM3 (4.0-11.0)
[2017-02-08 07:23] LABS: ALT (GPT) 26 U/L (12-78); ANION GAP 7 MEQ/L (5-15); AST (GOT) 24 U/L (15-37); BICARBONATE 34.9 MEQ/L (21.0-32.0); BLOOD UREA NITROGEN 17 MG/DL (7-18); CHLORIDE 89 MEQ/L (98-107); GLOMERULAR FILTRATION RATE 123 ML/MIN (>89); MAGNESIUM 2.4 MG/DL (1.5-2.5); POTASSIUM 3.3 MEQ/L (3.5-5.1); SODIUM (NA) 131 MEQ/L (136-145)
[2017-02-08 07:25] LABS: ALKALINE PHOSPHATASE 273 U/L (45-117); TOTAL BILIRUBIN ADULT 1.3 MG/DL (0.2-1.0)
--- NOTE | 2017-02-08 08:26 | PD.ONC.PN ---
Subjective Subjective Remarks Patient seen and examined, vital signs, labs and medications reviewed. Subjectively; the patient does not tolerate clamping of the PEG tube. He tells me within about 30-40 minutes of him taking sips of water he begins to feel abdominal cramping and bloating and needs to relieve the pressure by draining the PEG tube. He continues to have pain but feels the fentanyl patches are helpful. Today he seems to have emotionally reconsult his options and expectations, he tells me he is willing to discuss hospice level of care provided he is able to receive fentanyl patches for pain control and some form of nutrition. Objective Data Date Time Temp Pulse Resp B/P (MAP) Pulse Ox O2 Delivery O2 Flow Rate FiO2 02/08/17 04:51 83 02/08/17 04:48 16 02/08/17 04:28 98.5 96 22 120/80 (93) 97 02/08/17 01:26 98.7 86 18 110/78 (89) 96 02/08/17 00:00 82 02/07/17 20:49 99.1 82 16 113/81 (92) 98 02/07/17 20:17 75 02/07/17 16:18 97.9 88 18 118/81 (93) 98 02/07/17 12:32 98.2 92 20 119/80 (93) 98 02/07/17 09:44 98.9 88 18 123/89 (100) 99 02/08/17 02/08/17 02/08/17 07:00 15:00 23:00 Intake Total 747 ml Output Total 1400 ml Balance -653 ml Result Diagram: 02/08/17 0600 02/08/17 0600 Laboratory Results Laboratory Tests Test 02/08/17 06:00 White Blood Count 7.7 TH/MM3 Red Blood Count 4.37 MIL/MM3 Hemoglobin 11.3 GM/DL Hematocrit 34.1 % Mean Corpuscular Volume 78.1 FL Mean Corpuscular Hemoglobin 25.9 PG Mean Corpuscular Hemoglobin Concent 33.2 % Red Cell Distribution Width 13.8 % Platelet Count 295 TH/MM3 Mean Platelet Volume 9.3 FL Neutrophils (%) (Auto) 53.7 % Lymphocytes (%) (Auto) 26.2 % Monocytes (%) (Auto) 17.7 % Eosinophils (%) (Auto) 1.7 % Basophils (%) (Auto) 0.7 % Neutrophils # (Auto) 4.1 TH/MM3 Lymphocytes # (Auto) 2.0 TH/MM3 Monocytes # (Auto) 1.4 TH/MM3 Eosinophils # (Auto) 0.1 TH/MM3 Basophils # (Auto) 0.1 TH/MM3 CBC Comment DIFF FINAL Differential Comment Blood Urea Nitrogen 17 MG/DL Creatinine 0.78 MG/DL Random Glucose 100 MG/DL Total Protein 7.3 GM/DL Albumin 2.2 GM/DL Calcium Level 8.9 MG/DL Phosphorus Level 4.0 MG/DL Magnesium Level 2.4 MG/DL Alkaline Phosphatase 273 U/L Aspartate Amino Transf (AST/SGOT) 24 U/L Alanine Aminotransferase (ALT/SGPT) 26 U/L Total Bilirubin 1.3 MG/DL Sodium Level 131 MEQ/L Potassium Level 3.3 MEQ/L Chloride Level 89 MEQ/L Carbon Dioxide Level 34.9 MEQ/L Anion Gap 7 MEQ/L Estimat Glomerular Filtration Rate 123 ML/MIN Administered Medications Medications (Trade) Dose Ordered Sig/Deepika Route PRN Reason Start Time Stop Time Status Last Admin Dose Admin Sodium Chloride 1,000 ml @ 50 mls/hr Q20H IV 01/25/17 13:21 01/31/17 06:50 Sodium Chloride (NS Flush) 2 ml UNSCH PRN IV FLUSH FLUSH AFTER USING IV ACCESS 01/25/17 13:30 02/07/17 00:50 Sodium Chloride (NS Flush) 2 ml BID IV FLUSH 01/25/17 21:00 02/07/17 20:53 Ondansetron HCl (Zofran Inj) 4 mg Q6H PRN IVP NAUSEA OR VOMITING 01/25/17 13:30 02/03/17 03:51 Enoxaparin Sodium (Lovenox Inj) 40 mg Q24H SQ 01/25/17 15:00 Future hold 01/26/17 15:46 Senna/Docusate Sodium (Shila-Colace) 1 tab BID PO 01/25/17 21:00 02/04/17 08:45 Sennosides (Senokot) 17.2 mg Q12HR PRN PO Moderate constipation 01/25/17 21:00 02/04/17 08:45 Fat Emulsion Intravenous 250 ml @ 31.25 mls/ hr Q24H IV-CENTRAL 01/26/17 20:00 12/20/17 20:53 Pantoprazole Sodium (Protonix) 20 mg DAILY PO 01/27/17 09:00 02/04/17 08:45 Simethicone (Phazyme Chew) 125 mg Q8HR PO 01/27/17 14:00 02/04/17 08:45 Multivitamins 5 ml/Folic Acid 0.5 mg/Amino Acids/ Electrolytes/ Dextrose 1,005.1 ml @ 83 mls/hr Q12H7M IV 01/31/17 20:00 02/07/17 20:53 Morphine Sulfate (Morphine Inj) 4 mg Q3H PRN IV PUSH pain 1-10 02/02/17 19:00 02/08/17 07:28 Sodium Chloride (NS Flush) 5 ml Q21D IV FLUSH 02/03/17 06:15 02/06/17 03:37 Heparin Sodium (Porcine) (Heparin Central Flush) 500 units Q21D IV FLUSH 02/03/17 06:15 02/03/17 06:15 Sodium Chloride (NS Flush) 5 ml UNSCH PRN IV FLUSH SEE LABEL COMMENTS 02/03/17 06:15 02/07/17 06:48 Heparin Sodium (Porcine) (Heparin Central Flush) 250 units UNSCH PRN IV FLUSH FLUSH AFTER USING IV ACCESS 02/03/17 06:15 02/04/17 05:05 Fentanyl (Duragesic 50 Mcg Patch.72 Hr) 1 patch Q3D T-DERMAL 02/07/17 09:00 02/07/17 09:42 Objective Remarks GENERAL: chronically ill male, near cachectic, asleep but arousable. Not acutely distressed. SKIN: Warm and dry. HEAD: Normocephalic. NG tube has been removed. EYES: No injection or drainage. PERRLA, EOMI, conjunctivae are pale, no icterus noted. NECK: Supple, trachea midline. CARDIOVASCULAR: Regular rate and rhythm RESPIRATORY: clear to auscultation, no added breath sounds. GASTROINTESTINAL: Interval placement of G-tube, abdomen is thin, soft, positive bowel sounds, diffuse tenderness noted. EXTREMITIES: No cyanosis, or edema. Gen. decreased muscle mass and tone. NEUROLOGICAL: awake and alert, normal speech. moving all extremities. Assessment/Plan Problem List: (1) Metastatic adenocarcinoma ICD Codes: C79.9 - Secondary malignant neoplasm of unspecified site Status: Chronic Assessment 1. Metastatic rectal cancer: Rectal primary with peritoneal carcinomatosis. Obstruction of large and small bowel (likely multifocal). S/p 3 cycles of palliative FOLFOX with no clinical improvement in bowel obstruction. For the past 2 months he continues to lose weight, has worsening ECOG performance status , worsening performance status and has failed to thrive. At this point due to the above outlined issues he is a poor candidate for ongoing palliative systemic chemotherapy and is most appropriate for comfort oriented care/hospice level of care. 2. SBO: Status post PEG tube placement on 02/02/2017 for palliation. I have advised the nursing staff to clamp his PEG tube for 2-3 hours after each meal to assess for gastric emptying. If he becomes bloated or has recurrent symptoms of bowel obstruction the PEG tube can be placed on drainage to gravity to relieve the symptoms. Plan 1. Increased fentanyl patch to 50 mcg per hour. 2. Give 40 mEq of potassium IV 3. Continue TPN. 4. He is unable to tolerate PEG tube clamping due to obstruction of the bowel. Disposition: The patient is agreeable to hospice level of care provided he received some form of nutritional support. Due to his extensive peritoneal carcinomatosis and bowel obstruction this will need to be some sort of parenteral nutrition. I will address this with the palliative care team so we can work towards transitioning him from the acute inpatient setting outpatient care. Jorge Hgihtower MD Feb 08, 2017 08:26
[2017-02-08] MEDS: PANTOPRAZOLE SOD 20 MG DELAYED RELEASE TAB PO SCH (09:00)
[2017-02-08] MEDS: DOCUSATE SODIUM 50 MG/SENNA 8.6 MG TAB PO SCH ×2 (09:00→20:04)
[2017-02-08] MEDS: MULTIVITAMIN INJ 5 ML, FOLIC ACID INJ 0.5 MG in AMINO ACID IN D5W W/ELECTROLYT 1,000 ML IV SCH ×6 (10:02→20:04)
[2017-02-08] MEDS: POTASSIUM CHLOR 20 MEQ PREMIX 100 ML IV SCH ×2 (10:02→13:29)
[2017-02-08] MEDS: SODIUM CHLORIDE 0.9% FLUSH 10 ML FLUSH IV FLUSH SCH ×2 (10:32→20:04)
--- NOTE | 2017-02-08 12:00 | HHI.PR ---
Subjective Remarks Patient is requesting to advance his diet. no BM or flatus. Denies nausea or vomiting. States had liquid diet and was hoping to pass gas and to have a BM. Objective Vitals Vital Signs Date Time Temp Pulse Resp B/P (MAP) Pulse Ox O2 Delivery O2 Flow Rate FiO2 02/08/17 10:32 98.6 85 14 107/64 (78) 02/08/17 04:51 83 02/08/17 04:48 16 02/08/17 04:28 98.5 96 22 120/80 (93) 97 02/08/17 01:26 98.7 86 18 110/78 (89) 96 02/08/17 00:00 82 02/07/17 20:49 99.1 82 16 113/81 (92) 98 02/07/17 20:17 75 02/07/17 16:18 97.9 88 18 118/81 (93) 98 02/07/17 12:32 98.2 92 20 119/80 (93) 98 I/O 02/07/17 02/07/17 02/07/17 02/08/17 02/08/17 02/08/17 07:00 15:00 23:00 07:00 15:00 23:00 Intake Total 240 ml 1147 ml 747 ml Output Total 650 ml 1975 ml 1400 ml Balance -410 ml -828 ml -653 ml Intake Oral 240 ml 50 ml IV Total 1097 ml 747 ml Output Urine Total 575 ml 500 ml Gastric Drainage Total 650 ml 1400 ml 900 ml Result Diagram: 02/08/17 0600 02/08/17 0600 Imaging Last Impressions Abdomen X-Ray 02/04/17 0000 Signed Impressions: Service Date/Time: Saturday, February 04, 2017 11:58 - CONCLUSION: Free air in the abdomen however the patient has had a recent interventional procedure. Visualized bowel gas pattern is unremarkable. Lung bases are clear. Ruddy Scales MD Gastrostomy Tube Placement 02/02/17 0000 Signed Impressions: Service Date/Time: Thursday, February 02, 2017 17:15 - CONCLUSION: Uncomplicated gastrostomy tube placement as above. Romero Tubbs MD Small Bowel X-Ray 01/30/17 0600 Signed Impressions: Service Date/Time: Monday, January 30, 2017 10:20 - CONCLUSION: Small bowel ileus with slow transit of contrast through the small intestinal tract. Due to the dilutional effect leading edge of the contrast cannot be clearly identified. Consideration should be given to followup imaging with an enhanced CT of the abdomen and pelvis. Mansoor Arthur MD Abdomen/Pelvis CT 01/25/17 1037 Signed Impressions: Service Date/Time: January 12:30 - CONCLUSION: Small bowel distention concerning for obstruction. Minimal ascites. Left renal cyst. Hermelindo Mcghee MD Objective Remarks GENERAL: Cachectic appearing pleasant Afro-Slovenian [place] patient. SKIN: Warm and dry. HEAD: Normocephalic. EYES: No scleral icterus. No injection or drainage. NECK: Supple, trachea midline. No JVD or lymphadenopathy. CARDIOVASCULAR: Regular rate and rhythm without murmurs, gallops, or rubs. RESPIRATORY: Breath sounds equal bilaterally. No accessory muscle use. GASTROINTESTINAL: Bowel sounds present but sluggish. Abdomen distended, moderately tender to palpation. EXTREMITIES: No cyanosis, or edema. NEUROLOGICAL: Awake, alert, and oriented x 3. Non-focal. Procedures G-tube placement by IR on 02/02/17. Medications and IVs Current Medications Medications (Trade) Dose Ordered Sig/Deepika Route Start Time Stop Time Status Last Admin Sodium Chloride 1,000 ml @ 50 mls/hr Q20H IV 01/25/17 13:21 01/31/17 06:50 (NS Flush) 2 ml UNSCH PRN IV FLUSH 01/25/17 13:30 02/07/17 00:50 (NS Flush) 2 ml BID IV FLUSH 01/25/17 21:00 02/08/17 10:32 (Tylenol) 650 mg Q4H PRN PO 01/25/17 13:30 (Zofran Inj) 4 mg Q6H PRN IVP 01/25/17 13:30 02/03/17 03:51 (Lovenox Inj) 40 mg Q24H SQ 01/25/17 15:00 Future hold 01/26/17 15:46 (Narcan Inj) 0.4 mg UNSCH PRN IV PUSH 01/25/17 13:30 (Shila-Colace) 1 tab BID PO 01/25/17 21:00 02/04/17 08:45 (Milk Of Magnesia Liq) 30 ml Q12H PRN PO 01/25/17 13:30 (Senokot) 17.2 mg Q12HR PRN PO 01/25/17 21:00 02/04/17 08:45 (Dulcolax Supp) 10 mg DAILY PRN RECTAL 01/25/17 13:30 (Lactulose Liq) 30 ml DAILY PRN PO 01/25/17 13:30 Fat Emulsion Intravenous 250 ml @ 31.25 mls/ hr Q24H IV-CENTRAL 01/26/17 20:00 02/07/17 20:53 (Protonix) 20 mg DAILY PO 01/27/17 09:00 02/04/17 08:45 (Phazyme Chew) 125 mg Q8HR PO 01/27/17 14:00 02/04/17 08:45 Multivitamins 5 ml/Folic Acid 0.5 mg/Amino Acids/ Electrolytes/ Dextrose 1,005.1 ml @ 83 mls/hr Q12H7M IV 01/31/17 20:00 02/08/17 10:02 (Morphine Inj) 4 mg Q3H PRN IV PUSH 02/02/17 19:00 02/08/17 10:24 (NS Flush) 5 ml Q21D IV FLUSH 02/03/17 06:15 02/06/17 03:37 (Heparin Central Flush) 500 units Q21D IV FLUSH 02/03/17 06:15 02/03/17 06:15 (NS Flush) 5 ml UNSCH PRN IV FLUSH 02/03/17 06:15 02/07/17 06:48 (Heparin Central Flush) 250 units UNSCH PRN IV FLUSH 02/03/17 06:15 02/04/17 05:05 (Duragesic 50 Mcg Patch.72 Hr) 1 patch Q3D T-DERMAL 02/07/17 09:00 02/07/17 09:42 Miscellaneous Information 1 Q3D T-DERMAL 02/10/17 09:00 Potassium Chloride/Sodium Chloride 1,000 ml @ 100 mls/hr Q10H IV 02/07/17 18:45 Potassium Chloride 100 ml @ 50 mls/hr Q2H IV 02/08/17 09:15 02/08/17 13:14 02/08/17 10:02 A/P Problem List: (1) Small bowel obstruction ICD Code: K56.609 - Unspecified intestinal obstruction, unspecified as to partial versus complete obstruction Status: Acute (2) Ileus ICD Code: K56.7 - Ileus, unspecified (3) History of colon cancer, stage IV ICD Code: Z85.038 - Personal history of other malignant neoplasm of large intestine Status: Chronic (4) Abdominal pain ICD Code: R10.9 - Unspecified abdominal pain Status: Chronic (5) Nausea ICD Code: R11.0 - Nausea Assessment and Plan 61-year-old male admitted secondary to small bowel obstruction in the presence of stage IV colon cancer. Small bowel obstruction versus ileus The patient has stage IV rectal cancer. Admission x-ray on the patient show mild air-filled dilatation of small bowel loops suggesting small bowel obstruction. Abdomen the CT and pelvis showed small bowel distention concerning for obstruction. Minimal ascites and left renal cyst. Surgery has been consulted and is following the patient. As per surgery evaluation the patient is not a surgical candidate. The patient had a G-tube placement on . At the time Dr. Galicia discussed the patient with general surgery. It was recommended for the patient to to have the G-tube placed to gravity when necessary for nausea. In the past few days the patient has been trying to eat advises diet, however this has been active successful as on 06/07 the patient started being distended and nauseous again. Continue Diet as per general surgery, liquid diet as tolerated. 02/08 Discussed the case with palliative care. Patient is now considering going to hospice. However he requested to the palliative care team to have his diet advanced despite not being able to tolerate clear liquid diet. He wants to see if he can build himself up eating to be able to get palliative chemotherapy. Will advance diet as per patient's request. Rectal cancer stage 4 with abdominal pain diagnosed in September,. Oncology consulted. Dr. Hightower from oncology recommends hospice. PET scan has been consulted, however the patient declined hospice. Continue pain control with fentanyl patch 25 g daily. Tobacco use Cessation recommended Hypokalemia Due to poor oral intake. Replace orally and IV monitor BMP. Hyponatremia Likely due to hypovolemic hyponatremia and decreased by mouth intake. I will start the patient IV normal saline and continue to monitor BMP. 02/08 Sodium slightly improved from 130 to 131. Continue IV fluids for now. DVT prophylaxis Lovenox Discharge Planning Continue to monitor in the medical floor. Discharge pending clinical improvement and oncology clearance. Problem Qualifiers (1) Abdominal pain: Qualified Codes: R10.32 - Left lower quadrant pain Avila Mittal MD Feb 08, 2017 12:00
--- NOTE | 2017-02-08 13:16 | HHI.HCPN ---
Reason for visit a. To assist with evaluation and management of symptoms including: Pain, nausea, constipation. b. To assist medical decision maker(s) with: better understanding of current medical conditions; weighing benefits/burdens of medical treatment options; making medical treatment decisions. . Subjective/Interval History 61 y/o male with metastatic rectal adenocarcinoma, now progressed to small bowel obstruction. He failed FOLFOX therapy with no significant improvement after 3 doses and his performance status is poor enough that he is not a candidate for any further palliative chemotherapy. He has been unable to eat for some time and has lost over 60 pounds. In the oral intake causes severe gastric distention and abdominal pain. He does have a G-tube intact to the left gastric area draining small amounts of green fluid. He has been unable to tolerate clamping of the G-tube for longer than 1-2 hours. He has tolerated small amounts of clear liquids such as apple juice or water for a short time but then needs to unclamp the G-tube and drain the fluid from his stomach. He has been receiving TPN via his port, but has been recommended to hospice care by his oncologist, Dr. Hightower. He had previously been unwilling to enroll in hospice but at this time is willing to consider it as he is coming to the reality that he is unable to tolerate oral feeding. Clinical data: * Laboratory: WBC 7.7, Hgb 11.3, HCT 34.1, platelet 295, sodium 131, potassium 3.3, BUN 17, creatinine 0.70, bilirubin 1.3, alkaline phosphatase 273. Family/friend interactions Discussed his clinical progression, small bowel obstruction, inability to tolerate by mouth feedings, and the possibility of going home with hospice versus a hospice care center. As he remains with symptoms of abdominal pain and and nausea free and he would be appropriate for care center admission if that is his choice. His family, who was at bedside, plan is to visit him [facility] and the [facility] today to determine which facility they would prefer. He is in agreement with this choice. Hospice admission has been consulted and advised of the situation. . Advance Directives Living Will: Never completed Health Care Surrogate: Copy in medical record Durable Power of Boiling House Oiler: Never completed Advance Directive Specifics Date completed: 01/26/17. . Health Care Surrogate(s): Patient has designated his sister Dilma Monroy as healthcare surrogate decision maker. . Objective Vital Signs Date Time Temp Pulse Resp B/P (MAP) Pulse Ox O2 Delivery O2 Flow Rate FiO2 02/08/17 10:32 98.6 85 14 107/64 (78) 02/08/17 04:51 83 02/08/17 04:48 16 02/08/17 04:28 98.5 96 22 120/80 (93) 97 02/08/17 01:26 98.7 86 18 110/78 (89) 96 02/08/17 00:00 82 02/07/17 20:49 99.1 82 16 113/81 (92) 98 02/07/17 20:17 75 02/07/17 16:18 97.9 88 18 118/81 (93) 98 Intake & Output 02/08/17 02/08/17 07:00 19:00 Intake Total 747 ml Output Total 3050 ml Balance -2303 ml IV Total 747 ml Output Urine Total 750 ml Gastric Drainage Total 2300 ml Physical Exam CONSTITUTIONAL/GENERAL: This is a thin middle-aged male, in no acute distress. TUBES/LINES/DRAINS: Right chest port, PIV, G tube to bedside drainage with small amount of dark green output. SKIN: No jaundice, rashes, or lesions. No wounds seen anteriorly. Skin temperature appropriate. Not diaphoretic. HEAD: Atraumatic. Normocephalic. Temporal wasting. EYES: Pupils equal and round and reactive. Extraocular motions intact. No scleral icterus. No injection or drainage. Fundi not examined. ENT: Hearing grossly normal. Nose without bleeding or purulent drainage. Moist oral mucosa. NECK: Trachea midline. Supple, nontender. CARDIOVASCULAR: Regular rate and rhythm without murmurs, gallops, or rubs. No JVD. Peripheral pulses symmetric. RESPIRATORY/CHEST: Symmetric, unlabored respirations. Clear to auscultation. Breath sounds equal bilaterally. No wheezes, rales, or rhonchi. GASTROINTESTINAL: Abdomen tender to all patient -left upper and lower quadrant. G-tube in place. GENITOURINARY: Without palpable bladder distension. MUSCULOSKELETAL: Extremities without clubbing, cyanosis, or edema. No mottling or clubbing. NEUROLOGICAL: Awake and alert. Motor and sensory grossly within normal limits. Follows commands. Cognitively sharp. Moves all extremities. PSYCHIATRIC: Calm, pleasant. . Diagnostic Tests Laboratory Laboratory Tests Test 02/06/17 03:30 02/06/17 04:00 02/07/17 03:50 02/08/17 06:00 Blood Urea Nitrogen 13 MG/DL (7-18) 15 MG/DL (7-18) 17 MG/DL (7-18) Creatinine 0.70 MG/DL (0.60-1.30) 0.82 MG/DL (0.60-1.30) 0.78 MG/DL (0.60-1.30) Random Glucose 93 MG/DL (74-106) 114 MG/DL (74-106) 100 MG/DL (74-106) Total Protein 6.4 GM/DL (6.4-8.2) 7.2 GM/DL (6.4-8.2) 7.3 GM/DL (6.4-8.2) Albumin 2.1 GM/DL (3.4-5.0) 2.1 GM/DL (3.4-5.0) 2.2 GM/DL (3.4-5.0) Calcium Level 8.3 MG/DL (8.5-10.1) 8.5 MG/DL (8.5-10.1) 8.9 MG/DL (8.5-10.1) Alkaline Phosphatase 199 U/L (45-117) 278 U/L (45-117) 273 U/L (45-117) Aspartate Amino Transf (AST/SGOT) 22 U/L (15-37) 39 U/L (15-37) 24 U/L (15-37) Alanine Aminotransferase (ALT/SGPT) 18 U/L (12-78) 32 U/L (12-78) 26 U/L (12-78) Total Bilirubin 1.8 MG/DL (0.2-1.0) 1.6 MG/DL (0.2-1.0) 1.3 MG/DL (0.2-1.0) Sodium Level 133 MEQ/L (136-145) 130 MEQ/L (136-145) 131 MEQ/L (136-145) Potassium Level 3.3 MEQ/L (3.5-5.1) 3.1 MEQ/L (3.5-5.1) 3.3 MEQ/L (3.5-5.1) Chloride Level 94 MEQ/L (98-107) 87 MEQ/L (98-107) 89 MEQ/L (98-107) Carbon Dioxide Level 34.3 MEQ/L (21.0-32.0) 34.2 MEQ/L (21.0-32.0) 34.9 MEQ/L (21.0-32.0) Anion Gap 5 MEQ/L (5-15) 9 MEQ/L (5-15) 7 MEQ/L (5-15) Estimat Glomerular Filtration Rate 140 ML/MIN (>89) 117 ML/MIN (>89) 123 ML/MIN (>89) White Blood Count 7.0 TH/MM3 (4.0-11.0) 7.1 TH/MM3 (4.0-11.0) 7.7 TH/MM3 (4.0-11.0) Red Blood Count 3.85 MIL/MM3 (4.50-5.90) 4.23 MIL/MM3 (4.50-5.90) 4.37 MIL/MM3 (4.50-5.90) Hemoglobin 9.8 GM/DL (13.0-17.0) 10.8 GM/DL (13.0-17.0) 11.3 GM/DL (13.0-17.0) Hematocrit 29.8 % (39.0-51.0) 33.1 % (39.0-51.0) 34.1 % (39.0-51.0) Mean Corpuscular Volume 77.5 FL (80.0-100.0) 78.1 FL (80.0-100.0) 78.1 FL (80.0-100.0) Mean Corpuscular Hemoglobin 25.4 PG (27.0-34.0) 25.5 PG (27.0-34.0) 25.9 PG (27.0-34.0) Mean Corpuscular Hemoglobin Concent 32.8 % (32.0-36.0) 32.7 % (32.0-36.0) 33.2 % (32.0-36.0) Red Cell Distribution Width 13.5 % (11.6-17.2) 13.8 % (11.6-17.2) 13.8 % (11.6-17.2) Platelet Count 218 TH/MM3 (150-450) 265 TH/MM3 (150-450) 295 TH/MM3 (150-450) Mean Platelet Volume 9.5 FL (7.0-11.0) 9.5 FL (7.0-11.0) 9.3 FL (7.0-11.0) Neutrophils (%) (Auto) 60.1 % (16.0-70.0) 61.0 % (16.0-70.0) 53.7 % (16.0-70.0) Lymphocytes (%) (Auto) 21.0 % (9.0-44.0) 20.2 % (9.0-44.0) 26.2 % (9.0-44.0) Monocytes (%) (Auto) 15.8 % (0.0-8.0) 15.7 % (0.0-8.0) 17.7 % (0.0-8.0) Eosinophils (%) (Auto) 2.6 % (0.0-4.0) 2.1 % (0.0-4.0) 1.7 % (0.0-4.0) Basophils (%) (Auto) 0.5 % (0.0-2.0) 1.0 % (0.0-2.0) 0.7 % (0.0-2.0) Neutrophils # (Auto) 4.2 TH/MM3 (1.8-7.7) 4.3 TH/MM3 (1.8-7.7) 4.1 TH/MM3 (1.8-7.7) Lymphocytes # (Auto) 1.5 TH/MM3 (1.0-4.8) 1.4 TH/MM3 (1.0-4.8) 2.0 TH/MM3 (1.0-4.8) Monocytes # (Auto) 1.1 TH/MM3 (0-0.9) 1.1 TH/MM3 (0-0.9) 1.4 TH/MM3 (0-0.9) Eosinophils # (Auto) 0.2 TH/MM3 (0-0.4) 0.2 TH/MM3 (0-0.4) 0.1 TH/MM3 (0-0.4) Basophils # (Auto) 0.0 TH/MM3 (0-0.2) 0.1 TH/MM3 (0-0.2) 0.1 TH/MM3 (0-0.2) CBC Comment DIFF FINAL DIFF FINAL DIFF FINAL Differential Comment Phosphorus Level 3.5 MG/DL (2.5-4.9) 4.0 MG/DL (2.5-4.9) Magnesium Level 2.2 MG/DL (1.5-2.5) 2.4 MG/DL (1.5-2.5) . Result Diagram: 02/08/17 0600 02/08/17 06 Imaging Last Impressions Abdomen X-Ray 02/04/17 0000 Signed Impressions: Service Date/Time: Saturday, February 04, 2017 11:58 - CONCLUSION: Free air in the abdomen however the patient has had a recent interventional procedure. Visualized bowel gas pattern is unremarkable. Lung bases are clear. Ruddy Scales MD Gastrostomy Tube Placement 02/02/17 0000 Signed Impressions: Service Date/Time: Thursday, February 02, 2017 17:15 - CONCLUSION: Uncomplicated gastrostomy tube placement as above. Romero Tubbs MD Small Bowel X-Ray 01/30/17 0600 Signed Impressions: Service Date/Time: Monday, January 30, 2017 10:20 - CONCLUSION: Small bowel ileus with slow transit of contrast through the small intestinal tract. Due to the dilutional effect leading edge of the contrast cannot be clearly identified. Consideration should be given to followup imaging with an enhanced CT of the abdomen and pelvis. Mansoor Arthur MD Abdomen/Pelvis CT 01/25/17 1037 Signed Impressions: Service Date/Time: January 12:30 - CONCLUSION: Small bowel distention concerning for obstruction. Minimal ascites. Left renal cyst. Hermelindo Mcghee MD . Procedures * 02/02/17 -gastrostomy tube placement . Assessment and Plan Disease Oriented Problem List: (1) Colon cancer (2) Small bowel obstruction (3) Physical deconditioning Symptom Scale: (1) Abdominal pain 0-10 Scale: 3 Comment: Fentanyl patch in place. (2) Nausea 0-10 Scale: 0 Comment: Nausea controlled since placement of gastrostomy tube. (3) Constipation 0-10 Scale: Unable to quantify (chronic, likely R/T poor oral intake, opioid pain medication) Pertinent Non-Medical Issues Psychosocial: He was born in [place] and has lived here most of his life. He did live in [place] for a brief period. 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 He is and has raised his stepson but has no children of his own. He is one of 9 children. He has named his sister, Lynn Muhammad as his healthcare surrogate. He currently lives with his mother. Spiritual: He states he has a Faith but does not wish schedule maker visits. He states "mom has him covered". Legal: Patient currently appears to have capacity to make his own decisions, however has designated his sister, Dilma Monroy as his healthcare surrogate to make his decisions if he is unable. Ethical issues impacting care: None noted. . Important Contacts Sister/HCS: Dilma Monroy . . Prognosis Mr. 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 Patient is status post 3 cycles of palliative chemotherapy with no clinical improvement in bowel obstruction. Patient is not a surgical candidate. He underwent palliative percutaneous G- tube placement on 02/02/17. Patient is a poor candidate for ongoing palliative systemic chemotherapy given poor performance status. Overall prognosis is poor. Patient appears hospice appropriate should he elects comfort directed care. . Code Status: Full Code Plan PLAN: * HEALTHCARE DECISION-MAKING: Patient participating in medical decision-making. Patient with a good understanding of his terminal condition, He appears to retain the ability to weight benefits versus burdens of treatment options. Patient has designated his sister Dilma Monroy as his healthcare surrogate to make his decisions if he is unable. Healthcare surrogate form has been completed. * CODE STATUS: FULL CODE. Risks, benefits and limitations of CPR, intubation and mechanical ventilation reviewed with patient given terminal condition. Patient verbalized wishing for heroic measures "for a short periods time" but would not want to prolong his dying process with artificial means. Patient declined completing living will at this time, verbalize that he has already discussed his wishes with his sister Dilma/healthcare surrogate decision maker. * GOALS OF CARE: His goals are transitioning toward comfort at this time. He is aware that his condition is terminal and that chemotherapy, nor surgery, is not an option for him. He is now considering transitioning to a hospice care center as long as he can continue to receive TPN. He is aware that this is not a permanent options, but can be continued for a short time. SYMPTOMS: * Pain: Abdominal pain secondary to burden of disease, exacerbated by oral intake. Status post gastrostomy tube placement. The fentanyl patch has been increased to 50 g on 02/07. Morphine 4 mg IV q3hr PRN available as needed, and is being used an average of 6-7 times daily. As patient is unable to tolerate oral intake, could be converted to liquid Roxanol in preparation for discharge. * Nausea: Mostly controlled since gastrostomy tube placement, but exacerbated by oral intake. G-tube open to gravity, moderate amount of dark green outcome noted. Zofran available as needed. None given in the past 24 hours. * Constipation: Likely multifactorial to include tumor burden, sigmoid colon stenosis, minimal oral intake, use of opioid pain medications and the extensive peritoneal carcinomatosis. He states his last bowel movement was 01/28. Shila- Colace and Senokot twice daily and milk of magnesia, Dulcolax suppository and lactulose are available as needed. Patient frequently refusing oral medications as they increase his abdominal pain and nausea. Patient states an enema is usually what he uses for his constipation as taking anything orally causes nausea and abdominal pain. Palliative care recommends providing PRN Fleets as well as Dulcolax suppository for patient comfort. Palliative care will continue to follow up as needed as patient's clinical course continues to evolve, to assist patient/decision-maker with understanding of their medical conditions, weighing benefits/burdens of treatment options, for clarification of goals of treatment. Additionally will assist with any symptoms of palliative concern. . Attestation To help prompt me to consider important information that might be impacting today's encounter and assessment, information from prior notes written by myself or my colleagues may have been "brought forward" into today's note. My signature on this note, however, is an attestation that I personally performed the exam, history, and/or decision-making noted today, and, unless otherwise indicated, the interactions with patient, family, and staff as well as the review of records all occurred today. I also attest that the listed assessment and stated plan reflect my best clinical judgment today based on the combination of historical information, prior notes, and today's exam/ interactions. When time spent is documented, it refers only to time spent today by the signer, or if indicated, combined time spent today by collaborating physician/nurse practitioner. . Danay Sullivan Feb 08, 2017 13:16
[2017-02-08] MEDS: ENOXAPARIN SODIUM 40 MG/0.4 ML SYRINGE SQ SCH (15:00)
[2017-02-08] MEDS: FAT EMULSION 20% INJ 250 ML (Daily over 8 hours) IV-CENTRAL SCH (20:03)
[2017-02-09] VITALS (7 sets, daily range): BP systolic 104–108; BP diastolic 74–81; PULSE 75–93; RESP 16–18; TEMP 98.4–98.8; O2SAT 98–99
[2017-02-09] MEDS: NS + KCL 40 MEQ INJ 1,000 ML IV SCH ×2 (00:45→10:45)
[2017-02-09] MEDS: MORPHINE SULFATE 2 MG/ML INJ IV PUSH PRN ×9 (00:59→23:44)
[2017-02-09] MEDS: SIMETHICONE 125 MG CHEWABLE TAB PO SCH ×3 (05:09→20:01)
[2017-02-09] MEDS: MULTIVITAMIN INJ 5 ML, FOLIC ACID INJ 0.5 MG in AMINO ACID IN D5W W/ELECTROLYT 1,000 ML IV SCH ×3 (08:32)
[2017-02-09] MEDS: DOCUSATE SODIUM 50 MG/SENNA 8.6 MG TAB PO SCH ×2 (09:00→20:01)
[2017-02-09] MEDS: PANTOPRAZOLE SOD 20 MG DELAYED RELEASE TAB PO SCH (09:00)
[2017-02-09] MEDS: SODIUM CHLORIDE 0.9% FLUSH 10 ML FLUSH IV FLUSH SCH ×2 (09:00→21:00)
--- NOTE | 2017-02-09 13:56 | PD.ONC.PN ---
Subjective Subjective Remarks Afebrile overnight. Patient in relatively good spirits today. He tried a few bites of pureed food and was able to keep it down. He states his sisters are out looking at the care centers. Objective Data Date Time Temp Pulse Resp B/P (MAP) Pulse Ox O2 Delivery O2 Flow Rate FiO2 02/09/17 13:07 98.4 75 18 108/81 (90) 98 02/09/17 05:09 18 02/09/17 05:02 98.7 84 18 104/75 (85) 98 02/09/17 04:11 91 02/09/17 00:16 82 02/08/17 22:56 99.0 95 18 116/83 (94) 97 02/08/17 20:04 98.5 76 18 99/73 (82) 100 02/08/17 19:53 79 02/08/17 17:07 97.2 82 16 113/64 (80) 97 02/09/17 02/09/17 02/09/17 07:00 15:00 23:00 Output Total 525 ml Balance -525 ml Result Diagram: 02/08/17 0600 02/08/17 0600 Administered Medications Medications (Trade) Dose Ordered Sig/Deepika Route PRN Reason Start Time Stop Time Status Last Admin Dose Admin Sodium Chloride 1,000 ml @ 50 mls/hr Q20H IV 01/25/17 13:21 01/31/17 06:50 Sodium Chloride (NS Flush) 2 ml UNSCH PRN IV FLUSH FLUSH AFTER USING IV ACCESS 01/25/17 13:30 02/07/17 00:50 Sodium Chloride (NS Flush) 2 ml BID IV FLUSH 01/25/17 21:00 02/08/17 20:04 Ondansetron HCl (Zofran Inj) 4 mg Q6H PRN IVP NAUSEA OR VOMITING 01/25/17 13:30 02/03/17 03:51 Enoxaparin Sodium (Lovenox Inj) 40 mg Q24H SQ 01/25/17 15:00 Future hold 01/26/17 15:46 Senna/Docusate Sodium (Shila-Colace) 1 tab BID PO 01/25/17 21:00 02/04/17 08:45 Sennosides (Senokot) 17.2 mg Q12HR PRN PO Moderate constipation 01/25/17 21:00 02/04/17 08:45 Fat Emulsion Intravenous 250 ml @ 31.25 mls/ hr Q24H IV-CENTRAL 01/26/17 20:00 02/08/17 20:03 Pantoprazole Sodium (Protonix) 20 mg DAILY PO 01/27/17 09:00 02/04/17 08:45 Simethicone (Phazyme Chew) 125 mg Q8HR PO 01/27/17 14:00 02/04/17 08:45 Multivitamins 5 ml/Folic Acid 0.5 mg/Amino Acids/ Electrolytes/ Dextrose 1,005.1 ml @ 83 mls/hr Q12H7M IV 01/31/17 20:00 02/09/17 19:59 02/09/17 08:32 Morphine Sulfate (Morphine Inj) 4 mg Q3H PRN IV PUSH pain 1-10 02/02/17 19:00 02/09/17 11:00 Sodium Chloride (NS Flush) 5 ml Q21D IV FLUSH 02/03/17 06:15 02/06/17 03:37 Heparin Sodium (Porcine) (Heparin Central Flush) 500 units Q21D IV FLUSH 02/03/17 06:15 02/03/17 06:15 Sodium Chloride (NS Flush) 5 ml UNSCH PRN IV FLUSH SEE LABEL COMMENTS 02/03/17 06:15 02/07/17 06:48 Heparin Sodium (Porcine) (Heparin Central Flush) 250 units UNSCH PRN IV FLUSH FLUSH AFTER USING IV ACCESS 02/03/17 06:15 02/04/17 05:05 Fentanyl (Duragesic 50 Mcg Patch.72 Hr) 1 patch Q3D T-DERMAL 02/07/17 09:00 02/07/17 09:42 Objective Remarks GENERAL: Thin male, sitting up in bed in nad. SKIN: Warm and dry. HEAD: Normocephalic. EYES: No scleral icterus. No injection or drainage. NECK: Supple, trachea midline. CARDIOVASCULAR: Regular rate and rhythm RESPIRATORY: Breath sounds equal bilaterally. No accessory muscle use. GASTROINTESTINAL: Abdomen firm, G-tube to drainage. EXTREMITIES: No cyanosis, or edema. NEUROLOGICAL: No obvious focal deficit. Awake, alert, and oriented x3. Assessment/Plan Problem List: (1) Metastatic adenocarcinoma ICD Codes: C79.9 - Secondary malignant neoplasm of unspecified site Status: Chronic Assessment 61y/o male with metastatic rectal cancer Plan 1. Metastatic rectal cancer: Patient now considering hospice. His sisters are out looking at the care centers today. He is still considering whether he would go to hospice as he will not be able to receive TPN at hospice. I discussed this with him today. He initially seemed upset that he would not be able to receive tpn at hospice, but then seemed to indicate that he still wanted to pursue hospice. Ultimately he stated he would leave the decision in his sisters hands. Deedee Miranda Feb 09, 2017 13:56
[2017-02-09] MEDS: ENOXAPARIN SODIUM 40 MG/0.4 ML SYRINGE SQ SCH (15:00)
--- NOTE | 2017-02-09 17:31 | HHI.PR ---
Subjective Remarks no BM or flatus. Patient states is tolerting diet but G tube is on drainage and still with high output. Patient is good spirits today. Objective Vitals Vital Signs Date Time Temp Pulse Resp B/P (MAP) Pulse Ox O2 Delivery O2 Flow Rate FiO2 02/09/17 13:07 98.4 75 18 108/81 (90) 98 02/09/17 09:30 93 02/09/17 05:09 18 02/09/17 05:02 98.7 84 18 104/75 (85) 98 02/09/17 04:11 91 02/09/17 00:16 82 02/08/17 22:56 99.0 95 18 116/83 (94) 97 02/08/17 20:04 98.5 76 18 99/73 (82) 100 02/08/17 19:53 79 I/O 02/08/17 02/08/17 02/08/17 02/09/17 02/09/17 02/09/17 07:00 15:00 23:00 07:00 15:00 23:00 Intake Total 747 ml 100 ml 1480 ml Output Total 1400 ml 2200 ml 525 ml Balance -653 ml 100 ml -720 ml -525 ml Intake Oral 480 ml IV Total 747 ml 100 ml 1000 ml Output Urine Total 500 ml 200 ml 200 ml Gastric Drainage Total 900 ml 2000 ml 325 ml Result Diagram: 02/08/17 0600 02/08/17 0600 Imaging Last Impressions Abdomen X-Ray 02/04/17 0000 Signed Impressions: Service Date/Time: Saturday, February 04, 2017 11:58 - CONCLUSION: Free air in the abdomen however the patient has had a recent interventional procedure. Visualized bowel gas pattern is unremarkable. Lung bases are clear. Ruddy Scales MD Gastrostomy Tube Placement 02/02/17 0000 Signed Impressions: Service Date/Time: Thursday, February 02, 2017 17:15 - CONCLUSION: Uncomplicated gastrostomy tube placement as above. Romero Tubbs MD Small Bowel X-Ray 01/30/17 0600 Signed Impressions: Service Date/Time: Monday, January 30, 2017 10:20 - CONCLUSION: Small bowel ileus with slow transit of contrast through the small intestinal tract. Due to the dilutional effect leading edge of the contrast cannot be clearly identified. Consideration should be given to followup imaging with an enhanced CT of the abdomen and pelvis. Mansoor Arthur MD Abdomen/Pelvis CT 01/25/17 1037 Signed Impressions: Service Date/Time: January 12:30 - CONCLUSION: Small bowel distention concerning for obstruction. Minimal ascites. Left renal cyst. Hermelindo Mcghee MD Objective Remarks GENERAL: Cachectic appearing pleasant [place] patient. SKIN: Warm and dry. HEAD: Normocephalic. EYES: No scleral icterus. No injection or drainage. NECK: Supple, trachea midline. No JVD or lymphadenopathy. CARDIOVASCULAR: Regular rate and rhythm without murmurs, gallops, or rubs. RESPIRATORY: Breath sounds equal bilaterally. No accessory muscle use. GASTROINTESTINAL: Bowel sounds present but sluggish. Abdomen distended, moderately tender to palpation. G tube to drainage, draining dark brown material. EXTREMITIES: No cyanosis, or edema. NEUROLOGICAL: Awake, alert, and oriented x 3. Non-focal. Procedures G-tube placement by IR on 02/02/17. Medications and IVs Current Medications Medications (Trade) Dose Ordered Sig/Deepika Route Start Time Stop Time Status Last Admin Sodium Chloride 1,000 ml @ 50 mls/hr Q20H IV 01/25/17 13:21 01/31/17 06:50 (NS Flush) 2 ml UNSCH PRN IV FLUSH 01/25/17 13:30 02/07/17 00:50 (NS Flush) 2 ml BID IV FLUSH 01/25/17 21:00 02/08/17 20:04 (Tylenol) 650 mg Q4H PRN PO 01/25/17 13:30 (Zofran Inj) 4 mg Q6H PRN IVP 01/25/17 13:30 02/03/17 03:51 (Lovenox Inj) 40 mg Q24H SQ 01/25/17 15:00 Future hold 01/26/17 15:46 (Narcan Inj) 0.4 mg UNSCH PRN IV PUSH 01/25/17 13:30 (Shila-Colace) 1 tab BID PO 01/25/17 21:00 02/04/17 08:45 (Milk Of Magnesia Liq) 30 ml Q12H PRN PO 01/25/17 13:30 (Senokot) 17.2 mg Q12HR PRN PO 01/25/17 21:00 02/04/17 08:45 (Dulcolax Supp) 10 mg DAILY PRN RECTAL 01/25/17 13:30 (Lactulose Liq) 30 ml DAILY PRN PO 01/25/17 13:30 Fat Emulsion Intravenous 250 ml @ 31.25 mls/ hr Q24H IV-CENTRAL 01/26/17 20:00 02/08/17 20:03 (Protonix) 20 mg DAILY PO 01/27/17 09:00 02/04/17 08:45 (Phazyme Chew) 125 mg Q8HR PO 01/27/17 14:00 02/04/17 08:45 Multivitamins 5 ml/Folic Acid 0.5 mg/Amino Acids/ Electrolytes/ Dextrose 1,005.1 ml @ 83 mls/hr Q12H7M IV 01/31/17 20:00 02/09/17 19:59 02/09/17 08:32 (Morphine Inj) 4 mg Q3H PRN IV PUSH 02/02/17 19:00 02/09/17 17:23 (NS Flush) 5 ml Q21D IV FLUSH 02/03/17 06:15 02/06/17 03:37 (Heparin Central Flush) 500 units Q21D IV FLUSH 02/03/17 06:15 02/03/17 06:15 (NS Flush) 5 ml UNSCH PRN IV FLUSH 02/03/17 06:15 02/07/17 06:48 (Heparin Central Flush) 250 units UNSCH PRN IV FLUSH 02/03/17 06:15 02/04/17 05:05 (Duragesic 50 Mcg Patch.72 Hr) 1 patch Q3D T-DERMAL 02/07/17 09:00 02/07/17 09:42 Miscellaneous Information 1 Q3D T-DERMAL 02/10/17 09:00 Potassium Chloride/Sodium Chloride 1,000 ml @ 100 mls/hr Q10H IV 02/07/17 18:45 Sodium Chloride 11 meq/Sodium Acetate 59 meq/ Potassium Chloride 40 meq/ Sodium Phosphate 40 meq/Magnesium Chloride 10 meq/ Calcium Chloride 9 meq/ Multivitamins 10 ml/Folic Acid 1 mg/Amino Acids/ Dextrose 2,084.1437 ml @ 83 mls/hr Q24H IV-CENTRAL 02/09/17 20:00 A/P Problem List: (1) Small bowel obstruction ICD Code: K56.609 - Unspecified intestinal obstruction, unspecified as to partial versus complete obstruction Status: Acute (2) Ileus ICD Code: K56.7 - Ileus, unspecified (3) History of colon cancer, stage IV ICD Code: Z85.038 - Personal history of other malignant neoplasm of large intestine Status: Chronic (4) Abdominal pain ICD Code: R10.9 - Unspecified abdominal pain Status: Chronic (5) Nausea ICD Code: R11.0 - Nausea Assessment and Plan 61-year-old male admitted secondary to small bowel obstruction in the presence of stage IV colon cancer. Small bowel obstruction versus ileus The patient has stage IV rectal cancer. Admission x-ray on the patient show mild air-filled dilatation of small bowel loops suggesting small bowel obstruction. Abdomen the CT and pelvis showed small bowel distention concerning for obstruction. Minimal ascites and left renal cyst. Surgery has been consulted and is following the patient. As per surgery evaluation the patient is not a surgical candidate. The patient had a G-tube placement on . At the time Dr. Galicia discussed the patient with general surgery. It was recommended for the patient to to have the G-tube placed to gravity when necessary for nausea. In the past few days the patient has been trying to eat advises diet, however this has been active successful as on 06/07 the patient started being distended and nauseous again. Continue Diet as per general surgery, liquid diet as tolerated. 02/08 Discussed the case with palliative care. Patient is now considering going to hospice. However he requested to the palliative care team to have his diet advanced despite not being able to tolerate clear liquid diet. He wants to see if he can build himself up eating to be able to get palliative chemotherapy. Will advance diet as per patient's request. 02/09 Patient now considering hospice. Hospice consult placed. Rectal cancer stage 4 with abdominal pain diagnosed in September,. Oncology consulted. Dr. Hightower from oncology recommends hospice. PET scan has been consulted, however the patient declined hospice. Continue pain control with fentanyl patch 25 g daily. Tobacco use Cessation recommended Hypokalemia Due to poor oral intake. Replace orally and IV monitor BMP. Hyponatremia Likely due to hypovolemic hyponatremia and decreased by mouth intake. I will start the patient IV normal saline and continue to monitor BMP. 02/08 Sodium slightly improved from 130 to 131. Continue IV fluids for now. 02/09 DC IV fluids. DVT prophylaxis Lovenox Discharge Planning DC pending hospice consult. Problem Qualifiers (1) Abdominal pain: Qualified Codes: R10.32 - Left lower quadrant pain Avila Mittal MD Feb 09, 2017 17:31
[2017-02-09] MEDS ORDERED: CLINIMIX IV-CENTRAL SCH ×9 (20:00)
[2017-02-09] MEDS: FAT EMULSION 20% INJ 250 ML (Daily over 8 hours) IV-CENTRAL SCH (20:13)
[2017-02-10] VITALS (8 sets, daily range): BP systolic 113–132; BP diastolic 60–77; PULSE 72–98; RESP 16–18; TEMP 97.3–98.8; O2SAT 96–99
[2017-02-10] MEDS: MORPHINE SULFATE 2 MG/ML INJ IV PUSH PRN ×7 (02:32→20:13)
[2017-02-10] MEDS: SIMETHICONE 125 MG CHEWABLE TAB PO SCH ×2 (05:11→14:15)
[2017-02-10 07:57] LABS: BICARBONATE 36.2 MEQ/L (21.0-32.0)
[2017-02-10] MEDS: DOCUSATE SODIUM 50 MG/SENNA 8.6 MG TAB PO SCH (09:00)
[2017-02-10] MEDS ORDERED: REMOVE OLD DURAGESIC (FENTANYL) PATCH T-DERMAL SCH (09:00)
--- NOTE | 2017-02-10 09:34 | PD.ONC.PN ---
Subjective Subjective Remarks Afebrile overnight. Resting in bed in nad. Tolerating small amounts of pureed food. Tried ensure yesterday but it made his stomach burn. Objective Data Date Time Temp Pulse Resp B/P (MAP) Pulse Ox O2 Delivery O2 Flow Rate FiO2 02/10/17 08:02 14 02/10/17 08:00 98.3 74 16 115/74 (88) 96 02/10/17 07:15 82 02/10/17 07:00 97.9 84 18 115/75 (88) 99 02/10/17 04:10 79 02/10/17 00:09 77 02/09/17 20:10 75 02/09/17 19:42 98.8 78 16 104/74 (84) 99 02/09/17 13:07 98.4 75 18 108/81 (90) 98 02/10/17 02/10/17 02/10/17 07:00 15:00 23:00 Intake Total 1230 ml Output Total 825 ml Balance 405 ml Result Diagram: 02/08/17 0600 02/10/17 0640 Laboratory Results Laboratory Tests Test 02/10/17 06:40 Blood Urea Nitrogen 18 MG/DL Creatinine 0.76 MG/DL Random Glucose 78 MG/DL Calcium Level 8.3 MG/DL Sodium Level 128 MEQ/L Potassium Level 3.0 MEQ/L Chloride Level 84 MEQ/L Carbon Dioxide Level 36.2 MEQ/L Anion Gap 8 MEQ/L Estimat Glomerular Filtration Rate 127 ML/MIN Administered Medications Medications (Trade) Dose Ordered Sig/Deepika Route PRN Reason Start Time Stop Time Status Last Admin Dose Admin Sodium Chloride (NS Flush) 2 ml UNSCH PRN IV FLUSH FLUSH AFTER USING IV ACCESS 01/25/17 13:30 02/07/17 00:50 Sodium Chloride (NS Flush) 2 ml BID IV FLUSH 01/25/17 21:00 02/09/17 21:00 Ondansetron HCl (Zofran Inj) 4 mg Q6H PRN IVP NAUSEA OR VOMITING 01/25/17 13:30 02/03/17 03:51 Enoxaparin Sodium (Lovenox Inj) 40 mg Q24H SQ 01/25/17 15:00 Future hold 01/26/17 15:46 Senna/Docusate Sodium (Shila-Colace) 1 tab BID PO 01/25/17 21:00 02/04/17 08:45 Sennosides (Senokot) 17.2 mg Q12HR PRN PO Moderate constipation 01/25/17 21:00 02/04/17 08:45 Fat Emulsion Intravenous 250 ml @ 31.25 mls/ hr Q24H IV-CENTRAL 01/26/17 20:00 02/09/17 20:13 Pantoprazole Sodium (Protonix) 20 mg DAILY PO 01/27/17 09:00 02/04/17 08:45 Simethicone (Phazyme Chew) 125 mg Q8HR PO 01/27/17 14:00 02/04/17 08:45 Morphine Sulfate (Morphine Inj) 4 mg Q3H PRN IV PUSH pain 1-10 02/02/17 19:00 02/10/17 07:52 Sodium Chloride (NS Flush) 5 ml Q21D IV FLUSH 02/03/17 06:15 02/06/17 03:37 Heparin Sodium (Porcine) (Heparin Central Flush) 500 units Q21D IV FLUSH 02/03/17 06:15 02/03/17 06:15 Sodium Chloride (NS Flush) 5 ml UNSCH PRN IV FLUSH SEE LABEL COMMENTS 02/03/17 06:15 02/07/17 06:48 Heparin Sodium (Porcine) (Heparin Central Flush) 250 units UNSCH PRN IV FLUSH FLUSH AFTER USING IV ACCESS 02/03/17 06:15 02/04/17 05:05 Fentanyl (Duragesic 50 Mcg Patch.72 Hr) 1 patch Q3D T-DERMAL 02/07/17 09:00 02/07/17 09:42 Sodium Chloride 11 meq/Sodium Acetate 59 meq/ Potassium Chloride 40 meq/ Sodium Phosphate 40 meq/Magnesium Chloride 10 meq/ Calcium Chloride 9 meq/ Multivitamins 10 ml/Folic Acid 1 mg/Amino Acids/ Dextrose 2,084.1437 ml @ 83 mls/hr Q24H IV-CENTRAL 02/09/17 20:00 02/09/17 20:13 Objective Remarks GENERAL: chronically ill male upright in bed, in good spirits. SKIN: Warm and dry. HEAD: Normocephalic. EYES: No injection or drainage. NECK: Supple, trachea midline. CARDIOVASCULAR: Regular rate and rhythm RESPIRATORY: Breath sounds equal bilaterally. No accessory muscle use. GASTROINTESTINAL: Abdomen firm, G-tube draining to gravity. EXTREMITIES: No cyanosis, or edema. NEUROLOGICAL: awake and alert. Assessment/Plan Problem List: (1) Metastatic adenocarcinoma ICD Codes: C79.9 - Secondary malignant neoplasm of unspecified site Status: Chronic Assessment 61y/o male with metastatic rectal cancer Plan 1. Metastatic rectal cancer: continuing to consider hospice. is waiting for his sisters to finish touring the [facility] and make a decision for him. 2. SBO: continue pureed diet as tolerated for pleasure with G-tube to gravity. Attending Statement The exam, history, and the medical decision-making described in the above note were completed with the assistance of the mid-level provider. I reviewed and agree with the findings presented. I attest that I had a [id number] encounter with the patient on the same day, and personally performed and documented my assessment and findings in the medical record. patient and sister waiting for transfer to [facility], He is comfortable and G tube draining. situation discussed with them and there is nothing to add. He is accepting and even cheerful in the face of terminal illness. Deedee Miranda Feb 10, 2017 09:34 Paulino Edward MD Feb 10, 2017 11:17
[2017-02-10] MEDS: fentaNYL 50 MCG/HR PATCH T-DERMAL SCH (09:55)
[2017-02-10] MEDS: PANTOPRAZOLE SOD 20 MG DELAYED RELEASE TAB PO SCH (09:55)
[2017-02-10] MEDS: SODIUM CHLORIDE 0.9% FLUSH 10 ML FLUSH IV FLUSH SCH (09:55)
[2017-02-10] MEDS: ENOXAPARIN SODIUM 40 MG/0.4 ML SYRINGE SQ SCH (14:15)
--- NOTE | 2017-02-10 15:37 | HHI.PR ---
Subjective Remarks Follow SBO/Mets cancer 02/10/17-Patient seen and examined, no acute event, sister by the bedside and both are agreable for discharge to Hospice Objective Vitals Vital Signs Date Time Temp Pulse Resp B/P (MAP) Pulse Ox O2 Delivery O2 Flow Rate FiO2 02/10/17 14:32 16 02/10/17 12:00 97.3 98 18 132/77 (95) 96 02/10/17 11:16 14 02/10/17 08:00 98.3 74 16 115/74 (88) 96 02/10/17 07:15 82 02/10/17 07:00 97.9 84 18 115/75 (88) 99 02/10/17 04:10 79 02/10/17 00:09 77 02/09/17 20:10 75 02/09/17 19:42 98.8 78 16 104/74 (84) 99 I/O 02/09/17 02/09/17 02/09/17 02/10/17 02/10/17 02/10/17 07:00 15:00 23:00 07:00 15:00 23:00 Intake Total 960 ml 1230 ml Output Total 525 ml 750 ml 825 ml Balance -525 ml 210 ml 405 ml Intake Oral 960 ml 480 ml IV Total 750 ml Output Urine Total 200 ml 750 ml 175 ml Gastric Drainage Total 325 ml 650 ml Result Diagram: 02/08/17 0600 02/10/17 0640 Imaging Last Impressions Abdomen X-Ray 02/04/17 0000 Signed Impressions: Service Date/Time: Saturday, February 04, 2017 11:58 - CONCLUSION: Free air in the abdomen however the patient has had a recent interventional procedure. Visualized bowel gas pattern is unremarkable. Lung bases are clear. Ruddy Scales MD Gastrostomy Tube Placement 02/02/17 0000 Signed Impressions: Service Date/Time: Thursday, February 02, 2017 17:15 - CONCLUSION: Uncomplicated gastrostomy tube placement as above. Romero Tubbs MD Small Bowel X-Ray 01/30/17 0600 Signed Impressions: Service Date/Time: Monday, January 30, 2017 10:20 - CONCLUSION: Small bowel ileus with slow transit of contrast through the small intestinal tract. Due to the dilutional effect leading edge of the contrast cannot be clearly identified. Consideration should be given to followup imaging with an enhanced CT of the abdomen and pelvis. Mansoor Arthur MD Abdomen/Pelvis CT 01/25/17 1037 Signed Impressions: Service Date/Time: January 12:30 - CONCLUSION: Small bowel distention concerning for obstruction. Minimal ascites. Left renal cyst. Hermelindo Mcghee MD Objective Remarks GENERAL: NAD SKIN: Warm and dry. HEAD: Normocephalic. EYES: No scleral icterus. No injection or drainage. NECK: Supple, trachea midline. No JVD or lymphadenopathy. CARDIOVASCULAR: Regular rate and rhythm without murmurs, gallops, or rubs. RESPIRATORY: Breath sounds equal bilaterally. No accessory muscle use. GASTROINTESTINAL: Abdomen soft, non-tender, distended. G tube in place MUSCULOSKELETAL: No cyanosis, or edema. BACK: Nontender without obvious deformity. No CVA tenderness. Procedures G-tube placement by IR on 02/02/17. A/P Problem List: (1) Small bowel obstruction ICD Code: K56.609 - Unspecified intestinal obstruction, unspecified as to partial versus complete obstruction Status: Acute (2) Ileus ICD Code: K56.7 - Ileus, unspecified (3) History of colon cancer, stage IV ICD Code: Z85.038 - Personal history of other malignant neoplasm of large intestine Status: Chronic (4) Abdominal pain ICD Code: R10.9 - Unspecified abdominal pain Status: Chronic (5) Nausea ICD Code: R11.0 - Nausea Assessment and Plan 61 year-old male with Small bowel obstruction versus ileus G-tube placed to gravity when necessary for nausea. Patient is awaiting for possible discharge to Hospice care center Appreciate input from Palliative care center Rectal cancer stage 4 with abdominal pain Appreciate input from Oncology Awaiting discharge to Hospice care center Continue pain control with fentanyl patch 25 g daily. Tobacco use Cessation recommended Hyponatremia Replaced DVT prophylaxis Lovenox Problem Qualifiers (1) Abdominal pain: Qualified Codes: R10.32 - Left lower quadrant pain Hermelindo Sky MD Feb 10, 2017 15:37
--- NOTE | 2017-02-10 16:33 | HHI.DS ---
Discharge Summary Admission Date Jan 25, 2017 at 13:22 Discharge Date: Feb 10, 2017 Admitting Diagnosis SBO (1) Small bowel obstruction ICD Code: K56.609 - Unspecified intestinal obstruction, unspecified as to partial versus complete obstruction Status: Acute (2) Ileus ICD Code: K56.7 - Ileus, unspecified (3) History of colon cancer, stage IV ICD Code: Z85.038 - Personal history of other malignant neoplasm of large intestine Status: Chronic (4) Abdominal pain ICD Code: R10.9 - Unspecified abdominal pain Status: Chronic (5) Nausea ICD Code: R11.0 - Nausea Procedures G-tube placement by IR on 02/02/17. Brief History - From Admission 61 y/o male with a history of stage 4 colon cancer, currently on palliative chemotherapy following with Dr Hightower oncology. Patient comes in complaining of abdominal pain with nausea and vomiting x3 days worsening this morning. He says the pain is been going on for the past few days and is getting worse. He says that he has been having issues having bowel movements, but seems to be having some diarrhea. He does report that his abdomen is bloated. He has history of metastatic rectal carcinoma. Currently receiving palliative chemotherapy with Dr Hightower. He denies fever or chills. He has pain medicine at home, but says he has not been taking it because it causes constipation. Patient had enema yesterday with some stool but still feel constipated. No fever or chills. Says he wants to get better and to eat. No fever or chills. CBC/BMP: 02/08/17 0600 02/10/17 0640 Significant Findings Laboratory Tests Test 02/08/17 06:00 02/10/17 06:40 Red Blood Count 4.37 MIL/MM3 (4.50-5.90) Hemoglobin 11.3 GM/DL (13.0-17.0) Hematocrit 34.1 % (39.0-51.0) Mean Corpuscular Volume 78.1 FL (80.0-100.0) Mean Corpuscular Hemoglobin 25.9 PG (27.0-34.0) Monocytes (%) (Auto) 17.7 % (0.0-8.0) Monocytes # (Auto) 1.4 TH/MM3 (0-0.9) Albumin 2.2 GM/DL (3.4-5.0) Alkaline Phosphatase 273 U/L (45-117) Total Bilirubin 1.3 MG/DL (0.2-1.0) Sodium Level 131 MEQ/L (136-145) 128 MEQ/L (136-145) Potassium Level 3.3 MEQ/L (3.5-5.1) 3.0 MEQ/L (3.5-5.1) Chloride Level 89 MEQ/L (98-107) 84 MEQ/L (98-107) Carbon Dioxide Level 34.9 MEQ/L (21.0-32.0) 36.2 MEQ/L (21.0-32.0) Calcium Level 8.3 MG/DL (8.5-10.1) Imaging Last Impressions Abdomen X-Ray 02/04/17 0000 Signed Impressions: Service Date/Time: Saturday, February 04, 2017 11:58 - CONCLUSION: Free air in the abdomen however the patient has had a recent interventional procedure. Visualized bowel gas pattern is unremarkable. Lung bases are clear. Ruddy Scales MD Gastrostomy Tube Placement 02/02/17 0000 Signed Impressions: Service Date/Time: Thursday, February 02, 2017 17:15 - CONCLUSION: Uncomplicated gastrostomy tube placement as above. Romero Tubbs MD Small Bowel X-Ray 01/30/17 0600 Signed Impressions: Service Date/Time: Monday, January 30, 2017 10:20 - CONCLUSION: Small bowel ileus with slow transit of contrast through the small intestinal tract. Due to the dilutional effect leading edge of the contrast cannot be clearly identified. Consideration should be given to followup imaging with an enhanced CT of the abdomen and pelvis. Mansoor Arthur MD Abdomen/Pelvis CT 01/25/17 1037 Signed Impressions: Service Date/Time: January 12:30 - CONCLUSION: Small bowel distention concerning for obstruction. Minimal ascites. Left renal cyst. Hermelindo Mcghee MD PE at Discharge GENERAL: NAD SKIN: Warm and dry. HEAD: Normocephalic. EYES: No scleral icterus. No injection or drainage. NECK: Supple, trachea midline. No JVD or lymphadenopathy. CARDIOVASCULAR: Regular rate and rhythm without murmurs, gallops, or rubs. RESPIRATORY: Breath sounds equal bilaterally. No accessory muscle use. GASTROINTESTINAL: Abdomen soft, non-tender, distended. G tube in place MUSCULOSKELETAL: No cyanosis, or edema. BACK: Nontender without obvious deformity. No CVA tenderness. Hospital Course Prior to discharge to home with hospice, patient was treated for Small bowel obstruction versus ileus G-tube placed Palliative care medicine was consulted Rectal cancer stage 4 with abdominal pain Appreciate input from Oncology He was treated with fentanyl patch 25 g daily. Tobacco use Cessation recommended Hyponatremia Replaced DVT prophylaxis Lovenox Pt Condition on Discharge: Guarded Discharge Disposition: Hospice/ Home Discharge Time: > 30 minutes Discharge Instructions DIET: Follow Instructions for: On Tube Feeding Activities you can perform: Regular-No Restrictions Follow up Referrals: Oncology PCP Follow-up - 1 Week New Medications: Fentanyl (Duragesic) 50 Mcg/Hour Patch.td72 1 PATCH T-DERMAL Q3D for Pain, #10 PATCH Continued Medications: Hydromorphone (Dilaudid) 4 Mg Tab 4 MG PO Q4H PRN for PAIN, #20 TAB 0 Refills DO NOT USE THIS MEDICINE IF YOU WILL DRIVE A CAR OR USE A MACHINE, ONLY USE IT WHEN RESTING AT HOME. Hermelindo Sky MD Feb 10, 2017 16:33
[2017-02-10] MEDS ORDERED: FENT50T T-DERMAL (16:34)
== END 2017-02-10 20:49 | disposition hospice, home (50) | DRG 375 ==
LOC: NEPE 10:13 → NEDA 13:22 → N06A 16:43 → N06B 01-27 20:19 → N06A 01-27 20:19 → HCIN 01-28 18:30
PROVIDERS: ADMIT Hospitalist; ATTEND Hospitalist
PROC: 0DH63UZ Insertion of Feeding Device into Stomach, Percutaneous Approach (ICD-10-PCS; principal; 2017-02-02)
DX: C78.6 Secondary malignant neoplasm of retroperitoneum and peritoneum (principal); E87.1 Hypo-osmolality and hyponatremia; R18.8 Other ascites; E46 Unspecified protein-calorie malnutrition; N28.1 Cyst of kidney, acquired; C20 Malignant neoplasm of rectum; Z68.1 Body mass index [BMI] 19.9 or less, adult; E87.6 Hypokalemia; Z51.5 Encounter for palliative care; R62.7 Adult failure to thrive; F17.290 Nicotine dependence, other tobacco product, uncomplicated; K59.00 Constipation, unspecified; G89.3 Neoplasm related pain (acute) (chronic)
CPT/HCPCS: 49440; 74000; 74177; 74250; 80048; 80053; 81001; 82948; 83605; 83735; 84100; 84134; 85025; 85027; 85610; 85730; 96374; 96375; 99152; 99153; C9113; J1170; J1610; J1642; J1650; J2250; J2270; J2405; J2765; J3010; J3480; J7030; Q9963; Q9967